=== PATIENT | female | born 1950 | race Hispanic/Latino ===

== ENCOUNTER 2018-11-03 10:40 | Observation (INO) | payer OTHER ==
[2018-11-03] MEDS ORDERED: ASPIRIN EC 81 MG TAB PO ONE (11:28)
[2018-11-03] MEDS ORDERED: PANTOPRAZOLE 40 MG INJ ONE (11:28)
[2018-11-03] MEDS ORDERED: ONDANSETRON 4 MG/2 ML VIAL ONE ×2 (11:28→12:31)
[2018-11-03] MEDS ORDERED: ENOXAPARIN 100 MG/ML SYR SQ ONE (11:28)
[2018-11-03] MEDS ORDERED: MORPHINE 2 MG/ML SYR ONE (11:28)
[2018-11-03 11:34] LABS: Urine Blood NEGATIVE (NEG); Urine Glucose NEGATIVE (NEG); Urine Protein NEGATIVE (NEG)
--- NOTE | 2018-11-03 11:41 | ER ---
Nurse's Notes [facility] Name: Eloisa Aparicio Age: 68 yrs Sex: Female : 1950 Arrival Date: 11/03/2018 Time: 10:43 Bed 13 Private MD: Diagnosis: Chest pain, unspecified;Essential (primary) hypertension Presentation: 11/03 10:45 Presenting complaint: Patient states: intermittent midsternal/epigastric chest pain, sv SOB, nausea x 2 weeks, RLE pain x 3 days ago and cold symptoms. Transition of care: patient was not received from another setting of care. Onset of symptoms was October 2018. Care prior to arrival: None. 10:45 Method Of Arrival: Ambulatory sv 10:45 Acuity: ÁNGEL 3 sv 11:00 Risk Assessment: Do you want to hurt yourself or someone else? Patient reports no jl7 desire to harm self or others. Initial Sepsis Screen: Does the patient meet any 2 criteria? No. Patient's initial sepsis screen is negative. Does the patient have a suspected source of infection? No. Patient's initial sepsis screen is negative. Triage Assessment: 10:47 General: Appears in no apparent distress. uncomfortable, Behavior is calm, cooperative, sv appropriate for age. Pain: Complains of pain in xyphoid area, mid-sternal area and epigastric area Pain currently is 2 out of 10 on a pain scale. Neuro: Level of Consciousness is awake, alert, obeys commands, Oriented to person, place, time, situation, Moves all extremities. Full function Gait is steady. Respiratory: Respiratory effort is even, unlabored, Respiratory pattern is regular, symmetrical. Historical: - Allergies: 10:46 No Known Allergies; sv - PMHx: 10:46 Hypertension; restless leg; sciatica; GERD; [place]; sv - PSHx: 10:46 Hysterectomy; Cholecystectomy; cardiac stent; sv - Immunization history:: Flu vaccine is up to date. - Social history:: Smoking status: Patient/guardian denies using tobacco. - Ebola Screening: : No symptoms or risks identified at this time. - Family history:: not pertinent. Screenin:33 Abuse screen: Denies threats or abuse. Denies injuries from another. Nutritional jl7 screening: No deficits noted. Tuberculosis screening: No symptoms or risk factors identified. Fall Risk IV access (20 points). Total Chou Fall Scale indicates No Risk (0-24 pts). Assessment: 11:33 General: Appears in no apparent distress. uncomfortable, Behavior is calm, cooperative, jl7 appropriate for age. Pain: Complains of pain in epigastric area and mid-sternal area Pain does not radiate. Pain currently is 2 out of 10 on a pain scale. Quality of pain is described as squeezing, Pain began 2-3 days ago. Is episodic. Neuro: Level of Consciousness is awake, alert, obeys commands, Oriented to person, place, time, situation. Cardiovascular: Heart tones S1 S2 present Patient's skin is warm and dry. Respiratory: Reports cough that is productive, Airway is patent Respiratory effort is even, unlabored, Respiratory pattern is regular, symmetrical, Breath sounds are clear bilaterally. GI: No signs and/or symptoms were reported involving the gastrointestinal system. : No signs and/or symptoms were reported regarding the genitourinary system. EENT: No signs and/or symptoms were reported regarding the EENT system. Derm: Skin is pink, warm \T\ dry. Musculoskeletal: No signs and/or symptoms reported regarding the musculoskeletal system. 12:15 Reassessment: Pt c/o increased chest pain, rated 10/10, Repeat EKG done and provider oanh7 notified, see MAR for orders. 13:00 Reassessment: Reports pain has decreased to a 8/10. Patient states symptoms have jl7 improved. 13:27 Reassessment: Dr. Vazquez at bedside discussing plan of care. jl7 Vital Signs: 10:46 BP 103 / 91; Pulse 66; Resp 16; Temp 98.2; Pulse Ox 100% ; Weight 90.72 kg; Height 5 sv ft. 0 in. (152.40 cm); Pain 2/10; 11:33 BP 126 / 73; Pulse 64; Resp 16 S; Pulse Ox 97% on R/A; Pain 2/10; jl7 12:15 BP 199 / 85; Pulse 63; Resp 16; Pulse Ox 98% ; Pain 10/10; jl7 13:27 BP 176 / 85; Pulse 64; Resp 18; Pulse Ox 96% ; Pain 8/10; jl7 10:46 Body Mass Index 39.06 (90.72 kg, 152.40 cm) sv ED Course: 10:43 Patient arrived in ED. tw3 10:46 Triage completed. sv 10:46 Arm band placed on. sv 10:48 José Miguel Vazquez MD is Attending Physician. louie 10:50 Brandie Maharaj RN is Primary Nurse. jl7 11:15 Initial lab(s) drawn, by me, sent to lab. Inserted saline lock: 20 gauge in right jl7 antecubital area, using aseptic technique. Blood collected. Patient maintains SpO2 saturation greater than 95% on room air. 11:32 Urine collected: clean catch specimen, clear. mh5 11:33 Patient has correct armband on for positive identification. Placed in gown. Bed in low mh5 position. Call light in reach. Side rails up X 1. Warm blanket given. gambling monitor on. Pulse ox on. NIBP on. 11:33 Urine Culture Sent. mh5 11:33 Urine Dipstick--Ancillary (enter results) Sent. 5 11:34 X-ray completed. Portable x-ray completed in exam room. Patient tolerated procedure ka well. 11:38 XRAY Chest (1 view) In Process Unspecified. EDMS 11:39 Brenda Jenkins MD is Hospitalizing Provider. louie 12:02 EKG done, by emg technician. reviewed by José Miguel Vazquez MD. vh 13:32 No provider procedures requiring assistance completed. Patient admitted, IV remains in jl7 place. intact, No redness/swelling at site. Administered Medications: 11:19 Drug: Aspirin 162 mg Route: PO; jl7 12:00 Follow up: Response: No adverse reaction jl7 11:20 Drug: ProTONIX 40 mg Route: IVP; Site: right antecubital; jl7 12:00 Follow up: Response: No adverse reaction jl7 11:24 Drug: Zofran 4 mg Route: IVP; Site: right antecubital; jl7 11:50 Follow up: Response: No adverse reaction jl7 11:28 Drug: morphine 2 mg Route: IVP; Site: right antecubital; jl7 13:07 Follow up: Response: No adverse reaction; Pain is decreased jl7 11:30 Drug: Lovenox 1 mg/kg Route: Sub-Q; Site: right upper abdomen; jl7 12:00 Follow up: Response: No adverse reaction jl7 12:25 Drug: Zofran 4 mg Route: IVP; Site: right antecubital; jl7 12:55 Follow up: Response: No adverse reaction jl7 12:28 Drug: morphine 4 mg Route: IVP; Site: right antecubital; jl7 12:55 Follow up: Response: No adverse reaction; Pain is decreased jl7 Outcome: 11:40 Decision to Hospitalize by Provider. louie 13:32 Admitted to Tele accompanied by tech, via wheelchair, room 404, with chart, Report jl7 called to JOVITA Oro 13:32 Condition: stable 13:32 Discharge instructions given to patient, Instructed on the need for admit, Demonstrated understanding of instructions. 14:02 Patient left the ED. jl7 Signatures: Dispatcher [employer] Mariaa Bruce, José Miguel Han RN, MD MD cha Harrell, Venessa vh Aguilera, Nohelia Langley [place] [id number] Brandie Maharaj RN RN jl7 Edgard, Rosa Elena tw3
--- NOTE | 2018-11-03 11:41 | EDPHYS ---
Physician Documentation [facility] Name: Eloisa Aparicio Age: 68 yrs Sex: Female : 1950 Arrival Date: 11/03/2018 Time: 10:43 Bed 13 Private MD: ED Physician José Miguel Vazquez HPI: 11/03 11:11 This 68 yrs old Female presents to ER via Ambulatory with complaints of Chest louie Pain, Flu Symptoms. 11:11 The patient or guardian reports chest pain that is located primarily in the substernal louie area, anterior chest wall. Onset: 2 day(s) ago. The pain radiates to Associated signs and symptoms: The patient has no apparent associated signs or symptoms. The chest pain is described as a heaviness, causing indigestion, a pressure. Duration: The patient or guardian reports a single episode, that is still ongoing. Severity of pain: At its worst the pain was moderate in the emergency department the pain has improved moderately. The patient has experienced similar episodes in the past, several times. Historical: - Allergies: 10:46 No Known Allergies; sv - PMHx: 10:46 Hypertension; restless leg; sciatica; GERD; [place]; sv - PSHx: 10:46 Hysterectomy; Cholecystectomy; cardiac stent; sv - Immunization history:: Flu vaccine is up to date. - Social history:: Smoking status: Patient/guardian denies using tobacco. - Ebola Screening: : No symptoms or risks identified at this time. - Family history:: not pertinent. ROS: 11:11 Constitutional: Negative for fever, chills, and weight loss, Eyes: Negative for injury, louie pain, redness, and discharge, ENT: Negative for injury, pain, and discharge, Neck: Negative for injury, pain, and swelling, Respiratory: Negative for shortness of breath, cough, wheezing, and pleuritic chest pain, Abdomen/GI: Negative for abdominal pain, nausea, vomiting, diarrhea, and constipation, Back: Negative for injury and pain, : Negative for injury, bleeding, discharge, and swelling, MS/Extremity: Negative for injury and deformity, Skin: Negative for injury, rash, and discoloration, Neuro: Negative for headache, weakness, numbness, tingling, and seizure, Psych: Negative for depression, anxiety, suicide ideation, homicidal ideation, and hallucinations, Allergy/Immunology: Negative for hives, rash, and allergies, Endocrine: Negative for neck swelling, polydipsia, polyuria, polyphagia, and marked weight changes, Hematologic/Lymphatic: Negative for swollen nodes, abnormal bleeding, and unusual bruising. 11:11 Cardiovascular: Positive for chest pain, of the chest. Exam: 11:11 Constitutional: This is a well developed, well nourished patient who is awake, alert, louie and in no acute distress. Head/Face: Normocephalic, atraumatic. Eyes: Pupils equal round and reactive to light, extra-ocular motions intact. Lids and lashes normal. Conjunctiva and sclera are non-icteric and not injected. Cornea within normal limits. Periorbital areas with no swelling, redness, or edema. ENT: Nares patent. No nasal discharge, no septal abnormalities noted. Tympanic membranes are normal and external auditory canals are clear. Oropharynx with no redness, swelling, or masses, exudates, or evidence of obstruction, uvula midline. Mucous membranes moist. Neck: Trachea midline, no thyromegaly or masses palpated, and no cervical lymphadenopathy. Supple, full range of motion without nuchal rigidity, or vertebral point tenderness. No Meningismus. Chest/axilla: Normal chest wall appearance and motion. Nontender with no deformity. No lesions are appreciated. Cardiovascular: Regular rate and rhythm with a normal S1 and S2. No gallops, murmurs, or rubs. Normal PMI, no JVD. No pulse deficits. Respiratory: Lungs have equal breath sounds bilaterally, clear to auscultation and percussion. No rales, rhonchi or wheezes noted. No increased work of breathing, no retractions or nasal flaring. Abdomen/GI: Soft, non-tender, with normal bowel sounds. No distension or tympany. No guarding or rebound. No evidence of tenderness throughout. Back: No spinal tenderness. No costovertebral tenderness. Full range of motion. Skin: Warm, dry with normal turgor. Normal color with no rashes, no lesions, and no evidence of cellulitis. MS/ Extremity: Pulses equal, no cyanosis. Neurovascular intact. Full, normal range of motion. Neuro: Awake and alert, GCS 15, oriented to person, place, time, and situation. Cranial nerves II-XII grossly intact. Motor strength 5/5 in all extremities. Sensory grossly intact. Cerebellar exam normal. Normal gait. Psych: Awake, alert, with orientation to person, place and time. Behavior, mood, and affect are within normal limits. 11:11 Musculoskeletal/extremity: DVT Exam: No signs of deep vein thrombosis. no pain, no swelling, no tenderness, negative Homans' sign noted on exam, no appreciated bluish discoloration, no erythema, no increased warmth. Vital Signs: 10:46 BP 103 / 91; Pulse 66; Resp 16; Temp 98.2; Pulse Ox 100% ; Weight 90.72 kg; Height 5 sv ft. 0 in. (152.40 cm); Pain 2/10; 11:33 BP 126 / 73; Pulse 64; Resp 16 S; Pulse Ox 97% on R/A; Pain 2/10; jl7 12:15 BP 199 / 85; Pulse 63; Resp 16; Pulse Ox 98% ; Pain 10/10; jl7 13:27 BP 176 / 85; Pulse 64; Resp 18; Pulse Ox 96% ; Pain 8/10; jl7 10:46 Body Mass Index 39.06 (90.72 kg, 152.40 cm) sv MDM: 10:48 Patient medically screened. [facility] 11:15 Data reviewed: vital signs, nurses notes, lab test result(s), EKG, radiologic studies, louie plain films. 11/03 11:10 Order name: Basic Metabolic Panel; Complete Time: 12:13 [facility] 11/03 11:10 Order name: CBC with Diff [facility] 11/03 11:10 Order name: LFT's; Complete Time: 12:13 [facility] 11/03 11:10 Order name: Magnesium; Complete Time: 12:13 [facility] 11/03 11:10 Order name: NT PRO-BNP; Complete Time: 12:13 [facility] 11/03 11:10 Order name: PT-INR; Complete Time: 12:13 [facility] 11/03 11:10 Order name: Troponin (emerg Dept Use Only); Complete Time: 12:13 [facility] 11/03 11:10 Order name: XRAY Chest (1 view); Complete Time: 12:13 [facility] 11/03 11:10 Order name: Lipase; Complete Time: 12:13 [facility] 11/03 11:10 Order name: Urine Culture [facility] 11/03 11:13 Order name: Urine Dipstick--Ancillary (enter results); Complete Time: 12:13 eb 11/03 11:50 Order name: CBC Smear Scan EDMS 11/03 10:49 Order name: EKG; Complete Time: 10:50 sv 11/03 10:49 Order name: EKG - Nurse/Tech; Complete Time: 11:17 sv 11/03 11:10 Order name: Cardiac monitoring; Complete Time: 11:17 louie 11/03 11:10 Order name: IV Saline Lock; Complete Time: 11:17 louie 11/03 11:10 Order name: Labs collected and sent; Complete Time: 11:17 louie 11/03 11:10 Order name: O2 Per Protocol; Complete Time: 11:17 louie 11/03 11:10 Order name: O2 Sat Monitoring; Complete Time: 11:17 louie 11/03 11:10 Order name: Urine Dipstick-Ancillary (obtain specimen); Complete Time: 11:18 louie Administered Medications: 11:19 Drug: Aspirin 162 mg Route: PO; jl7 12:00 Follow up: Response: No adverse reaction jl7 11:20 Drug: ProTONIX 40 mg Route: IVP; Site: right antecubital; jl7 12:00 Follow up: Response: No adverse reaction jl7 11:24 Drug: Zofran 4 mg Route: IVP; Site: right antecubital; jl7 11:50 Follow up: Response: No adverse reaction jl7 11:28 Drug: morphine 2 mg Route: IVP; Site: right antecubital; jl7 13:07 Follow up: Response: No adverse reaction; Pain is decreased jl7 11:30 Drug: Lovenox 1 mg/kg Route: Sub-Q; Site: right upper abdomen; jl7 12:00 Follow up: Response: No adverse reaction jl7 12:25 Drug: Zofran 4 mg Route: IVP; Site: right antecubital; jl7 12:55 Follow up: Response: No adverse reaction jl7 12:28 Drug: morphine 4 mg Route: IVP; Site: right antecubital; jl7 12:55 Follow up: Response: No adverse reaction; Pain is decreased jl7 Disposition: 11/03/18 11:40 Hospitalization ordered by Brenda Jenkins for Observation. Preliminary diagnosis are Chest pain, unspecified, Essential (primary) hypertension. - Bed requested for Telemetry/MedSurg (observation). - Status is Observation. jl7 - Condition is Stable. - Problem is new. - Symptoms have improved. UTI on Admission? No Signatures: Dispatcher [employer] Mariaa Bruce, José Miguel Han RN, MD MD cha Leal, Jahala, RN RN jl7 Wanda Brenner RN RN df Corrections: (The following items were deleted from the chart) 12: 11:40 Hospitalization Ordered by Brenda Jenkins MD for Observation. Preliminary df diagnosis is Chest pain, unspecified; Essential (primary) hypertension. Bed requested for Telemetry/MedSurg (observation). Status is Observation. Condition is Stable. Problem is new. Symptoms have improved. UTI on Admission? No. [facility] 14:02 12:27 11/03/2018 11:40 Hospitalization Ordered by Brenda Jenkins MD for Observation. jl7 Preliminary diagnosis is Chest pain, unspecified; Essential (primary) hypertension. Bed requested for Telemetry/MedSurg (observation). Status is Observation. Condition is Stable. Problem is new. Symptoms have improved. UTI on Admission? No. df
[2018-11-03 11:44] LABS: Protime INR 1.1
--- NOTE | 2018-11-03 11:45 | RAD REPORT ---
EXAM DESCRIPTION: [place] Single View11/03/2018 11:38 am CLINICAL HISTORY: Chest pain COMPARISON: August 2017 FINDINGS: The lungs appear clear of acute infiltrate. The heart is normal size IMPRESSION: No acute abnormalities displayed
[2018-11-03 11:47] LABS: Absolute Lymphocytes (CBC) 3.4 K/uL (0.7-4.9); Absolute Monocytes 0.6 K/uL (0.1-1.3); Absolute Neutrophil 3.7 K/uL (1.8-8.0); Basophils % 1.4 % (0-1.3); Eosinophils % 4.6 % (0-4.4); Hematocrit 39.9 % (36.0-45.0); Lymphocytes % 41.7 % (15.3-44.8); MCH 29.4 pg (27.0-35.0); MCV 85.7 fL (80-100); MPV 9.5 fL (7.6-11.3); Monocytes % 6.9 % (3.3-12.3); RBC Red Blood Cell Count 4.65 M/uL (3.86-4.86)
[2018-11-03 12:00] LABS: BUN Blood Urea Nitrogen 11 mg/dL (7-18); Bicarbonate 27 mmol/L (21-32); Glucose Level 91 mg/dL (74-106); Potassium 3.6 mmol/L (3.5-5.1); Sodium Level 141 mmol/L (136-145)
[2018-11-03 12:01] LABS: ALT/SGPT 22 U/L (12-78); AST/SGOT 16 U/L (15-37); Albumin 3.9 g/dL (3.4-5.0); Alkaline Phosphatase 115 U/L (45-117); Bilirubin Direct 0.1 mg/dL (0-0.2); Bilirubin Total 0.3 mg/dL (0.2-1.0); Lipase 125 U/L (73-393); Magnesium 2.1 mg/dL (1.8-2.4); NT PRO-BNP 62 pg/mL (<125); Troponin (Emerg Dept Use Only) < 0.02 ng/mL (0.0-0.045)
[2018-11-03] MEDS ORDERED: MORPHINE 4 MG/ML SYR ONE (12:30)
[2018-11-03 14:01] VITALS: BMI 36.1
[2018-11-03 14:17] LABS: Blood Morphology Comment NOT SEEN (NOT SEEN); Platelet Estimate ADEQ; Urine White Blood Cell Casts OK
[2018-11-03 14:26] VITALS: O2SAT 96
[2018-11-03] MEDS ORDERED: ONDANSETRON 4 MG/2 ML VIAL IV PRN (14:30)
[2018-11-03] MEDS ORDERED: POTASSIUM 25 MEQ EFFERV TAB PO ONE (16:00)
[2018-11-03] MEDS: ACETAMINOPHEN 500 MG TAB PO PRN (21:05)
--- NOTE | 2018-11-03 22:42 | EKG ---
Test Date: 2018-11-03 Test Time: 10:48:49 Heater Tender: CLARE MEASUREMENT RESULTS: Intervals: Rate: 63 NJ: 150 QRSD: 102 QT: 402 QTc: 411 [place]: P: 5 NJ: 150 QRS: -17 T: 109 INTERPRETIVE STATEMENTS: Normal sinus rhythm T wave abnormality, consider anterior ischemia Abnormal ECG Compared to ECG 09/02/2017 11:06:06 T-wave abnormality now present Possible ischemia now present Sinus bradycardia no longer present Electronically Signed On 11-03-18 22:42:03 WRECKER OPERATOR by Janusz Lazcano
[2018-11-04 06:43] LABS: Absolute Lymphocytes (CBC) 2.4 K/uL (0.7-4.9); Absolute Monocytes 0.5 K/uL (0.1-1.3); Absolute Neutrophil 2.1 K/uL (1.8-8.0); Basophils % 1.4 % (0-1.3); Eosinophils % 8.1 % (0-4.4); Hematocrit 38.7 % (36.0-45.0); Lymphocytes % 43.9 % (15.3-44.8); MCH 29.3 pg (27.0-35.0); MCV 86.3 fL (80-100); MPV 9.7 fL (7.6-11.3); Monocytes % 8.6 % (3.3-12.3); RBC Red Blood Cell Count 4.49 M/uL (3.86-4.86)
[2018-11-04 06:57] LABS: Albumin 3.5 g/dL (3.4-5.0); Bilirubin Total 0.5 mg/dL (0.2-1.0); Magnesium 2.2 mg/dL (1.8-2.4); Phosphorus 4.4 mg/dL (2.5-4.9); Potassium 3.7 mmol/L (3.5-5.1); Protein, Total 7.2 g/dL (6.4-8.2)
[2018-11-04] MEDS ORDERED: REGADENOSON 0.4 MG/5 ML SYR IV ONE (08:52)
[2018-11-04] MEDS ORDERED: ENOXAPARIN 40 MG/0.4 ML SQ SCH (09:00)
--- NOTE | 2018-11-04 10:22 | TREADPHA ---
DX: CHEST PAIN Date of Study: 11/04/2018 Ht: 5 0 Wt: 185 lb 0 oz Consulting Physician: KRISTINA MEDICATIONS: TYLENOL, LOVENOX, ZOFRAN HISTORY: 68 YEAR OLD FEMALE WITH COMPLAINTS OF CHEST PAIN. MEDICAL HISTORY OF HYPERTENSION, GERD, MYOCARDIAL INFARCTION, CARDIAC STENTS AND RESTLESS LEG SYNDROME. PHYSICIAL EXAMINATION: RESTING B.P.: 132/67 RESTING H.R.: 62 RESTING EKG: SINUS RHYTHM. NON SPECIFIC T ABNORMALITY, FLAT T WAVE. PROTOCOL: LEXISCAN EXERCISE TIME: 3:30 B.P. AT PEAK STRESS: 170/92 IMPRESSION: LEXISCAN INJECTED. CARDIOLITE INJECTED PER PROTOCOL. SEE NUCLEAR MEDICINE REPORT. NO SUPRAVENTRICULAR OR VENTRICULAR TACHYCARDIA. DENIED ANY CHEST PAIN. ONE PREMATURE VENTRICULAR COMPLEX NOTED DURING STRESS. NON DIAGNOSTIC EKG WITH LEXISCAN STRESS.
--- NOTE | 2018-11-04 10:41 | RAD REPORT ---
EXAM DESCRIPTION: NM - Rest Stress Cardiac Imaging - 11/04/2018 10:21 am CLINICAL HISTORY: Chest pain COMPARISON: May 2013 TECHNIQUE: The patient was administered approximately 10 mCi of Tc 99m Sestamibi prior to resting SP ECT imaging of the heart. The patient was then administered approximately 30 mCi of Tc 99m Sestamibi following exercise or pharmacologic stress. Multiplanar SPECT images were reviewed. FINDINGS: The end diastolic volume is 80 ml, the end systolic volume is 25 ml, and the ejection frac tion is 69 %. Volumes and ejection fraction are not substantially different from 2013. No stress-induced ischemic changes identifiable. Minimal diminished activity along the anterior wall apex does not change between rest and stress imaging. This is favored to be breast attenuation artifa ct rather than scarring. Pattern is not substantially different from 2013. IMPRESSION: No stress-induced ischemia. Minimal attenuation artifact anterior wall near the apex. Ventricular volumes and ejection fraction are normal range and not substantially different from 2013.
--- NOTE | 2018-11-04 11:16 | ECHO ---
HEIGHT: 5 ft 0 in WEIGHT: 185 lb 0 oz DATE OF STUDY: 11/04/[address]: 2-DIMENSIONAL: YES M.MODE: YES DOPPLER: YES COLOR FLOW: YES TDS: NO PORTABLE: NO DEFINITY: NO BUBBLE STUDY: NO DIAGNOSIS: CHEST PAIN CARDIAC HISTORY: CATHERIZATION: YES SURGERY: NO PROSTHETIC VALVE: NO PACEMAKER: NO MEASUREMENTS (cm) DIASTOLIC (NORMALS) SYSTOLIC (NORMALS) IVSd 1.3 (0.6-1.2) LA Diam 3.3 (1.9-4.0) LVEF 52% LVIDd 3.4 (3.5-5.7) LVIDs 2.5 (2.0-3.5) %FS 26% LVPWd 1.2 (0.6-1.2) Ao Diam 2.4 (2.0-3.7) 2 DIMENSIONAL ASSESSMENT: RIGHT ATRIUM: NORMAL LEFT ATRIUM: NORMAL RIGHT VENTRICLE: NORMAL LEFT VENTRICLE: LEFT VENTRICULAR HYPERTROPHY TRICUSPID VALVE: NORMAL MITRAL VALVE: MITRAL ANNULAR CALCIFICATION PULMONIC VALVE: NORMAL AORTIC VALVE: SCLEROSIS PERICARDIAL EFFUSION: NONE AORTIC ROOT: NORMAL LEFT VENTRICULAR WALL MOTION: NORMAL DOPPLER/COLOR FLOW: MILD AORTIC REGURGITATION, NO AORTIC STENOSIS. IMPAIRED LEFT VENTRICULAR RELAXATION. PHYSIOLOGICAL TRICUSPID REGURGITATION. NORMAL RIGHT VENTRICULAR SYSTOLIC PRESSURE. COMMENTS: NORMAL LEFT VENTRICULAR EJECTION FRACTION. LEFT VENTRICULAR HYPERTROPHY. MITRAL ANNULAR CALCIFICATION. AORTIC SCLEROSIS WITH NO AORTIC STENOSIS. MILD AORTIC REGURGITATION. IMPAIRED LEFT VENTRICULAR RELAXATION. TECHNOLOGIST: DIA MERLOS RD
[2018-11-04] MEDS: ACETAMINOPHEN 500 MG TAB PO PRN (11:38)
[2018-11-04 11:58] VITALS: BP 112/58; TEMP 98.4
--- NOTE | 2018-11-04 16:40 | P.SSS ---
Patient History Date of Service: 11/04/18 History of Present Illness: Patient 68-year-old female with significant past medical history presented to the ED he needed having some left-sided chest pain that has been getting progressively worse and thus patient decided to come to the ER. Patient was admitted to the hospital for ACS rule out. Initial troponin x2 were negative. Medicine team was consulted to get echocardiogram done and stress test while here in the hospital. Allergies No Known Allergies Allergy (Verified 09/10/12 13:59) Home Medications: Gabapentin 300 mg PO TID 11/03/18 Meloxicam 15 mg PO DAILY PRN 11/03/18 Metoprolol Tartrate 50 mg PO DAILY 11/03/18 Omeprazole [Prilosec] 40 mg PO DAILY 11/03/18 Ondansetron [Zofran] 4 mg PO Q12H PRN 11/03/18 Ranitidine HCl [Zantac] 300 mg PO DAILY 11/03/18 Sertraline HCl 25 mg PO DAILY 11/03/18 Tizanidine HCl 1 cap PO BID 11/03/18 - Past Medical/Surgical History Has patient received pneumonia vaccine in the past: Yes Diabetic: No -: HTN -: Restless Leg -: Sciatica -: GERD, -: HYSTERECTOMY -: Cholecystectomy -: Cardiac Stent - Family History Father History Unknown: Yes Mother -: Liver disease, Other (see notes) Notes: Alcoholic - Social History Smoking Status: Never smoker Alcohol use: No CD- Drugs: No Caffeine use: Yes Place of Residence: Home Review of Systems 10-point ROS is otherwise unremarkable Physical Examination - Vital Signs Temperature: 98.4 F Blood Pressure: 112/58 Pulse: 65 Respirations: 20 Pulse Ox (%): 97 - Physical Exam General: Alert, In no apparent distress HEENT: Atraumatic, PERRLA, Mucous membr. moist/pink, EOMI, Sclerae nonicteric Neck: Supple, 2+ carotid pulse no bruit, No LAD, Without JVD or thyroid abnormality Respiratory: Clear to auscultation bilaterally, Normal air movement Cardiovascular: Regular rate/rhythm, Normal S1 S2 Gastrointestinal: Normal bowel sounds, No tenderness Musculoskeletal: No tenderness Integumentary: No rashes Neurological: Normal gait, Normal speech, Normal strength at 5/5 x4 extr, Normal tone, Normal affect Lymphatics: No axilla or inguinal lymphadenopathy - Diagnosis (Problem(s)) (1) Chest pain Status: Active (2) Hypertension, essential Status: Acute Treatment Summary: Overall during the hospital stay patient remained stable Patient was initially admitted to the hospital for sedate atypical chest pain. Most likely secondary to heartburn as patient does have a history of GERD in the past. Patient however had echocardiogram done here in the hospital along with stress test to rule out ACS. Echo and stress test here in the hospital were both within normal limits with no acute ischemic changes noted. Patient then was discharged home under was asked to continue following up with her GI doctor for further treatment of her GERD. Patient demonstrated understanding and thus was discharged home under stable condition. - Disposition Disposition: ROUTINE DISCHARGE Condition: GOOD Diet: Regular Activity: Ad hever
== END 2018-11-04 14:51 | disposition home or self-care (01) ==
LOC: ER 10:40 → ERHOLD 13:12 → 4TH 13:34
PROVIDERS: ADMIT Family Medicine; ATTEND Family Medicine
DX: R07.9 Chest pain, unspecified (principal); I10 Essential (primary) hypertension; G25.81 Restless legs syndrome; K21.9 Gastro-esophageal reflux disease without esophagitis; Z95.5 Presence of coronary angioplasty implant and graft
CPT/HCPCS: 36415; 71045; 78452; 80048; 80053; 80076; 81003; 83690; 83735 ×2; 83880; 84100; 84484 ×4; 85025 ×2; 85610; 87086; 87088; 93005; 93017; 93306; 96372; 96374; 96375; 99285; A9500; C9113; G0378 ×2; J1650 ×2; J2270; J2405 ×2; J2785

== ENCOUNTER 2019-03-29 11:45 | Observation (INO) | payer OTHER ==
[2019-03-29 12:30] LABS: Absolute Lymphocytes (CBC) 2.3 K/uL (0.7-4.9); Absolute Monocytes 1.2 K/uL (0.1-1.3); Absolute Neutrophil 13.6 K/uL (1.8-8.0); Basophils % 0.7 % (0-1.3); Eosinophils % 0.1 % (0-4.4); Hematocrit 45.8 % (36.0-45.0); Lymphocytes % 13.6 % (15.3-44.8); MPV 9.3 fL (7.6-11.3); Monocytes % 6.8 % (3.3-12.3); RBC Red Blood Cell Count 5.32 M/uL (3.86-4.86)
[2019-03-29] MEDS ORDERED: ONDANSETRON 4 MG/2 ML VIAL ONE ×2 (12:36→15:27)
[2019-03-29 12:44] LABS: Albumin 3.8 g/dL (3.4-5.0); Bilirubin Direct 0.2 mg/dL (0-0.2); Bilirubin Total 0.6 mg/dL (0.2-1.0); Potassium 3.3 mmol/L (3.5-5.1)
--- NOTE | 2019-03-29 13:38 | RAD REPORT ---
EXAM DESCRIPTION: CTAbdomen Pelvis W Contrast - 03/29/2019 1:24 pm CLINICAL HISTORY: Abdominal pain. ABD PAIN COMPARISON: No comparisons TECHNIQUE: Biphasic CT imaging of the abdomen and pelvis was performed with 100 ml non-ionic IV cont rast. All CT scans are performed using dose optimization technique as appropriate and may include automated exposure control or mA/KV adjustment according to patient size. FINDINGS: The lung bases are clear.A small hiatal hernia is present. Mild fatty liver is present. Cholecystectomy clips. The spleen, pancreas, adrenal glands and kidneys are within normal limits. No bowel obstruction, free air, free fluid or abscess. Moderate wall thickening and inflammatory cruz ges involve the entire colon, most significant in the splenic flexure. The appendix is normal. No ev idence of significant lymphadenopathy. No suspicious bony findings. IMPRESSION: Moderate pancolitis is identified.
--- NOTE | 2019-03-29 14:18 | EDPHYS ---
Physician Documentation [facility] Name: Eloisa Aparicio Age: 68 yrs Sex: Female : 1950 Arrival Date: 03/29/2019 Time: 11:50 Bed 13 Private MD: ED Physician Jerzy Coelho HPI: 03/29 12:40 This 68 yrs old Female presents to ER via EMS with complaints of abdominal rn pain. 12:40 The patient presents with abdominal pain that is diffuse. Onset: The symptoms/episode rn began/occurred yesterday. The symptoms do not radiate. Associated signs and symptoms: Pertinent positives: nausea and vomiting, blood in stools, Pertinent negatives: fever. The symptoms are described as crampy. Modifying factors: The symptoms are alleviated by nothing, the symptoms are aggravated by touching the area. Severity of pain: At its worst the pain was moderate in the emergency department the pain has improved. The patient has not experienced similar symptoms in the past. The patient has not recently seen a physician. 12:40 Abd pain that began yesterday, reports bright red blood and mucous in stool. Reports rn generalized weakness and fatigue. S/p abx 2 weeks ago for respiratory infection.. Historical: - Allergies: 12:03 No Known Allergies; ph - Home Meds: 12:02 omeprazole 40 mg Oral cpDR 1 cap once daily [Active]; gabapentin 300 mg oral cap 1 cap ph 3 times per day [Active]; ondansetron HCl 4 mg Oral tab 1 tabs every 12 hours [Active]; sertraline 25 mg oral tab 1 tab once daily [Active]; metoprolol succinate 50 mg oral Tb24 1 tab once daily [Active]; aspirin 81 mg Oral TbEC 1 tab once daily [Active]; - PMHx: 12:02 GERD; Hypertension; NE; restless leg; sciatica; ph - PSHx: 12:02 Hysterectomy; Cholecystectomy; cardiac stent; ph - Immunization history:: Adult Immunizations unknown. - Social history:: Smoking status: Patient/guardian denies using tobacco. - Ebola Screening: : No symptoms or risks identified at this time. - Family history:: not pertinent. - Hospitalizations: : No recent hospitalization is reported. ROS: 12:40 Constitutional: Negative for fever, chills, and weight loss, Eyes: Negative for injury, rn pain, redness, and discharge, Neck: Negative for injury, pain, and swelling, Cardiovascular: Negative for chest pain, palpitations, and edema, Respiratory: Negative for shortness of breath, cough, wheezing, and pleuritic chest pain, Abdomen/GI: + abd pain/nausea/vomiting MS/Extremity: Negative for injury and deformity, Skin: Negative for injury, rash, and discoloration, Neuro: + generalized weakness Exam: 12:40 Constitutional: This is a well developed, well nourished patient who is awake, alert, rn and in no acute distress. Head/Face: Normocephalic, atraumatic. ENT: dry MM Neck: Trachea midline, no thyromegaly or masses palpated, and no cervical lymphadenopathy. Supple, full range of motion without nuchal rigidity, or vertebral point tenderness. No Meningismus. Cardiovascular: Tachycardic, regular, no murmur Respiratory: Lungs have equal breath sounds bilaterally, clear to auscultation Abdomen/GI: soft, mild tenderness LLQ/LUQ/epigastric region, no peritoneal signs. MS/ Extremity: Pulses equal, no cyanosis. Neurovascular intact. Full, normal range of motion. Equal circumference. Neuro: Awake and alert, GCS 15, oriented to person, place, time, and situation. Cranial nerves II-XII grossly intact. Motor strength 5/5 in all extremities. Sensory grossly intact. Cerebellar exam normal. Vital Signs: 11:57 BP 149 / 102; Pulse 105; Resp 18; Temp 98.2(TE); Pulse Ox 98% on R/A; ph 13:00 BP 136 / 85; Pulse 111; Resp 18; Pulse Ox 98% on R/A; ph 14:00 BP 150 / 86; Pulse 110; Resp 20; Pulse Ox 99% on R/A; ph 14:45 BP 154 / 84; Pulse 104; Resp 18; Temp 98.6; ph MDM: 11:51 Patient medically screened. rn 14:16 Differential diagnosis: appendicitis, non-specific abd pain, Ureterolithiasis, urinary rn tract infection, diverticulitis, colitis. Data reviewed: vital signs, nurses notes, lab test result(s), radiologic studies, CT scan, and as a result, I will admit patient. Counseling: I had a detailed discussion with the patient and/or guardian regarding: the historical points, exam findings, and any diagnostic results supporting the discharge/admit diagnosis, lab results, radiology results, the need for further work-up and treatment in the hospital. Response to treatment: the patient's symptoms have mildly improved after treatment, and as a result, I will admit patient. Admission orders: after a detailed discussion of the patient's condition and case, the admit orders are written by me. 03/29 11:51 Order name: Basic Metabolic Panel; Complete Time: 13:42 rn 03/29 11:51 Order name: CBC with Diff; Complete Time: 12:39 rn 03/29 11:51 Order name: Hepatic Function; Complete Time: 13:42 rn 03/29 11:51 Order name: Lipase; Complete Time: 13:42 rn 03/29 11:51 Order name: Type And Screen; Complete Time: 13:42 rn 03/29 14:18 Order name: CDIFF rn 03/29 11:51 Order name: CT Abd/Pelvis - W/Contrast; Complete Time: 13:42 rn 03/29 14:18 Order name: Stool Culture rn 03/29 11:51 Order name: IV Saline Lock; Complete Time: 12:06 rn 03/29 11:51 Order name: Labs collected and sent; Complete Time: 12:33 rn Administered Medications: 12:34 Drug: NS 0.9% 1000 ml Route: IV; Rate: 1000 ml; Site: right forearm; ph 17:06 Follow up: Response: No adverse reaction; IV Status: Completed infusion; IV Intake: ph 1000ml 12:35 Drug: Zofran 4 mg Route: IVP; Site: right forearm; ph 13:30 Follow up: Response: No adverse reaction; Nausea is decreased ph 14:28 Drug: Rocephin - (cefTRIAXone) 1 grams Route: IVPB; Infused Over: 30 mins; Site: right ph forearm; 15:00 Follow up: Response: No adverse reaction; IV Status: Completed infusion ph 15:33 Drug: Zofran 4 mg Route: IVP; Site: right forearm; ph 17:08 Follow up: Response: No adverse reaction ph 15:35 Drug: Flagyl 500 mg Volume: 100 ml; Route: IVPB; Rate: 200 ml/hr; Infused Over: 30 ph mins; Site: right forearm; 16:10 Follow up: Response: No adverse reaction; IV Status: Completed infusion ph 15:35 Drug: Demerol - Meperidine 12.5 mg Route: IVP; Site: right forearm; ph 16:00 Follow up: Response: No adverse reaction; Pain is decreased ph Disposition: 03/29/19 14:18 Hospitalization ordered by Ab Nicholson for Inpatient Admission. Preliminary diagnosis are Dehydration, Pancolitis. - Bed requested for Telemetry/MedSurg (Inpatient). - Status is Inpatient Admission. ph - Condition is Stable. - Problem is new. - Symptoms have improved. UTI on Admission? No Signatures: Dispatcher [employer] EDHeidi Almonte RN RN dw Jerzy Coelho MD MD rn Hall, Patricia, RN RN ph Corrections: (The following items were deleted from the chart) 15:37 14:18 Hospitalization Ordered by Ab Nicholson DO for Inpatient Admission. Preliminary dw diagnosis is Dehydration; Pancolitis. Bed requested for Telemetry/MedSurg (Inpatient). Status is Inpatient Admission. Condition is Stable. Problem is new. Symptoms have improved. UTI on Admission? No. rn 17:23 15:37 03/29/2019 14:18 Hospitalization Ordered by Ab Nicholson DO for Inpatient ph Admission. Preliminary diagnosis is Dehydration; Pancolitis. Bed requested for Telemetry/MedSurg (Inpatient). Status is Inpatient Admission. Condition is Stable. Problem is new. Symptoms have improved. UTI on Admission? No. dw
--- NOTE | 2019-03-29 14:18 | ER ---
Nurse's Notes [facility] Name: Eloisa Aparicio Age: 68 yrs Sex: Female : 1950 Arrival Date: 03/29/2019 Time: 11:50 Bed 13 Private MD: Diagnosis: Dehydration;Pancolitis Presentation: 03/29 11:54 Presenting complaint: EMS states: Reports nausea x 1 week, began vomiting yesterday and ph having abdominal cramping, this morning reports bright red blood in toilet w/ diarrhea and dizziness, BP 152/90, HR 112, BGL 174, Zofran 4mg given IVP at 1130, 200 mL NS also given. Transition of care: patient was not received from another setting of care. Onset of symptoms was March 29, 2019. Risk Assessment: Do you want to hurt yourself or someone else? Patient reports no desire to harm self or others. Initial Sepsis Screen: Does the patient meet any 2 criteria? No. Patient's initial sepsis screen is negative. Does the patient have a suspected source of infection? No. Patient's initial sepsis screen is negative. Care prior to arrival: Medication(s) given: Normal saline infusion, 200 mL zofran 4 mg, IV initiated. 20 GA, in the right forearm, Glucose check: 174. 11:54 Method Of Arrival: EMS: [facility] 11:54 Acuity: ÁNGEL 3 ph Historical: - Allergies: 12:03 No Known Allergies; ph - Home Meds: 12:02 omeprazole 40 mg Oral cpDR 1 cap once daily [Active]; gabapentin 300 mg oral cap 1 cap ph 3 times per day [Active]; ondansetron HCl 4 mg Oral tab 1 tabs every 12 hours [Active]; sertraline 25 mg oral tab 1 tab once daily [Active]; metoprolol succinate 50 mg oral Tb24 1 tab once daily [Active]; aspirin 81 mg Oral TbEC 1 tab once daily [Active]; - PMHx: 12:02 GERD; Hypertension; PA; restless leg; sciatica; ph - PSHx: 12:02 Hysterectomy; Cholecystectomy; cardiac stent; ph - Immunization history:: Adult Immunizations unknown. - Social history:: Smoking status: Patient/guardian denies using tobacco. - Ebola Screening: : No symptoms or risks identified at this time. - Family history:: not pertinent. - Hospitalizations: : No recent hospitalization is reported. Screenin:03 Abuse screen: Denies threats or abuse. Denies injuries from another. Nutritional ph screening: No deficits noted. Tuberculosis screening: No symptoms or risk factors identified. Fall Risk None identified. Assessment: 12:04 General: Appears in no apparent distress. comfortable, well groomed, Behavior is calm, ph cooperative, appropriate for age, Denies fever. Pain: Complains of pain in left upper quadrant, right lower quadrant and left lower quadrant. Neuro: Level of Consciousness is awake, alert, obeys commands, Oriented to person, place, time, situation, Moves all extremities. Full function Speech is normal, Facial symmetry appears normal, Reports dizziness, since yesterday. Cardiovascular: Reports lightheadedness, nausea, vomiting, Denies chest pain, diaphoresis, shortness of breath, syncope, Capillary refill < 3 seconds in bilateral fingers. Respiratory: Airway is patent Respiratory effort is even, unlabored, Respiratory pattern is regular, symmetrical. GI: Abdomen is round non-distended, Bowel sounds present X 4 quads. Abd is soft X 4 quads Abdomen is tender to palpation in left upper quadrant and left lower quadrant Reports lower abdominal pain, upper abdominal pain, cramping, diarrhea, bloody stool, nausea, vomiting. Derm: Skin is intact, Skin is pink, warm \T\ dry. Musculoskeletal: Circulation, motion, and sensation intact. Range of motion: intact in all extremities. 13:00 Reassessment: Patient appears in no apparent distress at this time. Patient and/or ph family updated on plan of care and expected duration. Pain level reassessed. Patient is alert, oriented x 3, equal unlabored respirations, skin warm/dry/pink. 14:30 Reassessment: Patient appears in no apparent distress at this time. Patient and/or ph family updated on plan of care and expected duration. Pain level reassessed. Patient is alert, oriented x 3, equal unlabored respirations, skin warm/dry/pink. 15:36 Reassessment: Patient appears in no apparent distress at this time. Patient and/or ph family updated on plan of care and expected duration. Pain level reassessed. Patient is alert, oriented x 3, equal unlabored respirations, skin warm/dry/pink. Pt ambulated to restroom w/ steady gait, stool sample collected. 17:00 Reassessment: Patient appears in no apparent distress at this time. Patient and/or ph family updated on plan of care and expected duration. Pain level reassessed. Patient is alert, oriented x 3, equal unlabored respirations, skin warm/dry/pink. Report given to JOVITA Dickey on 2nd floor. Vital Signs: 11:57 BP 149 / 102; Pulse 105; Resp 18; Temp 98.2(TE); Pulse Ox 98% on R/A; ph 13:00 BP 136 / 85; Pulse 111; Resp 18; Pulse Ox 98% on R/A; ph 14:00 BP 150 / 86; Pulse 110; Resp 20; Pulse Ox 99% on R/A; ph 14:45 BP 154 / 84; Pulse 104; Resp 18; Temp 98.6; ph Vitals: 14:00 Cardiac Rhythm Assessment Sinus tach. ph ED Course: 11:50 Patient arrived in ED. rn 11:50 Jerzy Coelho MD is Attending Physician. rn 11:54 Fabiola Lubin RN is Primary Nurse. ph 11:57 Triage completed. ph 11:58 Arm band placed on right wrist. Patient placed in an exam room, on a stretcher, on ph classroom monitor, on pulse oximetry. 12:03 Patient has correct armband on for positive identification. Bed in low position. Call ph light in reach. Side rails up X 1. residential monitor on. Pulse ox on. NIBP on. Warm blanket given. 13:23 CT completed. Patient tolerated procedure well. Patient moved to CT via wheelchair. sj Patient moved back from CT. 13:24 CT Abd/Pelvis - W/Contrast In Process Unspecified. EDMS 13:30 Maintain EMS IV. Dressing intact. Good blood return noted. Site clean \T\ dry. Gauge \T\ ph site: 20 RFA. 14:17 Ab Nicholson DO is Hospitalizing Provider. rn 16:59 No provider procedures requiring assistance completed. ph 17:01 Patient admitted, IV remains in place. ph Administered Medications: 12:34 Drug: NS 0.9% 1000 ml Route: IV; Rate: 1000 ml; Site: right forearm; ph 17:06 Follow up: Response: No adverse reaction; IV Status: Completed infusion; IV Intake: ph 1000ml 12:35 Drug: Zofran 4 mg Route: IVP; Site: right forearm; ph 13:30 Follow up: Response: No adverse reaction; Nausea is decreased ph 14:28 Drug: Rocephin - (cefTRIAXone) 1 grams Route: IVPB; Infused Over: 30 mins; Site: right ph forearm; 15:00 Follow up: Response: No adverse reaction; IV Status: Completed infusion ph 15:33 Drug: Zofran 4 mg Route: IVP; Site: right forearm; ph 17:08 Follow up: Response: No adverse reaction ph 15:35 Drug: Flagyl 500 mg Volume: 100 ml; Route: IVPB; Rate: 200 ml/hr; Infused Over: 30 ph mins; Site: right forearm; 16:10 Follow up: Response: No adverse reaction; IV Status: Completed infusion ph 15:35 Drug: Demerol - Meperidine 12.5 mg Route: IVP; Site: right forearm; ph 16:00 Follow up: Response: No adverse reaction; Pain is decreased ph Intake: 17:06 IV: 1000ml; Total: 1000ml. ph Outcome: 14:18 Decision to Hospitalize by Provider. rn 17:05 Admitted to Tele accompanied by tech, family with patient, via wheelchair, room 205, with chart, Report called to Noble HUSSEIN 17:05 Condition: stable 17:05 Instructed on the need for admit. 17:23 Patient left the ED. ph Signatures: Dispatcher [employer] Pavithra Murphy Roman, MD MD rn EntiatFabiola RN RN
[2019-03-29] MEDS ORDERED: CEFTRIAXONE/SWI 1gm 1 GM/10 ML SYR ONE (14:38)
[2019-03-29] MEDS ORDERED: METRONIDAZOLE 500mg IVPB 500 MG/100 ML BAG IV ONE (14:38)
--- NOTE | 2019-03-29 14:49 | P.HP ---
Certification for Inpatient Patient admitted to: Inpatient With expected LOS: >2 Midnights Patient will require the following post-hospital care: None Practitioner: I am a practitioner with admitting privileges, knowledge of patient current condition, hospital course, and medical plan of care. Services: Services provided to patient in accordance with Admission requirements found in Title 42 Section 412.3 of the Code of Federal Regulations Patient History Date of Service: 03/29/19 Primary Care Provider: Dr. Davidson Reason for admission: Abdominal pain History of Present Illness: 68-year-old female presented to the emergency room with abdominal pain. Patient reports abdominal pain over the last day. Pain is diffuse. It is associated with some nausea, vomiting and mild diarrhea. Patient had watery diarrhea this morning. There was some mild specks of blood. Patient reports having an upper respiratory infection about 2 weeks ago. At that time she was given steroid injection and antibiotics. Patient also reports having a colonoscopy about 1-3 months ago. Patient came to the ER for further evaluation. In the ER patient evaluated. White count elevated at 17.2. Hemoglobin 15. Sodium 142, potassium 3.3. GFR of 80. Glucose 129. CT scan revealed mild fatty liver and moderate pancolitis. Patient was given IV antibiotic therapy in the emergency room along with pain medication. Patient was admitted for further treatment. When I saw the patient ER, pain was better controlled. Patient appears slightly dehydrated. Patient does not appear septic. Allergies No Known Allergies Allergy (Verified 09/10/12 13:59) Home medications list reviewed: Yes Home Medications: Gabapentin 300 mg PO TID 11/03/18 Meloxicam 15 mg PO DAILY PRN 11/03/18 Metoprolol Tartrate 50 mg PO DAILY 11/03/18 Omeprazole [Prilosec] 40 mg PO DAILY 11/03/18 Ondansetron [Zofran] 4 mg PO Q12H PRN 11/03/18 Ranitidine HCl [Zantac] 300 mg PO DAILY 11/03/18 Sertraline HCl 25 mg PO DAILY 11/03/18 Tizanidine HCl 1 cap PO BID 11/03/18 - Past Medical/Surgical History Diabetic: No -: HTN -: Osteoarthritis -: Restless leg syndrome -: GERD -: CAD with prior stent -: Hysterectomy -: Cholecystectomy -: Cardiac Stent Psychosocial/ Personal History: Patient is of 54 years - Family History Family History: Reviewed- Non-Contributory - Family History Mother -: Liver disease, Other (see notes) Notes: Alcoholic - Social History Smoking Status: Never smoker Alcohol use: No CD- Drugs: No Caffeine use: Yes Place of Residence: Home Review of Systems General: Weakness, As per HPI Eyes: Unremarkable ENT: Unremarkable Respiratory: Unremarkable Cardiovascular: Unremarkable Gastrointestinal: Nausea, Vomiting, Abdominal Pain, Diarrhea, As per HPI Genitourinary: Unremarkable Musculoskeletal: Unremarkable Integumentary: Unremarkable Neurological: Unremarkable Lymphatics: Unremarkable Physical Examination - Physical Exam General: Alert, In no apparent distress, Oriented x3, Cooperative HEENT: Atraumatic, Normocephalic, PERRLA, Other (Dry mucous membranes), EOMI Neck: Supple, No Thyromegaly Respiratory: Clear to auscultation bilaterally, Normal air movement Cardiovascular: Normal pulses, Regular rate/rhythm Gastrointestinal: Hypoactive, Soft and benign, Non-distended, No masses, No rebound, No guarding, Tenderness (Mild tenderness to the abdomen) Integumentary: No tenderness/swelling, No erythema, No warmth, No cyanosis Neurological: Normal speech, Normal strength at 5/5 x4 extr, Normal tone, Normal affect - Studies Laboratory Data (last 24 hrs) 03/29/19 12:20: WBC 17.2 H, Hgb 15.3 H, Hct 45.8 H, Plt Count 327 03/29/19 12:20: Sodium 142, Potassium 3.3 L, BUN 10, Creatinine 0.72, Glucose 129 H, Total Bilirubin 0.6, AST 11 L, ALT 14, Alkaline Phosphatase 121 H, Lipase 70 L Assessment and Plan - Plan Impression: Abdominal pain, nausea and vomiting with diarrhea secondary to moderate pancolitis Mild dehydration with hypokalemia Hypertension GERD CAD Plan: Abdominal pain, nausea and vomiting with diarrhea secondary to moderate pancolitis: Patient will be admitted for IV fluid hydration and antibiotic therapy. Will obtain stool culture to evaluate for C diff colitis as patient had recent antibiotic use. Will start with a clear liquid diet and advance as tolerated. Continue to monitor closely. Will adjust medication appropriately. Anticipate discharge in the next 48-72 hr. Mild dehydration with hypokalemia: Continue with IV fluids. Will monitor and adjust appropriately Hypertension: Restart home medication of metoprolol XL 50 mg daily. Will monitor and adjust appropriately. GERD: Continue with Pepcid twice daily. Discharge Plan: Home Plan to discharge in: 72 Hours - Advance Directives Does patient have a Living Will: No Does patient have a Durable POA for Healthcare: No - Code Status/Comfort Care Code Status Assessed: Yes (Patient full code.) Time Spent Managing Pts Care (In Minutes): 55
[2019-03-29] MEDS ORDERED: MEPERIDINE HCL 25 MG/0.5 ML ONE (15:27)
[2019-03-29] MEDS ORDERED: MORPHINE 2 MG/ML SYR IV PRN (17:10)
[2019-03-29] MEDS ORDERED: ACETAMINOPHEN 500 MG TAB PO PRN (17:10)
[2019-03-29] MEDS ORDERED: TRAMADOL HCL 50 MG TAB PO PRN (17:10)
[2019-03-29] MEDS: NA CHLORIDE 0.9% 1,000 ML IV SCH (17:28)
[2019-03-29 17:35] VITALS: BMI 36.1
[2019-03-29] MEDS: ENOXAPARIN 40 MG/0.4 ML SQ SCH (17:51)
[2019-03-29] MEDS: METRONIDAZOLE 500mg IVPB 500 MG/100 ML BAG IV SCH (17:51)
[2019-03-29] MEDS: ONDANSETRON 4 MG/2 ML VIAL IV PRN (18:24)
[2019-03-29] MEDS: HYDROCODONE/APAP 7.5/325 MG TAB PO PRN (20:55)
[2019-03-29] MEDS: LACTOBACILLUS/ACIDOPHILUS TAB PO SCH (20:56)
[2019-03-29] MEDS: GABAPENTIN 300 MG CAP PO SCH (20:57)
[2019-03-29] MEDS: FAMOTIDINE 20 MG TAB PO SCH (20:57)
[2019-03-29] MEDS: CIPROFLOXACIN 400mg IV 400 MG/200 ML BAG IV SCH (20:58)
[2019-03-29] MEDS ORDERED: POTASSIUM CL SA 10 MEQ TAB PO ONE (21:00)
[2019-03-30] MEDS: METRONIDAZOLE 500mg IVPB 500 MG/100 ML BAG IV SCH ×3 (00:16→16:41)
[2019-03-30] MEDS: NA CHLORIDE 0.9% 1,000 ML IV SCH ×5 (03:10→22:06)
[2019-03-30] MEDS: METOPROLOL XL 50 MG TAB PO SCH (05:39)
[2019-03-30 05:48] LABS: Absolute Lymphocytes (CBC) 2.8 K/uL (0.7-4.9); Absolute Neutrophil 11.2 K/uL (1.8-8.0); Basophils % 0.4 % (0-1.3); Eosinophils % 0.3 % (0-4.4); Lymphocytes % 18.7 % (15.3-44.8); MPV 9.6 fL (7.6-11.3); Monocytes % 6.8 % (3.3-12.3); RBC Red Blood Cell Count 4.67 M/uL (3.86-4.86)
[2019-03-30 06:13] LABS: Magnesium 2.1 mg/dL (1.8-2.4); Potassium 3.9 mmol/L (3.5-5.1)
[2019-03-30] MEDS: LACTOBACILLUS/ACIDOPHILUS TAB PO SCH ×2 (08:07→20:24)
[2019-03-30] MEDS: CIPROFLOXACIN 400mg IV 400 MG/200 ML BAG IV SCH ×2 (08:07→20:26)
[2019-03-30] MEDS: ENOXAPARIN 40 MG/0.4 ML SQ SCH (08:07)
[2019-03-30] MEDS: GABAPENTIN 300 MG CAP PO SCH ×3 (08:08→20:25)
[2019-03-30] MEDS: FAMOTIDINE 20 MG TAB PO SCH ×2 (08:08→20:25)
[2019-03-30] MEDS ORDERED: POTASSIUM CL SA 10 MEQ TAB PO SCH (09:00)
[2019-03-30] MEDS: ONDANSETRON 4 MG/2 ML VIAL IV PRN (10:35)
[2019-03-30] MEDS: HYDROCODONE/APAP 7.5/325 MG TAB PO PRN (10:35)
--- NOTE | 2019-03-30 12:12 | P.DS ---
Admission Date: 03/29/19 Discharge Date: 03/30/19 Primary Care Provider: Dr. Davidson Disposition: ROUTINE DISCHARGE Discharge Condition: GOOD Reason for Admission: Abdominal pain Consultations: none Procedures: CT scan: COMPARISON: No comparisons TECHNIQUE: Biphasic CT imaging of the abdomen and pelvis was performed with 100 ml non-ionic IV contrast. All CT scans are performed using dose optimization technique as appropriate and may include automated exposure control or mA/KV adjustment according to patient size. FINDINGS: The lung bases are clear.A small hiatal hernia is present. Mild fatty liver is present. Cholecystectomy clips. The spleen, pancreas, adrenal glands and kidneys are within normal limits. No bowel obstruction, free air, free fluid or abscess. Moderate wall thickening and inflammatory changes involve the entire colon, most significant in the splenic flexure. The appendix is normal. No evidence of significant lymphadenopathy. No suspicious bony findings. IMPRESSION: Moderate pancolitis is identified. Medical Problem List: Abdominal pain, nausea and vomiting with diarrhea secondary to moderate pancolitis Mild dehydration with hypokalemia Hypertension GERD with hiatal hernia CAD Fatty liver Chronic allergic rhinitis Brief History of Present Illness: 68-year-old female presented to the emergency room with abdominal pain. Patient reports abdominal pain over the last day. Pain is diffuse. It is associated with some nausea, vomiting and mild diarrhea. Patient had watery diarrhea this morning. There was some mild specks of blood. Patient reports having an upper respiratory infection about 2 weeks ago. At that time she was given steroid injection and antibiotics. Patient also reports having a colonoscopy about 1-3 months ago. Patient came to the ER for further evaluation. In the ER patient evaluated. White count elevated at 17.2. Hemoglobin 15. Sodium 142, potassium 3.3. GFR of 80. Glucose 129. CT scan revealed mild fatty liver and moderate pancolitis. Patient was given IV antibiotic therapy in the emergency room along with pain medication. Patient was admitted for further treatment. When I saw the patient ER, pain was better controlled. Patient appears slightly dehydrated. Patient does not appear septic. Hospital Course: Patient presented with abdominal pain, nausea and vomiting/diarrhea. Patient found to have moderate pancolitis. Patient was admitted for further evaluation and treatment. Patient received IV fluid and antibiotic therapy. Patient responded to therapy well. At discharge patient without any significant abdominal pain. Patient tolerating current diet. At discharge patient will continue with Cipro 500 mg 1 pill twice daily and Flagyl 500 mg 3 times a day for 10 days. Patient will also continue with pro biotics twice daily. Patient will continue with GI soft diet. Recommend to follow up with her PCP to further monitor and address within 1-2 weeks. Recommend GI evaluation in the near future with possible colonoscopy in 6 weeks to further address. Patient with CAD and hypertension. She will continue with her medication metoprolol XL 50 mg daily. Patient with GERD. CT scan revealed hiatal hernia. Patient may continue with Prilosec 1 pill daily. Patient may follow up with GI as an outpatient to further monitor. CT scan revealed fatty liver. Will provide education on fatty liver. Lifestyle modification education addressed. Patient with chronic allergic rhinitis. Patient will continue with her medications-Singulair Xyzal. Vital Signs/Physical Exam: Temp Pulse Resp BP Pulse Ox 97.5 F 77 20 118/54 L 95 03/30/19 08:00 03/30/19 08:00 03/30/19 08:00 03/30/19 08:00 03/30/19 08:00 General: Alert, In no apparent distress, Oriented x3, Cooperative HEENT: Atraumatic Neck: Supple Respiratory: Clear to auscultation bilaterally, Normal air movement Cardiovascular: Normal pulses, Regular rate/rhythm Gastrointestinal: Normal bowel sounds, Soft and benign, Non-distended, No tenderness, No masses, No rebound, No guarding Musculoskeletal: No erythema, No tenderness, No warmth Integumentary: No tenderness/swelling, No erythema, No warmth, No cyanosis Neurological: Normal speech, Normal strength at 5/5 x4 extr, Normal tone, Normal affect Laboratory Data at Discharge: WBC 15.2 K/uL (4.3-10.9) H 03/30/19 05:00 Hgb 13.6 g/dL (12.0-15.0) 03/30/19 05:00 Hct 41.0 % (36.0-45.0) 03/30/19 05:00 Plt Count 299 K/uL (152-406) 03/30/19 05:00 Sodium 141 mmol/L (136-145) 03/30/19 05:00 Potassium 3.9 mmol/L (3.5-5.1) 03/30/19 05:00 BUN 6 mg/dL (7-18) L 03/30/19 05:00 Creatinine 0.71 mg/dL (0.55-1.3) 03/30/19 05:00 Glucose 109 mg/dL (74-106) H 03/30/19 05:00 Magnesium 2.1 mg/dL (1.8-2.4) 03/30/19 05:00 Total Bilirubin 0.6 mg/dL (0.2-1.0) 03/29/19 12:20 AST 11 U/L (15-37) L 03/29/19 12:20 ALT 14 U/L (12-78) 03/29/19 12:20 Alkaline Phosphatase 121 U/L (45-117) H 03/29/19 12:20 Lipase 70 U/L (73-393) L 03/29/19 12:20 Home Medications: RX: Gabapentin 300 mg PO TID 11/03/18 RX: Omeprazole [Prilosec] 40 mg PO DAILY 11/03/18 RX: Ondansetron [Zofran (Odt)*] 4 mg PO Q12H PRN 11/03/18 RX: Sertraline HCl 25 mg PO DAILY 11/03/18 RX: Levocetirizine Dihydrochloride [Xyzal] 5 mg PO DAILY 03/29/19 RX: Metoprolol Succinate [Toprol Xl*] 50 mg PO DAILY 03/29/19 RX: Montelukast [Singulair*] 10 mg PO BEDTIME 03/29/19 Ciprofloxacin HCl [Cipro 500 MG Tablet] 500 mg PO BID #20 tab 03/30/19 RX: Lactobacillus Acidophilus [Acidophilus Lactobacilli] 1 each PO BID #60 capsule 03/30/19 metroNIDAZOLE [Flagyl] 500 mg PO Q8H #30 tablet 03/30/19 New Medications: Ciprofloxacin HCl [Cipro 500 MG Tablet] 500 mg PO BID #20 tab metroNIDAZOLE [Flagyl] 500 mg PO Q8H #30 tablet RX: Lactobacillus Acidophilus [Acidophilus Lactobacilli] 1 each PO BID #60 capsule Patient Discharge Instructions: 1. Recommend follow up with her PCP within 1 week to follow up this hospitalization. 2. Patient presented with abdominal pain, nausea and vomiting/diarrhea. Patient found to have moderate pancolitis. Patient was admitted for further evaluation and treatment. Patient received IV fluid and antibiotic therapy. Patient responded to therapy well. At discharge patient without any significant abdominal pain. Patient tolerating current diet. At discharge patient will continue with Cipro 500 mg 1 pill twice daily and Flagyl 500 mg 3 times a day for 10 days. Patient will also continue with pro biotics twice daily. Patient will continue with GI soft diet. Recommend to follow up with her PCP to further monitor and address within 1-2 weeks. Recommend GI evaluation in the near future with possible colonoscopy in 6 weeks to further address. 3. Patient with CAD and hypertension. She will continue with her medication metoprolol XL 50 mg daily. 4. Patient with GERD. CT scan revealed hiatal hernia. Patient may continue with Prilosec 1 pill daily. Patient may follow up with GI as an outpatient to further monitor. 5. CT scan revealed fatty liver. Will provide education on fatty liver. Lifestyle modification education addressed. 6. Patient with chronic allergic rhinitis. Patient will continue with her medications-Singulair , Xyzal. Diet: GI soft diet Activity: Ad hever Time spent managing pt's care (in minutes): 55
[2019-03-30] MEDS ORDERED: MONTELUKAST 10 MG TAB PO SCH (21:00)
[2019-03-31] MEDS: METRONIDAZOLE 500mg IVPB 500 MG/100 ML BAG IV SCH ×2 (00:02→08:24)
[2019-03-31] MEDS: METOPROLOL XL 50 MG TAB PO SCH (05:09)
[2019-03-31] MEDS ORDERED: PANTOPRAZOLE 40MG TABLET PO SCH (06:30)
[2019-03-31 07:02] LABS: Absolute Lymphocytes (CBC) 1.8 K/uL (0.7-4.9); Absolute Monocytes 0.6 K/uL (0.1-1.3); Absolute Neutrophil 6.6 K/uL (1.8-8.0); Basophils % 1.2 % (0-1.3); Eosinophils % 2.5 % (0-4.4); Lymphocytes % 19.1 % (15.3-44.8); MPV 9.5 fL (7.6-11.3); Monocytes % 6.9 % (3.3-12.3)
[2019-03-31 07:22] LABS: Magnesium 2.1 mg/dL (1.8-2.4); Potassium 3.9 mmol/L (3.5-5.1)
[2019-03-31 08:15] VITALS: BP 129/60; TEMP 97.4
[2019-03-31] MEDS: CIPROFLOXACIN 400mg IV 400 MG/200 ML BAG IV SCH (08:23)
[2019-03-31] MEDS: ENOXAPARIN 40 MG/0.4 ML SQ SCH (08:24)
[2019-03-31] MEDS: FAMOTIDINE 20 MG TAB PO SCH (08:25)
[2019-03-31] MEDS: LACTOBACILLUS/ACIDOPHILUS TAB PO SCH (08:25)
[2019-03-31] MEDS: GABAPENTIN 300 MG CAP PO SCH (08:26)
[2019-03-31] MEDS ORDERED: CETIRIZINE HCL 5 MG TABLET PO SCH (09:00)
[2019-03-31] MEDS ORDERED: POTASSIUM CL SA 10 MEQ TAB PO ONE (09:00)
[2019-03-31] MEDS ORDERED: SERTRALINE HCL 50 MG TAB PO SCH (09:00)
[2019-03-31 10:00] VITALS: O2SAT 97
== END 2019-03-31 10:20 | disposition home or self-care (01) ==
LOC: ER 11:45 → INTOOBSV 14:38 → ERHOLD 14:38 → 2ND 17:06
PROVIDERS: ADMIT Family Medicine; ATTEND Family Medicine
DX: K51.00 Ulcerative (chronic) pancolitis without complications (principal); E86.0 Dehydration; E87.6 Hypokalemia; I10 Essential (primary) hypertension; K21.9 Gastro-esophageal reflux disease without esophagitis; K44.9 Diaphragmatic hernia without obstruction or gangrene; I25.10 Atherosclerotic heart disease of native coronary artery without angina pectoris; K76.0 Fatty (change of) liver, not elsewhere classified; J30.9 Allergic rhinitis, unspecified; Z95.5 Presence of coronary angioplasty implant and graft
CPT/HCPCS: 96365; 96367; 96361; 87045; 85025 ×3; 80048 ×3; 36415 ×2; 86900; 83735 ×2; 86850; 86901; 80076; 87046; 87493; 83690; 74177; 96375; 99285; Q9967; J1650 ×3; J2175; J0696; J7030 ×3; J2405 ×4; J0744 ×4; G0378 ×2

== ENCOUNTER 2022-02-24 16:46 | Emergency (ER) | payer OTHER ==
--- OUTSIDE RECORDS SUMMARY | 2022-02-24 16:48 | XMS REPORT | Continuity of Care Document ---
:1950 Author Organization [facility] t Address [address] [place] [address] Care Team Providers Name Role Phone Hernán Jenkins Attending Clinician Unavailable Problems This patient has no known problems. Allergies, Adverse Reactions, Alerts This patient has no known allergies or adverse reactions. Medications This patient has no known medications. Procedures This patient has no known procedures. Encounters Start End Encounter Admission Attending Care Care Encounter Source Date/Time Date/Time Type Type Clinicians Facility Department ID 2022-01-01 Outpatient Jenkins [facility] [id number] [facility] 09:08:01 [facility]egan [facility] 2021-12-31 Outpatient Jenkins, [facility] [id number] [facility] 09:26:01 Keegan [facility] 2021-12-26 Outpatient Jenkins [facility] [id number] [facility] 13:00:02 Keegan [id number] [facility] 2021-12-26 Outpatient Jenkins [facility] [id number] [facility] 12:50:46 Keegan [id number] [facility] 2021-12-26 Outpatient Jenkins [facility] [id number] [facility] 12:49:46 Keegan [id number] [facility] 2022-01-31 2022-01-31 ambulatory [facility] [id number] [facility] 2022-01-04 2022-01-04 ambulatory [facility] [id number] [facility] 2021-08-28 2021-08-28 Outpatient [facility] [id number] [facility] 2021-07-31 2021-07-31 Outpatient [facility] [id number] [facility] 2021-07-09 2021-07-09 Outpatient [facility] [id number] [facility] 2021-06-28 2021-06-28 Outpatient [facility] [id number] [facility] 2021-06-28 2021-06-28 Outpatient [facility] [id number] [facility] 2021-06-20 2021-06-20 Outpatient [facility] [id number] [facility] 2021-06-20 2021-06-20 Outpatient [facility] [id number] [facility] 2021-06-19 2021-06-19 Outpatient [facility] [id number] [facility] 2021-06-07 2021-06-07 Outpatient [facility] [id number] [facility] 2021-05-08 2021-05-08 Outpatient [facility] [id number] [facility] 2021-04-05 2021-04-05 Outpatient [facility] [id number] [facility] Results This patient has no known results.
[2022-02-24] MEDS ORDERED: NA CHLORIDE 0.9% 1,000 ML ONE (17:13)
[2022-02-24] MEDS ORDERED: CIPROFLOXACIN 400mg IV 400 MG/200 ML BAG IV ONE (17:13)
[2022-02-24] MEDS ORDERED: NA CHLORIDE 0.9% 100 ML IV ONE (17:13)
[2022-02-24] MEDS ORDERED: NA CHLORIDE 0.9% 500 ML ONE (17:13)
[2022-02-24] MEDS ORDERED: CEFTRIAXONE 1000 MG/VIAL ONE (17:13)
[2022-02-24] MEDS ORDERED: METRONIDAZOLE 500mg IVPB 500 MG/100 ML BAG IV ONE (17:14)
[2022-02-24 17:16] LABS: Absolute Lymphocytes (CBC) 1.3 K/uL (0.7-4.9); Hematocrit 43.3 % (36.0-45.0); Lymphocytes % 12.1 % (15.3-44.8); MPV 8.6 fL (7.6-11.3); RBC Red Blood Cell Count 5.14 M/uL (3.86-4.86)
[2022-02-24 17:22] LABS: Protime INR 1.12
[2022-02-24 17:36] LABS: Albumin 3.9 g/dL (3.4-5.0); Bilirubin Direct 0.2 mg/dL (0-0.2); Bilirubin Total 0.4 mg/dL (0.2-1.0); Magnesium 2.1 mg/dL (1.8-2.4); Potassium 3.3 mmol/L (3.5-5.1); Protein, Total 8.7 g/dL (6.4-8.2); Troponin High Sensitivity 7.9 pg/mL (<58.9)
--- NOTE | 2022-02-24 18:38 | RAD REPORT ---
EXAM DESCRIPTION: CT - Abdomen Pelvis W Contrast - 02/24/2022 6:14 pm CLINICAL HISTORY: Abdominal pain COMPARISON: 2019 TECHNIQUE: Computed axial tomography of the abdomen pelvis was obtained. 100 cc Isovue-300 was admin istered intravenously. Oral contrast was not requested which limits evaluation of bowel. All CT scans are performed using dose optimization technique as appropriate and may include automated exposure control or mA/KV adjustment according to patient size. FINDINGS: Fatty liver. Cholecystectomy The Spleen, pancreas, adrenal and left kidney appear unremarkable. Tiny right renal calculi. No hydronephrosis. Small right renal cyst. Normal appendix. Diverticula stem from the colon. Mild stranding adjacent to sigmoid colon Small hiatal hernia IMPRESSION: Mild sigmoid diverticulitis.
--- NOTE | 2022-02-24 18:44 | EDPHYS ---
Physician Documentation [facility] Name: Eloisa Aparicio Age: 71 yrs Sex: Female : 1950 Arrival Date: 02/24/2022 Time: 16:51 Bed 2 Private MD: ED Physician José Miguel Vazquez HPI: 02/24 17:41 This 71 yrs old Female presents to ER via EMS with complaints of Abdominal louie Pain. 17:41 The patient presents with abdominal pain in the upper abdomen, in the lower abdomen. louie Onset: The symptoms/episode began/occurred 3 day(s) ago. The symptoms do not radiate. Historical: - Allergies: 16:53 No Known Allergies; ww - PMHx: 16:53 GERD; Hypertension; VT; restless leg; sciatica; Hypercholesterolemia; ulcer colitis; ww Diverticulitis; - PSHx: 16:53 Total abdominal hysterectomy; ww - Immunization history:: Adult Immunizations up to date. - Social history:: Smoking status: Patient denies any tobacco usage or history of. - Family history:: not pertinent. ROS: 17:41 Constitutional: Negative for fever, chills, and weight loss, Eyes: Negative for injury, louie pain, redness, and discharge, ENT: Negative for injury, pain, and discharge, Neck: Negative for injury, pain, and swelling, Cardiovascular: Negative for chest pain, palpitations, and edema, Respiratory: Negative for shortness of breath, cough, wheezing, and pleuritic chest pain, Back: Negative for injury and pain, : Negative for injury, bleeding, discharge, and swelling, MS/Extremity: Negative for injury and deformity, Skin: Negative for injury, rash, and discoloration, Neuro: Negative for headache, weakness, numbness, tingling, and seizure, Psych: Negative for depression, anxiety, suicide ideation, homicidal ideation, and hallucinations, Allergy/Immunology: Negative for hives, rash, and allergies, Endocrine: Negative for neck swelling, polydipsia, polyuria, polyphagia, and marked weight changes, Hematologic/Lymphatic: Negative for swollen nodes, abnormal bleeding, and unusual bruising. 17:41 Abdomen/GI: Positive for abdominal pain, nausea and vomiting, abdominal cramps, of the right upper quadrant, left upper quadrant, right lower quadrant and left lower quadrant. Exam: 17:41 Constitutional: This is a well developed, well nourished patient who is awake, alert, louie and in no acute distress. Head/Face: Normocephalic, atraumatic. Eyes: Pupils equal round and reactive to light, extra-ocular motions intact. Lids and lashes normal. Conjunctiva and sclera are non-icteric and not injected. Cornea within normal limits. Periorbital areas with no swelling, redness, or edema. ENT: Nares patent. No nasal discharge, no septal abnormalities noted. Tympanic membranes are normal and external auditory canals are clear. Oropharynx with no redness, swelling, or masses, exudates, or evidence of obstruction, uvula midline. Mucous membranes moist. Neck: Trachea midline, no thyromegaly or masses palpated, and no cervical lymphadenopathy. Supple, full range of motion without nuchal rigidity, or vertebral point tenderness. No Meningismus. Chest/axilla: Normal chest wall appearance and motion. Nontender with no deformity. No lesions are appreciated. Cardiovascular: Regular rate and rhythm with a normal S1 and S2. No gallops, murmurs, or rubs. Normal PMI, no JVD. No pulse deficits. Respiratory: Lungs have equal breath sounds bilaterally, clear to auscultation and percussion. No rales, rhonchi or wheezes noted. No increased work of breathing, no retractions or nasal flaring. Back: No spinal tenderness. No costovertebral tenderness. Full range of motion. Skin: Warm, dry with normal turgor. Normal color with no rashes, no lesions, and no evidence of cellulitis. MS/ Extremity: Pulses equal, no cyanosis. Neurovascular intact. Full, normal range of motion. Neuro: Awake and alert, GCS 15, oriented to person, place, time, and situation. Cranial nerves II-XII grossly intact. Motor strength 5/5 in all extremities. Sensory grossly intact. Cerebellar exam normal. Normal gait. Psych: Awake, alert, with orientation to person, place and time. Behavior, mood, and affect are within normal limits. 17:41 Abdomen/GI: Inspection: distension, that is mild, Bowel sounds: normal, Palpation: mild abdominal tenderness, in the right lower quadrant and left lower quadrant, Liver: no appreciated palpable abnormalities, Hernia: not appreciated. 17:41 Musculoskeletal/extremity: DVT Exam: No signs of deep vein thrombosis. no pain, no swelling, no tenderness, negative Homans' sign noted on exam, no appreciated bluish discoloration, no erythema, no increased warmth. 18:44 ECG was reviewed by the Attending Physician. louie Vital Signs: 16:51 BP 142 / 89; Pulse 109; Resp 17; Temp 97.6; Pulse Ox 98% on R/A; Weight 88.45 kg; ww Height 5 ft. 0 in. (152.40 cm); Pain 0/10; 19:30 BP 131 / 69; Pulse 98; Resp 16 S; Pulse Ox 96% on R/A; bb 20:49 BP 116 / 95; Pulse 107; Resp 16 S; Pulse Ox 98% on R/A; bb 16:51 Body Mass Index 38.08 (88.45 kg, 152.40 cm) ww MDM: 16:52 Patient medically screened. louie 17:43 Differential diagnosis: Nonspecific abd pain, pancreatitis, diverticulitis, viral louie gastroenteritis, gastritis, gastroesophageal reflux disease, non-specific abd pain, pancreatitis, Peptic Ulcer Disease, Peritonitis, Pyelonephritis, Ureterolithiasis. Data reviewed: vital signs, nurses notes, lab test result(s), EKG, radiologic studies. Data interpreted: organizational development consultant: rate is 109 beats/min, rhythm is regular. Test interpretation: by ED physician or midlevel provider: ECG. Counseling: I had a detailed discussion with the patient and/or guardian regarding: the historical points, exam findings, and any diagnostic results supporting the discharge/admit diagnosis, lab results, radiology results, the need for outpatient follow up, for definitive care, a family practitioner, a associate [employer]. 02/24 16:55 Order name: Basic Metabolic Panel; Complete Time: 18:28 [facility] 02/24 16:55 Order name: CBC with Diff; Complete Time: 18:28 [facility] 02/24 16:55 Order name: LFT's; Complete Time: 18:28 louie 02/24 16:55 Order name: Magnesium; Complete Time: 18:28 louie 02/24 16:55 Order name: NT PRO-BNP; Complete Time: 18:28 [facility] 02/24 16:55 Order name: PT-INR; Complete Time: 18:28 02/24 16:55 Order name: Troponin HS; Complete Time: 18:28 [facility] 02/24 16:55 Order name: XRAY Chest (1 view) [facility] 02/24 16:55 Order name: Lipase; Complete Time: 18:28 [facility] 02/24 16:55 Order name: CT Abd/Pelvis - IV Contrast Only; Complete Time: 18:43 [facility] 02/24 16:56 Order name: SARS-COV-2 RT PCR (Document "Date of Onset" if Symptomatic) [facility] 02/24 16:55 Order name: EKG; Complete Time: 16:56 [facility] 02/24 16:55 Order name: Cardiac monitoring; Complete Time: 18:27 [facility] 02/24 16:55 Order name: EKG - Nurse/Tech; Complete Time: 18:27 [facility] 02/24 16:55 Order name: IV Saline Lock; Complete Time: 17:08 [facility] 02/24 16:55 Order name: Labs collected and sent; Complete Time: 17:08 [facility] 02/24 16:55 Order name: O2 Per Protocol; Complete Time: 17:08 [facility] 02/24 16:55 Order name: O2 Sat Monitoring; Complete Time: 17:08 [facility] EC:44 Rate is 92 beats/min. Rhythm is regular. QRS [place] is Normal. [place] interval is normal. QRS louie interval is normal. QT interval is normal. No Q waves. T waves are Normal. No ST changes noted. Clinical impression: NSR w/ Non-specific ST/T Changes and No evidence of ischemia. Interpreted by me. Reviewed by me. Administered Medications: 17:30 Drug: NS 0.9% 500 ml Route: IV; Rate: bolus; Site: left antecubital; 17:30 Drug: Rocephin (cefTRIAXone) 2 grams Route: IV; Rate: per protocol; Site: left antecubital; 18:20 Drug: NS 0.9% 1000 ml Route: IV; Rate: 125 ml/hr; Site: left antecubital; ww 20:48 Follow up: IV Status: Order to discontinue infusion; IV Intake: 250ml bb 18:20 Drug: Flagyl (metroNIDAZOLE) 500 mg Volume: 100 ml; Route: IVPB; Rate: 200 ml/hr; ww Infused Over: 30 mins; Site: left antecubital; 18:50 Follow up: IV Status: Completed infusion; IV Intake: 100ml bb 19:30 Drug: Cipro (ciprofloxacin) 400 mg Volume: 200 ml; Route: IVPB; Infused Over: 60 mins; bb Site: left antecubital; 20:30 Follow up: IV Status: Completed infusion; IV Intake: 200ml bb 19:30 Drug: Potassium Effervescent Tablet 25 mEq Route: PO; bb 20:30 Follow up: Response: No adverse reaction bb Disposition Summary: 02/24/22 18:44 Discharge Ordered Location: Home louie Problem: new louie Symptoms: have improved louie Condition: Stable louie Diagnosis - Abdominal tenderness louie - Vomiting louie - Hypokalemia louie - Diverticulitis of large intestine without perforation or abscess without bleeding - louie mild sigmoid Followup: louie - With: Private Physician - When: 2 - 3 days - Reason: Recheck today's complaints, Continuance of care, Re-evaluation by your physician Followup: louie - With: - When: 2 - 3 days - Reason: Recheck today's complaints, Re-evaluation by your physician Discharge Instructions: - Discharge Summary Sheet louie - Abdominal Pain, Adult louie - Abdominal Pain, Adult, [id number] louie - Vomiting, Adult louie - Potassium Content of Foods louie - Hypokalemia [facility] Forms: - Medication Reconciliation Form [facility] - Thank You Letter [facility] - Antibiotic Education [facility] - Prescription Opioid Use [facility] Prescriptions: - Flagyl 500 mg Oral Tablet - take 1 tablet by ORAL route every 6 hours for 7 days; 28 tablet; Refills: 0, [facility] Product Selection Permitted - Pepcid 20 mg Oral Tablet - take 1 tablet by ORAL route every 12 hours for 10 days; 20 tablet; Refills: 0, [facility] Product Selection Permitted - Zofran 4 mg Oral Tablet - take 1 tablet by ORAL route every 12 hours As needed; 20 tablet; Refills: 0, [facility] Product Selection Permitted - Cipro 500 mg Oral Tablet - take 1 tablet by ORAL route every 12 hours for 7 days; 14 tablet; Refills: 0, [facility] Product Selection Permitted Signatures: Dispatcher [employer] José Miguel Corrales MD MD cha Ballard, Brenda RN RN Jyotsna Painter RN RN ede
--- NOTE | 2022-02-24 18:44 | ER ---
Nurse's Notes [facility] Name: Eloisa Aparicio Age: 71 yrs Sex: Female : 1950 Arrival Date: 02/24/2022 Time: 16:51 Bed 2 Private MD: Diagnosis: Abdominal tenderness;Vomiting;Hypokalemia;Diverticulitis of large intestine without perforation or abscess without bleeding-mild sigmoid Presentation: 02/24 16:51 Chief complaint: Patient states: Nausea, vomiting, diarrhea and leg cramping for 3 ww days. Patient believes it is her diverticulitis acting up. Coronavirus screen: Vaccine status: Patient reports receiving the 2nd dose of the covid vaccine. Client denies travel out of the [place] in the last 14 days. Ebola Screen: Patient denies travel to an Ebola-affected area in the 21 days before illness onset. Initial Sepsis Screen: Does the patient meet any 2 criteria? No. Patient's initial sepsis screen is negative. Does the patient have a suspected source of infection? No. Patient's initial sepsis screen is negative. Risk Assessment: Do you want to hurt yourself or someone else? Patient reports no desire to harm self or others. Onset of symptoms is unknown. 16:51 Method Of Arrival: EMS: [facility] 16:51 Acuity: ÁNGEL 3 ww Triage Assessment: 16:53 General: Appears in no apparent distress. Behavior is cooperative. Pain: Complains of ww pain in abdomen. EENT: No signs and/or symptoms were reported regarding the EENT system. Neuro: Level of Consciousness is awake, alert, obeys commands, Oriented to person, place, time, situation, Moves all extremities. Speech is normal. Cardiovascular: Patient's skin is warm and dry. Chest pain is denied. Respiratory: Airway is patent Respiratory effort is even, unlabored, Respiratory pattern is regular, symmetrical. GI: Abdomen is non-distended, Reports cramping, diarrhea, nausea, vomiting. : No signs and/or symptoms were reported regarding the genitourinary system. Historical: - Allergies: 16:53 No Known Allergies; ww - PMHx: 16:53 GERD; Hypertension; AK; restless leg; sciatica; Hypercholesterolemia; ulcer colitis; ww Diverticulitis; - PSHx: 16:53 Total abdominal hysterectomy; ww - Immunization history:: Adult Immunizations up to date. - Social history:: Smoking status: Patient denies any tobacco usage or history of. - Family history:: not pertinent. Screenin:56 Abuse screen: Denies threats or abuse. Denies injuries from another. Nutritional ww screening: No deficits noted. Tuberculosis screening: No symptoms or risk factors identified. Fall Risk None identified. Assessment: 16:56 Reassessment: No changes from previously documented assessment. see triage note. ww Assisted patient to bedside toilet. 17:28 Reassessment: Patient appears in no apparent distress at this time. No changes from ww previously documented assessment. Patient and/or family updated on plan of care and expected duration. Pain level reassessed. Patient is alert, oriented x 3, equal unlabored respirations, skin warm/dry/pink. 18:27 Reassessment: Patient appears in no apparent distress at this time. No changes from ww previously documented assessment. Patient and/or family updated on plan of care and expected duration. Pain level reassessed. Patient is alert, oriented x 3, equal unlabored respirations, skin warm/dry/pink. patient is continually getting up and down to bedside toilet due to diarrhea. 19:20 Reassessment: Patient is alert, oriented x 3, equal unlabored respirations, skin bb warm/dry/pink. Patient states feeling better. Patient states symptoms have improved. pt awaiting completion of IV fluids prior to discharge. 20:49 Reassessment: Patient is alert, oriented x 3, equal unlabored respirations, skin bb warm/dry/pink. pt verbalized understanding of and agrees to plan of care discharge instructions given pt assisted to exit via wheelchair by Alejandro HUSSEIN. Vital Signs: 16:51 BP 142 / 89; Pulse 109; Resp 17; Temp 97.6; Pulse Ox 98% on R/A; Weight 88.45 kg; ww Height 5 ft. 0 in. (152.40 cm); Pain 0/10; 19:30 BP 131 / 69; Pulse 98; Resp 16 S; Pulse Ox 96% on R/A; bb 20:49 BP 116 / 95; Pulse 107; Resp 16 S; Pulse Ox 98% on R/A; bb 16:51 Body Mass Index 38.08 (88.45 kg, 152.40 cm) ED Course: 16:51 Patient arrived in ED. ww 16:52 José Miguel Vazquez MD is Attending Physician. [facility] 16:53 Triage completed. ww 16:53 Arm band placed on. ww 16:56 Patient has correct armband on for positive identification. Bed in low position. Call ww light in reach. Side rails up X 1. school bus monitor on. Pulse ox on. NIBP on. 16:57 Jyotsna Atkins, RN is Primary Nurse. ww 17:30 CT Abd/Pelvis - IV Contrast Only Sent. ww 18:16 CT Abd/Pelvis - IV Contrast Only In Process Unspecified. EDMS 18:41 XRAY Chest (1 view) In Process Unspecified. EDMS 18:43 Hillary Pitts MD is Referral Physician. [facility] 19:16 Primary Nurse role handed off by Jyotsna Atkins RN mw2 19:46 Mandy Young RN is Primary Nurse. bb 20:50 No provider procedures requiring assistance completed. IV discontinued, intact, bb bleeding controlled, No redness/swelling at site. Pressure dressing applied. Administered Medications: 17:30 Drug: NS 0.9% 500 ml Route: IV; Rate: bolus; Site: left antecubital; ww 17:30 Drug: Rocephin (cefTRIAXone) 2 grams Route: IV; Rate: per protocol; Site: left ww antecubital; 18:20 Drug: NS 0.9% 1000 ml Route: IV; Rate: 125 ml/hr; Site: left antecubital; 20:48 Follow up: IV Status: Order to discontinue infusion; IV Intake: 250ml bb 18:20 Drug: Flagyl (metroNIDAZOLE) 500 mg Volume: 100 ml; Route: IVPB; Rate: 200 ml/hr; Infused Over: 30 mins; Site: left antecubital; 18:50 Follow up: IV Status: Completed infusion; IV Intake: 100ml bb 19:30 Drug: Cipro (ciprofloxacin) 400 mg Volume: 200 ml; Route: IVPB; Infused Over: 60 mins; bb Site: left antecubital; 20:30 Follow up: IV Status: Completed infusion; IV Intake: 200ml bb 19:30 Drug: Potassium Effervescent Tablet 25 mEq Route: PO; bb 20:30 Follow up: Response: No adverse reaction bb Intake: 18:50 IV: 100ml; Total: 100ml. bb 20:30 IV: 200ml; Total: 300ml. bb 20:48 IV: 250ml; Total: 550ml. bb Outcome: 18:44 Discharge ordered by . louie 20:50 Discharged to home via wheelchair. bb 20:50 Condition: stable 20:50 Discharge instructions given to patient, Instructed on discharge instructions, follow up and referral plans. medication usage, Demonstrated understanding of instructions, follow-up care, medications, Prescriptions given X 4. 20:51 Patient left the ED. bb Signatures: Dispatcher [employer] EDND José Miguel Vazquez MD MD cha Ballard, Brenda, RN RN Miles Esquivel2 Jyotsna Atkins, RN RN
[2022-02-24] MEDS ORDERED: POTASSIUM 25 MEQ EFFERV TAB ONE (19:20)
--- NOTE | 2022-02-24 19:47 | RAD REPORT ---
EXAM DESCRIPTION: [facility] Single View02/24/2022 6:39 pm CLINICAL HISTORY: Abdominal pain COMPARISON: 2018 FINDINGS: The lungs appear clear of acute infiltrate. The heart is normal size IMPRESSION: No acute abnormalities displayed
[2022-02-24 21:06] VITALS: TEMP 97.6
[2022-02-24 21:08] VITALS: BP 116/95; O2SAT 98
--- NOTE | 2022-02-25 09:27 | EKG ---
Test Date: 2022-02-24 Test Time: 18:33:15 Crane Chaser: SHERRI MEASUREMENT RESULTS: Intervals: Rate: 92 MT: 150 QRSD: 86 QT: 380 QTc: 469 Niland: P: 46 MT: 150 QRS: -14 T: 71 INTERPRETIVE STATEMENTS: Normal sinus rhythm Cannot rule out Anterior infarct, age undetermined Abnormal ECG Compared to ECG 11/03/2018 12:02:48 Myocardial infarct finding now present T-wave abnormality no longer present Electronically Signed On 02-25-22 09:25:46 CDT by Jose Argueta
== END 2022-02-24 20:51 | disposition home or self-care (01) ==
LOC: ER 16:46
DX: E87.6 Hypokalemia (principal); R11.10 Vomiting, unspecified; K57.32 Diverticulitis of large intestine without perforation or abscess without bleeding; E78.00 Pure hypercholesterolemia, unspecified; I10 Essential (primary) hypertension; K21.9 Gastro-esophageal reflux disease without esophagitis; Z20.822 Contact with and (suspected) exposure to COVID-19
CPT/HCPCS: 96365; 96367; 96361; 93005; 85025; 80048; 36415; 83735; 85610; 80076; 84484; 83690; 83880; 74177; 71045; 96375; 99284; U0003; Q9967; J7040; J7030; J0744

== ENCOUNTER 2023-09-21 14:22 | Emergency (ER) | payer OTHER ==
--- OUTSIDE RECORDS SUMMARY | 2023-09-21 14:53 | XMS REPORT | Continuity of Care Document ---
:1950 Author Organization [facility] t Address [address] [facility] [address] [place] [address] Care Team Providers Name Role Phone Keegan Jenkins Attending Clinician Unavailable DelaneyBonnie ovalle MA Attending Clinician Unavailable Payers Payer Name Policy Type Policy Number Effective Date Expiration Date S rukhsana [employer] MEDICARE C1 [id number] 2021 Common Spi rit 00:00:00 - [facility] Problems Condition Condition Condition Status Onset Resolution Last Treating Co mments Source Name Details Category Date Date Treatment Clinician Date [id number] Body mass Problem Com mon index Spirit [BMI] - [facility] 39.0-39.9, [facility] [id number] Morbid Problem Commo n 9104 (severe) Spirit obesity - [facility] due to [facility] [id number] Mixed Problem Common hyperlipid Spirit emia - [facility] [id number] PUD Problem Common (peptic [facility] ulcer - [facility] disease) [facility] [id number] RLS Problem Common (restless [facility] legs - [facility] syndrome) [facility] [id number] Stented Problem Commo n coronary [facility] artery - [facility] [id number] Osteoporos Problem Com mon is, Spirit unspecifie - [facility] d [facility] osteoporos [facility] is type, Medical unspecifie Center d pathologic al fracture presence [id number] Essential Problem Comm on hypertensi Spirit on - [facility] [id number] Moderate Problem Comm on persistent Spirit asthma - [facility] without complicati [facility] [id number] GERD Problem Common without Spirit esophagiti - [facility] s [facility] [id number] Non-season Problem Com mon al [facility] allergic [facility], [id number] Migraine Problem Comm on without Spirit aura and - [facility] without [facility] migrainosu Medica l s, not Center intractabl e [id number] 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 Social History Social Habit Start Date Stop Date Quantity Comments Source History of Tobacco Common Spirit - Use [facility] Sex Assigned At [birth year] [facility] 00:00:00 [facility]:00 [facility] Center Smoking Status Start Date Stop Date Source Never Smoker [facility] Former Smoker 2022-04-27 00:00:00 2022-04-27 00:00:00 Common S pirit [facility] Medications Ordered Filled Start Stop Current Ordering Indication Dosage Frequency Signature Comments Components Source Medication Medication Date Date Medication? Clinician (SIG) Name Name Albuterol Albuterol No 6xD Albuterol Sulfate HFA Sulfate HFA 2-04 Sulfate 108 (90 108 (90 00:00: HFA 108 Base) Base) 00 (90 Base) MCG/ACT MCG/ACT MCG/ACT Albuterol Albuterol No 6xD Albuterol Sulfate HFA Sulfate HFA 2-04 Sulfate 108 (90 108 (90 00:00: HFA 108 Base) Base) 00 (90 Base) MCG/ACT MCG/ACT MCG/ACT Albuterol Albuterol No 6xD Albuterol Sulfate HFA Sulfate HFA 2-04 Sulfate 108 (90 108 (90 00:00: HFA 108 Base) Base) 00 (90 Base) MCG/ACT MCG/ACT MCG/ACT Albuterol Albuterol 2021-0 No 6xD Albuterol Sulfate HFA Sulfate HFA 2-04 Sulfate 108 (90 108 (90 00:00: HFA 108 Base) Base) 00 (90 Base) MCG/ACT MCG/ACT MCG/ACT Albuterol Albuterol 2021-0 No 6xD Albuterol Sulfate HFA Sulfate HFA 2-04 Sulfate 108 (90 108 (90 00:00: HFA 108 Base) Base) 00 (90 Base) MCG/ACT MCG/ACT MCG/ACT Albuterol Albuterol 2021-0 No 6xD Albuterol Sulfate HFA Sulfate HFA 2-04 Sulfate 108 (90 108 (90 00:00: HFA 108 Base) Base) 00 (90 Base) MCG/ACT MCG/ACT MCG/ACT Albuterol Albuterol 2021-0 No 6xD Albuterol Sulfate HFA Sulfate HFA 2-04 Sulfate 108 (90 108 (90 00:00: HFA 108 Base) Base) 00 (90 Base) MCG/ACT MCG/ACT MCG/ACT Bupivicaine Bupivicaine 2020-0 No Common [place] 07[facility]09 [facility] 00:00: - [facility] Gel-One Gel-One 2020-0 No 30mg Common 07-09 Spirit 00:00: - [facility] Bupivicaine Bupivicaine 2020-0 No 2.5mg Common [place] 07-09 [facility] 00:00: - [facility] 00 [facility] Gel-One Gel-One 2020-0 No 30mg Common 07-09 Spirit 00:00: - [facility] Bupivicaine Bupivicaine 2020-0 No 2.5mg Common [place] 07-09 [facility] 00:00: - [facility] 00 [facility] Gel-One Gel-One 2020-0 No 30mg Common 07-09 Spirit 00:00: - [facility] 00 [facility] Bupivicaine Bupivicaine 2020-0 No 2.5mg Common [place] 07-09 [facility] 00:00: - [facility] Gel-One Gel-One 2020-0 No 30mg Common 07-09 Spirit 00:00: - [facility] Bupivicaine Bupivicaine 1-0 No 2.5mg Common [place] 07-09 [facility] 00:00: - [facility] Gel-One Gel-One 1-0 No 30mg Common 07-09 Spirit 00:00: - [facility] Bupivicaine Bupivicaine 1-0 No 2.5mg Common [place] 07-09 [facility] 00:00: - [facility] Gel-One Gel-One 1-0 No 30mg Common 07-09 Spirit 00:00: - [facility] Bupivicaine Bupivicaine 1-0 No 2.5mg Common [place] 07-09 [facility] 00:00: - [facility] Gel-One Gel-One 2020-0 No 30mg Common 07-09 Spirit 00:00: - [facility] Bupivicaine Bupivicaine 2020-0 No 2.5mg Common [place] 07-09 [facility] 00:00: - [facility] Gel-One Gel-One 2020-0 No 30mg Common 07-09 Spirit 00:00: - [facility] Bupivicaine Bupivicaine 1-0 No 2.5mg Common [place] 07-09 [facility] 00:00: - [facility] Gel-One Gel-One 1-0 No 30mg Common 07-09 Spirit 00:00: - [facility] Bupivicaine Bupivicaine 1-0 No 2.5mg Common [place] 07-09 [facility] 00:00: - [facility] Gel-One Gel-One 1-0 No 30mg Common 07-09 Spirit 00:00: - [facility] Bupivicaine Bupivicaine 1-0 No 2.5mg Common [place] 07-09 [facility] 00:00: - [facility] Gel-One Gel-One 1-0 No 30mg Common 07-09 Spirit 00:00: - [facility] Bupivicaine Bupivicaine 1-0 No Common [place] 04-05 Spirit 00:00: - [facility] 00 [facility] Kenalog Kenalog 2020-0 No 40mg Common (Triamcinol (Triamcinol 5-06 S pirit one) one) 00:00: - [facility] 00 [facility] Bupivicaine Bupivicaine 2020-0 No 2.5mg Common [place] 5-06 Spirit 00:00: - [facility] 00 [facility] Kenalog Kenalog 2020-0 No 40mg Common (Triamcinol (Triamcinol 5-06 S pirit one) one) 00:00: - [facility] 00 [facility] Bupivicaine Bupivicaine 2020-0 No 2.5mg Common [place] 5-06 Spirit 00:00: - [facility] 00 [facility] Kenalog Kenalog 2020-0 No 40mg Common (Triamcinol (Triamcinol 5-06 S pirit one) one) 00:00: - [facility] 00 [facility] Bupivicaine Bupivicaine 2020-0 No 2.5mg Common [place] 5-06 Spirit 00:00: - [facility] 00 [facility] Kenalog Kenalog 2020-0 No 40mg Common (Triamcinol (Triamcinol 5-06 S pirit one) one) 00:00: - [facility] 00 [facility] Bupivicaine Bupivicaine 2020-0 No 2.5mg Common [place] 5-06 Spirit 00:00: - [facility] 00 [facility] Kenalog Kenalog 2020-0 No 40mg Common (Triamcinol (Triamcinol 5-06 S pirit one) one) 00:00: - [facility] 00 [facility] Bupivicaine Bupivicaine 2020-0 No 2.5mg Common [place] 5-06 Spirit 00:00: - [facility] 00 [facility] Kenalog Kenalog 2020-0 No 40mg Common (Triamcinol (Triamcinol 5-06 S pirit one) one) 00:00: - [facility] 00 [facility] Bupivicaine Bupivicaine 1-0 No 2.5mg Common [place] 5-06 Spirit 00:00: - [facility] 00 [facility] Kenalog Kenalog 2020-0 No 40mg Common (Triamcinol (Triamcinol 5-06 S pirit one) one) 00:00: - [facility] 00 [facility] Bupivicaine Bupivicaine 2020-0 No 2.5mg Common [place] 5-06 Spirit 00:00: - [facility] 00 [facility] Kenalog Kenalog 2020-0 No 40mg Common (Triamcinol (Triamcinol 5-06 S pirit one) one) 00:00: - [facility] 00 [facility] Bupivicaine Bupivicaine 2020-0 No 2.5mg Common [place] 5-06 Spirit 00:00: - [facility] 00 [facility] Kenalog Kenalog 2020-0 No 40mg Common (Triamcinol (Triamcinol 5-06 S pirit one) one) 00:00: - [facility] 00 [facility] Bupivicaine Bupivicaine 2020-0 No 2.5mg Common [place] 5-06 Spirit 00:00: - [facility] 00 [facility] Kenalog Kenalog 2020-0 No 40mg Common (Triamcinol (Triamcinol 5-06 S pirit one) one) 00:00: - [facility] 00 [facility] Bupivicaine Bupivicaine 2020-0 No 2.5mg Common [place] 5-06 Spirit 00:00: - [facility] 00 [facility] Kenalog Kenalog 2020-0 No 40mg Common (Triamcinol (Triamcinol 5-06 S pirit one) one) 00:00: - [facility] 00 [facility] Sertraline Sertraline No Sertraline HCl HCl HCl Albuterol Albuterol No Albuterol Sulfate Sulfate Sulfate Metoprolol Metoprolol No 1{table QD Metoprolol Tartrate 50 Tartrate 50 t_with_ Tartrate MG MG food} 50 MG Zoloft 100 Zoloft 100 No 1{table QD Zoloft 100 MG MG t} MG Omeprazole Omeprazole No QD Omeprazole 40 MG 40 MG 40 MG Montelukast Montelukast No Montelukas Sodium 10 Sodium 10 t Sodium MG MG 10 MG Levocetiriz Levocetiriz No 1{table QD Levocetiri ine ine t_in_th zine Dihydrochlo Dihydrochlo e_eveni Dihydrochl ride 5 MG ride 5 MG ng} oride 5 MG Gabapentin Gabapentin No Gabapentin 300 MG 300 MG 300 MG Metoprolol Metoprolol No Metoprolol Succinate Succinate Succinate ER 50 MG ER 50 MG ER 50 MG Aspir-81 Aspir-81 No Aspir-81 Vitamin D Vitamin D No Vitamin D Losartan Losartan No 1{table QD Losartan Potassium Potassium t} Potassium 50 MG 50 MG 50 MG Atorvastati Atorvastati No Atorvastat n Calcium n Calcium in Calcium 10 MG 10 MG 10 MG Meclizine Meclizine No Meclizine HCl HCl HCl Sertraline Sertraline No Sertraline HCl HCl HCl Gabapentin Gabapentin No 1{capsu TID Gabapentin 300 MG 300 MG le} 300 MG Atorvastati Atorvastati No Atorvastat n Calcium n Calcium in Calcium 10 MG 10 MG 10 MG Meclizine Meclizine No Meclizine HCl HCl HCl Gabapentin Gabapentin No Gabapentin 300 MG 300 MG 300 MG Montelukast Montelukast No 1{table QD Montelukas Sodium 10 Sodium 10 t} t Sodium MG MG 10 MG Metoprolol Metoprolol No Metoprolol Succinate Succinate Succinate ER 50 MG ER 50 MG ER 50 MG Losartan Losartan No 1{table QD Losartan Potassium Potassium t} Potassium 50 MG 50 MG 50 MG Aspir-81 Aspir-81 No Aspir-81 Metoprolol Metoprolol No 1{capsu QD Metoprolol Succinate Succinate le} Succinate 50 MG 50 MG 50 MG Vitamin D Vitamin D No Vitamin D Sertraline Sertraline No Sertraline HCl 100 MG HCl 100 MG HCl 100 MG Levocetiriz Levocetiriz No 1{table QD Levocetiri ine ine t_in_th zine Dihydrochlo Dihydrochlo e_eveni Dihydrochl ride 5 MG ride 5 MG ng} oride 5 MG Atorvastati Atorvastati No 1{table QD Atorvastat n Calcium n Calcium t} in Calcium 10 MG 10 MG 10 MG Metoprolol Metoprolol No 1{table QD Metoprolol Tartrate 50 Tartrate 50 t_with_ Tartrate MG MG food} 50 MG Losartan Losartan No Losartan Potassium Potassium Potassium 50 MG 50 MG 50 MG Zoloft 100 Zoloft 100 No 1{table QD Zoloft 100 MG MG t} MG Montelukast Montelukast No Montelukas Sodium 10 Sodium 10 t Sodium MG MG 10 MG Omeprazole Omeprazole No QD Omeprazole 40 MG 40 MG 40 MG Sertraline Sertraline No Sertraline HCl HCl HCl Atorvastati Atorvastati No Atorvastat n Calcium n Calcium in Calcium 10 MG 10 MG 10 MG Metoprolol Metoprolol No Metoprolol Succinate Succinate Succinate ER 50 MG ER 50 MG ER 50 MG Vitamin D Vitamin D No Vitamin D Gabapentin Gabapentin No Gabapentin 300 MG 300 MG 300 MG Levocetiriz Levocetiriz No 1{table QD Levocetiri ine ine t_in_ zine Dihydrochlo Dihydrochlo e_eveni Dihydrochl ride 5 MG ride 5 MG ng} oride 5 MG Aspir-81 Aspir-81 No Aspir-81 Montelukast Montelukast No 1{table QD Montelukas Sodium 10 Sodium 10 t} t Sodium MG MG 10 MG Metoprolol Metoprolol No 1{capsu QD Metoprolol Succinate Succinate le} Succinate 50 MG 50 MG 50 MG Metoprolol Metoprolol No 1{table QD Metoprolol Tartrate 50 Tartrate 50 t_with_ Tartrate MG MG food} 50 MG Sertraline Sertraline No Sertraline HCl 100 MG HCl 100 MG HCl 100 MG Gabapentin Gabapentin No 1{capsu TID Gabapentin 300 MG 300 MG le} 300 MG Meclizine Meclizine No Meclizine HCl HCl HCl Omeprazole Omeprazole No QD Omeprazole 40 MG 40 MG 40 MG Zoloft 100 Zoloft 100 No 1{table QD Zoloft 100 MG MG t} MG Montelukast Montelukast No Montelukas Sodium 10 Sodium 10 t Sodium MG MG 10 MG Losartan Losartan No Losartan Potassium Potassium Potassium 50 MG 50 MG 50 MG Meclizine Meclizine No Meclizine HCl HCl HCl Losartan Losartan No Losartan Potassium Potassium Potassium 50 MG 50 MG 50 MG Metoprolol Metoprolol No Metoprolol Succinate Succinate Succinate ER 50 MG ER 50 MG ER 50 MG Albuterol Albuterol No 1{puff_ Albuterol Sulfate 108 Sulfate 108 as_need Sulfate (90 Base) (90 Base) ed} 108 (90 MCG/ACT MCG/ACT Base) MCG/ACT Levocetiriz Levocetiriz No 1{table QD Levocetiri ine ine t_in_th zine Dihydrochlo Dihydrochlo e_eveni Dihydrochl ride 5 MG ride 5 MG ng} oride 5 MG Sertraline Sertraline No Sertraline HCl HCl HCl Sertraline Sertraline No Sertraline HCl 100 MG HCl 100 MG HCl 100 MG Gabapentin Gabapentin No 1{capsu TID Gabapentin 300 MG 300 MG le} 300 MG Montelukast Montelukast No Montelukas Sodium 10 Sodium 10 t Sodium MG MG 10 MG Atorvastati Atorvastati No Atorvastat n Calcium n Calcium in Calcium 10 MG 10 MG 10 MG Metoprolol Metoprolol No 1{capsu QD Metoprolol Succinate Succinate le} Succinate 50 MG 50 MG 50 MG Omeprazole Omeprazole No QD Omeprazole 40 MG 40 MG 40 MG Zoloft 100 Zoloft 100 No 1{table QD Zoloft 100 MG MG t} MG Vitamin D Vitamin D No Vitamin D Gabapentin Gabapentin No Gabapentin 300 MG 300 MG 300 MG Aspir-81 Aspir-81 No Aspir-81 Metoprolol Metoprolol No 1{table QD Metoprolol Tartrate 50 Tartrate 50 t_with_ Tartrate MG MG food} 50 MG Omeprazole Omeprazole No QD Omeprazole 40 MG 40 MG 40 MG Metoprolol Metoprolol No 1{table QD Metoprolol Tartrate 50 Tartrate 50 t_with_ Tartrate MG MG food} 50 MG Gabapentin Gabapentin No 1{capsu TID Gabapentin 300 MG 300 MG le} 300 MG Vitamin D Vitamin D No Vitamin D Sertraline Sertraline No Sertraline HCl HCl HCl Montelukast Montelukast No Montelukas Sodium 10 Sodium 10 t Sodium MG MG 10 MG Atorvastati Atorvastati No Atorvastat n Calcium n Calcium in Calcium 10 MG 10 MG 10 MG Losartan Losartan No 1{table QD Losartan Potassium Potassium t} Potassium 50 MG 50 MG 50 MG Albuterol Albuterol No 1{puff_ Albuterol Sulfate 108 Sulfate 108 as_need Sulfate (90 Base) (90 Base) ed} 108 (90 MCG/ACT MCG/ACT Base) MCG/ACT Zoloft 100 Zoloft 100 No 1{table QD Zoloft 100 MG MG t} MG Omeprazole Omeprazole No Omeprazole 40 MG 40 MG 40 MG Montelukast Montelukast No 1{table QD Montelukas Sodium 10 Sodium 10 t} t Sodium MG MG 10 MG Metoprolol Metoprolol No Metoprolol Succinate Succinate Succinate ER 50 MG ER 50 MG ER 50 MG Gabapentin Gabapentin No Gabapentin 300 MG 300 MG 300 MG Levocetiriz Levocetiriz No 1{table QD Levocetiri ine ine t_in_th zine Dihydrochlo Dihydrochlo e_eveni Dihydrochl ride 5 MG ride 5 MG ng} oride 5 MG Sertraline Sertraline No Sertraline HCl 100 MG HCl 100 MG HCl 100 MG Aspir-81 Aspir-81 No Aspir-81 Losartan Losartan No Losartan Potassium Potassium Potassium 50 MG 50 MG 50 MG Metoprolol Metoprolol No 1{capsu QD Metoprolol Succinate Succinate le} Succinate 50 MG 50 MG 50 MG Meclizine Meclizine No Meclizine HCl HCl HCl Atorvastati Atorvastati No 1{table QD Atorvastat n Calcium n Calcium t} in Calcium 10 MG 10 MG 10 MG Sertraline Sertraline No Sertraline HCl HCl HCl Omeprazole Omeprazole No QD Omeprazole 40 MG 40 MG 40 MG Omeprazole Omeprazole No Omeprazole 40 MG 40 MG 40 MG Gabapentin Gabapentin No 1{capsu TID Gabapentin 300 MG 300 MG le} 300 MG Losartan Losartan No 1{table QD Losartan Potassium Potassium t} Potassium 50 MG 50 MG 50 MG Aspir-81 Aspir-81 No Aspir-81 Albuterol Albuterol No 1{puff_ Albuterol Sulfate 108 Sulfate 108 as_need Sulfate (90 Base) (90 Base) ed} 108 (90 MCG/ACT MCG/ACT Base) MCG/ACT Atorvastati Atorvastati No Atorvastat n Calcium n Calcium in Calcium 10 MG 10 MG 10 MG Metoprolol Metoprolol No 1{capsu QD Metoprolol Succinate Succinate le} Succinate 50 MG 50 MG 50 MG Sertraline Sertraline No Sertraline HCl 100 MG HCl 100 MG HCl 100 MG Zoloft 100 Zoloft 100 No 1{table QD Zoloft 100 MG MG t} MG Meclizine Meclizine No Meclizine HCl HCl HCl Atorvastati Atorvastati No 1{table QD Atorvastat n Calcium n Calcium t} in Calcium 10 MG 10 MG 10 MG Losartan Losartan No Losartan Potassium Potassium Potassium 50 MG 50 MG 50 MG Vitamin D Vitamin D No Vitamin D Metoprolol Metoprolol No Metoprolol Succinate Succinate Succinate ER 50 MG ER 50 MG ER 50 MG Gabapentin Gabapentin No Gabapentin 300 MG 300 MG 300 MG Montelukast Montelukast No Montelukas Sodium 10 Sodium 10 t Sodium MG MG 10 MG Levocetiriz Levocetiriz No 1{table QD Levocetiri ine ine t_in_th zine Dihydrochlo Dihydrochlo e_eveni Dihydrochl ride 5 MG ride 5 MG ng} oride 5 MG Metoprolol Metoprolol No 1{table QD Metoprolol Tartrate 50 Tartrate 50 t_with_ Tartrate MG MG food} 50 MG Sertraline Sertraline No Sertraline HCl HCl HCl Omeprazole Omeprazole No QD Omeprazole 40 MG 40 MG 40 MG Omeprazole Omeprazole No Omeprazole 40 MG 40 MG 40 MG Gabapentin Gabapentin No 1{capsu TID Gabapentin 300 MG 300 MG le} 300 MG Losartan Losartan No 1{table QD Losartan Potassium Potassium t} Potassium 50 MG 50 MG 50 MG Aspir-81 Aspir-81 No Aspir-81 Albuterol Albuterol No 1{puff_ Albuterol Sulfate 108 Sulfate 108 as_need Sulfate (90 Base) (90 Base) ed} 108 (90 MCG/ACT MCG/ACT Base) MCG/ACT Atorvastati Atorvastati No Atorvastat n Calcium n Calcium in Calcium 10 MG 10 MG 10 MG Metoprolol Metoprolol No 1{capsu QD Metoprolol Succinate Succinate le} Succinate 50 MG 50 MG 50 MG Sertraline Sertraline No Sertraline HCl 100 MG HCl 100 MG HCl 100 MG Zoloft 100 Zoloft 100 No 1{table QD Zoloft 100 MG MG t} MG Meclizine Meclizine No Meclizine HCl HCl HCl Atorvastati Atorvastati No 1{table QD Atorvastat n Calcium n Calcium t} in Calcium 10 MG 10 MG 10 MG Losartan Losartan No Losartan Potassium Potassium Potassium 50 MG 50 MG 50 MG Vitamin D Vitamin D No Vitamin D Metoprolol Metoprolol No Metoprolol Succinate Succinate Succinate ER 50 MG ER 50 MG ER 50 MG Gabapentin Gabapentin No Gabapentin 300 MG 300 MG 300 MG Montelukast Montelukast No Montelukas Sodium 10 Sodium 10 t Sodium MG MG 10 MG Levocetiriz Levocetiriz No 1{table QD Levocetiri ine ine t_in_th zine Dihydrochlo Dihydrochlo e_eveni Dihydrochl ride 5 MG ride 5 MG ng} oride 5 MG Metoprolol Metoprolol No 1{table QD Metoprolol Tartrate 50 Tartrate 50 t_with_ Tartrate MG MG food} 50 MG Sertraline Sertraline No Sertraline HCl HCl HCl Metoprolol Metoprolol No 1{table QD Metoprolol Tartrate 50 Tartrate 50 t_with_ Tartrate MG MG food} 50 MG Aspir-81 Aspir-81 No Aspir-81 Vitamin D Vitamin D No Vitamin D Omeprazole Omeprazole No Omeprazole 40 MG 40 MG 40 MG Atorvastati Atorvastati No Atorvastat n Calcium n Calcium in Calcium 10 MG 10 MG 10 MG Meclizine Meclizine No Meclizine HCl 25 MG HCl 25 MG HCl 25 MG Metoprolol Metoprolol No 1{capsu QD Metoprolol Succinate Succinate le} Succinate 50 MG 50 MG 50 MG Albuterol Albuterol No 1{puff_ Albuterol Sulfate 108 Sulfate 108 as_need Sulfate (90 Base) (90 Base) ed} 108 (90 MCG/ACT MCG/ACT Base) MCG/ACT Gabapentin Gabapentin No Gabapentin 300 MG 300 MG 300 MG Sertraline Sertraline No Sertraline HCl 100 MG HCl 100 MG HCl 100 MG Zoloft 100 Zoloft 100 No 1{table QD Zoloft 100 MG MG t} MG Losartan Losartan No 1{table QD Losartan Potassium Potassium t} Potassium 50 MG 50 MG 50 MG Albuterol Albuterol No Albuterol Sulfate HFA Sulfate HFA Sulfate 108 (90 108 (90 HFA 108 Base) Base) (90 Base) MCG/ACT MCG/ACT MCG/ACT Levocetiriz Levocetiriz No 1{table QD Levocetiri ine ine t_in_th zine Dihydrochlo Dihydrochlo e_eveni Dihydrochl ride 5 MG ride 5 MG ng} oride 5 MG Metoprolol Metoprolol No Metoprolol Succinate Succinate Succinate ER 50 MG ER 50 MG ER 50 MG Losartan Losartan No Losartan Potassium Potassium Potassium 50 MG 50 MG 50 MG Montelukast Montelukast No Montelukas Sodium 10 Sodium 10 t Sodium MG MG 10 MG Meclizine Meclizine No Meclizine HCl HCl HCl Atorvastati Atorvastati No 1{table QD Atorvastat n Calcium n Calcium t} in Calcium 10 MG 10 MG 10 MG Metoprolol Metoprolol No Metoprolol Succinate Succinate Succinate ER 50 MG ER 50 MG ER 50 MG Gabapentin Gabapentin No Gabapentin 300 MG 300 MG 300 MG Sertraline Sertraline No Sertraline HCl 100 MG HCl 100 MG HCl 100 MG Omeprazole Omeprazole No Omeprazole 40 MG 40 MG 40 MG Montelukast Montelukast No 1{table QD Montelukas Sodium 10 Sodium 10 t} t Sodium MG MG 10 MG Meclizine Meclizine No Meclizine HCl HCl HCl Atorvastati Atorvastati No 1{table QD Atorvastat n Calcium n Calcium t} in Calcium 10 MG 10 MG 10 MG Atorvastati Atorvastati No Atorvastat n Calcium n Calcium in Calcium 10 MG 10 MG 10 MG Albuterol Albuterol No 1{puff_ Albuterol Sulfate 108 Sulfate 108 as_need Sulfate (90 Base) (90 Base) ed} 108 (90 MCG/ACT MCG/ACT Base) MCG/ACT Losartan Losartan No 1{table QD Losartan Potassium Potassium t} Potassium 50 MG 50 MG 50 MG Metoprolol Metoprolol No 1{capsu QD Metoprolol Succinate Succinate le} Succinate 50 MG 50 MG 50 MG Vitamin D Vitamin D No Vitamin D Albuterol Albuterol No Albuterol Sulfate HFA Sulfate HFA Sulfate 108 (90 108 (90 HFA 108 Base) Base) (90 Base) MCG/ACT MCG/ACT MCG/ACT Omeprazole Omeprazole No QD Omeprazole 40 MG 40 MG 40 MG Zoloft 100 Zoloft 100 No 1.5{tab QD Zoloft 100 MG MG let} MG Sertraline Sertraline No Sertraline HCl HCl HCl Aspir-81 Aspir-81 No Aspir-81 Metoprolol Metoprolol No 1{table QD Metoprolol Tartrate 50 Tartrate 50 t_with_ Tartrate MG MG food} 50 MG Meclizine Meclizine No Meclizine HCl 25 MG HCl 25 MG HCl 25 MG Montelukast Montelukast No Montelukas Sodium 10 Sodium 10 t Sodium MG MG 10 MG Levocetiriz Levocetiriz No 1{table QD Levocetiri ine ine t_in_th zine Dihydrochlo Dihydrochlo e_eveni Dihydrochl ride 5 MG ride 5 MG ng} oride 5 MG Gabapentin Gabapentin No 1{capsu TID Gabapentin 300 MG 300 MG le} 300 MG Losartan Losartan No Losartan Potassium Potassium Potassium 50 MG 50 MG 50 MG Meclizine Meclizine No Meclizine HCl 25 MG HCl 25 MG HCl 25 MG Omeprazole Omeprazole No Omeprazole 40 MG 40 MG 40 MG Atorvastati Atorvastati No Atorvastat n Calcium n Calcium in Calcium 10 MG 10 MG 10 MG Vitamin D Vitamin D No Vitamin D Sertraline Sertraline No Sertraline HCl HCl HCl Gabapentin Gabapentin No 1{capsu TID Gabapentin 300 MG 300 MG le} 300 MG Montelukast Montelukast No Montelukas Sodium 10 Sodium 10 t Sodium MG MG 10 MG Albuterol Albuterol No 1{puff_ Albuterol Sulfate 108 Sulfate 108 as_need Sulfate (90 Base) (90 Base) ed} 108 (90 MCG/ACT MCG/ACT Base) MCG/ACT Omeprazole Omeprazole No QD Omeprazole 40 MG 40 MG 40 MG Metoprolol Metoprolol No 1{capsu QD Metoprolol Succinate Succinate le} Succinate 50 MG 50 MG 50 MG Zoloft 100 Zoloft 100 No 1.5{tab QD Zoloft 100 MG MG let} MG Metoprolol Metoprolol No 1{table QD Metoprolol Tartrate 50 Tartrate 50 t_with_ Tartrate MG MG food} 50 MG Aspir-81 Aspir-81 No Aspir-81 Metoprolol Metoprolol No Metoprolol Succinate Succinate Succinate ER 50 MG ER 50 MG ER 50 MG Sertraline Sertraline No Sertraline HCl 100 MG HCl 100 MG HCl 100 MG Albuterol Albuterol No Albuterol Sulfate HFA Sulfate HFA Sulfate 108 (90 108 (90 HFA 108 Base) Base) (90 Base) MCG/ACT MCG/ACT MCG/ACT Gabapentin Gabapentin No Gabapentin 300 MG 300 MG 300 MG Losartan Losartan No Losartan Potassium Potassium Potassium 50 MG 50 MG 50 MG Levocetiriz Levocetiriz No 1{table QD Levocetiri ine ine t_in_th zine Dihydrochlo Dihydrochlo e_eveni Dihydrochl ride 5 MG ride 5 MG ng} oride 5 MG Montelukast Montelukast No 1{table QD Montelukas Sodium 10 Sodium 10 t} t Sodium MG MG 10 MG Meclizine Meclizine No Meclizine HCl HCl HCl Meclizine Meclizine No Meclizine HCl HCl HCl Atorvastati Atorvastati No Atorvastat n Calcium n Calcium in Calcium 10 MG 10 MG 10 MG Losartan Losartan No Losartan Potassium Potassium Potassium 50 MG 50 MG 50 MG Montelukast Montelukast No Montelukas Sodium 10 Sodium 10 t Sodium MG MG 10 MG Levocetiriz Levocetiriz No 1{table QD Levocetiri ine ine t_in_th zine Dihydrochlo Dihydrochlo e_eveni Dihydrochl ride 5 MG ride 5 MG ng} oride 5 MG Albuterol Albuterol No 1{puff_ Albuterol Sulfate 108 Sulfate 108 as_need Sulfate (90 Base) (90 Base) ed} 108 (90 MCG/ACT MCG/ACT Base) MCG/ACT Metoprolol Metoprolol No 1{capsu QD Metoprolol Succinate Succinate le} Succinate 50 MG 50 MG 50 MG Losartan Losartan No 1{table QD Losartan Potassium Potassium t} Potassium 50 MG 50 MG 50 MG Vitamin D Vitamin D No Vitamin D Sertraline Sertraline No Sertraline HCl 100 MG HCl 100 MG HCl 100 MG Montelukast Montelukast No 1{table QD Montelukas Sodium 10 Sodium 10 t} t Sodium MG MG 10 MG Meclizine Meclizine No Meclizine HCl 25 MG HCl 25 MG HCl 25 MG Gabapentin Gabapentin No 1{capsu TID Gabapentin 300 MG 300 MG le} 300 MG Sertraline Sertraline No Sertraline HCl HCl HCl Atorvastati Atorvastati No 1{table QD Atorvastat n Calcium n Calcium t} in Calcium 10 MG 10 MG 10 MG Aspir-81 Aspir-81 No Aspir-81 Metoprolol Metoprolol No 1{table QD Metoprolol Tartrate 50 Tartrate 50 t_with_ Tartrate MG MG food} 50 MG Meclizine Meclizine No Meclizine HCl HCl HCl Atorvastati Atorvastati No Atorvastat n Calcium n Calcium in Calcium 10 MG 10 MG 10 MG Losartan Losartan No Losartan Potassium Potassium Potassium 50 MG 50 MG 50 MG Montelukast Montelukast No Montelukas Sodium 10 Sodium 10 t Sodium MG MG 10 MG Levocetiriz Levocetiriz No 1{table QD Levocetiri ine ine t_in_th zine Dihydrochlo Dihydrochlo e_eveni Dihydrochl ride 5 MG ride 5 MG ng} oride 5 MG Albuterol Albuterol No 1{puff_ Albuterol Sulfate 108 Sulfate 108 as_need Sulfate (90 Base) (90 Base) ed} 108 (90 MCG/ACT MCG/ACT Base) MCG/ACT Metoprolol Metoprolol No 1{capsu QD Metoprolol Succinate Succinate le} Succinate 50 MG 50 MG 50 MG Losartan Losartan No 1{table QD Losartan Potassium Potassium t} Potassium 50 MG 50 MG 50 MG Vitamin D Vitamin D No Vitamin D Sertraline Sertraline No Sertraline HCl 100 MG HCl 100 MG HCl 100 MG Montelukast Montelukast No 1{table QD Montelukas Sodium 10 Sodium 10 t} t Sodium MG MG 10 MG Meclizine Meclizine No Meclizine HCl 25 MG HCl 25 MG HCl 25 MG Gabapentin Gabapentin No 1{capsu TID Gabapentin 300 MG 300 MG le} 300 MG Sertraline Sertraline No Sertraline HCl HCl HCl Atorvastati Atorvastati No 1{table QD Atorvastat n Calcium n Calcium t} in Calcium 10 MG 10 MG 10 MG Aspir-81 Aspir-81 No Aspir-81 Metoprolol Metoprolol No 1{table QD Metoprolol Tartrate 50 Tartrate 50 t_with_ Tartrate MG MG food} 50 MG Omeprazole Omeprazole No QD Omeprazole 40 MG 40 MG 40 MG Metoprolol Metoprolol No 1{table QD Metoprolol Tartrate 50 Tartrate 50 t_with_ Tartrate MG MG food} 50 MG Gabapentin Gabapentin No 1{capsu TID Gabapentin 300 MG 300 MG le} 300 MG Vitamin D Vitamin D No Vitamin D Sertraline Sertraline No Sertraline HCl HCl HCl Montelukast Montelukast No Montelukas Sodium 10 Sodium 10 t Sodium MG MG 10 MG Atorvastati Atorvastati No Atorvastat n Calcium n Calcium in Calcium 10 MG 10 MG 10 MG Losartan Losartan No 1{table QD Losartan Potassium Potassium t} Potassium 50 MG 50 MG 50 MG Albuterol Albuterol No 1{puff_ Albuterol Sulfate 108 Sulfate 108 as_need Sulfate (90 Base) (90 Base) ed} 108 (90 MCG/ACT MCG/ACT Base) MCG/ACT Zoloft 100 Zoloft 100 No 1{table QD Zoloft 100 MG MG t} MG Omeprazole Omeprazole No Omeprazole 40 MG 40 MG 40 MG Montelukast Montelukast No 1{table QD Montelukas Sodium 10 Sodium 10 t} t Sodium MG MG 10 MG Metoprolol Metoprolol No Metoprolol Succinate Succinate Succinate ER 50 MG ER 50 MG ER 50 MG Gabapentin Gabapentin No Gabapentin 300 MG 300 MG 300 MG Levocetiriz Levocetiriz No 1{table QD Levocetiri ine ine t_in_th zine Dihydrochlo Dihydrochlo e_eveni Dihydrochl ride 5 MG ride 5 MG ng} oride 5 MG Sertraline Sertraline No Sertraline HCl 100 MG HCl 100 MG HCl 100 MG Aspir-81 Aspir-81 No Aspir-81 Losartan Losartan No Losartan Potassium Potassium Potassium 50 MG 50 MG 50 MG Metoprolol Metoprolol No 1{capsu QD Metoprolol Succinate Succinate le} Succinate 50 MG 50 MG 50 MG Meclizine Meclizine No Meclizine HCl HCl HCl Atorvastati Atorvastati No 1{table QD Atorvastat n Calcium n Calcium t} in Calcium 10 MG 10 MG 10 MG Vital Signs Vital Name Observation Time Observation Value Comments Source height 2022-12-26 09:50:00 59 [in_i] [facility] weight 2022-12-26 09:50:00 212.9 [lb_av] Common [facility] temperature 2022-12-26 09:50:00 97.3 [degF] [facility] bmi 2022-12-26 09:50:00 43 kg/m2 [facility] oximetry 2022-12-26 09:50:00 95 % [facility] respiratory rate 2022-12-26 09:50:00 16 /min Comm on [facility] blood pressure 2022-12-26 09:50:00 138 mm[Hg] [facility] blood pressure 2022-12-26 09:50:00 77 mm[Hg] [facility] height 2022-08-27 10:40:00 59 [in_i] [facility] weight 2022-08-27 10:40:00 208 [lb_av] [facility] - [facility] temperature 2022-08-27 10:40:00 97.8 [degF] [facility] - [facility] bmi 2022-08-27 10:40:00 42.01 kg/m2 [facility] oximetry 2022-08-27 10:40:00 93 % [facility] respiratory rate 2022-08-27 10:40:00 18 /min Comm on [facility] blood pressure 2022-08-27 10:40:00 138 mm[Hg] [facility] blood pressure 2022-08-27 10:40:00 70 mm[Hg] [facility] weight 2022-08-27 09:30:00 208 [lb_av] Common [facility] temperature 2022-08-27 09:30:00 97.8 [degF] [facility] bmi 2022-08-27 09:30:00 42.01 kg/m2 Common [facility] - [facility] oximetry 2022-08-27 09:30:00 93 % Common [facility] respiratory rate 2022-08-27 09:30:00 18 /min Comm on [facility] blood pressure 2022-08-27 09:30:00 138 mm[Hg] [facility] blood pressure 2022-08-27 09:30:00 70 mm[Hg] [facility] height 2022-08-27 09:30:00 59 [in_i] Common [facility] height 2022-05-01 08:20:00 60 [in_i] Common [facility] weight 2022-05-01 08:20:00 199.9 [lb_av] Common [facility] temperature 2022-05-01 08:20:00 96.8 [degF] Common [facility] bmi 2022-05-01 08:20:00 39.04 kg/m2 Common S [facility]irit [facility] oximetry 2022-05-01 08:20:00 95 % [facility] 2022-05-01 08:20:00 16 /min Comm on [facility] blood pressure 2022-05-01 08:20:00 132 mm[Hg] Common [facility] - systolic [facility] blood pressure 2022-05-01 08:20:00 65 mm[Hg] Common [facility] - diastolic [facility] height 2022-01-01 09:30:00 60 [in_i] Common [facility] weight 2022-01-01 09:30:00 198.7 [lb_av] [facility] temperature 2022-01-01 09:30:00 96.4 [degF] Common [facility] bmi 2022-01-01 09:30:00 38.8 kg/m2 [facility] oximetry 2022-01-01 09:30:00 98 % [facility] rate 2022-01-01 09:30:00 18 /min Comm on [facility] blood pressure 2022-01-01 09:30:00 135 mm[Hg] Common [facility] - systolic [facility] blood pressure 2022-01-01 09:30:00 73 mm[Hg] Common [facility] - diastolic [facility] height 2021-08-28 09:30:00 60 [in_i] Common [facility] weight 2021-08-28 09:30:00 202 [lb_av] Common S pirit [facility] bmi 2021-08-28 09:30:00 39.45 kg/m2 Common S [facility] blood pressure 2021-08-28 09:30:00 132 mm[Hg] Common [facility] - systolic [facility] blood pressure 2021-08-28 09:30:00 76 mm[Hg] Common [facility] - diastolic [facility] height 2021-03-07 14:30:00 60 [in_i] Common [facility] weight 2021-03-07 14:30:00 213.4 [lb_av] [facility] temperature 2021-03-07 14:30:00 96.6 [degF] [facility] bmi 2021-03-07 14:30:00 41.67 kg/m2 [facility] oximetry 2021-03-07 14:30:00 95 % [facility] respiratory rate 2021-03-07 14:30:00 18 /min Comm on [facility] blood pressure 2021-03-07 14:30:00 130 mm[Hg] Common [facility] systolic [facility] blood pressure 2021-03-07 14:30:00 60 mm[Hg] [facility] diastolic [facility] Procedures This patient has no known procedures. Plan of Care Planned Activity Planned Date Details Comments Source Future Scheduled 2023-08-01 Influenza Vaccine (#1) [facility] 00:00:00 [code = Influenza Medical Ce nter Vaccine (#1)] Future Scheduled 2022-12-[address] [facility] 00:00:00 (12+) [code = Medical Center DEPRESSION SCREENING (12+)] Future Scheduled 2022-12-01 FALLS RISK SCREENING [facility] 00:00:00 [code = FALLS RISK Medical C enter SCREENING] Future Scheduled 2022-12-01 Medicare IPPE (WELCOME [facility] 00:00:00 TO MEDICARE) [code = Medical Center Medicare IPPE (WELCOME TO MEDICARE)] Future Scheduled 2013 PNEUMOCOCCAL 65+ YRS ([address] [facility] 00:00:00 - PCV) [code = Medical Cente r PNEUMOCOCCAL 65+ YRS (1 - PCV)] Future Scheduled 1998 SHINGLES VACCINES ([address] [facility] 00:00:00 2) [code = SHINGLES Medical Center VACCINES (1 of 2)] Future Scheduled 1967 DTAP/TDAP/TD VACCINES [facility] 00:00:00 (1 - Tdap) [code = Medical C enter DTAP/TDAP/TD VACCINES (1 - Tdap)] Future Scheduled 1966 HEPATITIS C SCREENING [facility] 00:00:00 [code = HEPATITIS C Medical Center SCREENING] Future Scheduled [address] [facility] 00:00:00 Counseling and Medical Cente r Screening (12+) [code = Tobacco Cessation Counseling and Screening (12+)] Future Scheduled 1949-04-07 COVID-19 VACCINE (#1) [facility] 00:00:00 [code = COVID-[address] VACCINE (#1)] Future Scheduled 1948 Screening for malignant [facility] 00:00:00 neoplasm of colon Medical Ce nter (procedure) [code = 381579800] Future Scheduled 1950 Sigmoidoscopy [code = [facility]00 Sigmoidoscopy] Medical Cente r Future Scheduled 1948 Screening for malignant [facility] 00:00:00 neoplasm of breast Medical C enter (procedure) [code = 324059849] Future Scheduled 1948 CT Colonography (combo) [facility] 00:00:00 [code = CT Colonography [facility] (combo)] Future Scheduled 1948 Screening for malignant [facility] 00:00:00 neoplasm of colon Medical Ce nter (procedure) [code = 626743161] Future Scheduled 1948 Screening for malignant [facility] 00:00:00 neoplasm of colon Medical Ce nter (procedure) [code = 058530793] Future Scheduled 1950 DXA SCAN [code = DXA [facility] 00:00:00 SCAN] [facility] Center Future Scheduled 1948 Screening for malignant [facility] 00:00:00 neoplasm of colon Medical Ce nter (procedure) [code = 973948577] Encounters Start End Encounter Admission Attending Care Care Encounter Source Date/Time Date/Time Type Type Clinicians Facility Department ID 2023-06-24 Outpatient Jenkins, STLMLC STLC [id number] Common 14:59:00 Keegan [id number] [facility] 2022-12-26 Outpatient Jenkins, STLMLC STLC [id number] Common 08:02:01 Keegan [id number] [facility] 2022-01-01 Outpatient Jenkins, STLMLC STLC [id number] Common 09:08:01 Keegan [facility] 2021-12-31 Outpatient Jenkins, STLMLC STLC [id number] Common 09:26:01 Keegan [facility] 2021-12-26 Outpatient Jenkins, STLMLC STLC [id number] Common 13:00:02 Keegan [id number] [facility] 2021-12-26 Outpatient Jenkins, STLMLC STLC [id number] Common 12:50:46 Keegan 82436 [facility] 2021-12-26 Outpatient Jenkins, STLMLC STLC [id number] Common 12:49:46 Keegan [id number] [facility] 2023-08-08 2023-08-08 Telephone Delaney, [facility] [id number] [facility]00 [facility] 2022-12-26 2022-12-26 [facility] [id number] Co mmon 00:00:00 00:00:00 VISIT [facility] 4 [facility] 2022-11-07 2022-11-07 (TEL) [facility] [id number] Co mmon 00:00:00 00:00:00 [facility] 2022-09-25 2022-09-25 (TEL) STLC STLC [id number] Co mmon 00:00:00 00:00:00 [facility] 2022-08-27 2022-08-27 SUB ANNUAL STLMLC STLMLC [id number] Common 00:00:00 00:00:00 [facility]LL[facility] - CHI VISIT [facility] 2022-08-27 2022-08-27 OFFICE STLMLC STLMLC [id number] Co mmon 00:00:00 00:00:00 VISIT [facility] ESTAB PT - CHI LEVEL [address] [place] [address] 2022-06-20 2022-06-20 (TEL) STLMLC STLMLC [id number] Co mmon 00:00:00 00:00:00 [facility] 2022-05-01 2022-05-01 OFFICE STLMLC STLMLC [id number] Co mmon 00:00:00 00:00:00 VISIT [facility] PT - CHI LEVEL [address] [place] [address] 2022-01-31 2022-01-31 (TEL) STLMLC STLMLC [id number] Co mmon 00:00:00 00:00:00 [facility] 2022-01-04 2022-01-04 (TEL) STLMLC STLMLC [id number] Co mmon 00:00:00 00:00:00 [facility] 2022-01-01 2022-01-01 OFFICE STLMLC STLMLC [id number] Co mmon 00:00:00 00:00:00 [facility] - CHI LEVEL [address] [place] [address] 2021-08-28 2021-08-28 OFFICE STLMLC STLMLC [id number] Co mmon 00:00:00 00:00:00 VISIT [facility] ESTAB PT - CHI LEVEL [address] [place] [address] 2021-07-31 2021-07-31 Outpatient STLMLC STLMLC [id number] Common 00:00:00 00:00:00 [facility] 2021-07-09 2021-07-09 Outpatient STLMLC STLMLC [id number] Common 00:00:00 00:00:00 [facility] 2021-06-28 2021-06-28 Outpatient STLMLC STLMLC [id number] Common 00:00:00 00:00:00 [facility] 2021-06-28 2021-06-28 Outpatient STLMLC STLMLC [id number] Common 00:00:00 00:00:00 [facility] 2021-06-20 2021-06-20 Outpatient STLMLC STLMLC [id number] Common 00:00:00 00:00:00 [facility] 2021-06-20 2021-06-20 Outpatient STLMLC STLMLC [id number] Common 00:00:00 00:00:00 [facility] 2021-06-19 2021-06-19 Outpatient STLMLC STLMLC [id number] Common 00:00:00 00:00:00 [facility] 2021-06-07 2021-06-07 Outpatient STLMLC STLMLC [id number] Common 00:00:00 00:00:00 [facility] 2021-05-08 2021-05-08 Outpatient STLMLC STLMLC [id number] Common 00:00:00 00:00:00 [facility] 2021-04-05 2021-04-05 Outpatient STLMLC STLMLC [id number] Common 00:00:00 00:00:00 [facility] 2021-03-07 2021-03-07 OFFICE STLMLC STLMLC [id number] Co mmon 00:00:00 00:00:00 VISIT [facility] PT LEVEL 4 - [facility] Results This patient has no known results.
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
--- NOTE | 2023-09-22 18:07 | EKG ---
Test Date: 2023-09-21 Test Time: 15:29:58 Pigment Making Supervisor: ALP MEASUREMENT RESULTS: Intervals: Rate: 62 VA: 176 QRSD: 92 QT: 474 QTc: 481 [place]: P: 27 VA: 176 QRS: -24 T: 18 INTERPRETIVE STATEMENTS: Normal sinus rhythm Minimal voltage criteria for LVH, may be normal variant Cannot rule out Anterior infarct, age undetermined Abnormal ECG Compared to ECG 02/24/2022 18:33:15 Left ventricular hypertrophy now present Myocardial infarct finding still present Electronically Signed On 09-22-23 18:05:22 CDT by Clyde Velásquez
== END 2023-09-21 16:46 | disposition home or self-care (01) ==
LOC: ER 14:22
DX: S16.1XXA Strain of muscle, fascia and tendon at neck level, initial encounter (principal); V49.59XA Passenger injured in collision with other motor vehicles in traffic accident, initial encounter; I10 Essential (primary) hypertension; I25.2 Old myocardial infarction
CPT/HCPCS: 70450; 71045; 72125; 93005; 99283

== ENCOUNTER → 2024-01-05 | Emergency (ER) | payer OTHER ==
[~2024-01-05] MED LIST: KCL 20 MEQ/100 mL IVPB 100 ML IV ONE; KETOROLAC 30 MG/ML INJ ONE; NA CHLORIDE 0.9% 1,000 ML ONE; POTASSIUM 25 MEQ EFFERV TAB ONE
[2024-01-05 10:31] LABS: Absolute Lymphocytes (CBC) 1.9 K/uL (0.7-4.9); Hematocrit 40.7 % (36.0-45.0); Lymphocytes % 27.6 % (15.3-44.8); MCV 86.8 fL (80-100); MPV 9.3 fL (7.6-11.3); Platelets 223 thou/uL (152-406); RBC Red Blood Cell Count 4.68 M/uL (3.86-4.86)
[2024-01-05 10:52] LABS: Albumin 3.4 g/dL (3.4-5.0); Bilirubin Direct 0.2 mg/dL (0-0.2); Bilirubin Indirect, Calculated 0.6 mg/dL (0.2-0.8); Bilirubin Total 0.8 mg/dL (0.2-1.0); Magnesium 1.7 mg/dL (1.6-2.4); Potassium 2.8 mEq/L (3.5-5.1); Protein, Total 7.6 g/dL (6.4-8.2); Troponin High Sensitivity 9.2 pg/mL (<58.9)
--- NOTE | 2024-01-05 11:36 | RAD REPORT ---
EXAM DESCRIPTION: USExtrem Venous W Compress Bil01/05/2024 11:25 am CLINICAL HISTORY: Leg pain COMPARISON: none FINDINGS: The common femoral, superficial femoral, greater saphenous, popliteal and posterior tibial veins bilaterally are compressible and demonstrate augmentation. Doppler demonstrates good flow. Grayscale, color and spectral analysis performed on all vessels IMPRESSION: No evidence of deep venous thrombosis involving either lower extremity.
--- NOTE | 2024-01-05 11:37 | RAD REPORT ---
EXAM DESCRIPTION: US - Lower Extremity Arterial Bilat - 01/05/2024 11:25 am CLINICAL HISTORY: Leg pain COMPARISON: None FINDINGS: The right and left common femoral arterial waveforms triphasic Right and left superficial femoral, popliteal, posterior tibial and dorsalis pedis arterial waveforms biphasic Grayscale, color and spectral analysis performed on all vessels IMPRESSION: Mild bilateral lower extremity arterial disease
--- NOTE | 2024-01-05 13:37 | ER ---
Nurse's Notes [facility] Name: Eloisa Aparicio Age: 73 yrs Sex: Female : 1950 Arrival Date: 01/05/2024 Time: 10:01 Bed 5 Private MD: Keegan Jenkins Diagnosis: Pain in left leg;Pain in right leg;Hypokalemia;Acute pharyngitis, unspecified Presentation: 01/05 10:15 Chief complaint: Patient states: she has been having [place] leg pain for approx 2 months ap3 and throat pain for 1.5 months. patient currently rates her leg pain as a 10/10 on the pain scale. Coronavirus screen: At this time, the client does not indicate any symptoms associated with coronavirus-19. Ebola Screen: No symptoms or risks identified at this time. Initial Sepsis Screen: Does the patient meet any 2 criteria? No. Patient's initial sepsis screen is negative. Does the patient have a suspected source of infection? No. Patient's initial sepsis screen is negative. Risk Assessment: Do you want to hurt yourself or someone else? Patient reports no desire to harm self or others. Onset of symptoms is unknown. 10:15 Method Of Arrival: Ambulatory ap3 10:15 Acuity: ÁNGEL 3 ap3 Triage Assessment: 10:16 General: Appears in no apparent distress. Behavior is calm, cooperative, appropriate ap3 for age. Pain: Complains of pain in right leg and left leg Pain currently is 10 out of 10 on a pain scale. Pain began gradually, 2 months ago. EENT: Reports pain in throat. Neuro: Level of Consciousness is awake, alert, obeys commands, Oriented to person, place, time, situation. Cardiovascular: Patient's skin is warm and dry. Respiratory: Airway is patent Respiratory effort is even, unlabored, Respiratory pattern is regular, symmetrical. Musculoskeletal: Reports pain in right leg and left leg. Historical: - Allergies: 10:08 No Known Allergies; ph - PMHx: 10:08 Diverticulitis; GERD; Hypercholesterolemia; Hypertension; AL; restless leg; sciatica; ph ulcer colitis; - PSHx: 10:08 Total abdominal hysterectomy; ph - Immunization history:: Adult Immunizations up to date. - Social history:: Smoking status: Patient denies any tobacco usage or history of. Screenin:17 [facility] ED Fall Risk Assessment (Adult) History of falling in the last 3 months, ap3 including since admission No falls in past 3 months (0 pts). Abuse screen: Denies threats or abuse. Nutritional screening: No deficits noted. Tuberculosis screening: No symptoms or risk factors identified. Assessment: 10:35 General: Appears in no apparent distress. Behavior is calm, cooperative. Pain: ph Complains of pain in right leg and left leg. Neuro: Level of Consciousness is awake, alert, obeys commands, Oriented to person, place, time, situation. Cardiovascular: Capillary refill < 3 seconds in bilateral fingers Patient's skin is warm and dry. Respiratory: Airway is patent Respiratory effort is even, unlabored, Breath sounds are clear bilaterally. EENT: Throat is clear Reports pain when swallowing. Derm: Skin is pink, warm \T\ dry. Vital Signs: 10:15 BP 166 / 96; Pulse 87; Resp 17; Temp 98.6; Pulse Ox 99% ; Weight 77.11 kg; Pain 10/10; ap3 11:58 BP 150 / 74; Pulse 69; Resp 18; Pulse Ox 100% on R/A; ph 13:11 BP 126 / 67; Pulse 68; Resp 18 S; Pulse Ox 98% on R/A; as6 10:15 Pain Scale: Adult ap3 ED Course: 10:04 Patient arrived in ED. mr 10:04 Keegan Jenkins, is Private Physician. mr 10:05 José Miguel Shore PA is PHCP. cp 10:05 José Miguel Vazquez MD is Attending Physician. cp 10:08 Arm band placed on Patient placed in an exam room. ph 10:16 Triage completed. ap3 10:17 Patient has correct armband on for positive identification. Bed in low position. Call ap3 light in reach. Side rails up X 1. Pulse ox on. NIBP on. 10:28 Inserted saline lock: 20 gauge in right antecubital area, using aseptic technique. kc6 Blood collected. Patient maintains SpO2 saturation greater than 95% on room air. 10:35 Fabiola Lubin, RN is Primary Nurse. ph 11:27 US Extremity Venous W Compression [place] In Process Unspecified. EDMS 11:27 US LE Arterial Bilateral In Process Unspecified. EDMS 13:37 No provider procedures requiring assistance completed. as6 14:04 Provided Education on: follow up. as6 14:04 IV discontinued, intact, bleeding controlled, No redness/swelling at site. Pressure as6 dressing applied. Administered Medications: 10:35 Drug: Ketorolac IVP 15 mg IVP once Route: IVP; Site: right antecubital; ph 13:37 Follow up: Response: No adverse reaction as6 11:36 Drug: Potassium Chloride IV 20 mEq IV at calculated rate once; administer over 1-2 kc6 hours Route: IV; Rate: calculated rate; Site: right antecubital; 13:37 Follow up: Response: No adverse reaction; IV Status: Completed infusion; IV Intake: as6 100ml 11:36 Drug: Potassium PO Effervescent Tablet 50 mEq PO once; dissolve in 4 ounces of water or kc6 juice Route: PO; 13:37 Follow up: Response: No adverse reaction as6 Medication: 10:36 VIS not applicable for this client. ph Intake: 13:37 IV: 100ml; Total: 100ml. as6 Outcome: 13:37 Condition: stable as6 13:37 Discharge ordered by MD. alexandria 14:04 Discharged to home via wheelchair, with significant other, as6 14:04 Discharge instructions given to patient, Instructed on discharge instructions, follow up and referral plans. medication usage, Demonstrated understanding of instructions, follow-up care, medications, Prescriptions given X 2, 14:04 Patient left the ED. as6 Signatures: Dispatcher [employer] EDOH FerraraCorrina grady, Reg Reg mr Fabiola Lubin RN José Miguel Ashley ph, PA PA cp Prokisch, Amanda, RN RN ap3 Slawson, Ashby, RN RN as6 Campbell, Kaitlyn, RN RN kc6
--- NOTE | 2024-01-05 13:37 | EDPHYS ---
Physician Documentation [facility] Name: Eloisa Aparicio Age: 73 yrs Sex: Female : 1950 Arrival Date: 01/05/2024 Time: 10:01 Bed 5 Private MD: Keegan Jenkins ED Physician José Miguel Vazquez HPI: 01/05 10:15 This 73 yrs old Female presents to ER via Unassigned with complaints of Leg cp Pain, Sore Throat. 10:15 The patient presents with pain, that is acute. The complaints affect the right leg and cp left leg. Onset: The symptoms/episode began/occurred 2 month(s) ago. 10:15 Context: the patient can fully bear weight, the patient is able to ambulate, with cp moderate difficulty, reports pain worse with ambulation and relieved when non-wt bearing and legs elevated. patient denies injury, denies lower extremity joint pain. 10:15 Associated signs and symptoms: Pertinent positives: calf tenderness, weakness, cp Pertinent negatives numbness, tingling, chest pain, low back pain, abdominal pain. Treatment prior to arrival includes: no previous treatment. Patient also c/o sore throat and oral mouth pain for past 1 and 1/2 months. Historical: - Allergies: 10:08 No Known Allergies; ph - PMHx: 10:08 Diverticulitis; GERD; Hypercholesterolemia; Hypertension; MA; restless leg; sciatica; ph ulcer colitis; - PSHx: 10:08 Total abdominal hysterectomy; ph - Immunization history:: Adult Immunizations up to date. - Social history:: Smoking status: Patient denies any tobacco usage or history of. ROS: 10:20 Constitutional: Positive for weight loss, Negative for body aches, chills, fever, cp 10:20 Eyes: Negative for injury, pain, redness, and discharge, cp 10:20 Cardiovascular: Negative for chest pain, edema, 10:20 Abdomen/GI: Negative for abdominal pain, 10:20 Back: Negative for pain at rest, pain with movement, 10:20 : Negative for urinary symptoms, 10:20 MS/extremity: Positive for pain, of the right leg and left leg, 10:20 Neuro: Positive for weakness, Negative for altered mental status, dizziness, headache, syncope, 10:20 ENT: Positive for sore throat, Negative for drainage from ear(s), ear pain, dental cp pain, difficulty swallowing, difficulty handling secretions, hoarseness, 10:20 Skin: Negative for cellulitis, rash, 10:20 Respiratory: Negative for cough, shortness of breath, wheezing, cp 10:20 All other systems are negative, Exam: 10:25 Constitutional: The patient appears in no acute distress, alert, awake, cp non-diaphoretic, non-toxic, well developed, well nourished, 10:25 Head/Face: Normocephalic, atraumatic. cp 10:25 Eyes: Periorbital structures: appear normal, Conjunctiva: normal, no exudate, no cp injection, Sclera: no appreciated abnormality, Lids and lashes: appear normal, bilaterally, 10:25 ENT: External ear(s): are unremarkable, Ear canal(s): are normal, clear, TM's: dullness, bilaterally, Nose: is normal, Mouth: Lips: moist, Oral mucosa: moist, Posterior pharynx: Airway: no evidence of obstruction, patent, Tonsils: no enlargement, no exudate, erythema, that is moderate, general of of the oropharynx, exudate, that is mild, noted on tongue, Voice: is normal, 10:25 Neck: ROM/movement: is normal, is supple, without pain, no range of motions cp limitations, no meningismus, no nuchal rigidity, 10:25 Chest/axilla: Inspection: normal, 10:25 Cardiovascular: Rate: normal, Rhythm: regular, 10:25 Respiratory: the patient does not display signs of respiratory distress, Respirations: normal, no use of accessory muscles, no retractions, labored breathing, is not present, Breath sounds: are clear throughout, no decreased breath sounds, no stridor, no wheezing, 10:25 Abdomen/GI: Inspection: abdomen appears normal, Palpation: abdomen is soft and non-tender, in all quadrants, 10:25 Back: pain, is absent, ROM is normal, vertebral tenderness, is not appreciated, Straight leg raises: of both lower extremities does not illicit pain, 10:25 Musculoskeletal/extremity: Extremities: noted in the right leg and left leg: pain, tenderness, There is no evidence of erythema, swelling, ROM: full active range of motion, in the right leg and left leg, Pulses: noted to be 2+ in the right dorsalis pedis artery and left dorsalis pedis artery, 10:25 Skin: cellulitis, is not appreciated, no rash present. 10:25 Neuro: Orientation: to person, place \T\ time. Mentation: is normal, Gait: is steady, 10:45 ECG was reviewed by the Attending Physician. Vital Signs: 10:15 BP 166 / 96; Pulse 87; Resp 17; Temp 98.6; Pulse Ox 99% ; Weight 77.11 kg; Pain 10/10; ap3 11:58 BP 150 / 74; Pulse 69; Resp 18; Pulse Ox 100% on R/A; ph 13:11 BP 126 / 67; Pulse 68; Resp 18 S; Pulse Ox 98% on R/A; as6 10:15 Pain Scale: Adult ap3 MDM: 10:06 Patient medically screened. [facility] 13:36 Data reviewed: vital signs, nurses notes, lab test result(s), EKG, radiologic studies, cp ultrasound. 13:36 I considered the following discharge prescriptions or medication management in the emergency department Medications were administered in the Emergency Department. See MAR. Care significantly affected by the following chronic conditions: Hypertension. Counseling: I had a detailed discussion with the patient and/or guardian regarding the historical points, exam findings, and any diagnostic results supporting the discharge/admit diagnosis, the need for outpatient follow up, a family practitioner, to return to the emergency department if symptoms worsen or persist or if there are any questions or concerns that arise at home. 01/05 10:17 Order name: Basic Metabolic Panel; Complete Time: 11:06 cp 01/05 11:06 Interpretation: Normal except: K 2.8; GLUC 113. cp 01/05 10:17 Order name: CBC with Diff; Complete Time: 11:06 cp 01/05 11:06 Interpretation: Normal except: RDW 16.6. cp 01/05 10:17 Order name: LFT's; Complete Time: 11:06 cp 01/05 11:07 Interpretation: Normal except: GLOB 4.2; A/G 0.8. cp 01/05 10:17 Order name: Magnesium; Complete Time: 11:06 cp 01/05 10:17 Order name: Troponin HS; Complete Time: 11:06 cp 01/05 10:17 Order name: Strep cp 01/05 10:17 Order name: [place] Screen Profile; Complete Time: 11:06 cp 01/05 11:07 Interpretation: Reviewed. cp 01/05 10:17 Order name: CK; Complete Time: 11:06 cp 01/05 11:07 Interpretation: Reviewed. cp 01/05 10:53 Order name: Throat Culture EDMS 01/05 10:17 Order name: US Extremity Venous W Compression Jose Maria; Complete Time: 11:40 cp 01/05 11:40 Interpretation: Report reviewed. cp 01/05 10:17 Order name: US LE Arterial Bilateral; Complete Time: 11:40 cp 01/05 11:40 Interpretation: Report reviewed. cp 01/05 10:17 Order name: EKG; Complete Time: 10:17 cp 01/05 10:17 Order name: Cardiac monitoring; Complete Time: 10:36 cp 01/05 10:17 Order name: EKG - Nurse/Tech; Complete Time: 10:36 cp 01/05 10:17 Order name: IV Saline Lock; Complete Time: 10:28 cp 01/05 10:17 Order name: Labs collected and sent; Complete Time: 10:28 cp 01/05 10:17 Order name: O2 Per Protocol; Complete Time: 10:19 cp 01/05 10:17 Order name: O2 Sat Monitoring; Complete Time: 10:19 cp EC:45 Rate is 68 beats/min. Rhythm is regular. FL interval is normal. QRS interval is normal. cp QT interval is normal. Interpreted by me. Reviewed by me. Administered Medications: 10:35 Drug: Ketorolac IVP 15 mg IVP once Route: IVP; Site: right antecubital; ph 13:37 Follow up: Response: No adverse reaction as6 11:36 Drug: Potassium Chloride IV 20 mEq IV at calculated rate once; administer over 1-2 kc6 hours Route: IV; Rate: calculated rate; Site: right antecubital; 13:37 Follow up: Response: No adverse reaction; IV Status: Completed infusion; IV Intake: as6 100ml 11:36 Drug: Potassium PO Effervescent Tablet 50 mEq PO once; dissolve in 4 ounces of water or kc6 juice Route: PO; 13:37 Follow up: Response: No adverse reaction as6 Disposition Summary: 01/05/24 13:37 Discharge Ordered Notes: Location: Home cp Problem: new cp Symptoms: have improved cp Condition: Stable cp Diagnosis - Pain in left leg cp - Pain in right leg cp - Hypokalemia cp - Acute pharyngitis, unspecified cp Followup: cp - With: Private Physician - When: 2 - 3 days - Reason: Recheck today's complaints Discharge Instructions: - Discharge Summary Sheet cp - Potassium Content of Foods cp - Musculoskeletal Pain cp - Pharyngitis cp - Sore Throat cp - Hypokalemia cp - Heat Therapy cp Forms: - Medication Reconciliation Form cp - Thank You Letter cp - Antibiotic Education cp - Prescription Opioid Use cp - Patient Portal Instructions cp - Leadership Thank You Letter cp Prescriptions: - clotrimazole 10 mg Mucous Membrane Khushbu - dissolve 1 tablet MUCOUS MEMBRANE route 5 times per day for 7 days; 35 tablet; cp Refills: 0, Product Selection Permitted - Mobic 7.5 mg Oral tablet - take 1 tablet ORAL route once daily take with food; 30 tablet; Refills: 0, cp Product Selection Permitted Signatures: Dispatcher [employer] José Miguel Corrales MD MD cha Hall, Patricia RN RN ph José Miguel Shore, CONSTANZA PA cp Griselda Michael RN RN ap3 Skinny Eddy RN RN as6 Tomasa Swenson RN RN kc6
[2024-01-06 00:21] VITALS: BP 126/67; TEMP 98.6; O2SAT 98
--- NOTE | 2024-01-06 12:58 | EKG ---
Test Date: 2024-01-05 Test Time: 10:39:17 Broker Assistant: SIMON MEASUREMENT RESULTS: Intervals: Rate: 68 NE: 170 QRSD: 94 QT: 446 QTc: 474 [place]: P: 35 NE: 170 QRS: -12 T: 87 INTERPRETIVE STATEMENTS: Normal sinus rhythm Anterior infarct, age undetermined Abnormal ECG Compared to ECG 09/21/2023 15:29:58 Left ventricular hypertrophy no longer present Myocardial infarct finding still present Electronically Signed On 01-06-24 12:53:09 TEST DRILLER by Clyde Velásquez
== END ==
LOC: ER 10:01
DX: M79.605 Pain in left leg (principal); M79.604 Pain in right leg; E87.6 Hypokalemia; J02.9 Acute pharyngitis, unspecified; R53.1 Weakness; I10 Essential (primary) hypertension
CPT/HCPCS: 93005; 87070; 85025; 80048; 36415; 83735; 82550; 86308; 80076; 87081; 84484; 93925; 93970; J3480; J7030

== ENCOUNTER 2024-01-15 10:08 | Inpatient (IN) | payer OTHER ==
[2024-01-15] MEDS ORDERED: NA CHLORIDE 0.9% 1,000 ML ONE (10:29)
[2024-01-15] MEDS ORDERED: ONDANSETRON 4 MG/2 ML VIAL ONE (10:29)
[2024-01-15] MEDS ORDERED: KETOROLAC 30 MG/ML INJ ONE (10:29)
[2024-01-15 10:55] LABS: Specific Gravity 1.012 (1.005-1.030); Urine Bacteria <20 /HPF (<20); Urine Bilirubin NEGATIVE (Negative); Urine Blood Negative (Negative); Urine Clarity Extremely Turbid (Clear); Urine Color Light-Yellow (Yellow); Urine Glucose NEGATIVE (Negative); Urine Mucus Slight /HPF (None Seen); Urine Protein TRACE (Negative); Urine RBC <5 /HPF (None Seen); Urine Urobilinogen Normal (Normal)
[2024-01-15 10:57] LABS: Absolute Basophils 0.1 K/uL (0-0.5); Absolute Lymphocytes (CBC) 2.6 K/uL (0.7-4.9); Absolute Monocytes 0.8 K/uL (0.1-1.3); Absolute Neutrophil 5.5 K/uL (1.8-8.0); Basophils % 0.7 % (0-1.3); Eosinophils % 0.2 % (0-4.4); Hematocrit 40.9 % (36.0-45.0); Hemoglobin 13.9 g/dL (12.0-15.0); Lymphocytes % 29.1 % (15.3-44.8); MCHC 34.1 g/dL (32.0-36.0); Monocytes % 8.8 % (3.3-12.3); Neutrophils % 61.2 % (41.7-73.7); Nucleated Red Blood Cells % 0.1 % (0-0); Platelets 236 thou/uL (152-406); RBC Red Blood Cell Count 4.65 M/uL (3.86-4.86); Red Cell Distribution Width 17.6 % (12.1-15.2)
[2024-01-15 11:11] LABS: Anion Gap 16.5 mEq/L (5.0-15.0); Troponin High Sensitivity 12.5 pg/mL (<58.9)
[2024-01-15 11:12] LABS: Potassium 3.5 mEq/L (3.5-5.1)
--- NOTE | 2024-01-15 11:13 | RAD REPORT ---
EXAM DESCRIPTION: CT - Abdomen Pelvis W Contrast - 01/15/2024 10:51 am CLINICAL HISTORY: Abdominal pain COMPARISON: 2021 TECHNIQUE: Computed axial tomography of the abdomen pelvis was obtained. 100 cc Isovue-300 was admin istered intravenously. Oral contrast was not requested which limits evaluation of bowel and appendix All CT scans are performed using dose optimization technique as appropriate and may include automated exposure control or mA/KV adjustment according to patient size. FINDINGS: Cholecystectomy The liver, spleen, pancreas, adrenal and left kidney appear unremarkable. Tiny bilateral renal calculi. Small right renal cyst. Normal appendix. Diverticula stem from the colon. Minimal stranding adjacent to sigmoid colon Small hiatal hernia Hysterectomy. No adnexal mass IMPRESSION: Minimal sigmoid diverticulitis Nonobstructing renal calculi
--- NOTE | 2024-01-15 11:24 | RAD REPORT ---
EXAM DESCRIPTION: [place] Single View01/15/2024 10:57 am CLINICAL HISTORY: Chest pain COMPARISON: 2022 FINDINGS: The lungs appear clear of acute infiltrate. The heart is normal size IMPRESSION: No acute abnormalities displayed
[2024-01-15] MEDS ORDERED: METRONIDAZOLE 500mg IVPB 500 MG/100 ML BAG IV ONE (11:44)
[2024-01-15] MEDS ORDERED: CEFTRIAXONE 1000 MG/VIAL ONE (11:44)
--- NOTE | 2024-01-15 12:03 | ER ---
Nurse's Notes [facility] Name: Eloisa Aparicio Age: 73 yrs Sex: Female : 1950 Arrival Date: 01/15/2024 Time: 10:08 Bed 20 Private MD: Keegan Jenkins Diagnosis: Diverticulitis of large intestine without perforation or abscess without bleeding Presentation: 01/15 10:20 Chief complaint: Patient states: Continued weakness, nausea, no appetite since last ll1 visit, started in August. 10:21 Coronavirus screen: Client denies travel out of the [place] in the last 14 days. At this ll1 time, the client does not indicate any symptoms associated with coronavirus-19. Ebola Screen: Patient denies travel to an Ebola-affected area in the 21 days before illness onset. Initial Sepsis Screen: Does the patient meet any 2 criteria? No. Patient's initial sepsis screen is negative. Does the patient have a suspected source of infection? No. Patient's initial sepsis screen is negative. Risk Assessment: Do you want to hurt yourself or someone else? Patient reports no desire to harm self or others. Onset of symptoms was September 14, 2023. 10:21 Method Of Arrival: Wheelchair ll1 10:21 Acuity: ÁNGEL 3 ll1 Historical: - Allergies: 10:13 No Known Allergies; ll1 - PMHx: 10:13 Diverticulitis; GERD; Hypercholesterolemia; Hypertension; WA; restless leg; sciatica; ll1 ulcer colitis; - PSHx: 10:13 Total abdominal hysterectomy; ll1 - Immunization history:: Adult Immunizations up to date. - Social history:: Smoking status: Patient denies any tobacco usage or history of. Screenin:13 [facility] ED Fall Risk Assessment (Adult) Score/Fall Risk Level 0 - 2 = Low Risk ll1 Oriented to surroundings, Maintained a safe environment, Educated pt \T\ family on fall prevention, incl call for assistance when getting out of bed, Hourly rounding (assess needs \T\ fall precautionary measures) done. Abuse screen: Denies threats or abuse. Nutritional screening: No deficits noted. Tuberculosis screening: No symptoms or risk factors identified. Assessment: 10:21 General: Appears uncomfortable, Behavior is calm, cooperative, appropriate for age. ll1 Pain: Denies pain. Neuro: Reports weakness. GI: Bowel sounds present X 4 quads. Abd is soft and non tender X 4 quads. Reports intolerance of food, nausea, vomiting. Musculoskeletal: Reports generalized weakness. 10:45 Reassessment: No changes from previously documented assessment. To CT via stretcher. ll1 11:11 Reassessment: No changes from previously documented assessment. Patient and/or family ll1 updated on plan of care and expected duration. Pain level reassessed. Patient is alert, oriented x 3, equal unlabored respirations, skin warm/dry/pink. 11:52 Reassessment: No changes from previously documented assessment. Patient and/or family ll1 updated on plan of care and expected duration. Pain level reassessed. Patient is alert, oriented x 3, equal unlabored respirations, skin warm/dry/pink. Patient states feeling better. Vital Signs: 10:21 BP 178 / 73; Pulse 96; Resp 16; Temp 97.5; Pulse Ox 95% on R/A; Pain 10/10; ll1 11:53 BP 184 / 70; Pulse 74; Resp 17; Pulse Ox 99% on R/A; ll1 12:30 BP 173 / 67; Pulse 71; Resp 17; Pulse Ox 100% on R/A; me1 13:04 BP 166 / 57; Pulse 68; Resp 16; Pulse Ox 100% ; me1 10:21 Pain Scale: Adult ll1 ED Course: 10:11 Patient arrived in ED. mr 10:11 Keegan Jenkins, DO is Private Physician. mr 10:12 Manoj Webb MD is Attending Physician. ec2 10:13 Arm band placed on Patient placed in an exam room, on a stretcher. ll1 10:22 Triage completed. ll1 10:25 Mehdi Mandujano, JOVITA is Primary Nurse. ll1 10:51 Inserted saline lock: 22 gauge in left forearm, using aseptic technique. Blood ll1 collected. 10:52 CT Abd/Pelvis - IV Contrast Only In Process Unspecified. EDMS 10:59 XRAY Chest (1 view) In Process Unspecified. EDMS 12:03 Estrada Kaur MD is Hospitalizing Provider. ec2 12:06 Vasile Coelho MD is Hospitalizing Provider. ec2 13:05 Patient has correct armband on for positive identification. Bed in low position. Call me1 light in reach. Side rails up X2. Provided Education on: POC. Verbalized understanding. . 13:05 No provider procedures requiring assistance completed. me1 13:05 Patient admitted, IV remains in place. me1 Administered Medications: 11:11 Drug: NS 0.9% IV 1000 ml IV at 1 bolus Per protocol; 1000 mL bolus Route: IV; Rate: 1 ll1 bolus; Site: left antecubital; 11:57 Follow up: Response: No adverse reaction; IV Status: Completed infusion; IV Intake: ll1 1000ml 11:11 Drug: Ondansetron IVP 4 mg IVP once; over 2 minutes Route: IVP; Site: left antecubital; 1 11:57 Follow up: Response: No adverse reaction ll1 11:11 Drug: Ketorolac IVP 15 mg IVP once Route: IVP; Site: left antecubital; 1 13:09 Follow up: Response: No adverse reaction; Pain is decreased [facility] 11:52 Drug: Rocephin IV 1 grams IV at calculated rate once; Given slow IV push per pharmacy 1 instructions Route: IV; Rate: calculated rate; Site: left antecubital; 13:09 Follow up: Response: No adverse reaction; IV Status: Completed infusion me1 11:52 Drug: metroNIDAZOLE IVPB 500 mg 100 ml IVPB at 200 ml/hr once over 30 mins Volume: 100 ll1 ml; Route: IVPB; Rate: 200 ml/hr; Infused Over: 30 mins; Site: left antecubital; 13:09 Follow up: Response: No adverse reaction; IV Status: Completed infusion me1 Medication: 11:13 VIS not applicable for this client. ll1 Intake: 11:57 IV: 1000ml; Total: 1000ml. ll1 Outcome: 12:03 Decision to Hospitalize by Provider. ec2 13:28 Admitted to Tele accompanied by tech, via wheelchair, room 406, with chart, Report me1 called to JOVITA Oro 13:28 Condition: stable 13:28 Instructed on the need for admit, 13:41 Patient left the ED. me1 Signatures: Dispatcher [employer] Corrina Reyes, Reg Reg mr Mehdi Mandujano RN RN 1 Crystal Elaine RN RN de1 Manoj Webb MD MD ec2 Corrections: (The following items were deleted from the chart) 10:22 10:20 Chief complaint: Patient states: Continued weakness, nausea, no appetite since ll1 last visit, lasting ll1
--- NOTE | 2024-01-15 12:03 | EDPHYS ---
Physician Documentation [facility] Name: Eloisa Aparicio Age: 73 yrs Sex: Female : 1950 Arrival Date: 01/15/2024 Time: 10:08 Bed 20 Private MD: [facility] ED Physician Manoj Webb HPI: 01/15 10:25 This 73 yrs old Female presents to ER via Wheelchair with complaints of Leg ec2 weakness, Abdominal Pain, Nausea. 10:25 Patient arrives today for evaluation of poor p.o. intake as well as general weakness. ec2 States that the symptoms been ongoing for approximately 6 months. Patient reports abdominal cramping as well as nausea and vomiting that is progressed over the past week. Reports no urinary complaints, denies cough or cold symptoms, denies any falls.. Historical: - Allergies: 10:13 No Known Allergies; ll1 - PMHx: 10:13 Diverticulitis; GERD; Hypercholesterolemia; Hypertension; SC; restless leg; sciatica; ll1 ulcer colitis; - PSHx: 10:13 Total abdominal hysterectomy; ll1 - Immunization history:: Adult Immunizations up to date. - Social history:: Smoking status: Patient denies any tobacco usage or history of. ROS: 10:25 Constitutional: as per hpi ec2 Exam: 10:25 Constitutional: GEN: NAD Head: atraumatic Eyes: EOMI Ears: External ears are ec2 normal. CV: regular rate LUNGS: no respiratory distress, soft, nontender, not guarding, not rigid ABD: non-distended SKIN: no evidence of rashes MSK: no evidence of trauma NEURO: moves all extremities equally Vital Signs: 10:21 BP 178 / 73; Pulse 96; Resp 16; Temp 97.5; Pulse Ox 95% on R/A; Pain 10/10; ll1 11:53 BP 184 / 70; Pulse 74; Resp 17; Pulse Ox 99% on R/A; ll1 12:30 BP 173 / 67; Pulse 71; Resp 17; Pulse Ox 100% on R/A; me1 13:04 BP 166 / 57; Pulse 68; Resp 16; Pulse Ox 100% ; me1 10:21 Pain Scale: Adult ll1 MDM: 10:18 Patient medically screened. ec2 10:25 Data reviewed: vital signs. ED course: Patient arrives today for decreased p.o. intake ec2 and general weakness. Examination remarkable well-appearing nontoxic individual is otherwise in no acute distress. Will obtain lab work or CT imaging and EKG. Currently considered process such as diverticulitis, dehydration, anemia.. 10:34 ED course: EKG independently reviewed and interpreted by me, shows normal sinus rhythm, ec2 rate of 86, no acute ST segment elevations, nonconcerning intervals.. 10:59 ED course: CBC reassuring. ec2 11:32 ED course: Metabolic profile with minimal anion gap at 16.5, diminished GFR 62, ec2 troponin within normal ranges, chest x-ray shows no acute intrathoracic process, CT imaging shows diverticulitis. Will give the patient antibiotics. . 12:02 ED course: Will admit the patient for poor p.o. intake, diverticulitis.. ec2 01/15 10:24 Order name: Basic Metabolic Panel; Complete Time: 11:32 ec2 01/15 10:24 Order name: CBC with Diff; Complete Time: 10:59 ec2 01/15 10:24 Order name: Troponin HS; Complete Time: 11:32 ec2 01/15 10:24 Order name: UAM; Complete Time: 10:59 ec2 01/15 10:57 Order name: Urine Culture EDMS 01/15 10:24 Order name: XRAY Chest (1 view); Complete Time: 11:32 ec2 01/15 10:24 Order name: CT Abd/Pelvis - IV Contrast Only; Complete Time: 11:32 ec2 01/15 10:24 Order name: EKG; Complete Time: 10:25 ec2 01/15 10:24 Order name: Cardiac monitoring; Complete Time: 10:25 ec2 01/15 10:24 Order name: EKG - Nurse/Tech; Complete Time: 10:25 ec2 01/15 10:24 Order name: IV Saline Lock; Complete Time: 10:52 ec2 01/15 10:24 Order name: Labs collected and sent; Complete Time: 10:52 ec2 01/15 10:24 Order name: O2 Per Protocol; Complete Time: 10:26 ec2 01/15 10:24 Order name: O2 Sat Monitoring; Complete Time: 10:25 ec2 Administered Medications: 11:11 Drug: NS 0.9% IV 1000 ml IV at 1 bolus Per protocol; 1000 mL bolus Route: IV; Rate: 1 ll1 bolus; Site: left antecubital; 11:57 Follow up: Response: No adverse reaction; IV Status: Completed infusion; IV Intake: ll1 1000ml 11:11 Drug: Ondansetron IVP 4 mg IVP once; over 2 minutes Route: IVP; Site: left antecubital; 1 11:57 Follow up: Response: No adverse reaction 1 11:11 Drug: Ketorolac IVP 15 mg IVP once Route: IVP; Site: left antecubital; 1 13:09 Follow up: Response: No adverse reaction; Pain is decreased dc1 11:52 Drug: Rocephin IV 1 grams IV at calculated rate once; Given slow IV push per pharmacy 1 instructions Route: IV; Rate: calculated rate; Site: left antecubital; 13:09 Follow up: Response: No adverse reaction; IV Status: Completed infusion me1 11:52 Drug: metroNIDAZOLE IVPB 500 mg 100 ml IVPB at 200 ml/hr once over 30 mins Volume: 100 ll1 ml; Route: IVPB; Rate: 200 ml/hr; Infused Over: 30 mins; Site: left antecubital; 13:09 Follow up: Response: No adverse reaction; IV Status: Completed infusion me1 Disposition Summary: 01/15/24 12:03 Hospitalization Ordered Notes: Hospitalization Status: Inpatient Admission ec2 Location: Telemetry/[facility] (Inpatient) ec2 Condition: Stable ec2 Problem: new ec2 Symptoms: have improved ec2 Bed/Room Type: Standard ec2 Provider: Vasile Coelho(01/15/24 12:06) ec2 Room Assignment: [facility](01/15/24 12:46) 6 Diagnosis - Diverticulitis of large intestine without perforation or abscess without bleeding ec2 Discharge Instructions: - Discharge Summary Sheet ec2 - Diverticulitis, [id number] ec2 Forms: - Medication Reconciliation Form ec2 - SBAR form ec2 - Leadership Thank You Letter ec2 Prescriptions: - Cephalexin 500 mg Oral capsule - take 1 capsule ORAL route every 12 hours for 5 days; 10 capsule; Refills: 0, ec2 Product Selection Permitted Signatures: Dispatcher [employer] Mehdi Cuenca RN RN ll1 Viviana Douglas bc6 Manoj Webb MD MD ec2 Crystal Elaine RN me1 Corrections: (The following items were deleted from the chart) 10:23 10:23 Patient medically screened. ec2 ec2 12:02 10:59 ED course: CBC reassuring, urine infectious appearing, will start antibiotics. . ec2 ec2 12:06 12:03 Estrada Kaur ec2 ec2 12:46 12:03 ec2 6
[2024-01-15] MEDS ORDERED: SODIUM CHLORIDE 0.9% 10ML INJ IV PRN (14:09)
[2024-01-15] MEDS: NA CHLORIDE 0.9% 1,000 ML IV SCH (14:32)
[2024-01-15] MEDS: ENOXAPARIN 40 MG/0.4 ML SQ SCH (14:33)
--- NOTE | 2024-01-15 14:34 | P.HP ---
Certification for Inpatient Patient admitted to: Inpatient With expected LOS: >2 Midnights Patient will require the following post-hospital care: None Practitioner: I am a practitioner with admitting privileges, knowledge of patient current condition, hospital course, and medical plan of care. Services: Services provided to patient in accordance with Admission requirements found in Title 42 Section 412.3 of the Code of Federal Regulations Patient History Date of Service: 01/15/24 Reason for admission: Diverticulitis, dehydration History of Present Illness: 73-year-old female with history of diverticulosis/diverticulitis, GERD, hypertension, hyperlipidemia, CAD, distant history of ulcerative colitis presents to the emergency department chief complaint of abdominal pain, nausea, weakness. She reports has been having abdominal pain for the last 3 days or so. She also reports approximately 40 pound weight loss in the last 2 months, for the last 4 months she has had progressively worsening appetite, she is tolerating fluids well drinking approximately bottles of water and taking her oral medication without difficulty but has had very poor appetite, she reports for the last 2 weeks anytime she tries to eat any food including soups after 1 spoonful she vomits. Etiology of this is unclear, she does have a history of GERD but has been taking Protonix daily and not feeling as if her symptoms are related to reflux. She was evaluated in the emergency department and her labs are significant for presence of 4+ urine ketones, leuk esterase, urine white blood cells present urine culture was reflexed chest x-ray was obtained negative for acute findings CT abdomen pelvis shows mild diverticulitis. Patient be admitted for further evaluation and management of dehydration, diverticulitis. She also reports general weakness with difficulty nebulization for the past couple weeks. Allergies No Known Allergies Allergy (Verified 09/10/12 13:59) Home Medications: Gabapentin 300 mg PO TID 11/03/18 Omeprazole [Prilosec] 40 mg PO DAILY 11/03/18 Metoprolol Succinate [Toprol Xl*] 50 mg PO DAILY 03/29/19 Aspirin [Aspirin EC] 1 tab PO DAILY 01/15/24 Atorvastatin Calcium 1 tab PO BID 01/15/24 Losartan Potassium 1 tab PO DAILY 01/15/24 Meclizine HCl 1 tab PO BID PRN 01/15/24 Meloxicam 1 tab PO DAILY 01/15/24 Sertraline [Zoloft*] 1 tab PO DAILY 01/15/24 - Past Medical/Surgical History Has patient received pneumonia vaccine in the past: Yes Diabetic: No -: HTN -: Osteoarthritis -: Restless leg syndrome -: GERD -: CAD with prior stent -: Ulcerative colitis -: Diverticulitis -: Hyperlipidemia -: Hysterectomy -: Cholecystectomy -: Cardiac Stent Psychosocial/ Personal History: Lives at home with family - Family History Mother -: Liver disease, Other (see notes) Notes: Alcoholic - Social History Smoking Status: Never smoker Alcohol use: No CD- Drugs: No Caffeine use: Yes Place of Residence: Home Review of Systems 10-point ROS is otherwise unremarkable General: Weakness, Malaise Gastrointestinal: Nausea, Vomiting, Abdominal Pain Physical Examination - Vital Signs Temperature: 97.5 F Blood Pressure: 166/57 Pulse: 68 Respirations: 16 - Physical Exam General: Alert, In no apparent distress, Oriented x3 HEENT: Atraumatic, PERRLA, Other (Mucous membranes dry) Neck: Supple, 2+ carotid pulse no bruit, No LAD Respiratory: Clear to auscultation bilaterally, Normal air movement Cardiovascular: Regular rate/rhythm, Normal S1 S2 Capillary refill: <2 Seconds Gastrointestinal: Normal bowel sounds Musculoskeletal: No tenderness Integumentary: No rashes Neurological: Normal speech, Normal strength at 5/5 x4 extr, Normal tone, Normal affect - Studies Laboratory Data (last 24 hrs) 01/15/24 01/15/24 10:45 10:45 WBC 9.00 Hgb 13.9 Hct 40.9 Plt Count 236 Sodium 138 Potassium 3.5 BUN 8 Creatinine 0.96 Glucose 94 Assessment and Plan - Plan Assessment: Abdominal tenderness, diverticulitis GERD Dehydration Poor oral intake/anorexia/nausea and vomiting Generalized weakness Hypertension Hyperlipidemia CAD Plan: Abdominal tenderness, diverticulitis Poor oral intake/anorexia/nausea and vomiting GERD Dehydration Continue antibiotics Rocephin/Flagyl Continue clear liquid diet, advance as tolerated Reports 40 pound weight loss in 2 months-intolerance of food Able to drink water, take her pills no difficulty Reports had a colonoscopy 2 years ago as well as EGD without significant abnormalities CT abdomen pelvis with mild diverticulitis-no other findings to explain anorexia/weight loss Continue IV fluids, will order esophagram to evaluate for obstructive issues with swallowing Reports anytime she takes an even small bite of food she immediately vomits Continue PPI Generalized weakness PT consultation Hypertension Hyperlipidemia CAD Continue home medications DVT PPX: Lovenox Code status: Full Discharge Plan: Home Plan to discharge in: 48 Hours - Advance Directives Does patient have a Living Will: No Does patient have a Durable POA for Healthcare: No - Code Status/Comfort Care Code Status Assessed: Yes (Full code) Critical Care: No Time Spent Managing Pts Care (In Minutes): 70
[2024-01-15] MEDS: METRONIDAZOLE 500mg IVPB 500 MG/100 ML BAG IV SCH (17:05)
[2024-01-15] MEDS: ONDANSETRON 4 MG/2 ML VIAL IV PRN (19:42)
[2024-01-16] MEDS: IBUPROFEN 400 MG TAB PO ONE (03:23)
[2024-01-16 06:20] LABS: Absolute Lymphocytes (CBC) 1.4 K/uL (0.7-4.9); Absolute Monocytes 0.5 K/uL (0.1-1.3); Absolute Neutrophil 3.6 K/uL (1.8-8.0); Basophils % 0.5 % (0-1.3); Eosinophils % 0.1 % (0-4.4); Hematocrit 37.6 % (36.0-45.0); Hemoglobin 12.8 g/dL (12.0-15.0); Lymphocytes % 25.1 % (15.3-44.8); MCHC 33.9 g/dL (32.0-36.0); MCV 88.6 fL (80-100); MPV 9.3 fL (7.6-11.3); Monocytes % 8.9 % (3.3-12.3); Neutrophils % 65.4 % (41.7-73.7); Platelets 179 thou/uL (152-406); RBC Red Blood Cell Count 4.25 M/uL (3.86-4.86); Red Cell Distribution Width 17.6 % (12.1-15.2)
[2024-01-16 06:44] LABS: Albumin 2.9 g/dL (3.4-5.0); Albumin/Globulin Ratio 0.9 (1.1-1.8); Anion Gap 16.8 mEq/L (5.0-15.0); Bilirubin Total 0.7 mg/dL (0.2-1.0); C-Reactive Protein 3.52 mg/L (<3.00); Carcinoembryonic Antigen 1.7 ng/mL (0-5.0); Globulin 3.3 g/dL (2.3-3.5); Magnesium 1.8 mg/dL (1.6-2.4); Phosphorus 2.9 mg/dL (2.5-4.9); Potassium 2.8 mEq/L (3.5-5.1); Protein, Total 6.2 g/dL (6.4-8.2); Thyroid Stimulating Hormone 1.54 uIU/mL (0.358-3.740)
[2024-01-16] MEDS: CEFTRIAXONE 1,000 MG in NA CHLORIDE 0.9% 50 ML IVPB SCH (08:06)
[2024-01-16] MEDS: PANTOPRAZOLE 40 MG INJ IVP SCH (08:06)
[2024-01-16] MEDS: KCL 20 MEQ/100 mL IVPB 20 MEQ/100 ML BAG IV SCH ×3 (10:00→17:12)
[2024-01-16] MEDS: MAGNESIUM SULFATE 1 gm IVPB 1 GM/100 ML BAG IV ONE (10:10)
--- NOTE | 2024-01-16 10:22 | P.PN ---
Date of Service: 01/16/24 Subjective: Still with poor appetite, only drinking water no acute events overnight ROS: 10 point ROS as noted above, otherwise negative Physical exam GEN: Alert, oriented, NAD HEENT: Normal conjunctiva, sclera anicteric CV: Regular rate and rhythm, no edema Pulm: Nonlabored respirations on room air ABD: Soft, nontender, nondistended MSK: No joint tenderness Integumentary: No rashes Neuro: Normal speech, normal affect Vitals reviewed Problem List Abdominal tenderness, diverticulitis GERD Dehydration Poor oral intake/anorexia/nausea and vomiting Generalized weakness Hypertension Hyperlipidemia CAD Plan: Abdominal tenderness, diverticulitis Poor oral intake/anorexia/nausea and vomiting GERD Dehydration Continue antibiotics Rocephin/Flagyl Continue clear liquid diet, advance as tolerated Reports 40 pound weight loss in 2 months-intolerance of food Able to drink water, take her pills no difficulty Reports had a colonoscopy 2 years ago as well as EGD without significant abnormalities CT abdomen pelvis with mild diverticulitis-no other findings to explain anorexia/weight loss Continue IV fluids,upper GI with small bowel follow-through ordered to evaluate for obstructive issues with swallowing Reports anytime she takes an even small bite of food she immediately vomits Continue PPI CEA within normal limits, AFP pending Generalized weakness PT consultation Hypertension Hyperlipidemia CAD Continue home medications DVT PPX: Lovenox Code status: Full Discharge Plan: Home Plan to discharge in: 24 to 48 hours Time Spent Managing Pts Care (In Minutes): 35 <Candelario Daniel - Last Filed: 01/16/24 10:20> Patient seen and examined on rounds this morning with PHYSICS TECHNICIAN María, Agree with plan of care as noted above with following addition/correction: few months of progressive early satiety with change in taste states first started as far back as october, and more noticeable around october / - foods began tasting different now over last 1 week or so, with inability to eat any food, ok with water, and everything tastes different unclear etiology denies any change in meds in the proceeding several months, no illness proceeding this, no antibiotics not aware of anyone close to her or herself having covid unclear what has lead to change in taste and early satiety unlikely gastroparesis, no significant hiatal hernia, possible GERD/ulcer, possible esophageal stricture- however not classic presentation and wouldn't affect taste she does report remote history (15-20yrs ago?) of what sounds like esophageal stricture and undergoing (what sounds like) balloon dilatation of note, this does not feel anything like her symptoms at that time UGI series with small bowl follow through ordered to eval esophagus, and mucosal lining <Vasile Coelho - Last Filed: 01/16/24 20:46>
--- NOTE | 2024-01-16 15:03 | EKG ---
Test Date: 2024-01-15 Test Time: 10:29:56 Forensic Chemist: CHANTEL MEASUREMENT RESULTS: Intervals: Rate: 86 SD: 136 QRSD: 78 QT: 388 QTc: 464 [place]: P: SD: 136 QRS: 189 T: 11 INTERPRETIVE STATEMENTS: Sinus rhythm with occasional premature ventricular complexes Septal infarct, age undetermined Lateral infarct, age undetermined ST & T wave abnormality, consider anterior ischemia Abnormal ECG Compared to ECG 01/05/2024 10:39:17 Ventricular premature complex(es) now present ST (T wave) deviation now present Possible ischemia now present Myocardial infarct finding still present Electronically Signed On 01-16-24 15:00:46 [employer] by Clyde Velásquez
--- NOTE | 2024-01-16 18:37 | RAD REPORT ---
EXAM DESCRIPTION: RAD - Upper GI W/Air Cont W/Sm Bowel - 01/16/2024 6:27 pm CLINICAL HISTORY: Vomiting COMPARISON: None FINDINGS: Mild gastroesophageal reflux Esophagus otherwise appears unremarkable Stomach and duodenum appear unremarkable Contrast enters colon by approximately 2 hours 45 minutes. Mucosal folds of the small bowel appear normal. No permanent filling defects, obstructing or constricting lesions are noted Fluoroscopy time 0.6 minutes. Fluoroscopic spot images obtained IMPRESSION: Mild gastroesophageal reflux Unremarkable small bowel series
[2024-01-17] MEDS: ENSURE HIGH PROTEIN 237 ML CAN PO SCH (08:48)
[2024-01-17 11:08] LABS: Absolute Lymphocytes (CBC) 1.4 K/uL (0.7-4.9); Absolute Monocytes 0.6 K/uL (0.1-1.3); Absolute Neutrophil 6.5 K/uL (1.8-8.0); Basophils % 0.5 % (0-1.3); Eosinophils % 0.1 % (0-4.4); Hemoglobin 13.2 g/dL (12.0-15.0); Lymphocytes % 16.3 % (15.3-44.8); MCH 30.2 pg (27.0-35.0); MCHC 33.9 g/dL (32.0-36.0); MPV 9.4 fL (7.6-11.3); Monocytes % 6.5 % (3.3-12.3); Neutrophils % 76.6 % (41.7-73.7); Nucleated Red Blood Cells % 0.2 % (0-0); Platelets 213 thou/uL (152-406); RBC Red Blood Cell Count 4.39 M/uL (3.86-4.86); Red Cell Distribution Width 17.7 % (12.1-15.2)
--- NOTE | 2024-01-17 11:22 | P.PN ---
Date of Service: 01/17/24 Subjective: Still with poor appetite, only drinking water no acute events overnight ROS: 10 point ROS as noted above, otherwise negative Physical exam GEN: Alert, oriented, NAD HEENT: Normal conjunctiva, sclera anicteric CV: Regular rate and rhythm, no edema Pulm: Nonlabored respirations on room air ABD: Soft, nontender, nondistended MSK: No joint tenderness Integumentary: No rashes Neuro: Normal speech, normal affect Vitals reviewed Problem List Abdominal tenderness, diverticulitis GERD Dehydration Poor oral intake/anorexia/nausea and vomiting Generalized weakness UTIE. coli Hypertension Hyperlipidemia CAD Plan: Abdominal tenderness, diverticulitis Poor oral intake/anorexia/nausea and vomiting GERD Dehydration Continue antibiotics Rocephin/Flagyl Continue clear liquid diet, advance as tolerated Reports 40 pound weight loss in 2 months-intolerance of food Able to drink water, take her pills no difficulty Reports had a colonoscopy 2 years ago as well as EGD without significant abnormalities CT abdomen pelvis with mild diverticulitis-no other findings to explain anorexia/weight loss Upper GI series with small bowel follow-through 01/16 with findings of GERD Reports anytime she takes an even small bite of food she immediately vomits Continue PPI CEA within normal limits, AFP pending Checking iron levels, B12 Also problems with dentition that started around 3 months ago-may be contributing to alterations in taste UTIE. coli Continue Rocephin Generalized weakness PT consultation Hypertension Hyperlipidemia CAD Continue home medications DVT PPX: Lovenox Code status: Full Discharge Plan: Home Plan to discharge in: 24 to 48 hours Time Spent Managing Pts Care (In Minutes): 35 <Candelario Daniel - Last Filed: 01/17/24 11:21> Patient seen and examined on rounds this morning with JHONATHAN Daniel. States she began having teeth issues prior to her current symptoms. States first noticed some discoloration and cracking, which has progressively worsened denies any pain on exam multiple teeth cracked, with black discoloration, some in horizontal lines has not seen a dentist also states she can tolerate fruit cups and some vegetables, but not much else all food have a certain strange taste to them labs delayed this morning, eventually resulted, and noted to have new acute metabolic acidosis sudden drop from yesterday etiology unclear, could be dilutional from IVF vs degree of barium toxicity from UGI series vs bicarb loss from GI losses in combination with NS IV fluid will switch IVF to LR, supplement K recheck BMP closely may need bicarb replacement <Vasile Coelho - Last Filed: 01/17/24 20:56>
[2024-01-17 11:26] LABS: ALT/SGPT 28 U/L (13-56); Albumin 3.1 g/dL (3.4-5.0); Albumin/Globulin Ratio 0.8 (1.1-1.8); Alkaline Phosphatase 57 U/L (45-117); Anion Gap 22.3 mEq/L (5.0-15.0); Bicarbonate 12 mEq/L (21-32); Bilirubin Total 0.6 mg/dL (0.2-1.0); Globulin 3.8 g/dL (2.3-3.5); Glomerular Filtration Rate 90 ml/min (=/>90); Glucose Level 82 mg/dL (74-106); Phosphorus 2.2 mg/dL (2.5-4.9); Protein, Total 6.9 g/dL (6.4-8.2); Sodium Level 140 mEq/L (136-145)
[2024-01-17 11:29] LABS: AST/SGOT 40 U/L (15-37); BUN Blood Urea Nitrogen < 3 mg/dL (7-18); Potassium 3.3 mEq/L (3.5-5.1)
[2024-01-17] MEDS: POTASSIUM 25 MEQ EFFERV TAB PO ONE (12:18)
[2024-01-17] MEDS: NA CHLORIDE 0.9% 1,000 ML IV ONE (12:18)
[2024-01-17 15:06] LABS: Anion Gap 21.1 mEq/L (5.0-15.0); Bicarbonate 12 mEq/L (21-32); Glomerular Filtration Rate 83 ml/min (=/>90); Glucose Level 83 mg/dL (74-106); Potassium 3.1 mEq/L (3.5-5.1); Sodium Level 140 mEq/L (136-145)
[2024-01-17 15:07] LABS: BUN Blood Urea Nitrogen < 3 mg/dL (7-18)
[2024-01-17 15:12] LABS: Ferritin 580.3 ng/mL (8-388)
[2024-01-17] MEDS: KCL 20 MEQ/100 mL IVPB 20 MEQ/100 ML BAG IV SCH (15:26)
[2024-01-17] MEDS: NA CHLORIDE 0.9% 1,000 ML IV SCH (16:00)
[2024-01-17] MEDS: ACETAMINOPHEN 325 MG TABLET PO PRN (16:02)
[2024-01-17] MEDS: ALPRAZOLAM 0.25 MG TABLET PO ONE (16:03)
[2024-01-17 19:28] LABS: Anion Gap 21.5 mEq/L (5.0-15.0); Bicarbonate 11 mEq/L (21-32); Glomerular Filtration Rate 73 ml/min (=/>90); Glucose Level 85 mg/dL (74-106); Potassium 3.5 mEq/L (3.5-5.1); Sodium Level 142 mEq/L (136-145)
[2024-01-17 19:31] LABS: BUN Blood Urea Nitrogen < 3 mg/dL (7-18)
[2024-01-17] MEDS: KCL 20 MEQ/100 mL IVPB 20 MEQ/100 ML BAG IV ONE (19:52)
[2024-01-17] MEDS: Ringers Lactate 1,000 ML IV SCH (20:04)
[2024-01-17 20:52] LABS: Arterial Blood Carboxyhemoglob 0.9 % (0-1.5); Blood Gas Oxyhemoglobin 93.8 % (94-97); Blood O2 Saturation 96.6 % (92-98.5)
[2024-01-17] MEDS: SODIUM BICARB 50 MEQ/50ML VIAL ONE ×2 (21:24→21:31)
[2024-01-17] MEDS: D5W 1,000 ML IV ONE (21:24)
[2024-01-17] MEDS: D5W 1,000 ML with NA BICARB 8.4% 100 MEQ IV SCH (21:29)
[2024-01-18 01:05] LABS: Anion Gap 22.5 mEq/L (5.0-15.0); Bicarbonate 10 mEq/L (21-32); Glomerular Filtration Rate 73 ml/min (=/>90); Glucose Level 102 mg/dL (74-106); Sodium Level 143 mEq/L (136-145)
[2024-01-18 01:06] LABS: BUN Blood Urea Nitrogen < 3 mg/dL (7-18); Potassium 3.5 mEq/L (3.5-5.1)
[2024-01-18] MEDS: KCL 20 MEQ/100 mL IVPB 20 MEQ/100 ML BAG IV SCH ×2 (02:00→13:00)
[2024-01-18] MEDS: SODIUM BICARB 50 MEQ/50ML VIAL ONE ×2 (05:19→05:23)
[2024-01-18] MEDS: D5W 1,000 ML IV ONE (05:19)
[2024-01-18 07:12] LABS: Absolute Lymphocytes (CBC) 1.3 K/uL (0.7-4.9); Absolute Monocytes 0.6 K/uL (0.1-1.3); Absolute Neutrophil 10.1 K/uL (1.8-8.0); Basophils % 0.1 % (0-1.3); Hemoglobin 12.7 g/dL (12.0-15.0); MCH 29.6 pg (27.0-35.0); MCHC 33.4 g/dL (32.0-36.0); MCV 88.8 fL (80-100); MPV 9.2 fL (7.6-11.3); Monocytes % 5.1 % (3.3-12.3); Neutrophils % 83.8 % (41.7-73.7); Nucleated Red Blood Cells % 0.1 % (0-0); Platelets 193 thou/uL (152-406); RBC Red Blood Cell Count 4.28 M/uL (3.86-4.86); Red Cell Distribution Width 18.3 % (12.1-15.2)
[2024-01-18 07:30] LABS: ALT/SGPT 25 U/L (13-56); AST/SGOT 45 U/L (15-37); Albumin/Globulin Ratio 0.9 (1.1-1.8); Alkaline Phosphatase 52 U/L (45-117); Anion Gap 22.1 mEq/L (5.0-15.0); Bicarbonate 10 mEq/L (21-32); Bilirubin Total 0.6 mg/dL (0.2-1.0); Globulin 3.4 g/dL (2.3-3.5); Glomerular Filtration Rate 69 ml/min (=/>90); Glucose Level 136 mg/dL (74-106); Magnesium 2.1 mg/dL (1.6-2.4); Potassium 3.1 mEq/L (3.5-5.1); Protein, Total 6.4 g/dL (6.4-8.2); Sodium Level 141 mEq/L (136-145)
[2024-01-18 07:31] LABS: BUN Blood Urea Nitrogen < 3 mg/dL (7-18)
[2024-01-18 07:32] LABS: Phosphorus 1.2 mg/dL (2.5-4.9)
[2024-01-18] MEDS ORDERED: D5W IV SCH (12:00)
[2024-01-18] MEDS ORDERED: NA BICARB IV SCH (12:00)
[2024-01-18] MEDS: AMIODARONE HCL 150 MG in D5W 100 ML IV STA (12:01)
[2024-01-18 12:02] LABS: Anion Gap 20.5 mEq/L (5.0-15.0); Bicarbonate 13 mEq/L (21-32); Glomerular Filtration Rate 66 ml/min (=/>90); Glucose Level 173 mg/dL (74-106); Sodium Level 138 mEq/L (136-145)
[2024-01-18 12:04] LABS: BUN Blood Urea Nitrogen < 3 mg/dL (7-18)
[2024-01-18 12:06] LABS: Potassium 2.5 mEq/L (3.5-5.1)
[2024-01-18] MEDS: MAGNESIUM SULFATE 1 gm IVPB 1 GM/100 ML BAG IV ONE (12:54)
[2024-01-18] MEDS: POTASSIUM PHOS IN 0.9 % NACL 15 MMOL/250 ML BAG IV ONE ×3 (13:45→23:56)
[2024-01-18] MEDS: AMIODARONE HCL 900 MG in Dextrose 5%-Water 482 ML IV SCH (13:45)
[2024-01-18] MEDS ORDERED: ONDANSETRON 4 MG/2 ML VIAL ONE (14:44)
--- NOTE | 2024-01-18 15:02 | P.PN ---
Date of Service: 01/18/24 Subjective: Developed Afib RVR, hypokalemia, acidosis Moved to ICU ROS: 10 point ROS as noted above, otherwise negative Physical exam GEN: Alert, oriented, NAD HEENT: Normal conjunctiva, sclera anicteric, poor dentition-black stained/chipped teeth CV: Irregular rhythm/rate-A-fib RVR Pulm: Nonlabored respirations on room air ABD: Soft, nontender, nondistended MSK: No joint tenderness Integumentary: No rashes Neuro: Normal speech, normal affect Vitals reviewed Problem List Abdominal tenderness, diverticulitis GERD Dehydration Poor oral intake/anorexia/nausea and vomiting Metabolic acidosis Severe hypokelamia/hypophosphatemia New onset afib with RVR Generalized weakness UTIE. coli Hypertension Hyperlipidemia CAD Plan: Abdominal tenderness, diverticulitis Poor oral intake/anorexia/nausea and vomiting GERD Dehydration Continue antibiotics Rocephin Continue clear liquid diet, advance as tolerated Reports 40 pound weight loss in 2 months-intolerance of food Able to drink water, take her pills no difficulty Reports had a colonoscopy 2 years ago as well as EGD without significant abnormalities CT abdomen pelvis with mild diverticulitis-no other findings to explain anorexia/weight loss Upper GI series with small bowel follow-through 01/16 with findings of GERD Reports anytime she takes an even small bite of food she immediately vomits Continue PPI CEA within normal limits, AFP pending Iron/B12 WBL, Severe vitamin D deficiency- will start oral vitamin D problems with dentition that started around 3 months ago-may be contributing to alterations in taste Metabolic acidosis Severe hypokelamia/hypophosphatemia Had large-volume watery stools day after upper GI series Also with vomiting likely contributing to metabolic acidosis/[place] abnormalities Continue aggressive replacement potassium, phosphorus May require further IV bicarb after repletion electrolytes if still acidotic Monitor lites closely New onset afib with RVR Started on IV amiodarone moved to ICU Now NSR rate 90s Replete potassium and treat metabolic acidosis UTIE. coli Continue Rocephin Generalized weakness PT consultation Hypertension Hyperlipidemia CAD Continue home medications DVT PPX: Lovenox Code status: Full Discharge Plan: Home Plan to discharge in: 24 to 48 hours Time Spent Managing Pts Care (In Minutes): 35 <Candelario Daniel - Last Filed: 01/18/24 14:58> DOS 01/18/24 Patient seen and examined on rounds this morning. Plan of care discussed with GARAGE ATTENDANT María. Agree with plan as noted above with the following additions/corrections: rapid response called this morning, for possible SVT, upon my arrival, HR slowed to 120s-130s while she had 12 lead on and had appearance of afib with RVR transferred to ICU started amio afib secondary to acidosis and hypokalemia cardio consulted family updated . <Vasile Coelho - Last Filed: 02/01/24 15:06>
[2024-01-18 17:06] LABS: Bicarbonate 14 mEq/L (21-32); Glomerular Filtration Rate 71 ml/min (=/>90); Glucose Level 157 mg/dL (74-106); Magnesium 2.3 mg/dL (1.6-2.4); Sodium Level 139 mEq/L (136-145)
[2024-01-18 17:20] LABS: BUN Blood Urea Nitrogen < 3 mg/dL (7-18)
[2024-01-18 17:21] LABS: Phosphorus 1.1 mg/dL (2.5-4.9)
[2024-01-18] MEDS: NA CHLORIDE 0.9% 1,000 ML IV SCH (18:42)
[2024-01-18] MEDS ORDERED: THIAMINE 200 MG/2 ML INJ ONE (18:51)
[2024-01-18] MEDS: THIAMINE 200 MG/2 ML INJ IVP ONE (18:52)
[2024-01-18] MEDS ORDERED: ENOXAPARIN 80 MG/0.8 ML SQ SCH (21:00)
[2024-01-18] MEDS: METOPROLOL TARTRATE 5 MG/5 ML INJ IV ONE (21:20)
[2024-01-18] MEDS: METOPROLOL TARTRATE 5 MG/5 ML INJ IV STA (21:25)
[2024-01-18 23:34] LABS: Anion Gap 19.1 mEq/L (5.0-15.0); Magnesium 2.2 mg/dL (1.6-2.4); Phosphorus 2.2 mg/dL (2.5-4.9); Potassium 3.1 mEq/L (3.5-5.1)
[2024-01-19] MEDS: METOPROLOL TARTRATE 5 MG/5 ML INJ IV ONE (01:03)
[2024-01-19] MEDS: METOPROLOL TARTRATE 5 MG/5 ML INJ IV STA ×2 (01:07→07:00)
[2024-01-19] MEDS: KCL 20 MEQ/100 mL IVPB 20 MEQ/100 ML BAG IV SCH ×3 (02:31→19:35)
[2024-01-19 05:49] LABS: Absolute Lymphocytes (CBC) 0.7 K/uL (0.7-4.9); Absolute Monocytes 0.9 K/uL (0.1-1.3); Absolute Neutrophil 10.9 K/uL (1.8-8.0); Basophils % 0.3 % (0-1.3); Hematocrit 39.9 % (36.0-45.0); Hemoglobin 13.5 g/dL (12.0-15.0); Lymphocytes % 5.9 % (15.3-44.8); MCH 29.2 pg (27.0-35.0); MCHC 33.7 g/dL (32.0-36.0); MCV 86.7 fL (80-100); MPV 9.5 fL (7.6-11.3); Monocytes % 7.5 % (3.3-12.3); Neutrophils % 86.3 % (41.7-73.7); Nucleated Red Blood Cells % 0.2 % (0-0); Platelets 147 thou/uL (152-406); RBC Red Blood Cell Count 4.61 M/uL (3.86-4.86); Red Cell Distribution Width 18.6 % (12.1-15.2)
--- NOTE | 2024-01-19 07:02 | P.PN ---
Date of Service: 01/19/24 Subjective: in aflutter throughout the night with HR in 130-140s received metoprolol 5mg x2 with minimal improvement remains on amio drip amp of bicarb given more tachypneic, less responsive ROS: 10 point ROS as noted above, otherwise negative Physical exam: GEN: opens eyes to verbal stimuli, turns head to noise, answers in 1-2 words, mumbles, intermittently following commands HEENT: Normal conjunctiva, sclera anicteric, poor dentition-black stained/c hipped teeth CV: Irregularly irregular rate/rhythm, trace b/l pedal edema Pulm: tachypnea, shallow respirations, slightly diminished at bases bilaterally ABD: Soft, nontender, nondistended Integumentary: No rashes Neuro: PERRL, CN II-XII grossly intact, moves all extremities, intermittently following basic commands Vitals reviewed Problem List metabolic acidosis, high anion gap multiple electrolye derangements - hypoK, hypoP04 Severe protein calorie malnutrition secondary to nausea/vomiting with weight loss for months Severe vitamin d deficiency New onset afib with RVR Bilateral pulmonary opacities, R > L acute diverticulitis, resolved UTIE. coli GERD Generalized weakness Hypertension Hyperlipidemia CAD metabolic acidosis, high anion gap multiple electrolye derangements - hypoK, hypoP04 Severe protein calorie malnutrition secondary to nausea/vomiting with weight loss for months Severe vitamin d deficiency lactic acidosis 40lb wt loss in ~2 months due to food intolerance / nausea significantly worse in last 1-2 weeks initially reported only tolerating water, no food / solids, and remote history of esophageal stricture requiring dilatation ~20yrs ago UGI series with SB follow through done on 01/16, only noting reflux on further discussion reported taste changed prior to loss of weight and nausea, and progressively worsened as well as teeth began to be chipped tolerated some water early on in hospitalization the day after UGI series, she was noted to have significant acidosis, hco3 from 21 ->12 in 24hrs Had large-volume watery stools day after upper GI series unclear etiology, possibly secondary to ketosis from lack of nutrition, component of further bicarb loss from diarrhea from barium much less likely would be barium toxicity pt without peritoneal signs, no abd tenderness, no bloody BMs, diarrhea was clear/liquid according to patient receiving NS, then 01/17 evening no change in hco3 so started in bicarb drip became more hypokalemic, despite ongoing replacement, so bicarb drip held 01/18 to allow further replacement she also developed new onset afib/aflutter and transferred to ICU on 01/18 AM, cardio consulted, started on Amio quickly converted to sinus rhythm upon arrival to ICU room evening of 01/18, back into afib/flutter no change with metoprolol x3, nor with digoxin 0.25 x1 discussed with cardio, reloaded with amio suspect minimal change until acidosis and hypokalemia resolved nephro consulted restart bicarb 01/19 now that potassium has improved continue PPI Lactic acidosis unclear etiology, suspect secondary to decreased perfusion with afib rvr on antibiotics that should be covering the uti no other obvious source of infection CTA abd/pelvis today to r/o mesenteric ischemia, eval for other sources of infxn Reports had a colonoscopy 2 years ago as well as EGD without significant abnormalities - mild hiatal hernia Able to drink water, take her pills no difficulty, Reports anytime she takes an even small bite of food she immediately vomits CEA within normal limits, AFP pending Iron/B12 WBL, Severe vitamin D deficiency- will start oral vitamin D once odilia ating problems with dentition that started around 3 months ago-may be contributing to alterations in taste General surgery - Dr. Rodriguez consulted for central line insertion. Placed 01/19 pulm / carboy filler Dr. Miles consulted empiric rocephin (01/16-01/19) switched to merrem continue merrem (01/19-) Follow blood culture afebrile, leukocytosis 12.1 -> 12.6 (01/19) GI consulted 01/19 Imaging Findings: CT abd/pelvis (01/15): with mild diverticulitis-no other findings to explain anorexia/weight loss Upper GI series with small bowel follow-through (01/16): GERD New onset afib with RVR Cardiology consulted Replete potassium and treat metabolic acidosis echo ordered to eval EF / stenosis monitor on telemetry continue IV amiodarone s/p lopressor x3, digoxin 0.25 x 1 UTIE. coli +bacteuria, pt denied urinary symptoms on admission, however was started on treatment urine cx (01/15): E. coli previously on rocephin (01/16-01/19). Switched to merrem per pulm given concern for pneumonia. also covers UTI Continue merrem (01/19-) Generalized weakness continue PT once improved Hypertension Hyperlipidemia CAD Continue home medications VTE: Lovenox Code: Full Dispo: continue ICU level of care
[2024-01-19] MEDS ORDERED: CEFTRIAXONE 1000 MG/VIAL ONE (07:45)
[2024-01-19] MEDS ORDERED: KCL 20 MEQ/100 mL IVPB 100 ML IV ONE ×2 (07:46→10:30)
[2024-01-19] MEDS ORDERED: NA CHLORIDE 0.9% 50 ML ONE (07:46)
[2024-01-19 07:47] LABS: Albumin 2.8 g/dL (3.4-5.0); Albumin/Globulin Ratio 0.8 (1.1-1.8); Anion Gap 18.4 mEq/L (5.0-15.0); Bilirubin Total 0.6 mg/dL (0.2-1.0); Globulin 3.3 g/dL (2.3-3.5); Magnesium 2.2 mg/dL (1.6-2.4); Phosphorus 2.1 mg/dL (2.5-4.9); Potassium 3.4 mEq/L (3.5-5.1); Protein, Total 6.1 g/dL (6.4-8.2)
[2024-01-19] MEDS ORDERED: THIAMINE 200 MG/2 ML INJ ONE (07:47)
[2024-01-19] MEDS ORDERED: PANTOPRAZOLE 40 MG INJ ONE (07:47)
--- NOTE | 2024-01-19 07:51 | RAD REPORT ---
EXAM DESCRIPTION: Gerson Single View01/19/2024 6:54 am CLINICAL HISTORY: Rapid breathing COMPARISON: January 16, 2024 FINDINGS: Overlying artifact left chest Mild right lung opacities The heart is normal size. No significant pleural effusion IMPRESSION: Mild right lung opacities may indicate pneumonia
[2024-01-19] MEDS ORDERED: DIGOXIN 0.25 MG/ML AMP ONE (07:53)
[2024-01-19] MEDS: DIGOXIN 0.25 MG/ML AMP IV SCH (07:55)
[2024-01-19] MEDS: THIAMINE 200 MG/2 ML INJ IVP SCH (07:58)
[2024-01-19] MEDS: Mupirocin NASAL 2 APPL/1 GM TUBE NAS SCH (08:00)
[2024-01-19] MEDS: DRISDOL (VITAMIN D=ERGOCALCIFEROL) 50000 UNIT CAP PO SCH (08:00)
--- NOTE | 2024-01-19 08:30 | P.CNS ---
Date of Consult: 01/19/24 Reason for Consult: Acid-base imbalance Chief Complaint: Diverticulitis, dehydration History of Present Illness: Patient is 73 years of age history obtained from her who is sitting at the bedside admitted with chronic abdominal discomfort nausea weakness progressive weight loss vomiting has been having this nausea for the past 6 months has become progressively worse evaluated by cardiology so had significant weight loss only patient is unresponsive appears to be in discomfort developed some tachycardia has significant metabolic acidosis Allergies No Known Allergies Allergy (Verified 09/10/12 13:59) Home Medications: Gabapentin 300 mg PO TID 11/03/18 Omeprazole [Prilosec] 40 mg PO DAILY 11/03/18 Metoprolol Succinate [Toprol Xl*] 50 mg PO DAILY 03/29/19 Aspirin [Aspirin EC] 1 tab PO DAILY 01/15/24 Atorvastatin Calcium 1 tab PO BID 01/15/24 Losartan Potassium 1 tab PO DAILY 01/15/24 Meclizine HCl 1 tab PO BID PRN 01/15/24 Meloxicam 1 tab PO DAILY 01/15/24 Sertraline [Zoloft*] 1 tab PO DAILY 01/15/24 - Past Medical/Surgical History Diabetic: No -: HTN -: Osteoarthritis -: Restless leg syndrome -: GERD -: CAD with prior stent -: Ulcerative colitis -: Diverticulitis -: Hyperlipidemia -: Hysterectomy -: Cholecystectomy -: Cardiac Stent Psychosocial/ Personal History: Lives at home with family - Family History Mother Medical History: Liver disease, Other (see notes) Notes: Alcoholic - Social History Smoking Status: Never smoker Alcohol use: No CD- Drugs: No Caffeine use: Yes Place of Residence: Home Review of Systems is unable to be obtained Physical Examination Temp Pulse Resp BP Pulse Ox 97.2 F 140 H 26 H 141/88 H 97 01/19/24 04:00 01/19/24 07:00 01/19/24 06:00 01/19/24 07:00 01/19/24 06:00 General: Unresponsive Neck: Supple Respiratory: Clear to auscultation bilaterally Cardiovascular: No edema, Regular rate/rhythm Gastrointestinal: Hypoactive (There is no tenderness rebound or guarding) Musculoskeletal: No clubbing - Problems (1) Acid-base imbalance Current Visit: Yes Status: Acute Plan: Patient is 73 years of age unresponsive admitted with vomiting nausea he had as she has an anion gap metabolic acidosis secondary respiratory alkalosis and additional non-anion nongap metabolic acidosis lactic acid is mildly elevated patient is ALSO hypokalemic normal liver function test white count is mildly elevated patient's chest x-ray is clear CT scan of the abdomen shows a mild sigmoid diverticulitis I strongly suspect that patient has chronic mesenteric ischemia due to association with significant weight loss she is also had nausea vomiting diarrhea has been intermittent and progressive over time in history of loss of taste I recommend also trial of some low-dose narcotics as patient is tachycardic changed to meropenem will need a CT abdominal angiogram to check for stenosis of the mesenteric artery continue with bicarb and potassium replaced start patient on TPN patient's vital signs are stable apart from sinus tachycardia responsive to beta-milvia
[2024-01-19 08:31] LABS: Arterial Blood Carboxyhemoglob 0.9 % (0-1.5); Blood Gas Oxyhemoglobin 64.6 % (94-97); Blood Gas THB 13.7 g/dl (12-18); Blood O2 Saturation 66.5 % (92-98.5)
[2024-01-19] MEDS ORDERED: LIDOCAINE 1% 20 ML MDV ONE (08:39)
[2024-01-19] MEDS ORDERED: NA CHLORIDE 0.9% 1,000 ML ONE (08:40)
[2024-01-19] MEDS ORDERED: MORPHINE 2 MG/ML SYR ONE ×2 (08:48→17:51)
[2024-01-19 08:49] LABS: Blood Morphology Comment NOT SEEN (NOT SEEN); Platelet Estimate ADEQ; White Blood Cell Scan OK (OK)
[2024-01-19] MEDS: MORPHINE 2 MG/ML SYR IV ONE ×2 (08:55→17:52)
[2024-01-19] MEDS ORDERED: Meropenem 1000 MG/VIAL IV ONE ×2 (08:57→20:09)
[2024-01-19] MEDS ORDERED: NA CHLORIDE 0.9% 100 ML ONE ×3 (08:57→20:55)
[2024-01-19] MEDS: Meropenem 1,000 MG in NA CHLORIDE 0.9% 100 ML IV SCH (08:59)
--- NOTE | 2024-01-19 10:08 | RAD REPORT ---
EXAM DESCRIPTION: TIERNEYAlondra Single View01/19/2024 9:53 am CLINICAL HISTORY: Device placement/central venous catheter placement IMPRESSION: Central venous catheter with its tip in the proximal superior vena cava No pneumothorax
--- NOTE | 2024-01-19 10:16 | RAD REPORT ---
EXAM DESCRIPTION: CT - Head Brain Wo Cont - 01/19/2024 10:04 am CLINICAL HISTORY: Alteration of awareness/confusion COMPARISON: 2017 TECHNIQUE: Computed axial tomography of the head was obtained. IV contrast was not requested. All CT scans are performed using dose optimization technique as appropriate and may include automated exposure control or mA/KV adjustment according to patient size. FINDINGS: An intracranial bleed is not seen The ventricles are normal in caliber No extra-axial fluid collection is noted. No significant density within the brain noted Fluid within the sinuses/ mastoids is not seen. IMPRESSION: No acute intracranial abnormality is seen If patient's symptoms persist MRI of the brain would be recommended
--- NOTE | 2024-01-19 10:18 | RAD REPORT ---
EXAM DESCRIPTION: CT - Thorax Wo Con - 01/19/2024 10:04 am CLINICAL HISTORY: sob COMPARISON: none TECHNIQUE: Computed axial tomography of the chest was obtained. Contrast was not requested. All CT scans are performed using dose optimization technique as appropriate and may include automated exposure control or mA/KV adjustment according to patient size. FINDINGS: The evaluation of mediastinum, dre and vessels is limited secondary to lack of IV contras t administration. Mild left and [id number] right pulmonary alveolar opacities. No mediastinal or hilar lymphadenopathy is seen. A pleural effusion is not present. IMPRESSION: Mild to moderate right and mild left pulmonary opacities may indicate pneumonia or pulmo nary edema
--- NOTE | 2024-01-19 10:29 | RAD REPORT ---
EXAM DESCRIPTION: CTPelvis Angio01/19/2024 10:04 am CLINICAL HISTORY: Abdominal pain. Mesenteric ischemia COMPARISON: CT abdomen January 15, 2024 TECHNIQUE: CT angiogram of the prlvis obtained. 100 cc Isovue 370 administered intravenously. MIPS reconstruction performed All CT scans are performed using dose optimization technique as appropriate and may include automated exposure control or mA/KV adjustment according to patient size. FINDINGS: Mild plaque within the celiac and superior mesenteric arteries. JOSE ALEJANDRO patent. Mild plaque within the abdominal aorta and iliac arteries. No aneurysm Sigmoid diverticulitis has resolved. Mild to moderate thickening of the wall of the proximal transverse and right colon IMPRESSION: No high-grade splanchnic stenosis/occlusion Mild to moderate thickening of the wall of the proximal transverse and right colon may be secondary t o incomplete distention or colitis
--- NOTE | 2024-01-19 10:29 | RAD REPORT ---
EXAM DESCRIPTION: CTAbdomen Angio01/19/2024 10:04 am CLINICAL HISTORY: Abdominal pain. Mesenteric ischemia. COMPARISON: CT abdomen January 15 2024 TECHNIQUE: CT angiogram of the abdomen obtained. 100 cc Isovue 370 administered intravenously. MIPS reconstruction performed All CT scans are performed using dose optimization technique as appropriate and may include automated exposure control or mA/KV adjustment according to patient size. FINDINGS: Mild plaque within the celiac and superior mesenteric arteries. JOSE ALEJANDRO patent. Mild plaque within the abdominal aorta and iliac arteries. No aneurysm Sigmoid diverticulitis has resolved. Mild to moderate thickening of the wall of the proximal transverse and right colon IMPRESSION: No high-grade splanchnic stenosis/occlusion Mild to moderate thickening of the wall of the proximal transverse and right colon may be secondary t o incomplete distention or colitis
--- NOTE | 2024-01-19 10:55 | EKG ---
Test Date: 2024-01-18 Test Time: 19:13:01 Conservation Policy Analyst: WILFRIDO MEASUREMENT RESULTS: Intervals: Rate: 151 DC: QRSD: 82 QT: 276 QTc: 437 Joes: P: DC: QRS: -22 T: 206 INTERPRETIVE STATEMENTS: Supraventricular tachycardia Anterior infarct, age undetermined Marked ST abnormality, possible inferior subendocardial injury Abnormal ECG Compared to ECG 01/15/2024 10:29:56 Sinus rhythm no longer present Ventricular premature complex(es) no longer present Possible ischemia no longer present Myocardial infarct finding still present ST (T wave) deviation still present Electronically Signed On 01-19-24 10:54:32 LAW REPORTER by Branden Avila
[2024-01-19 12:54] LABS: PT Prothrombin Time 14.8 SECONDS (9.5-12.5); PTT, Activated Partial Thromb 33.1 SECONDS (24.3-36.9); Protime INR 1.36
[2024-01-19 13:00] LABS: Albumin 2.8 g/dL (3.4-5.0); Albumin/Globulin Ratio 0.9 (1.1-1.8); Anion Gap 19.2 mEq/L (5.0-15.0); Bilirubin Total 0.7 mg/dL (0.2-1.0); Globulin 3.2 g/dL (2.3-3.5); Magnesium 2.2 mg/dL (1.6-2.4); Phosphorus 1.9 mg/dL (2.5-4.9); Potassium 4.2 mEq/L (3.5-5.1)
[2024-01-19] MEDS ORDERED: HEPARIN 10,000 UNIT/10 ML VIAL IV PRN (13:00)
[2024-01-19] MEDS ORDERED: HEPARIN 10,000 UNIT/10 ML VIAL IV SCH (13:00)
[2024-01-19] MEDS ORDERED: HEPARIN 5000 UNIT/ML 1 ML VIAL ONE (13:04)
[2024-01-19] MEDS ORDERED: HEPARIN/D5W 25,000 UNIT/500 ML BAG IV ONE (13:04)
[2024-01-19] MEDS: HEPARIN/D5W 25,000 UNIT/500 ML BAG IV PRN (13:06)
[2024-01-19] MEDS: AMIODARONE HCL 150 MG in D5W 100 ML IV STA (13:41)
[2024-01-19] MEDS: AMIODARONE HCL 900 MG in Dextrose 5%-Water 482 ML IV SCH (13:44)
[2024-01-19] MEDS ORDERED: AMIODARONE HCL 450 MG in D5W 241 ML IV SCH (14:00)
[2024-01-19] MEDS: NACHLORIDE 0.45% 1,000 ML with NA BICARB 8.4% 75 MEQ IV SCH (14:59)
[2024-01-19] MEDS ORDERED: PANTOPRAZOLE INJ 80 MG in NA CHLORIDE 0.9% 250 ML IV SCH (17:00)
--- NOTE | 2024-01-19 17:21 | CON ---
Date of Consultation: 01/18/2024 Chief Complaint: Severe metabolic acidosis, hypokalemia, hypophosphatemia. History Of Present Illness: The patient was admitted for diverticulitis and volume depletion. The p mak is a 73-year-old woman with history of diverticulosis, diverticulitis, hypertension, hyperlipi demia, coronary artery disease, remote history of ulcerative colitis and she presented to the emergen cy department with chief complaint of abdominal pain, nausea, and weakness. She reported that she oliveira d been having abdominal pain 3 days prior to admission. She also has approximately 4 pounds weight l oss in the last 2 months. for 4 months, she had, had progressively worsening appetite. S he is tolerating fluids and is consuming fluid, although she developed diarrhea and she had decreased p.o. intake. She underwent workup and had a CT scan with volume and subsequently she was found to have severe metabolic acidosis and diarrhea was somewhat more active after that. The patie nt has history of peripheral neuropathy, GERD, and hypertension. She was taking losartan, metoprolol , omeprazole, gabapentin, aspirin, meclizine . She denies history of lower urinary tract s ymptoms. Denies dysuria, hematuria. Prior to this admission, although she was taking also meloxicam as needed for pain control. Review of Systems: Denies chest pain, palpitations. Eyes: Denies new vision changes. Ears, nose, mouth and throat: Denies earaches. Respiratory: Denies PND, orthopnea. Cardiovascular: Denies chest pain or syncope. GI: Had nausea, vomiting, and diarrhea. Denies melena, hematemesis. : Denies dysuria, hematuria, incomplete voiding. All other systems reviewed and all are negative. Past Medical History: Hypertension, osteoarthritis, restless legs syndrome, GERD, coronary artery di sease with prior stent ulcerative colitis, diverticulitis, hyperlipidemia, hysterectomy, , cardiac stent. Family History: , history of alcohol. Social History: Patient denies tobacco, alcohol. Denies drugs. Physical Examination: General: Patient is not in acute distress. Alert and oriented x3. Eyes: Anicteric sclerae. Neck: Supple. No bruits. Respiratory: Equal chest expansion. No wheezing. No rhonchi. Heart: S1, S2. No pericardial or friction rub. Abdomen: Normal bowel sounds. Extremities: . No tenderness. Laboratory Work: Today showed sodium 141, potassium 3.1, chloride 112, carbon dioxide 10, BUN less t perla 3, creatinine 0.87, glucose 136, phosphorus 1.2, calcium 8.9, magnesium 2.1. Subsequently, potas sium level was 2.5, and sodium bicarbonate drip was stopped. Impression And Plan: 1.Possible diverticulitis. The patient underwent workup and CT scan and barium test was done. The patient developed severe metabolic acidosis. Plan is to evaluate for possible lactic acidosis. Lact ate and beta hydroxybutyrate will be re-evaluated, although main reason of metabolic acidosis is chuy re diarrhea. The patient received sodium bicarbonate drip and bicarbonate has improved, although john dexter developed hypokalemia and is receiving potassium replacement. Plan is to monitor phosphorus and magnesium. 2.Hypophosphatemia. The patient is receiving potassium phosphate infusion. 3.Volume depletion. Patient will continue IV fluids. 4.CT scan of the abdomen and pelvis showed diverticulitis, mild. Continue antibiotics per primary t eam. 5.Urinary tract infection with Escherichia coli. Continue antibiotics. 6.For volume depletion, continue IV fluids and lactated Ringer was stopped. The patient will contin ue normal saline. 7.Sodium bicarbonate drip was completed and currently patient has hypokalemia. Plan is to continue potassium repletion as well as treatment of hypophosphatemia is sta rted. EB/MODL Voice ID: [id number] Report ID: [id number]
[2024-01-19] MEDS ORDERED: SODIUM BICARB 50 MEQ/50ML VIAL ONE (17:43)
[2024-01-19] MEDS: KCL 20 MEQ/100 mL IVPB 100 ML IV ONE (17:47)
[2024-01-19 17:54] LABS: Anion Gap 20.8 mEq/L (5.0-15.0); Magnesium 2.2 mg/dL (1.6-2.4); Potassium 3.8 mEq/L (3.5-5.1)
[2024-01-19] MEDS: AA 5%/D20W/ELECTROLYTES-TPN 2,000 ML, Lipids 20% 250 ML with MULTIVITAMINS INJ 10 ML IV SCH (17:57)
[2024-01-19] MEDS: PANTOPRAZOLE INJ 80 MG in NA CHLORIDE 0.9% 250 ML IV SCH (17:57)
[2024-01-19 18:12] LABS: Arterial Blood Carboxyhemoglob 0.6 % (0-1.5); Blood Gas Oxyhemoglobin 94.2 % (94-97); Blood Gas THB 13.9 g/dl (12-18); Blood O2 Saturation 96.6 % (92-98.5)
[2024-01-19] MEDS: NA CHLORIDE 0.9% 1,000 ML IV SCH (19:00)
[2024-01-19] MEDS: MORPHINE 2 MG/ML SYR IV PRN (19:35)
[2024-01-19] MEDS: POTASSIUM PHOS IV ONE (20:40)
[2024-01-19] MEDS: NACL IV ONE (20:40)
[2024-01-19 21:23] LABS: Anion Gap 19.2 mEq/L (5.0-15.0); Potassium 4.2 mEq/L (3.5-5.1)
[2024-01-19] MEDS: POTASSIUM PHOS 10 MM in NA CHLORIDE 0.9% 250 ML IV ONE (23:30)
[2024-01-20] MEDS: D5W 1,000 ML with NA BICARB 8.4% 100 MEQ IV SCH ×3 (02:27→15:34)
--- NOTE | 2024-01-20 03:21 | CON ---
Date of Consultation: 01/19/2024 Reason For Consultation: Atrial fibrillation, now with rapid ventricular response. History Of Present Illness: 73-year-old female, history of hypertension, dyslipidemia, coronary osiris ry disease, ulcerative colitis, presented with abdominal pain, nausea, vomiting, and diarrhea. Repor osnny to a 40 pounds weight loss over the past 2 months. While she was in the hospital, went into atri al fibrillation with rapid ventricular response, converted initially and then went back to atrial flu tter and now her heart rate is in the 130s after multiple interventions. I saw her by bedside, khoi jacinto having any chest pain. Past Medical History: As outlined above in HPI. Medications: Refer to conciliation sheet for the list. Allergies: NO KNOWN DRUG ALLERGIES. Family History: No premature coronary disease or cancer. Social History: She does not smoke or drink. Does not use any drugs. Review of Systems: All systems reviewed are negative except as mentioned in HPI. Physical Examination: Vital Signs: Reviewed. Head and Neck: Pupils are equal, reactive to light. Intact eye movements. No JVD. No cervical lym phadenopathy. Neck: Supple. Thyroid is not enlarged. Lungs: Decreased breathing sounds with rhonchi bilaterally. No accessory muscle use or muscle retra ction. Heart: Irregularly irregular. No extra sounds. Abdomen: Soft, nontender. Bowel sounds positive. No organomegaly. No masses or hernia. No rigidi ty or rebound. EXTREMITIES: No clubbing, cyanosis. Mild edema. Neuro: Lethargic but moving all extremities. Lymph Nodes: No cervical or axillary lymphadenopathy. Investigations: BUN is 4, creatinine 0.76, but CO2 is only 13. Troponins negative. Assessment And Recommendations: 1.Atrial fibrillation with rapid ventricular response. Continue amiodarone drip right now as she ca nnot take medications by mouth. Continue at 0.5 mg/minute. Monitor liver function tests on daily ba sis while on IV amiodarone. I spoke to Dr. Coelho this morning and recommended 1 dose of digoxin. On ce her current gastrointestinal issue resolved, we will plan at that time doing a MARIELENA-guided cardiove rsion, but I recommend to start full anticoagulation either with heparin drip or Lovenox. If she is able to take medications by mouth, then I will recommend to start metoprolol 25 mg twice a day along with amiodarone and again recommend start full anticoagulation. 2.Electrolyte abnormalities and severe metabolic acidosis. Recommend to consult GI. I believe her issue is gastrointestinal as she is losing large amount of fluids and electrolytes. Aggressive repla cement of potassium is recommended as well as continuous monitoring of her magnesium and keep her on steam drier tender. 3.Hypertension. Blood pressure is controlled. Thank you for the consult. /KHADAR Voice ID: [id number] Report ID: [id number]
--- NOTE | 2024-01-20 03:21 | PN ---
Date of Progress Note: 01/19/2024 Chief Complaint: Severe metabolic acidosis, hypokalemia, hypophosphatemia. Subjective: Patient was admitted for diverticulitis and volume depletion. Patient is 73-year-old wo man with history of diverticulosis, diverticulitis, hypertension, hyperlipidemia, coronary artery dis ease, remote history of ulcerative colitis. She presented to emergency room with complaint of abdomi nal pain, nausea, vomiting, and weakness. She reported that she was having similar symptoms at least for 3 days prior to this admission. She lost some weight approximately 4 pounds, she had progressiv felton worse appetite and she could not tolerate p.o. intake because she has had nausea, vomiting. Review of Systems: Denies chest pain, palpitation. Physical Examination: Lungs: Diminished breath sounds at bases. Heart: S1, S2. Abdomen: Soft, benign. Extremities: No edema. Impression And Plan: 1.Possible diverticulitis. Patient underwent workup and CT scan and barium was done. 2.Hypophosphatemia. Patient is on potassium phosphate infusion. 3.Volume depletion. Continue IV fluids. 4.Urinary tract infection with E coli. Continue antibiotics. 5.Volume depletion. Patient was on IV fluids with lactated Ringer. Recently, it was changed and Ri nger was stopped. . 6.Continue to monitor electrolytes. Adjust treatment according to pending lab results. VASQUEZ/KHADAR Voice ID: [id number] Report ID: [id number]
[2024-01-20 03:37] LABS: Anion Gap 17.5 mEq/L (5.0-15.0); Potassium 3.5 mEq/L (3.5-5.1)
[2024-01-20] MEDS: KCL 20 MEQ/100 mL IVPB 20 MEQ/100 ML BAG IV SCH ×2 (04:37→12:15)
[2024-01-20 05:00] LABS: Absolute Lymphocytes (CBC) 0.8 K/uL (0.7-4.9); Absolute Monocytes 0.7 K/uL (0.1-1.3); Absolute Neutrophil 8.7 K/uL (1.8-8.0); Basophils % 0.3 % (0-1.3); Hematocrit 32.6 % (36.0-45.0); Hemoglobin 11.3 g/dL (12.0-15.0); Lymphocytes % 7.7 % (15.3-44.8); MCH 29.9 pg (27.0-35.0); MCHC 34.7 g/dL (32.0-36.0); MCV 86.2 fL (80-100); MPV 9.6 fL (7.6-11.3); Monocytes % 6.5 % (3.3-12.3); Nucleated Red Blood Cells % 0.1 % (0-0); Platelets 147 thou/uL (152-406); RBC Red Blood Cell Count 3.78 M/uL (3.86-4.86); Red Cell Distribution Width 18.8 % (12.1-15.2)
[2024-01-20 05:03] LABS: Albumin 2.5 g/dL (3.4-5.0); Albumin/Globulin Ratio 0.9 (1.1-1.8); Bilirubin Direct 0.3 mg/dL (0-0.2); Bilirubin Indirect, Calculated 0.5 mg/dL (0.2-0.8); Bilirubin Total 0.8 mg/dL (0.2-1.0); Globulin 2.7 g/dL (2.3-3.5); Neutrophils % 85.5 % (41.7-73.7); Protein, Total 5.2 g/dL (6.4-8.2)
--- NOTE | 2024-01-20 06:58 | ECHO ---
HEIGHT: 4 ft 11 in WEIGHT: 176 lb 14.4 oz DATE OF STUDY: 01/19/[address]: Candelario Daniel NP 2-DIMENSIONAL: YES M.MODE: YES DOPPLER: YES COLOR FLOW: YES TDS: NO PORTABLE: YES DEFINITY: NO BUBBLE STUDY: NO DIAGNOSIS: NEW ONSET OF ATRIAL FIBRILLATION CARDIAC HISTORY: CATHERIZATION: NO SURGERY: NO PROSTHETIC VALVE: NO PACEMAKER: NO MEASUREMENTS (cm) DIASTOLIC (NORMALS) SYSTOLIC (NORMALS) IVSd 1.0 (0.6-1.2) LA Diam 3.4 (1.9-4.0) LVEF 59% LVIDd 2.9 (3.5-5.7) LVIDs 2.1 (2.0-3.5) %FS 30% LVPWd 1.1 (0.6-1.2) Ao Diam 2.8 (2.0-3.7) 2 DIMENSIONAL ASSESSMENT: RIGHT ATRIUM: NORMAL LEFT ATRIUM: ENLARGED RIGHT VENTRICLE: NORMAL LEFT VENTRICLE: LEFT VENTRICULAR HYPERTROPHY TRICUSPID VALVE: MILD TRICUSPID REGURGITATION MITRAL VALVE: MILD MITRAL REGURGITATION PULMONIC VALVE: NORMAL AORTIC VALVE: MILD AORTIC REGURGITATION PERICARDIAL EFFUSION: TRACE AORTIC ROOT: NORMAL LEFT VENTRICULAR WALL MOTION: NORMAL DOPPLER/COLOR FLOW: SEE BELOW COMMENTS: 1. NORMAL LEFT VENTRICULAR EJECTION FRACTION 50-60%. 2. MILD CONCENTRIC LEFT VENTRICULAR HYPERTROPHY. 3. MILD TRICUSPID, MITRAL AND AORTIC REGURGITATION. 4. LEFT ATRIAL ENLARGEMENT. TECHNOLOGIST: Ariane NAGEL [facility]
[2024-01-20] MEDS ORDERED: NA CHLORIDE 0.9% 100 ML ONE ×2 (09:15→20:50)
[2024-01-20] MEDS ORDERED: Meropenem 1000 MG/VIAL IV ONE ×2 (09:15→20:47)
[2024-01-20] MEDS: THIAMINE 200 MG/2 ML INJ IVP SCH (09:29)
[2024-01-20 09:52] LABS: Anion Gap 17.2 mEq/L (5.0-15.0); Potassium 3.2 mEq/L (3.5-5.1)
[2024-01-20] MEDS ORDERED: AMIODARONE IN DEXTROSE,ISO-OSM 360 MG/200 ML BAG IV ONE (11:22)
[2024-01-20] MEDS ORDERED: ADENOSINE 6 MG/ 2ML VIAL IV ONE (11:22)
[2024-01-20] MEDS ORDERED: D5W 250 ML IV ONE (11:22)
[2024-01-20] MEDS ORDERED: NA CHLORIDE 0.9% 250 ML IV ONE (11:22)
[2024-01-20] MEDS ORDERED: AMIODARONE HCL 150 MG/3 ML INJ IV ONE (11:22)
--- NOTE | 2024-01-20 11:48 | P.CNS ---
Date of Consult: 01/19/24 PC: I was asked to see this patient in regards to lack of vascular access. HPC: The patient has been in the hospital, and over the last 48 hours apparently has had some mental alterations as well as showing signs of possible sepsis. She requires IV access for medication and volume support as well as correction of electrolytes. PSHx: Previous cholecystectomy, hysterectomy, cardiac stent PMHx: History of diverticulitis, ulcerative colitis, Social Hx: No known allergies Sys R: Unobtainable right now O/E: Patient is obviously obtunded, vital signs are stable at the moment. HEENT: Not jaundiced. Chest: Chest movement equal bilaterally Abd: Soft no abdominal tenderness [place]: No evidence of any fractured clavicles Data: Clinically appears to be septic Impression: This patient requires central access for IV fluids. In addition there is a question of where the underlying source of her sepsis is coming from. Dr. Mathis when I reviewed the CT scans [id number]. She does have a small what appears to be hernia on the right side of the abdomen just below and lateral to the umbilicus. There is no evidence of any inflammatory changes in this area. The rest of the abdominal exam is essentially normal. She does not exhibit any signs of peritoneal irritation. Plan: I will place a central line for IV access, and follow with you.
--- NOTE | 2024-01-20 12:41 | P.PN ---
Subjective Date of Service: 01/20/24 Chief Complaint: Altered mental status No change patient is unresponsive tachypneic Review of Systems is unable to be obtained Physical Examination - Vital Signs Temperature: 97.9 F Blood Pressure: 127/51 Pulse: 116 Respirations: 15 Pulse Ox (%): 100 - Physical Exam General: Unresponsive, Comatose Respiratory: Clear to auscultation bilaterally Cardiovascular: No edema, Normal S1 S2 Gastrointestinal: Normal bowel sounds, Soft and benign Assessment And Plan - Current Problems (Diagnosis) (1) Acid-base imbalance Current Visit: Yes Status: Acute Plan: Patient is unresponsive has a metabolic acidosis bicarbonate is stable blood cultures so far negative mild hyper hypokalemia CT of the abdomen IMPRESSION: No high-grade splanchnic stenosis/occlusion Mild to moderate thickening of the wall of the proximal transverse and right colon may be secondary to incomplete distention or coliti there is no evidence of any acute intra-abdominal pathology patient has very soft abdomen no rebound or guarding initial bowel sounds patient's vital signs are stable plan to increase the dose of thiamine to 200 mg IV twice a day continue with meropenem patient is on TPN IV fluids pantoprazole
--- NOTE | 2024-01-20 13:56 | P.PN ---
Subjective Date of Service: 01/20/24 Chief Complaint: Altered mental status No improvement in mental status. Patient is npo No issues overnight playground monitor: Sinus rhythm. Physical Examination - Vital Signs Temperature: 97.9 F Blood Pressure: 127/51 Pulse: 116 Respirations: 15 Pulse Ox (%): 100 Assessment And Plan - Plan Physical exam: GEN: Somnolent. Afebrile. HEENT: Normal conjunctiva, sclera anicteric, poor dentition-black stained/chipped teeth CV: Regular, tachycardic, trace b/l pedal edema Pulm: Clear to auscultation bilaterally, adequate breath sounds bilaterally. ABD: Soft, nontender, nondistended Integumentary: No rashes Neuro: PERRL, moves all extremities, somnolent. Vitals reviewed Problem List metabolic acidosis, high anion gap multiple electrolye derangements - hypoK, hypoP04 Severe protein calorie malnutrition secondary to nausea/vomiting with weight loss for months Severe vitamin d deficiency New onset afib with RVR Bilateral pulmonary opacities, R > L acute diverticulitis, resolved UTIE. coli GERD Generalized weakness Hypertension Hyperlipidemia CAD metabolic acidosis, high anion gap multiple electrolye derangements - hypoK, hypoP04 Severe protein calorie malnutrition secondary to nausea/vomiting with weight loss for months Severe vitamin d deficiency lactic acidosis 40lb wt loss in ~2 months due to food intolerance / nausea initially reported only tolerating water, no food / solids, and remote history of esophageal stricture requiring dilatation ~20yrs ago UGI series with SB follow through done on 01/16, reports reflux Significant acidosis. Had large-volume watery stools day after upper GI series Acidosis due to combination of ketosis from starvation, and bicarb loss from diarrhea. pt without peritoneal signs, no abd tenderness, no bloody BMs, diarrhea was clear/liquid according to patient On bicarb drip. Nephrology is following. Monitor and correct other electrolytes continue PPI Lactic acidosis unclear etiology, suspect secondary to decreased perfusion with afib rvr on antibiotics that should be covering uti and sepsis no other obvious source of infection CTA abd/pelvis: No significant vascular occlusion to indicate ischemic bowel. Reports had a colonoscopy 2 years ago as well as EGD without significant abnormalities - mild hiatal hernia CEA within normal limits, AFP pending Iron/B12 WBL, Severe vitamin D deficiency- will start oral vitamin D once tolerating General surgery - Dr. Rodriguez consulted for central line insertion. Placed 01/19 pulm / lpn medical assistant Dr. Miles is following Continue merrem Blood culture: No growth to date Afebrile, leukocytosis resolved. GI consulted 01/19 New onset afib with RVR Cardiology Dr. Velásquez is following Replete potassium and treat metabolic acidosis echo is unremarkable. In sinus rhythm today monitor on telemetry continue IV amiodarone drip. S/p Digoxin 0.25 x 1. IV metoprolol as needed for RVR. UTIE. coli +bacteuria, pt denied urinary symptoms on admission, however was started on treatment urine cx (01/15): E. coli Blood cultures: No growth previously on rocephin (01/16-01/19). Switched to merrem per pulm given concern for pneumonia. also covers UTI Continue merrem (01/19-) Generalized weakness continue PT once AMS improves. Hypertension Hyperlipidemia CAD Currently n.p.o. VTE: Lovenox Code: Full Dispo: continue ICU level of care
[2024-01-20 15:16] LABS: Anion Gap 16.4 mEq/L (5.0-15.0); Potassium 3.4 mEq/L (3.5-5.1)
[2024-01-20 16:52] LABS: Phosphorus 1.2 mg/dL (2.5-4.9)
[2024-01-20] MEDS: POTASSIUM PHOS IN 0.9 % NACL 15 MMOL/250 ML BAG IV SCH (16:55)
[2024-01-20] MEDS: METOPROLOL TARTRATE 5 MG/5 ML INJ IV ONE (16:56)
[2024-01-20] MEDS ORDERED: AA 5%/D20W/ELECTROLYTES-TPN 2,000 ML IV SCH (17:00)
[2024-01-20] MEDS: AMINO ACIDS IV SCH (19:00)
[2024-01-20] MEDS: POTASSIUM PHOS IV SCH (19:00)
[2024-01-20] MEDS: [UNRECOGNIZED DRUG - OTHER] IV SCH (19:00)
[2024-01-20] MEDS: DEXTROSE 20% IV SCH (19:00)
[2024-01-20] MEDS ORDERED: SODIUM CHLORIDE 0.9% 10ML INJ IV PRN (19:14)
[2024-01-20] MEDS ORDERED: THIAMINE 200 MG/2 ML INJ ONE (20:48)
[2024-01-20] MEDS: PANTOPRAZOLE 40 MG INJ IVP SCH (20:53)
--- NOTE | 2024-01-20 21:14 | RAD REPORT ---
EXAM DESCRIPTION: RAD - Chest Single View - 01/20/2024 9:04 pm CLINICAL HISTORY: Device placement Dobhoff tube placement IMPRESSION: A Dobhoff tube is coiled within the stomach. The tip lies within the gastric fundus
--- NOTE | 2024-01-21 03:26 | PN ---
Date of Progress Note: 01/20/2024 Subjective: Seen by bedside, continues to be in atrial fibrillation, flutter, but rate is much meek r. Review of Systems: Conditions unchanged from yesterday. Physical Examination: Vital Signs: Reviewed. Head and Neck: Pupils are equal, reactive to light. There is no cervical lymphadenopathy. Neck is supple. Thyroid is not enlarged. Lungs: Decreased breathing sounds bilaterally. No accessory muscle use or muscle retraction. Heart: Irregularly irregular. No extra sounds. Abdomen: Soft. Bowel sounds diminished. Extremities: No clubbing, cyanosis. Intact pulses. Skin: No rashes. Neuro: She is lethargic. Moving all extremities. Lymph nodes: No cervical lymphadenopathy. Investigations: BUN 4, creatinine 0.67, and liver enzymes are normal. Assessment/recommendations: Atrial fibrillation/flutter with rapid ventricular response. Now rate i s borderline. Continue amiodarone drip at 0.5 mg/minute and check LFTs on a daily basis while she is on it. However, she is able to take medications by mouth from amiodarone to be switched to oral and if her blood pressure allows, IV metoprolol can be used 5 mg every 1 hour as needed for rate control and continue anticoagulation. SR/MODL Voice ID: [id number] Report ID: [id number]
--- NOTE | 2024-01-21 03:26 | PN ---
Date of Progress Note: 01/20/2024 Subjective: This is a 73-year-old woman with past medical history of diverticulosis, GERD, hypertens ion, hyperlipidemia, who was admitted for abdominal pain. Nephrology consulted for high anion gap ac idosis. The patient's urinalysis showed +4 ketones. Currently on bicarb drip. Objective: Vital Signs: Temperature 97.9, pulse rate 116, blood pressure 127/51. General: The patient looks chronically ill, obese, lethargic. Neck: Supple. No elevated JVD. Heart: Tachycardia. Normal S1, S2. Chest: Clear to auscultation bilaterally. No rales or wheezes. Abdomen: Soft, nontender. Extremities: No edema. Labs: Sodium 146, potassium 3.4, bicarb 18, anion gap 16, BUN 4, creatinine 0.6. White count 10.2, hemoglobin 11.3. Assessment And Plan: 1.High anion gap metabolic acidosis. The patient is not DKA. The patient is not diabetic. Possibl y due to D-lactic acidosis and starvation ketosis. Continue bicarb drip. We will change it to D5 wi th bicarbonate. 2.Diverticulosis. The patient is currently n.p.o. GI following. Continue TPN. 3.Hypernatremia due to saline in fluid. We will change the fluid to D5 with 100 mEq of sodium bicar bonate. 4.Atrial fibrillation with RVR. Continue metoprolol for rate control. Thank you for allowing me to participate in patient care. Total time I spent 55 minutes including do cumentation, reviewing labs, and discussing with the family and the nursing staff. JAMES/KHADAR Voice ID: [id number] Report ID: [id number]
--- NOTE | 2024-01-21 03:26 | PN ---
Subjective: This is a 73-year-old woman with past medical history of diverticulitis, hypertension, G ERD, hyperlipidemia, and ulcerative colitis, who presented to the emergency department complaining of abdominal pain, nausea, and weakness. Nephrology consulted for metabolic acidosis. Urinalysis show ed +4 ketones. She is on bicarbonate drip. Objective: Vital Signs: Temperature 97.9, pulse rate 116, blood pressure 127/51. General: Obese and lethargic. Neck: Supple. No elevated JVD. Heart: Tachycardic. Normal S1, S2. Chest: Clear to auscultation bilaterally. No rales or wheezes. Abdomen: Soft, nontender. Extremities: No edema. Medications: Include amiodarone bicarb drip. Labs: Sodium 146, potassium 3.4, BUN 4. Calcium 7.9 DICTATION ENDS HERE JAMES/KHADAR Voice ID: [id number] Report ID: [id number]
[2024-01-21 03:54] LABS: Absolute Lymphocytes (CBC) 1.6 K/uL (0.7-4.9); Absolute Monocytes 0.5 K/uL (0.1-1.3); Absolute Neutrophil 5.2 K/uL (1.8-8.0); Basophils % 0.5 % (0-1.3); Eosinophils % 0.3 % (0-4.4); Hemoglobin 10.7 g/dL (12.0-15.0); Lymphocytes % 21.8 % (15.3-44.8); MCH 29.7 pg (27.0-35.0); MCHC 34.5 g/dL (32.0-36.0); MCV 86.1 fL (80-100); MPV 9.4 fL (7.6-11.3); Monocytes % 7.1 % (3.3-12.3); Neutrophils % 70.3 % (41.7-73.7); Platelets 99 thou/uL (152-406); Red Cell Distribution Width 18.7 % (12.1-15.2)
[2024-01-21 04:23] LABS: Albumin 2.3 g/dL (3.4-5.0); Albumin/Globulin Ratio 0.8 (1.1-1.8); Anion Gap 9.8 mEq/L (5.0-15.0); Bilirubin Total 0.8 mg/dL (0.2-1.0); Globulin 2.8 g/dL (2.3-3.5); Phosphorus 2.4 mg/dL (2.5-4.9); Potassium 2.8 mEq/L (3.5-5.1); Protein, Total 5.1 g/dL (6.4-8.2)
[2024-01-21] MEDS: POTASSIUM PHOS IN 0.9 % NACL 15 MMOL/250 ML BAG IV ONE ×2 (05:09→08:00)
[2024-01-21] MEDS: POTASSIUM PHOS 30 MM in NA CHLORIDE 0.9% 500 ML IV ONE (07:00)
[2024-01-21] MEDS ORDERED: THIAMINE 200 MG/2 ML INJ ONE ×2 (07:44→19:49)
[2024-01-21] MEDS ORDERED: NA CHLORIDE 0.9% 100 ML ONE (07:44)
[2024-01-21] MEDS ORDERED: Meropenem 1000 MG/VIAL IV ONE (07:44)
[2024-01-21] MEDS: METOPROLOL TARTRATE 5 MG/5 ML INJ IV PRN (08:42)
[2024-01-21] MEDS ORDERED: AMIODARONE HCL 200 MG TAB ONE (08:54)
[2024-01-21] MEDS: AMIODARONE HCL 200 MG TAB PO SCH (09:00)
[2024-01-21] MEDS: Meropenem 1,000 MG in NA CHLORIDE 0.9% 100 ML IV SCH (09:00)
[2024-01-21] MEDS: METOPROLOL XL 25 MG TAB PO SCH (09:25)
--- NOTE | 2024-01-21 10:12 | RAD REPORT ---
EXAM DESCRIPTION: RAD - Abdomen 1 View (KUB) - 01/21/2024 10:06 am CLINICAL HISTORY: Device placement Dobhoff tube placement FINDINGS: The Dobhoff tube has been advanced. It appears to be coiled within the distal stomach
[2024-01-21] MEDS ORDERED: MORPHINE 2 MG/ML SYR ONE ×2 (10:13→15:36)
[2024-01-21] MEDS: KCL 20 MEQ/100 mL IVPB 20 MEQ/100 ML BAG IV SCH (11:25)
[2024-01-21] MEDS ORDERED: Ringers Lactate 1,000 ML with POTASSIUM CL 20 MEQ IV SCH (11:30)
[2024-01-21] MEDS: ADENOSINE 6 MG/ 2ML VIAL IV ONE (11:47)
[2024-01-21] MEDS ORDERED: ADENOSINE 6 MG/ 2ML VIAL IV ONE (11:52)
[2024-01-21] MEDS: Ringers Lactate 1,000 ML with POTASSIUM CL 20 MEQ IV SCH (11:56)
--- NOTE | 2024-01-21 12:03 | P.PN ---
Subjective Date of Service: 01/21/24 Chief Complaint: Altered mental status Patient is improving more alert less tachypneic however patient has an SVT unresponsive Review of Systems is unable to be obtained Physical Examination - Vital Signs Temperature: 97.4 F Blood Pressure: 165/103 Pulse: 143 Respirations: 20 Pulse Ox (%): 98 - Physical Exam General: Alert Respiratory: Clear to auscultation bilaterally Cardiovascular: No edema, Regular rate/rhythm, Normal S1 S2 Gastrointestinal: Normal bowel sounds, Soft and benign Assessment And Plan - Current Problems (Diagnosis) (1) Acid-base imbalance Current Visit: Yes Status: Acute Plan: Patient is doing better base balance seems to be improving Continue adenosine given shows is sinus tachycardia only NSVT cultures are so far negative to Lovenox DC heparin
--- NOTE | 2024-01-21 13:01 | PN ---
Date of Progress Note: 01/21/2024 Subjective: The patient was admitted to the hospital with acute kidney injury, acidosis. The patient has diarrhea. The patient has atrial fibrillation. The patient also started on bicarb drip. Acidosis has been resolved. The patient feeling better. Objective: Vital Signs: Blood pressure been stable. Blood pressure 165/103, pulse of 103, afebrile. Chest: Decreased entry bilateral base. Heart: S1, S2. Systolic murmur. Abdomen: Soft, mild tenderness. No guarding or rebound. Extremities: Trace edema. Neurologic: Alert, no focality. The patient on bed. Laboratory Data: WBC 7.4, hemoglobin 10.7. Sodium 146, potassium 2.8, bicarb 26, BUN 5, creatinine 0.5, calcium 7.4, phos 2.4, albumin 2.3, corrected calcium is 8.6. Lactic acid 2. Urinalysis positive for infection. Current Medications: The patient on include: 1. Meropenem. 2. Amiodarone. 3. Pantoprazole. 4. Zofran. 5. KCl. 6. Thiamin. Assessment And Plan: 1. Acidosis secondary to gastrointestinal loss and sepsis non-anion gap metabolic acidosis anion gap metabolic acidosis and severe hypokalemia. Currently bicarb normalized. I am going to discontinue bicarb drip. I going to start with LR and KCl 20 and we will monitor the improvement of the patient. 2. Severe hypokalemia with normal magnesium couple of days ago. I am going to repeat magnesium. We will start aggressive replacement with LR and KCl. 3. Urinary tract infection. Continue current antibiotic secondary to Escherichia coli. 4. Malnourished with diverticulitis. Patient started on PPN. We will follow up. 5. Hypertension, not controlled. The patient n.p.o. I am going to start the patient on nitro patch and we will follow up the patient. Time spent examining the patient [id number], reviewing data, lab and radiology, placing order, discussing the case with the nursing and ICU, discussing the case with the steamtable attendant railroad including hospitalist and the patient's family by bedside more than 35 minutes. HERMINIA Voice ID: [id number] Report ID: [id number] SUMIT
--- NOTE | 2024-01-21 13:54 | P.PN ---
Subjective Date of Service: 01/21/24 Chief Complaint: Altered mental status Patient mental status slightly improved from yesterday. She now opens her eyes spontaneously. Patient is npo NG tube was coiled and nonfunctional and therefore removed door manager: Junctional rhythm. Physical Examination - Vital Signs Temperature: 97.4 F Blood Pressure: 165/103 Pulse: 143 Respirations: 20 Pulse Ox (%): 98 Assessment And Plan - Plan Physical exam: GEN: Somnolent. Afebrile. HEENT: Normal conjunctiva, sclera anicteric, poor dentition-black stained/chipped teeth, oral sores and cracked lips. CV: Regular, tachycardic, trace b/l pedal edema Pulm: Clear to auscultation bilaterally, adequate breath sounds bilaterally. ABD: Soft, nontender, nondistended Integumentary: No rashes Neuro: PERRL, moves all extremities, somnolent. Vitals reviewed Problem List metabolic acidosis, high anion gap multiple electrolye derangements - hypoK, hypoP04 Severe protein calorie malnutrition secondary to nausea/vomiting with weight loss for months Severe vitamin d deficiency New onset afib with RVR Bilateral pulmonary opacities, R > L acute diverticulitis, resolved UTIE. coli GERD Generalized weakness Hypertension Hyperlipidemia CAD Acute metabolic encephalopathy Acute metabolic encephalopathy metabolic acidosis, high anion gap multiple electrolye derangements - hypoK, hypoP04 Severe protein calorie malnutrition secondary to nausea/vomiting with weight loss for months Severe vitamin d deficiency lactic acidosis 40lb wt loss in ~2 months due to food intolerance / nausea initially reported only tolerating water, no food / solids, and remote history of esophageal stricture requiring dilatation ~20yrs ago UGI series with SB follow through done on 01/16, reports reflux Significant acidosis. Had large-volume watery stools day after upper GI series Acidosis due to combination of ketosis from starvation, and bicarb loss from diarrhea. pt without peritoneal signs, no abd tenderness, no bloody BMs, diarrhea was clear/liquid according to patient Metabolic acidosis resolved. As of 01/20, patient still had significant ketosis. Mental status is slowly improving. Nephrology is following. Monitor and correct other electrolytes continue PPI Continue TPN. Increase TPN rate. IV fluid changed to Ringer's lactate per nephrology. Recheck beta hydroxy butyrate level in a.m. Lactic acidosis unclear etiology, suspect secondary to decreased perfusion with afib rvr on antibiotics that should be covering uti and sepsis no other obvious source of infection CTA abd/pelvis: No significant vascular occlusion to indicate ischemic bowel. Reports had a colonoscopy 2 years ago as well as EGD without significant abnormalities - mild hiatal hernia CEA within normal limits, AFP pending Iron/B12 WBL, Severe vitamin D deficiency- will start oral vitamin D once tolerating General surgery - Dr. Rodriguez consulted for central line insertion. Placed 01/19 pulm / shale planer operator Dr. Miles is following Continue merrem Blood culture: No growth to date Urine culture: Pansensitive E. coli. Afebrile, leukocytosis resolved. GI consulted 01/19 New onset afib with RVR Cardiology Dr. Velásquez is following Replete potassium and treat metabolic acidosis echo is unremarkable. Rhythm on opening machine cleaner appears to be junctional rhythm. monitor on telemetry continue IV amiodarone drip. S/p Digoxin 0.25 x 1. IV metoprolol as needed for RVR. UTIE. coli +bacteuria, pt denied urinary symptoms on admission, however was started on treatment urine cx (01/15): E. coli Blood cultures: No growth previously on rocephin (01/16-01/19). Switched to merrem per pulm given concern for pneumonia. also covers UTI Continue merrem (01/19-) Generalized weakness continue PT once AMS improves. Hypertension Hyperlipidemia CAD Currently n.p.o. Will consider clonidine patch if blood pressure remain consistently high. VTE: Lovenox Code: Full Dispo: continue ICU level of care
[2024-01-21] MEDS ORDERED: METOPROLOL TARTRATE 5 MG/5 ML INJ IV ONE (14:40)
[2024-01-21] MEDS: CLONIDINE 0.1 MG/PATCH TD SCH (16:30)
[2024-01-21] MEDS: AMIODARONE HCL 900 MG in Dextrose 5%-Water 482 ML IV SCH (16:45)
[2024-01-21 16:57] LABS: Anion Gap 5.5 mEq/L (5.0-15.0); Potassium 3.5 mEq/L (3.5-5.1)
[2024-01-21] MEDS ORDERED: [UNRECOGNIZED DRUG - OTHER] IV SCH (17:00)
[2024-01-21] MEDS ORDERED: POTASSIUM PHOS IV SCH (17:00)
[2024-01-21] MEDS ORDERED: AMINO ACIDS IV SCH (17:00)
[2024-01-21] MEDS ORDERED: LIPIDS 20% IV SCH (17:00)
[2024-01-21] MEDS ORDERED: DEXTROSE 20% IV SCH (17:00)
[2024-01-21] MEDS: AMINO ACIDS IV SCH (17:06)
[2024-01-21] MEDS: DEXTROSE 20% IV SCH (17:06)
[2024-01-21] MEDS: LIPIDS 20% IV SCH (17:06)
[2024-01-21] MEDS: CLONIDINE 0.2 MG/PATCH TD SCH (17:06)
[2024-01-21] MEDS: [UNRECOGNIZED DRUG - OTHER] IV SCH (17:06)
[2024-01-21] MEDS: POTASSIUM PHOS IV SCH (17:06)
[2024-01-21] MEDS: D5W 1,000 ML with POTASSIUM CL 40 MEQ IV SCH (18:21)
--- NOTE | 2024-01-21 18:48 | RAD REPORT ---
EXAM DESCRIPTION: RAD - Abdomen 1 View (KUB) - 01/21/2024 5:43 pm CLINICAL HISTORY: NGT placement COMPARISON: Abdomen 1 View (KUB) dated 01/21/2024; Abdomen Angio dated 01/19/2024 TECHNIQUE: Single AP view of the abdomen. FINDINGS: Weighted enteric tube tip projects over the distal stomach or proximal duodenum. Residual hyperdense contrast remains, within the proximal stomach and in the large bowel. Nonobstructive bowel gas pattern. No air-fluid levels, free air, or pneumatosis. No suspicious calcif ications. No significant bony abnormality. IMPRESSION: Weighted enteric tube tip projects over the distal stomach or proximal duodenum.
[2024-01-21] MEDS: ENOXAPARIN 80 MG/0.8 ML SQ SCH (20:05)
[2024-01-22] MEDS ORDERED: NA CHLORIDE 0.9% 100 ML ONE ×2 (00:33→08:36)
[2024-01-22] MEDS ORDERED: Meropenem 1000 MG/VIAL IV ONE ×2 (00:33→08:36)
[2024-01-22] MEDS ORDERED: LABETALOL 20 MG/4ML SYRINGE IV PRN (01:14)
[2024-01-22] MEDS: HYDRALAZINE HCL 20 MG/ML VIAL IV PRN (01:20)
[2024-01-22] MEDS ORDERED: HYDRALAZINE HCL 20 MG/ML VIAL ONE (01:20)
[2024-01-22] MEDS ORDERED: MORPHINE 2 MG/ML SYR ONE (01:21)
[2024-01-22 05:15] VITALS: BMI 36.3
[2024-01-22 05:16] LABS: Absolute Lymphocytes (CBC) 1.1 K/uL (0.7-4.9); Absolute Monocytes 0.3 K/uL (0.1-1.3); Basophils % 0.7 % (0-1.3); Eosinophils % 0.8 % (0-4.4); Hematocrit 33.7 % (36.0-45.0); Hemoglobin 11.6 g/dL (12.0-15.0); Lymphocytes % 16.4 % (15.3-44.8); MCH 30.5 pg (27.0-35.0); MCHC 34.5 g/dL (32.0-36.0); MCV 88.3 fL (80-100); MPV 9.7 fL (7.6-11.3); Monocytes % 5.3 % (3.3-12.3); Neutrophils % 76.8 % (41.7-73.7); Nucleated Red Blood Cells % 0.1 % (0-0); Platelets 100 thou/uL (152-406); RBC Red Blood Cell Count 3.82 M/uL (3.86-4.86); Red Cell Distribution Width 18.3 % (12.1-15.2)
[2024-01-22 05:22] LABS: Albumin 2.6 g/dL (3.4-5.0); Albumin/Globulin Ratio 0.8 (1.1-1.8); Anion Gap 7.4 mEq/L (5.0-15.0); Bilirubin Total 0.6 mg/dL (0.2-1.0); Globulin 3.2 g/dL (2.3-3.5); Magnesium 2.1 mg/dL (1.6-2.4); Phosphorus 1.7 mg/dL (2.5-4.9); Potassium 3.4 mEq/L (3.5-5.1); Protein, Total 5.8 g/dL (6.4-8.2)
[2024-01-22] MEDS: POTASSIUM PHOS IN 0.9 % NACL 15 MMOL/250 ML BAG IV ONE (06:06)
[2024-01-22] MEDS ORDERED: THIAMINE 200 MG/2 ML INJ ONE ×2 (08:35→20:19)
[2024-01-22] MEDS ORDERED: NITROGLYCERIN 0.2 MG/HR (5 MG) PATCH TD SCH (09:00)
[2024-01-22] MEDS: NITROGLYCERIN 0.2 MG/HR (5 MG) PATCH TD SCH (09:13)
[2024-01-22] MEDS ORDERED: VITAL HP 1,000 ML BOT RTH SCH (10:00)
[2024-01-22] MEDS: AMLODIPINE 5 MG TAB PO SCH (11:12)
[2024-01-22] MEDS: POTASSIUM CL 40 MEQ in NA CHLORIDE 0.9% 500 ML IV ONE (12:30)
--- NOTE | 2024-01-22 12:45 | PN ---
Date of Progress Note: 01/22/2024 Subjective: The patient was admitted to the hospital with acute kidney injury, AFib. The patient had severe acidosis. The patient was on bicarb drip. Bicarb drip has been discontinued yesterday. Patient continued on TPN. The patient started clear liquid today. Objective: Vital Signs: When I saw the patient, blood pressure 176/68, pulse of 95. The patient had urine output of 8000, patient negative of 1400. Chest: Clear to auscultation. Heart: S1, S2. Systolic murmur. Abdomen: Soft, nontender. Extremities: Trace edema. Neurologic: Alert. No focality. Laboratory Data: Sodium of 149, potassium 3.4, bicarb 28, BUN 9, creatinine 0.4, calcium 8.4, phosphorus 1.7, magnesium 2.1, albumin 2.6. Current Medications: The patient on, it includes: 1. Amiodarone drip. 2. Amlodipine 5 mg. 3. Clonidine patch. 4. Nitroglycerin patch. 5. Pantoprazole. 6. D5 with potassium at 75. 7. TPN. Assessment And Plan: 1. Acidosis secondary to GI loss and sepsis complicated with hypokalemia. The patient recovered very well, off bicarb drip, for 24 hours. I am going to continue TPN and continue D5. 2. Severe hypokalemia, status post supplement. We will go ahead and continue aggressive replacement and we will follow up. We will increase the D5 with potassium to a 100. 3. Hypernatremia secondary to poor intake. Continue D5. We will monitor. 4. Urinary tract infection secondary to Escherichia coli. Continue current antibiotic dose appropriate. 5. Malnourished, just started on TPN. Start oral today. We will follow up. 6. Hypertension, not controlled. The patient was started on clonidine and nitroglycerin. I am going to go ahead and increase her amlodipine to 10 mg and we will follow up the patient. 7. Atrial fibrillation, as by Primary. 8. Gastroenteritis. Follow up with Primary. Time spent examining the patient [id number] reviewing Lab and radiology placing orders discussing the case with the patient and front desk team member including hospitalist and nursing staff more than 35 minutes HERMINIA Voice ID: [id number] Report ID: [id number] MTDFlory
--- NOTE | 2024-01-22 14:32 | P.PN ---
Subjective Date of Service: 01/22/24 Chief Complaint: Altered mental status Patient is more awake and verbal today. Blood pressure readings have improved. Heart rate has remained stable. NG tube in place. Physical Examination - Vital Signs Temperature: 97.5 F Blood Pressure: 143/87 Pulse: 90 Respirations: 21 Pulse Ox (%): 99 Assessment And Plan - Plan Physical exam: GEN: Awake and interactive but confused. Afebrile. HEENT: Normal conjunctiva, sclera anicteric, poor dentition-black st ained/chipped teeth, oral sores and cracked lips. CV: Regular, tachycardic, trace b/l pedal edema Pulm: Clear to auscultation bilaterally, adequate breath sounds bilaterally. ABD: Soft, nontender, nondistended Integumentary: No rashes Neuro: No focal motor deficits Vitals reviewed Problem List metabolic acidosis, high anion gap multiple electrolye derangements - hypoK, hypoP04 Severe protein calorie malnutrition secondary to nausea/vomiting with weight loss for months Severe vitamin d deficiency New onset afib with RVR Bilateral pulmonary opacities, R > L acute diverticulitis, resolved UTIE. coli GERD Generalized weakness Hypertension Hyperlipidemia CAD Acute metabolic encephalopathy Hypernatremia Acute metabolic encephalopathy metabolic acidosis, high anion gap multiple electrolye derangements - hypoK, hypoP04 Severe protein calorie malnutrition secondary to nausea/vomiting with weight loss for months Severe vitamin d deficiency lactic acidosis Hypernatremia 40lb wt loss in ~2 months due to food intolerance / nausea UGI series with SB follow through done on 01/16, reports reflux Significant acidosis. Had large-volume watery stools day after upper GI series Acidosis due to combination of ketosis from starvation, and bicarb loss from diarrhea. pt without peritoneal signs, no abd tenderness, no bloody BMs, diarrhea was clear/liquid according to patient Metabolic acidosis resolved. As of 01/20, patient still had significant ketosis. Mental status significantly improved Nephrology is following. Monitor and correct other electrolytes continue PPI Trial of liquid diet today. IV fluid changed from Ringer's lactate to D5 water plus KCl per nephrology to address hypernatremia. Beta hydroxy butyrate level normalized. Lactic acidosis unclear etiology, suspect secondary to decreased perfusion with afib rvr on antibiotics that should be covering uti and sepsis no other obvious source of infection CTA abd/pelvis: No significant vascular occlusion to indicate ischemic bowel. Reports had a colonoscopy 2 years ago as well as EGD without significant abnormalities - mild hiatal hernia CEA within normal limits, AFP pending Iron/B12 WBL, Severe vitamin D deficiency- will start oral vitamin D once tolerating General surgery - Dr. Rodriguez placed central line insertion on 01/19 pulm / daycare teacher Dr. Miles is following Merrem changed to IV Rocephin. Blood culture: No growth to date Urine culture: Pansensitive E. coli. Afebrile, leukocytosis resolved. GI consulted 01/19 New onset afib with RVR Cardiology Dr. Velásquez is following Replete potassium and treat metabolic acidosis echo is unremarkable. Heart rate improved, patient is in sinus rhythm. monitor on telemetry continue IV amiodarone drip. S/p Digoxin 0.25 x 1. IV metoprolol as needed for RVR. Heparin drip changed to weight-based Lovenox per pulmonary UTIE. coli +bacteuria, pt denied urinary symptoms on admission, however was started on treatment urine cx (01/15): E. coli Blood cultures: No growth previously on rocephin (01/16-01/19). Switched to merrem per pulm given concern for pneumonia. also covers UTI Antibiotics switched again to IV Rocephin. Generalized weakness PT to evaluate when patient is able to follow instructions. Hypertension Hyperlipidemia CAD Oral metoprolol, added oral Norvasc. Discontinue clonidine patch VTE: Lovenox Code: Full Dispo: continue ICU level of care
--- NOTE | 2024-01-22 16:09 | EKG ---
Test Date: 2024-01-21 Test Time: 09:19:02 Demolition Worker: GALINA MEASUREMENT RESULTS: Intervals: Rate: 133 [place]: QRSD: 182 QT: 334 QTc: 497 [place]: P: UT: QRS: -21 T: 97 INTERPRETIVE STATEMENTS: Wide QRS tachycardia Nonspecific intraventricular block Abnormal ECG Compared to ECG 01/18/2024 19:13:01 Wide-QRS tachycardia now present Supraventricular tachycardia no longer present Myocardial infarct finding no longer present ST (T wave) deviation no longer present Electronically Signed On 01-22-24 16:05:13 SCIENCE CONSULTANT by Clyde Velásquez
--- NOTE | 2024-01-22 16:09 | EKG ---
Test Date: 2024-01-21 Test Time: 11:21:59 Carriage Setter: HYACINTH MEASUREMENT RESULTS: Intervals: Rate: 144 [place]: QRSD: 78 QT: 296 QTc: 458 [place]: P: MT: QRS: -28 T: 179 INTERPRETIVE STATEMENTS: Supraventricular tachycardia Septal infarct, age undetermined Marked ST abnormality, possible lateral subendocardial injury Abnormal ECG Compared to ECG 01/21/2024 09:19:02 Myocardial infarct finding now present ST (T wave) deviation now present Wide-QRS tachycardia no longer present Electronically Signed On 01-22-24 16:05:06 RESEARCH SUPPORT SPECIALIST by Clyde Velásquez
--- NOTE | 2024-01-22 16:12 | EKG ---
Test Date: 2024-01-20 Test Time: 16:29:05 Svp Group Director: MARIAN MEASUREMENT RESULTS: Intervals: Rate: 127 [place]: QRSD: 82 QT: 424 QTc: 616 [place]: P: [place]: QRS: -33 T: 49 INTERPRETIVE STATEMENTS: sinus tachycardia Left axis deviation ST & T wave abnormality, consider lateral ischemia Abnormal ECG Compared to ECG 01/18/2024 19:13:01 Left-axis deviation now present Possible ischemia now present Supraventricular tachycardia no longer present Myocardial infarct finding no longer present ST (T wave) deviation still present Electronically Signed On 01-22-24 16:06:19 BRIDGE WORKER APPRENTICE by Clyde Velásquez
--- NOTE | 2024-01-22 16:19 | EKG ---
Test Date: 2024-01-18 Test Time: 12:46:20 Spring Tacker: ALLIE MEASUREMENT RESULTS: Intervals: Rate: 186 [place]: QRSD: 78 QT: 250 QTc: 440 [place]: P: [place]: QRS: -12 T: 199 INTERPRETIVE STATEMENTS: Supraventricular tachycardia Marked ST abnormality, possible inferolateral subendocardial injury Abnormal ECG Compared to ECG 01/15/2024 10:29:56 Sinus rhythm no longer present Ventricular premature complex(es) no longer present Myocardial infarct finding no longer present Possible ischemia no longer present ST (T wave) deviation still present Electronically Signed On 01-22-24 16:08:58 CODING CONSULTANT by Clyde Velásquez
--- NOTE | 2024-01-22 16:19 | EKG ---
Test Date: 2024-01-18 Test Time: 12:54:13 Printed Circuit Boards Solder Leveler: ALLIE MEASUREMENT RESULTS: Intervals: Rate: 108 [place]: QRSD: 82 QT: 252 QTc: 337 [place]: P: [place]: QRS: -13 T: 247 INTERPRETIVE STATEMENTS: Atrial fibrillation with rapid ventricular response with premature ventricular or aberrantly conducted complexes Septal infarct, age undetermined ST & T wave abnormality, consider inferior ischemia or digitalis effect Abnormal ECG Compared to ECG 01/18/2024 12:46:20 Ventricular premature complex(es) now present Myocardial infarct finding now present Possible ischemia now present Supraventricular tachycardia no longer present ST (T wave) deviation still present Electronically Signed On 01-22-24 16:08:56 EXPEDITER CLERK by Clyde Velásquez
[2024-01-22] MEDS ORDERED: AMINO ACIDS IV SCH (17:00)
[2024-01-22] MEDS ORDERED: POTASSIUM PHOS IV SCH (17:00)
[2024-01-22] MEDS ORDERED: MAGNESIUM IV SCH (17:00)
[2024-01-22] MEDS ORDERED: DEXTROSE IV SCH (17:00)
[2024-01-22] MEDS: D5W 1,000 ML with POTASSIUM CL 40 MEQ IV SCH (17:49)
[2024-01-22] MEDS: AMINO ACIDS 5 %/DEXTROSE 20 % 2,000 ML with POTASSIUM PHOS 66 MEQ, MAGNESIUM 50% 2 GM IV SCH (17:49)
[2024-01-22] MEDS: AMIODARONE HCL 900 MG in Dextrose 5%-Water 482 ML IV SCH (22:39)
[2024-01-22 23:56] LABS: Vitamin D 1,25-Dihydroxy Total 27 pg/mL (18-72); Vitamin D,1,25-OH2, D2 <8 pg/mL
[2024-01-23 05:07] LABS: Absolute Eosinophils 0.2 K/uL (0-0.5); Absolute Lymphocytes (CBC) 1.6 K/uL (0.7-4.9); Absolute Monocytes 0.5 K/uL (0.1-1.3); Absolute Neutrophil 3.7 K/uL (1.8-8.0); Basophils % 0.5 % (0-1.3); Eosinophils % 2.9 % (0-4.4); Hematocrit 31.1 % (36.0-45.0); Hemoglobin 10.8 g/dL (12.0-15.0); Lymphocytes % 26.5 % (15.3-44.8); MCH 30.3 pg (27.0-35.0); MCHC 34.6 g/dL (32.0-36.0); MCV 87.6 fL (80-100); MPV 9.6 fL (7.6-11.3); Monocytes % 8.9 % (3.3-12.3); Neutrophils % 61.2 % (41.7-73.7); Platelets 102 thou/uL (152-406); RBC Red Blood Cell Count 3.55 M/uL (3.86-4.86); Red Cell Distribution Width 18.3 % (12.1-15.2)
[2024-01-23 05:33] LABS: Albumin 2.5 g/dL (3.4-5.0); Albumin/Globulin Ratio 0.8 (1.1-1.8); Bilirubin Total 0.6 mg/dL (0.2-1.0); Globulin 3.2 g/dL (2.3-3.5); Magnesium 2.1 mg/dL (1.6-2.4); Protein, Total 5.7 g/dL (6.4-8.2)
[2024-01-23] MEDS ORDERED: THIAMINE 200 MG/2 ML INJ ONE (08:18)
[2024-01-23] MEDS: POTASS/SODIUM PHOSPHATE 1 PKT POWD.PACK PO SCH (08:20)
[2024-01-23] MEDS: CEFTRIAXONE 1,000 MG in NA CHLORIDE 0.9% 50 ML IVPB SCH (08:20)
[2024-01-23] MEDS: AMLODIPINE 10 MG TAB PO SCH (08:21)
[2024-01-23] MEDS ORDERED: SODIUM PHOSPHATE 20 MM in NA CHLORIDE 0.9% 250 ML IV SCH (09:00)
--- NOTE | 2024-01-23 10:50 | P.PN ---
Subjective Date of Service: 01/23/24 Chief Complaint: Altered mental status Patient is improving more alert responsive although still disoriented trying to eat Review of Systems Unremarkable General: Weakness Physical Examination - Vital Signs Temperature: 97.3 F Blood Pressure: 138/67 Pulse: 95 Respirations: 20 Pulse Ox (%): 100 - Physical Exam General: Alert, Oriented x2 Respiratory: Normal air movement Cardiovascular: No edema, Regular rate/rhythm, Normal S1 S2 Assessment And Plan - Current Problems (Diagnosis) (1) Altered mental status Current Visit: Yes Status: Acute Plan: Patient has improved significantly the etiology of her acid-base balance is not apparent there is no evidence of active sepsis will DC Rocephin though patient is currently polyuric continue with IV replacement fluids and off TPM start on Dobbhoff patient is in normal sinus rhythm changed to amiodarone changed to Eliquis cultures are all negative except urine and she has been on for 5 days of IV antibiotics acid base seems to have resolved hyponatremia also resolved
[2024-01-23] MEDS ORDERED: AMIODARONE HCL 200 MG TAB ONE ×2 (11:16→19:57)
--- NOTE | 2024-01-23 13:02 | P.PN ---
Subjective Date of Service: 01/23/24 Chief Complaint: Altered mental status Patient is awake and conversant. She desires to go home. She appears slightly confused. Blood pressure readings have improved and she is currently normotensive blood bank technologist with sinus rhythm. Dobhoff in place. Lower extremity swelling resolved. Physical Examination - Vital Signs Temperature: 98.3 F Blood Pressure: 101/57 Pulse: 93 Respirations: 17 Pulse Ox (%): 99 Assessment And Plan - Plan Physical exam: GEN: Awake and interactive but confused. Afebrile. HEENT: Normal conjunctiva, sclera anicteric, poor dentition-black stained/chipped teeth, oral sores and cracked lips. CV: Regular, tachycardic, trace b/l pedal edema Pulm: Clear to auscultation bilaterally, adequate breath sounds bilaterally. ABD: Soft, nontender, nondistended Integumentary: No rashes Neuro: No focal motor deficits Vitals reviewed Problem List metabolic acidosis, high anion gap multiple electrolye derangements - hypoK, hypoP04 Severe protein calorie malnutrition secondary to nausea/vomiting with weight loss for months Severe vitamin d deficiency New onset afib with RVR Bilateral pulmonary opacities, R > L acute diverticulitis, resolved UTIE. coli GERD Generalized weakness Hypertension Hyperlipidemia CAD Acute metabolic encephalopathy Hypernatremia Acute metabolic encephalopathy metabolic acidosis, high anion gap multiple electrolye derangements - hypoK, hypoP04 Severe protein calorie malnutrition secondary to nausea/vomiting with weight loss for months Severe vitamin d deficiency lactic acidosis Hypernatremia 40lb wt loss in ~2 months due to food intolerance / nausea UGI series with SB follow through done on 01/16, reports reflux Significant acidosis. Had large-volume watery stools day after upper GI series Acidosis due to combination of ketosis from starvation, and bicarb loss from diarrhea. pt without peritoneal signs, no abd tenderness, no bloody BMs, diarrhea was clear/liquid according to patient Metabolic acidosis resolved. Ketosis resolved. Mental status significantly improved. Nephrology is following. Monitor and correct other electrolytes continue PPI Clear liquid diet IV fluid changed from Ringer's lactate to D5 water plus KCl per nephrology to address hypernatremia. Hypernatremia resolved. Nephrology to follow for fluid adjustment. Lactic acidosis unclear etiology, suspect secondary to decreased perfusion with afib rvr on antibiotics that should be covering uti and sepsis no other obvious source of infection CTA abd/pelvis: No significant vascular occlusion to indicate ischemic bowel. Reports had a colonoscopy 2 years ago as well as EGD without significant abnormalities - mild hiatal hernia CEA within normal limits, AFP pending Iron/B12 WBL, Severe vitamin D deficiency- will start oral vitamin D once tolerating General surgery - Dr. Rodriguez placed central line insertion on 01/19 pulm / finish production manager Dr. Miles is following Merrem changed to IV Rocephin. Blood culture: No growth to date Urine culture: Pansensitive E. coli. Afebrile, leukocytosis resolved. She was briefly on IV Protonix. GI Dr. Tamayo recommendation New onset afib with RVR Cardiology Dr. Velásquez is following Replete potassium and treat metabolic acidosis echo is unremarkable. Heart rate improved, patient is in sinus rhythm. monitor on telemetry Amiodarone drip changed to oral amiodarone Patient also started on oral metoprolol. S/p Digoxin 0.25 x 1. IV metoprolol as needed for RVR. Heparin drip changed to weight-based Lovenox per pulmonary, and then transition to oral Eliquis. UTIE. coli +bacteuria, pt denied urinary symptoms on admission, however was started on treatment urine cx (01/15): E. coli Blood cultures: No growth previously on rocephin (01/16-01/19). Switched to merrem per pulm given concern for pneumonia. also covers UTI Antibiotics switched again to IV Rocephin. Patient completed at least 5 days of antibiotics for E. coli UTI. Generalized weakness Patient is now interactive and conversant. PT to evaluate. Hypertension Hyperlipidemia CAD Oral metoprolol and Norvasc. VTE: Eliquis Code: Full Dispo: continue ICU level of care
--- NOTE | 2024-01-23 14:38 | P.PN ---
Subjective Date of Service: 01/23/24 Chief Complaint: Altered mental status Subjective: No new changes Physical Examination - Vital Signs Temperature: 98.3 F Blood Pressure: 116/92 Pulse: 94 Respirations: 17 Pulse Ox (%): 100 - Physical Exam General: Other (chronically ill-appearing) HEENT: Atraumatic, Normocephalic Neck: Supple Respiratory: Other (symmetric chest expansion) Cardiovascular: No rubs, No murmurs Gastrointestinal: Soft and benign, No guarding Musculoskeletal: No clubbing Integumentary: No warmth Neurological: Normal speech, Normal tone Urinary: Other (no bladder distention) External genitalia: Deferred Rectal: Deferred Assessment And Plan - Plan 1. TYLER 2/2 prerenal state/ATN secondary to GI loss and sepsis. Resolved. Aim for volume intake 2L/day. 2. HypoK. Improved. KCl repletion prn. 3. Hypernatremia, resolved. Dc D5W gtt. 4. Urinary tract infection secondary to Escherichia coli. Received abx 5. HypoPO4. Phos repletion prn. 6. Hypertension. Cont current med regimen. 7. Atrial fibrillation w/ RVR. PO amiodarone. 8. Acute diverticulitis. Received abx. On TPN + NG tube feed.
[2024-01-23] MEDS: AMLODIPINE 5 MG TAB PO SCH (15:06)
--- NOTE | 2024-01-23 15:36 | P.PN ---
Subjective Date of Service: 01/23/24 Chief Complaint: Altered mental status Subjective: No new changes (rate and rhythm has been well controlled) Review of Systems 10-point ROS is otherwise unremarkable Physical Examination - Vital Signs Temperature: 98.3 F Blood Pressure: 143/65 Pulse: 97 Respirations: 18 Pulse Ox (%): 100 - Physical Exam General: Alert, Oriented x3 HEENT: Atraumatic Neck: Supple Respiratory: Clear to auscultation bilaterally Cardiovascular: No edema Gastrointestinal: Normal bowel sounds Musculoskeletal: No clubbing Assessment And Plan - Current Problems (Diagnosis) (1) Atrial fibrillation with rapid ventricular response Current Visit: Yes Status: Acute Plan: continue amiodarone 200 mg po BID Increase Lopressor to 50 mg daily lower Norvasc dose to 5 mg daily Continue Eliquis 5 mg po BID (2) Hypertension, essential Current Visit: No Status: Acute Plan: as above.
[2024-01-23] MEDS ORDERED: [UNRECOGNIZED DRUG - OTHER] IV SCH (17:00)
[2024-01-23] MEDS ORDERED: AMINO ACIDS IV SCH (17:00)
[2024-01-23] MEDS ORDERED: DEXTROSE 20% IV SCH (17:00)
[2024-01-23] MEDS ORDERED: POTASSIUM PHOS IV SCH (17:00)
[2024-01-23] MEDS ORDERED: LIPIDS 20% IV SCH (17:00)
[2024-01-23] MEDS: METOPROLOL XL 50 MG TAB PO SCH (17:51)
[2024-01-23] MEDS ORDERED: ATORVASTATIN 10 MG TAB ONE (19:57)
[2024-01-23] MEDS: ATORVASTATIN 10 MG TAB PO SCH (19:58)
[2024-01-23] MEDS: APIXABAN 5 MG TABLET PO SCH (19:59)
[2024-01-24 05:00] LABS: Absolute Eosinophils 0.2 K/uL (0-0.5); Absolute Lymphocytes (CBC) 1.8 K/uL (0.7-4.9); Absolute Monocytes 0.8 K/uL (0.1-1.3); Absolute Neutrophil 3.4 K/uL (1.8-8.0); Basophils % 0.4 % (0-1.3); Hematocrit 30.6 % (36.0-45.0); Hemoglobin 10.5 g/dL (12.0-15.0); Lymphocytes % 28.7 % (15.3-44.8); MCH 30.1 pg (27.0-35.0); MCHC 34.2 g/dL (32.0-36.0); MCV 88.2 fL (80-100); MPV 9.2 fL (7.6-11.3); Monocytes % 12.8 % (3.3-12.3); Neutrophils % 54.1 % (41.7-73.7); Nucleated Red Blood Cells % 0.1 % (0-0); Platelets 119 thou/uL (152-406); RBC Red Blood Cell Count 3.47 M/uL (3.86-4.86); Red Cell Distribution Width 18.6 % (12.1-15.2)
[2024-01-24 05:07] LABS: Albumin 2.6 g/dL (3.4-5.0); Albumin/Globulin Ratio 0.8 (1.1-1.8); Anion Gap 8.9 mEq/L (5.0-15.0); Bilirubin Total 0.5 mg/dL (0.2-1.0); Globulin 3.3 g/dL (2.3-3.5); Magnesium 2.2 mg/dL (1.6-2.4); Potassium 3.9 mEq/L (3.5-5.1); Protein, Total 5.9 g/dL (6.4-8.2)
[2024-01-24] MEDS ORDERED: METOPROLOL XL 50 MG TAB PO SCH (09:00)
[2024-01-24] MEDS ORDERED: AMIODARONE HCL 200 MG TAB ONE ×2 (09:41→21:21)
--- NOTE | 2024-01-24 10:41 | P.PN ---
Subjective Date of Service: 01/24/24 Chief Complaint: Altered mental status Subjective: No new changes Review of Systems 10-point ROS is otherwise unremarkable Physical Examination - Vital Signs Temperature: 97.0 F Blood Pressure: 117/81 Pulse: 80 Respirations: 18 Pulse Ox (%): 100 - Physical Exam General: Alert, Oriented x3 HEENT: Atraumatic Respiratory: Clear to auscultation bilaterally Cardiovascular: No edema, Normal S1 S2 Gastrointestinal: Normal bowel sounds Musculoskeletal: No clubbing Assessment And Plan - Current Problems (Diagnosis) (1) Atrial fibrillation with rapid ventricular response Current Visit: Yes Status: Acute Plan: continue amiodarone 200 mg po BID continue toprol xl 50 mg daily Continue Eliquis 5 mg po BID D/C Norvasc as patient BP is soft. (2) Hypertension, essential Current Visit: No Status: Acute Plan: as above.
--- NOTE | 2024-01-24 15:18 | P.PN ---
Subjective Date of Service: 01/24/24 Chief Complaint: Altered mental status Patient is alert, talkative, pleasantly confused. She finished half of her breakfast BP readings have been soft. glass vial bending conveyor feeder with sinus rhythm. Dobhoff in place. Physical Examination - Vital Signs Temperature: 97.8 F Blood Pressure: 113/56 Pulse: 85 Respirations: 16 Pulse Ox (%): 100 Assessment And Plan - Plan Physical exam: GEN: Awake and interactive but confused. Afebrile. HEENT: Sclera anicteric, Dobbhoff in place. CV: Regular, normal rate, no pedal edema. Pulm: Clear to auscultation bilaterally, adequate breath sounds bilaterally. ABD: Soft, nontender, nondistended Integumentary: No rashes Neuro: No focal motor deficits Vitals reviewed Diagnosis metabolic acidosis, high anion gap multiple electrolye derangements - hypoK, hypoP04 Severe protein calorie malnutrition secondary to nausea/vomiting with weight loss for months Severe vitamin d deficiency New onset afib with RVR Bilateral pulmonary opacities, R > L acute diverticulitis, resolved UTIE. coli GERD Generalized weakness Hypertension Hyperlipidemia CAD Acute metabolic encephalopathy Hypernatremia Acute metabolic encephalopathy metabolic acidosis, high anion gap multiple electrolye derangements - hypoK, hypoP04 Severe protein calorie malnutrition secondary to nausea/vomiting with weight loss for months Severe vitamin d deficiency lactic acidosis Hypernatremia 40lb wt loss in ~2 months due to food intolerance / nausea UGI series with SB follow through done on 01/16, reports reflux Significant acidosis. Had large-volume watery stools day after upper GI series Acidosis due to combination of ketosis from starvation, and bicarb loss from diarrhea. pt without peritoneal signs, no abd tenderness, no bloody BMs, diarrhea was clear/liquid according to patient Metabolic acidosis resolved. Ketosis resolved. Mental status significantly improved. She is slightly confused. Nephrology is following. Monitor and correct other electrolytes continue PPI Advance diet as tolerated. Discontinue Dobbhoff. Hypernatremia resolved. IV fluid discontinued Nephrology to follow. Lactic acidosis unclear etiology, suspect secondary to decreased perfusion with afib rvr on antibiotics that should be covering uti and sepsis no other obvious source of infection CTA abd/pelvis: No significant vascular occlusion to indicate ischemic bowel. Reports had a colonoscopy 2 years ago as well as EGD without significant abnormalities - mild hiatal hernia CEA within normal limits, AFP pending Iron/B12 WBL, Severe vitamin D deficiency- will start oral vitamin D once tolerating General surgery - Dr. Rodriguez placed central line insertion on 01/19 pulm / layer out plate glass Dr. Miles is following Merrem changed to IV Rocephin. Patient completed several days of IV antibiotics. Blood culture: No growth to date Urine culture: Pansensitive E. coli. Afebrile, leukocytosis resolved. She was briefly on IV Protonix per GI Dr. Tamayo recommendation New onset afib with RVR Cardiology is following Replete potassium and treat metabolic acidosis echo is unremarkable. Heart rate improved, patient is in sinus rhythm. monitor on telemetry Amiodarone drip changed to oral amiodarone Patient also started on oral metoprolol. S/p Digoxin 0.25 x 1. IV metoprolol as needed for RVR. Heparin drip changed to weight-based Lovenox per pulmonary, and then transitioned to oral Eliquis. UTIE. coli +bacteuria, pt denied urinary symptoms on admission, however was started on treatment urine cx (01/15): E. coli Blood cultures: No growth previously on rocephin (01/16-01/19). Switched to merrem per pulm given concern for pneumonia. also covers UTI Antibiotics switched again to IV Rocephin. Patient completed at least 5 days of antibiotics for E. coli UTI. Generalized weakness Patient is now interactive and conversant. PT is evaluating. She has not been able to sit up or stand with PT yet. Hypertension Hyperlipidemia CAD Oral metoprolol Amlodipine discontinued due to soft blood pressure Cardiology input appreciated. VTE: Eliquis Code: Full Dispo: Transfer to the medical floor.
--- NOTE | 2024-01-24 16:40 | P.PN ---
Subjective Date of Service: 01/24/24 Chief Complaint: Altered mental status Subjective: Other (bedbound.) Physical Examination - Vital Signs Temperature: 98.2 F Blood Pressure: 136/71 Pulse: 87 Respirations: 20 Pulse Ox (%): 100 - Physical Exam General: In no apparent distress HEENT: Atraumatic, Normocephalic Neck: Supple Respiratory: Other (symmetric chest expansion) Cardiovascular: No rubs, No murmurs Gastrointestinal: Soft and benign, No guarding Musculoskeletal: No clubbing Integumentary: No warmth Neurological: Normal tone Urinary: Other (no bladder distention) External genitalia: Deferred Rectal: Deferred Assessment And Plan - Plan 1. TYLER 2/2 prerenal state/ATN secondary to GI loss and sepsis. Resolved. PO fluid intake goal 2L/day. Dc lloyd. Place purewick. 2. HypoK. Improved. KCl repletion prn. 3. Hypernatremia, resolved. Dc D5W gtt. 4. Urinary tract infection secondary to Escherichia coli. Received abx 5. HypoPO4. Phos repletion prn. 6. Hypertension. Cont current med regimen. 7. Atrial fibrillation w/ RVR. PO amiodarone. 8. Acute diverticulitis. Received abx. On TPN + NG tube feed.
[2024-01-24] MEDS ORDERED: ATORVASTATIN 10 MG TAB ONE (21:21)
[2024-01-25 05:02] LABS: Albumin 2.7 g/dL (3.4-5.0); Albumin/Globulin Ratio 0.8 (1.1-1.8); Anion Gap 10.1 mEq/L (5.0-15.0); Bilirubin Total 0.6 mg/dL (0.2-1.0); Globulin 3.6 g/dL (2.3-3.5); Magnesium 2.1 mg/dL (1.6-2.4); Potassium 3.1 mEq/L (3.5-5.1); Protein, Total 6.3 g/dL (6.4-8.2)
[2024-01-25] MEDS ORDERED: AMIODARONE HCL 200 MG TAB ONE (08:02)
[2024-01-25] MEDS: POTASSIUM CL SA 10 MEQ TAB PO ONE (08:05)
--- NOTE | 2024-01-25 12:09 | P.PN ---
Subjective Date of Service: 01/25/24 Chief Complaint: Altered mental status Patient is doing much better today. She has been asking to go home. She has been tolerating her diet. BP has been stable pvc monitor with sinus rhythm. Physical Examination - Vital Signs Temperature: 98.2 F Blood Pressure: 136/71 Pulse: 87 Respirations: 20 Pulse Ox (%): 100 Assessment And Plan - Plan Physical exam: GEN: Awake and interactive but confused. Afebrile. CV: Regular, normal rate, no pedal edema. Pulm: Clear to auscultation bilaterally, adequate breath sounds bilaterally. ABD: Soft, nontender, nondistended Integumentary: No rashes Neuro: No focal motor deficits Vitals reviewed Diagnosis metabolic acidosis, high anion gap multiple electrolye derangements - hypoK, hypoP04 Severe protein calorie malnutrition secondary to nausea/vomiting with weight loss for months Severe vitamin d deficiency New onset afib with RVR Bilateral pulmonary opacities, R > L acute diverticulitis, resolved UTIE. coli GERD Generalized weakness Hypertension Hyperlipidemia CAD Acute metabolic encephalopathy Hypernatremia Acute metabolic encephalopathy metabolic acidosis, high anion gap multiple electrolye derangements - hypoK, hypoP04 Severe protein calorie malnutrition secondary to nausea/vomiting with weight loss for months Severe vitamin d deficiency lactic acidosis Hypernatremia 40lb wt loss in ~2 months due to food intolerance / nausea UGI series with SB follow through done on 01/16, reports reflux Significant acidosis. Had large-volume watery stools day after upper GI series Acidosis due to combination of ketosis from starvation, and bicarb loss from diarrhea. pt without peritoneal signs, no abd tenderness, no bloody BMs, diarrhea was clear/liquid according to patient Metabolic acidosis resolved. Ketosis resolved. Mental status significantly improved. She is slightly confused. Nephrology is following. Monitor and correct other electrolytes continue PPI Advance diet as tolerated. Hypernatremia resolved. IV fluid discontinued Nephrology to follow. Lactic acidosis unclear etiology, suspect secondary to decreased perfusion with afib rvr on antibiotics that should be covering uti and sepsis no other obvious source of infection CTA abd/pelvis: No significant vascular occlusion to indicate ischemic bowel. Reports had a colonoscopy 2 years ago as well as EGD without significant ab normalities - mild hiatal hernia CEA within normal limits, AFP pending Iron/B12 WBL, Severe vitamin D deficiency- will start oral vitamin D once tolerating General surgery - Dr. Rodriguez placed central line insertion on 01/19 pulm / photoengraving finisher Dr. Miles is following Blood culture: No growth to date Urine culture: Pansensitive E. coli. Status post Merrem and IV Rocephin. Afebrile, leukocytosis resolved. Patient completed several days of IV antibiotics. She was briefly on IV Protonix per GI Dr. Tamayo recommendation New onset afib with RVR Cardiology is following Replete potassium and treat metabolic acidosis echo is unremarkable. Heart rate improved, patient is in sinus rhythm. monitor on telemetry Amiodarone drip changed to oral amiodarone Patient also started on oral metoprolol. S/p Digoxin 0.25 x 1. IV metoprolol as needed for RVR. Heparin drip changed to weight-based Lovenox per pulmonary, and then transitioned to oral Eliquis. UTIE. coli +bacteuria, pt denied urinary symptoms on admission, however was started on treatment urine cx (01/15): E. coli Blood cultures: No growth Status post IV Rocephin and IV Merrem Patient completed at least 5 days of antibiotics for E. coli UTI. Generalized weakness Patient is now interactive and conversant. Continue PT. Hypertension Hyperlipidemia CAD Oral metoprolol Amlodipine discontinued due to soft blood pressure Cardiology is following. VTE: Eliquis Code: Full Dispo: Anticipating home with home health.
[2024-01-25] MEDS: SERTRALINE HCL 100 MG TAB PO SCH (12:27)
--- NOTE | 2024-01-25 15:22 | P.PN ---
Subjective Date of Service: 01/25/24 Chief Complaint: Altered mental status Subjective: Other (She reports being able to eat and drink more today. She denies having any dysuria or flank pain.) Physical Examination - Vital Signs Temperature: 98.2 F Blood Pressure: 136/71 Pulse: 87 Respirations: 20 Pulse Ox (%): 100 - Physical Exam General: Other (appears as her stated age.) HEENT: Atraumatic, Normocephalic Neck: Supple Respiratory: Other (symmetric chest expansion) Cardiovascular: No rubs, No murmurs Gastrointestinal: Soft and benign Musculoskeletal: No clubbing Integumentary: No warmth Neurological: Normal tone Urinary: Other (no bladder distention) External genitalia: Deferred Rectal: Deferred Assessment And Plan - Plan 1. TYLER 2/2 prerenal state/ATN secondary to GI loss and sepsis. Resolved. Juliette PO fluid intake at least 1.5-2L/day. Cont purewick, dc when pt is more up & about. 2. HypoK. KCl repletion today. 3. Hypernatremia, resolved. Juliette po fluid intake as above. 4. Urinary tract infection secondary to Escherichia coli. Received abx 5. HypoPO4. Phos repletion prn. 6. Hypertension. Cont current med regimen. 7. Atrial fibrillation w/ RVR. PO amiodarone. 8. Acute diverticulitis. Received abx. PO intake as able.
[2024-01-25] MEDS: METOPROLOL TAR 50 MG TAB PO SCH (21:22)
[2024-01-26 06:16] LABS: Albumin 2.8 g/dL (3.4-5.0); Magnesium 2.3 mg/dL (1.6-2.4); Phosphorus 3.8 mg/dL (2.5-4.9)
[2024-01-26 07:31] LABS: Tissue Transglutaminase IgA Ab <1.0 U/mL (<15.0)
[2024-01-26 14:39] LABS: Specific Gravity 1.011 (1.005-1.030); Urine Bacteria None Seen /HPF (<20); Urine Bilirubin NEGATIVE (Negative); Urine Blood Trace (Negative); Urine Clarity Turbid (Clear); Urine Color Light-Yellow (Yellow); Urine Glucose NEGATIVE (Negative); Urine Protein NEGATIVE (Negative); Urine RBC <5 /HPF (None Seen); Urine Urobilinogen Normal (Normal); Urine pH 6.5 (5.0-7.0)
--- NOTE | 2024-01-26 16:48 | P.PN ---
Subjective Date of Service: 01/26/24 Chief Complaint: Altered mental status Patient has no new complaint today She is consistently asking to go home. She has been tolerating her diet. BP has been stable Physical Examination - Vital Signs Temperature: 98.2 F Blood Pressure: 136/71 Pulse: 87 Respirations: 20 Pulse Ox (%): 100 Assessment And Plan - Plan Physical exam: GEN: Awake and interactive, pleasantly confused. Afebrile. CV: Regular, normal rate, no pedal edema. Pulm: Clear to auscultation bilaterally, adequate breath sounds bilaterally. ABD: Soft, nontender, nondistended Integumentary: No rashes Neuro: No focal motor deficits Vitals reviewed Diagnosis Metabolic acidosis, high anion gap multiple electrolye derangements - hypoK, hypoP04 Severe protein calorie malnutrition secondary to nausea/vomiting with weight loss for months Severe vitamin d deficiency New onset afib with RVR Bilateral pulmonary opacities, R > L acute diverticulitis, resolved UTIE. coli GERD Generalized weakness Hypertension Hyperlipidemia CAD Acute metabolic encephalopathy Hypernatremia Acute metabolic encephalopathy metabolic acidosis, high anion gap multiple electrolye derangements - hypoK, hypoP04 Severe protein calorie malnutrition secondary to nausea/vomiting with weight loss for months Severe vitamin d deficiency lactic acidosis Hypernatremia 40lb wt loss in ~2 months due to food intolerance / nausea UGI series with SB follow through done on 01/16, reports reflux Significant acidosis. Had large-volume watery stools day after upper GI series Acidosis due to combination of ketosis from starvation, and bicarb loss from diarrhea. pt without peritoneal signs, no abd tenderness, no bloody BMs, diarrhea was clear/liquid according to patient Metabolic acidosis resolved. Ketosis resolved. Mental status significantly improved. She is slightly confused. Nephrology is following. Monitor and correct other electrolytes continue PPI Patient is tolerating diet. Hypernatremia resolved. IV fluid discontinued Nephrology is following. Lactic acidosis unclear etiology, suspect secondary to decreased perfusion with afib rvr on antibiotics that should be covering uti and sepsis no other obvious source of infection CTA abd/pelvis: No significant vascular occlusion to indicate ischemic bowel. Reports had a colonoscopy 2 years ago as well as EGD without significant abnormalities - mild hiatal hernia CEA within normal limits, AFP pending Iron/B12 WBL, Severe vitamin D deficiency- will start oral vitamin D once tolerating General surgery - Dr. Rodriguez placed central line insertion on 01/19 pulm / tobacco hanger Dr. Miles is following Blood culture: No growth to date Urine culture: Pansensitive E. coli. Status post Merrem and IV Rocephin. Afebrile, leukocytosis resolved. Patient completed several days of IV antibiotics. She was briefly on IV Protonix per GI Dr. Tamayo recommendation. She is off Protonix. Follow-up with GI as outpatient. New onset afib with RVR Cardiology is following Replete potassium and treat metabolic acidosis echo is unremarkable. Heart rate improved, patient is in sinus rhythm. monitor on telemetry Amiodarone drip changed to oral amiodarone Patient also started on oral metoprolol. S/p Digoxin 0.25 x 1. Heparin drip changed to weight-based Lovenox per pulmonary, and then transitioned to oral Eliquis. UTIE. coli +bacteuria, pt denied urinary symptoms on admission, however was started on treatment urine cx (01/15): E. coli Blood cultures: No growth Status post IV Rocephin and IV Merrem Patient completed at least 5 days of antibiotics for E. coli UTI. Generalized weakness Patient is now interactive and conversant. She was able to ambulate for the first with a rolling walker for about 30 feet. Continue PT. Hypertension Hyperlipidemia CAD Oral metoprolol Amlodipine discontinued due to soft blood pressure Cardiology is following. VTE: Eliquis Code: Full Dispo: Patient prefers to go home. Anticipating home with home health.
--- NOTE | 2024-01-27 02:32 | PN ---
Date of Progress Note: 01/26/2024 Chief Complaint: Altered mental status. Subjective: The patient denies chest pain, palpitation. She is able to consume adequate p.o. fluid intake. She denies any dysuria or flank pain. Physical Examination: General: Not in acute distress. Neck: Supple. Heart: S1, S2. Abdomen: Soft, benign. Extremities: No edema. Impression And Plan: 1.Acute kidney injury secondary to prerenal state secondary to GI loss and sepsis. Acute kidney inj ury resolved. Continue p.o. fluid intake. 2.Hypokalemia. Potassium repletion according to lab results. 3.Hypernatremia, resolved. Continue p.o. fluid intake, IV fluids as needed. 4.Urinary tract infection secondary to E. coli. The patient received antibiotics. 5.Hypophosphatemia. Phosphorus repletion as needed. 6.Hypertension. Continue current medication. 7.Atrial fibrillation with rapid ventricular response, on p.o. amiodarone per Cardiology. 8.Acute diverticulitis. Continue p.o. intake. Diet advancement according to the primary team. Con tinue to adjust antibiotics as needed. The patient already received antibiotics for acute diverticulitis. EB/MODL Voice ID: [id number] Report ID: [id number]
[2024-01-27 08:36] LABS: Absolute Eosinophils 0.2 K/uL (0-0.5); Absolute Lymphocytes (CBC) 2.2 K/uL (0.7-4.9); Absolute Monocytes 1.4 K/uL (0.1-1.3); Absolute Neutrophil 4.1 K/uL (1.8-8.0); Basophils % 0.6 % (0-1.3); Lymphocytes % 27.5 % (15.3-44.8); MCH 29.9 pg (27.0-35.0); MCHC 34.4 g/dL (32.0-36.0); Monocytes % 17.5 % (3.3-12.3); Neutrophils % 52.4 % (41.7-73.7); Nucleated Red Blood Cells % 0.2 % (0-0); Platelets 227 thou/uL (152-406); RBC Red Blood Cell Count 4.03 M/uL (3.86-4.86); Red Cell Distribution Width 17.5 % (12.1-15.2)
[2024-01-27 09:10] LABS: Albumin 3.3 g/dL (3.4-5.0); Albumin/Globulin Ratio 0.8 (1.1-1.8); Anion Gap 10.7 mEq/L (5.0-15.0); Bilirubin Total 0.8 mg/dL (0.2-1.0); Globulin 4.1 g/dL (2.3-3.5); Magnesium 2.3 mg/dL (1.6-2.4); Phosphorus 4.2 mg/dL (2.5-4.9); Potassium 3.7 mEq/L (3.5-5.1); Protein, Total 7.4 g/dL (6.4-8.2)
[2024-01-27 09:33] LABS: Atypical Lymphocytes 1 %; Band Neutrophils 2 % (0-1); Eosinophils 3 % (0-3); Lymphocytes 25 % (15-42); Monocytes 19 % (0-10); Nucleated Red Blood Cells 2 /100WBC
[2024-01-27 09:36] LABS: Anisocytosis SLIGHT; Blood Morphology Comment NOTED (NOT SEEN); Platelet Estimate ADEQ
--- NOTE | 2024-01-27 13:10 | P.PN ---
Date of Service: 01/27/24 Subjective: Feeling better. Wanting to go home appetite / PO intake improving. tolerating diet without issues. nausea improved Slowly improving with PT no acute events overnight afebrile ROS: 10 point ROS as noted above, otherwise negative Physical exam: GEN: alert, awake, oriented x3, NAD HEENT: Normal conjunctiva, sclera anicteric, poor dentition-black stained/chipped teeth CV: Regular rate/rhythm, no edema Pulm: nonlabored respirations on room air, slightly diminished at bases bilaterally ABD: Soft, nontender, nondistended Neuro: Normal speech, normal strength. Vitals reviewed Problem List Acute metabolic encephalopathy metabolic acidosis, high anion gap multiple electrolye derangements - hypoK, hypoP04 Severe protein calorie malnutrition secondary to nausea/vomiting with weight loss for months Severe vitamin d deficiency lactic acidosis, resolved Hypernatremia, resolved New onset afib with RVR UTIE. coli Generalized weakness Hypernatremia Hypertension Hyperlipidemia CAD Acute metabolic encephalopathy metabolic acidosis, high anion gap multiple electrolye derangements - hypoK, hypoP04 Severe protein calorie malnutrition secondary to nausea/vomiting with weight loss for months Severe vitamin d deficiency lactic acidosis,resolved Hypernatremia, resolved 40lb wt loss in ~2 months due to food intolerance / nausea UGI series with SB follow through done on 01/16, reports reflux Significant acidosis. felt secondary to starvation and bicarb loss from diarrhea Had large-volume watery stools day after upper GI series pt without peritoneal signs, no abd tenderness, no bloody BMs, diarrhea was clear/liquid according to patient Metabolic acidosis resolved. Ketosis resolved. requiring ICU level of care Mental status significantly improved and seems back to baseline Nephrology is following. Monitor and correct other electrolytes IV fluids dc'd continue PPI improving Lactic acidosis unclear etiology, suspect secondary to decreased perfusion with afib rvr Blood culture: No growth to date Urine culture: Pansensitive E. coli. s/p merrem and IV rocephin; no specific source identified. She was covered for her uti on admission Patient completed several days of IV antibiotics. no other obvious source of infection CTA abd/pelvis: No significant vascular occlusion to indicate ischemic bowel. Iron/B12 WBL, Severe vitamin D deficiency General surgery - Dr. Rodriguez placed central line insertion on 01/19 pulm / eligibility examiner Dr. Miles is following Afebrile, leukocytosis resolved. She was briefly on IV Protonix per GI Dr. Tamayo recommendation. She is off Protonix. Follow-up with GI as outpatient. New onset afib with RVR Cardiology is following felt secondary to acidosis / hypokalemia Replete potassium and treat metabolic acidosis Heart rate improved, patient is in sinus rhythm. monitor on telemetry Amiodarone drip changed to oral amiodarone Patient also started on oral metoprolol. Heparin drip changed to weight-based Lovenox per pulmonary, and then transitioned to oral Eliquis. LFTs mildly elevated UTIE. coli urine cx (01/15): E. coli Blood cultures: No growth s/p IV Rocephin and IV Merrem Patient completed at least 5 days of antibiotics for E. coli UTI. Generalized weakness Patient is now interactive and conversant. Continue PT. Slowly improving with PT anticipate discharge home with home health Hypertension Hyperlipidemia CAD continue PO metoprolol Amlodipine discontinued due to soft blood pressure Cardiology is following. VTE: Lovenox Code: Full Dispo: home with HH ~1-2 days Pending LFTs improve
[2024-01-27] MEDS: MELATONIN 5 MG TABLET PO PRN (20:21)
--- NOTE | 2024-01-28 08:30 | PN ---
Date of Progress Note: 01/27/2024 Subjective: The patient was admitted to the hospital with acute kidney injury secondary to prerenal and GI loss with sepsis. The patient's kidney function has been normalized. The patient also had acidosis secondary to GI loss and UTI. The patient feeling better. Physical Examination: Vital Signs: Blood pressure 122/54, pulse of 74, afebrile. Chest: Clear to auscultation. Heart: S1, S2, regular. Abdomen: Soft, nontender. Extremities: No edema. Neurologic: Alert, no focality. Labs: Hemoglobin 12. Sodium 136, potassium 3.7, bicarb 24, creatinine 0.5. Calcium 9. GFR of 94. Current Medications: The patient on include: 1. Eliquis. 2. Amiodarone 200. 3. Atorvastatin. 4. Metoprolol 50 b.i.d. 5. Zoloft. 6. Tylenol. 7. Vitamin D. Assessment And Plan: 1. Acidosis secondary to GI loss, recovered, resolved. 2. Hypokalemia. We will continue supplement. 3. Hypernatremia, depletional, secondary to poor intake, recovered. 4. UTI secondary to E coli, status post treatment, recovered, resolved. 5. Hypertension, controlled, optimal. ARTHUR/KHADAR Voice ID: [id number] Report ID: [id number] [facility]
[2024-01-28 09:21] LABS: Albumin 3.2 g/dL (3.4-5.0); Albumin/Globulin Ratio 0.8 (1.1-1.8); Anion Gap 11.8 mEq/L (5.0-15.0); Bilirubin Total 0.7 mg/dL (0.2-1.0); Globulin 4.1 g/dL (2.3-3.5); Magnesium 2.3 mg/dL (1.6-2.4); Potassium 3.8 mEq/L (3.5-5.1); Protein, Total 7.3 g/dL (6.4-8.2)
--- NOTE | 2024-01-28 10:34 | P.PN ---
Date of Service: 01/28/24 Subjective: Feeling much better today continues to work and improve with PT no new / worsening problems afebrile ROS: 10 point ROS as noted above, otherwise negative Physical exam: GEN: alert, awake, oriented x3, NAD HEENT: Normal conjunctiva, sclera anicteric, poor dentition-black stained/chipped teeth CV: Regular rate/rhythm, no edema Pulm: nonlabored respirations on room air, slightly diminished at bases bilaterally ABD: Soft, nontender, nondistended Neuro: Normal speech, normal strength. Vitals reviewed Problem List Acute metabolic encephalopathy, resolved metabolic acidosis, high anion gap, resolved multiple electrolye derangements - hypoK, hypoP04; resolved Severe protein calorie malnutrition secondary to nausea/vomiting with weight loss for months Severe vitamin d deficiency lactic acidosis, resolved Hypernatremia, resolved New onset afib with RVR UTIE. coli Generalized weakness Hypernatremia Hypertension Hyperlipidemia CAD Acute metabolic encephalopathy, resolved metabolic acidosis, high anion gap, resolved multiple electrolye derangements - hypoK, hypoP04; resolved Severe protein calorie malnutrition secondary to nausea/vomiting with weight loss for months Severe vitamin d deficiency lactic acidosis,resolved Hypernatremia, resolved 40lb wt loss in ~2 months due to food intolerance / nausea UGI series with SB follow through done on 01/16, reports reflux Significant acidosis. felt secondary to starvation and bicarb loss from diarrhea Had large-volume watery stools day after upper GI series pt without peritoneal signs, no abd tenderness, no bloody BMs, diarrhea was clear/liquid according to patient Metabolic acidosis resolved. Ketosis resolved. requiring ICU level of care Mental status significantly improved and seems back to baseline Nephrology is following. Monitor and correct other electrolytes IV fluids dc'd lactic acidosis,resolved unclear etiology, suspect secondary to decreased perfusion with afib rvr Blood culture: No growth to date Urine culture: Pansensitive E. coli. s/p merrem and IV rocephin; no specific source identified. She was covered for her uti on admission Patient completed several days of IV antibiotics. no other obvious source of infection CTA abd/pelvis: No significant vascular occlusion to indicate ischemic bowel. Iron/B12 WBL, Severe vitamin D deficiency General surgery - Dr. Rodriguez placed central line insertion on 01/19 pulm / cans vacuum tester Dr. Miles is following Afebrile, leukocytosis resolved. She was briefly on IV Protonix per GI Dr. Tamayo recommendation. Follow-up with GI as outpatient. New onset afib with RVR Cardiology is following felt secondary to acidosis / hypokalemia Replete potassium and treat metabolic acidosis HR improved, in normal sinus rhythm monitor on telemetry Amiodarone drip changed to oral amiodarone continue PO metoprolol Heparin drip changed to weight-based Lovenox per pulmonary, and then trans itioned to oral Eliquis. UTIE. coli urine cx (01/15): E. coli Blood cultures: No growth s/p IV Rocephin and IV Merrem Patient completed at least 5 days of antibiotics for E. coli UTI. Generalized weakness Patient is now interactive and conversant. Continue PT. Slowly improving with PT anticipate discharge home with home health Hypertension Hyperlipidemia CAD continue PO metoprolol Amlodipine discontinued due to soft blood pressure Cardiology is following. VTE: Eliquis Code: Full Dispo: home with HH anticipate early am discharge tomorrow if LFTs remains stable / no new issues
[2024-01-28] MEDS: POTASSIUM CL SA 10 MEQ TAB PO ONE (11:59)
[2024-01-28] MEDS: LOPERAMIDE HCL 2 MG CAPSULE PO PRN (14:33)
--- NOTE | 2024-01-28 15:33 | PN ---
Date of Progress Note: 01/28/2024 Subjective: The patient was admitted to the hospital with acute kidney injury secondary to prerenal, GI loss, diarrhea. The patient had hypernatremia and acidosis, high anion gap secondary to GI loss. Patient recovered. The patient completely asymptomatic, currently. Objective: Vital Signs: When I saw the patient, blood pressure 143/66, pulse of 66, afebrile. Chest: Clear to auscultation. Heart: S1, S2. Regular. Abdomen: Soft, nontender. Extremities: No edema. Neurologic: Alert. No focality. Laboratory Data: Hemoglobin of 12, sodium 137, potassium of 3.8, bicarb 25, BUN 9, creatinine 0.6, c alcium 9, magnesium 2.3. Current Medications: The patient on, it includes: 1.Amiodarone. 2.Eliquis. 3.Atorvastatin. 4.Labetalol. 5.Metoprolol 50 b.i.d. 6.Nitroglycerin. 7.Zoloft. 8.Melatonin. Assessment And Plan: 1.Acidosis secondary to GI loss secondary to diarrhea, recovered, resolved. 2.Hypokalemia, status post supplement, resolved. 3. . 4.Deconditioning. Continue PT, OT. ARTHUR/KHADAR Voice ID: [id number] Report ID: [id number]
--- NOTE | 2024-01-29 07:33 | P.DS ---
Admission Date: 01/15/24 Discharge Date: 01/29/24 Disposition: DC HOME/HOME HEALTH CARE Reason for Admission: Altered mental status Consultations: General surgery - Dr. Rodriguez Cardiology - Dr. Velásquez / Dr. Avila GI - Dr. Tamayo Nephrology - Dr. Leonardo-Phuong, Dr. Mcmanus, Dr. Salazar Director Of Women'S Services / Data Virtualization Consultant - Dr. Miles Brief History of Present Illness: 73yo F, PMH: diverticulosis/diverticulitis, GERD, hypertension, hyperlipidemia, CAD, distant history of ulcerative colitis Patient presents to the emergency department chief complaint of abdominal pain, nausea, weakness. She reports has been having abdominal pain for the last 3 days or so. She also reports approximately 40 pound weight loss in the last 2 months, for the last 4 months she has had progressively worsening appetite, she is tolerating fluids well drinking approximately bottles of water and taking her oral medication without difficulty but has had very poor appetite, she reports for the last 2 weeks anytime she tries to eat any food including soups after 1 spoonful she vomits. Etiology of this is unclear, she does have a history of GERD but has been taking Protonix daily and not feeling as if her symptoms are related to reflux. She was evaluated in the emergency department and her labs are significant for presence of 4+ urine ketones, leuk esterase, urine white blood cells present urine culture was reflexed chest x-ray was obtained negative for acute findings CT abdomen pelvis shows mild diverticulitis. Patient be admitted for further evaluation and management of dehydration, diverticulitis. She also reports general weakness with difficulty nebulization for the past couple weeks. Hospital Course: Problem List: Acute metabolic encephalopathy, resolved metabolic acidosis, high anion gap, resolved multiple electrolye derangements - hypoK, hypoP04; resolved Severe protein calorie malnutrition secondary to nausea/vomiting with weight loss for months minimal/mild sigmoid diverticulitis Severe vitamin d deficiency lactic acidosis,resolved Hypernatremia, resolved elevated LFTs, improving New onset afib with RVR UTIE. coli Generalized weakness Hypertension Hyperlipidemia CAD Physician Discharge Instructions / Hospital Course: Acute metabolic encephalopathy, resolved metabolic acidosis, high anion gap, resolved multiple electrolye derangements - hypoK, hypoP04; resolved Severe protein calorie malnutrition secondary to nausea/vomiting with weight loss for months minimal/mild sigmoid diverticulitis Severe vitamin d deficiency lactic acidosis,resolved Hypernatremia, resolved elevated LFTs, improving Patient reported 40lb wt loss in ~2 months due to food intolerance / nausea. initial CT noted mild sigmoid diverticulitis findings, however patient was without any tenderness or active symptoms. She was empirically treated with IV antibiotics. Upper GI series with small bowel follow through done on 01/16, reported reflux. Had large-volume watery stools day after upper GI series The following day after small bowel study, she was noted to develop a significant acidosis , mixed picture with high anion gap She was without peritoneal signs, no abd tenderness, no bloody bowel movements, diarrhea was clear/liquid according to patient. Nephrology, GI/Pulm/Critical care were consulted. she required many electrolyte replacements via IV and bicarb drip. She was transferred to the ICU for closer monitoring, and had gradual improvement. Acidosis was felt to be multifactorial in etiology, secondary to starvation /poor nutrition, a degree of hypoperfusion in setting of new a-fib with RVR, and bicarb loss from diarrhea. She had a UTI on admission but had already received a few days of culture specific antibiotics, with no new/worsening symptoms, making sepsis a much lower likelihood of a cause for her acidosis. Patient completed several days (01/16-01/23) of IV merrem and IV rocephin. Urine culture grew Pansensitive E. coli. Blood cultures were without growth CTA abd/pelvis (01/19): No significant vascular occlusion to indicate ischemic bowel. Metabolic acidosis resolved. Ketosis resolved Mental status significantly improved and back to baseline iron studies were normal. She was noted to have severe vitamin D deficiency and replacement was started. Patient also received several days of TPN throughout hospitalization to supplement nutrition. LFTs were noted to slightly increase during her hospitalization with ALT/AST peaking at 92/115 respectively. ALT/AST improved with time and trended down to 81/83 respectively. Alk phos remained normal throughout her hospitalization. Recommend repeat blood work in ~1 week to monitor LFTs. Advised to follow up with GI as outpatient in 1-2 weeks for further work up / discussion. New onset afib with RVR Patient was noted to develop new onset a-fib with RVR this hospitalization. Cardiology was consulted. Dr. Velásquez felt a-fib was secondary to acidosis / hypokalemia Echo (01/19): 59% EF, mild concentric left ventricular hypertrophy. mild tricuspid mitral and aortic regurgitation, left atrial enlargement Patient was started on metoprolol and Amiodarone drip and was eventually deescalated to oral amiodarone and oral metoprolol once able to tolerate PO. Patient has been in normal sinus rhythm for several days without issues. Heparin drip changed to weight-based Lovenox per pulmonary, and then transitioned to oral Eliquis. Recommend to follow up with cardiology in 1-2 weeks for further management / work up. UTIE. coli Urine culture grew Pansensitive E. coli. Blood cultures were without growth There was no other obvious source of infection. Patient completed several days (01/16-01/23) of IV merrem and IV rocephin Patient was afebrile throughout hospitalization. Leukocytosis resolved 01/19. Generalized weakness Patient worked with PT throughout her stay and slowly improved her strength / endurance with time. Patient is to be discharged home with home health. Hypertension She had a period of uncontrolled hypertension during her acidosis. Medications were titrated, and once she was clinically improved, her blood pressure improved as well, which led to de-escalation of medications. Her blood pressure has been in more normal ranges only on metoprolol for several days. Advised to continue to hold home losartan for now. Check blood pressure daily. Keep daily log to take to follow up appointments with PCP / cardiology for f urther adjustments of antihypertensive medications. Medications: metoprolol 50mg twice a day for now, as replacement of prior metoprolol prescription dose for now, in case any further adjustment are needed in the short term. amiodarone 200mg twice daily, adjustment to made on cardiology follow up eliquis Vitamind D Hold losartan for now as discussed above. If there are any issues with prescriptions, call hospital ask for nursing station on 4th floor to get natalay of Dr. Coelho continue other home medications as previously prescribed Follow up: PCP 3-5 days GI in 1-2 weeks Cardiology in 1-2 weeks Home Health arranged: Natalie Botello ([facility]) P:[phone] F:[phone] Physical exam: GEN: alert, awake, oriented x3, NAD HEENT: Normal conjunctiva, sclera anicteric, poor dentition-black stained/chipped teeth CV: Regular rate/rhythm, no edema Pulm: nonlabored respirations on room air, slightly diminished at bases bilaterally ABD: Soft, nontender, nondistended Neuro: Normal speech, normal strength. Vital Signs/Physical Exam: Temp Pulse Resp BP Pulse Ox 97.5 F 61 17 134/60 97 01/29/24 04:00 01/29/24 04:00 01/29/24 04:00 01/29/24 04:00 01/29/24 04:00 Laboratory Data at Discharge: WBC 7.80 thou/uL (4.3-10.9) 01/27/24 08:24 Hgb 12.0 g/dL (12.0-15.0) 01/27/24 08:24 Hct 35.0 % (36.0-45.0) L 01/27/24 08:24 Plt Count 227 thou/uL (152-406) 01/27/24 08:24 PT 14.8 SECONDS (9.5-12.5) H 01/19/24 12:14 INR 1.36 01/19/24 12:14 APTT 42.1 SECONDS (24.3-36.9) H 01/21/24 16:34 Sodium 137 mEq/L (136-145) 01/28/24 08:55 Potassium 3.8 mEq/L (3.5-5.1) 01/28/24 08:55 BUN 9 mg/dL (7-18) 01/28/24 08:55 Creatinine 0.61 mg/dL (0.55-1.02) 01/28/24 08:55 Glucose 96 mg/dL (74-106) 01/28/24 08:55 Phosphorus 4.2 mg/dL (2.5-4.9) 01/27/24 08:24 Magnesium 2.3 mg/dL (1.6-2.4) 01/28/24 08:55 Total Bilirubin 0.7 mg/dL (0.2-1.0) 01/28/24 08:55 AST 81 U/L (15-37) H 01/28/24 08:55 ALT 83 U/L (13-56) H 01/28/24 08:55 Alkaline Phosphatase 83 U/L (45-117) 01/28/24 08:55 Triglycerides 105 mg/dL (<150) 01/16/24 05:05 Cholesterol 170 mg/dL (<200) 01/16/24 05:05 HDL Cholesterol 56 mg/dL (40-60) 01/16/24 05:05 Cholesterol/HDL Ratio 3.04 01/16/24 05:05 Lipase 19 U/L (13-75) 01/18/24 18:23 Home Medications: Omeprazole [Prilosec] 40 mg PO DAILY 11/03/18 Aspirin [Aspirin EC] 1 tab PO DAILY 01/15/24 Atorvastatin Calcium 1 tab PO BID 01/15/24 Meclizine HCl 1 tab PO BID PRN 01/15/24 Meloxicam 1 tab PO DAILY 01/15/24 Sertraline [Zoloft*] 1 tab PO DAILY 01/15/24 Amiodarone HCl [Cordarone*] 200 mg PO BID 30 Days #60 tab 01/29/24 Apixaban [Eliquis] 5 mg PO BID 30 Days #60 tab 01/29/24 Metoprolol Tartrate [Lopressor*] 50 mg PO BID 30 Days #60 tab 01/29/24 Vitamin D [Drisdol*] 50,000 unit PO Q7D@0900 42 Days #6 cap 01/29/24 New Medications: Amiodarone HCl [Cordarone*] 200 mg PO BID 30 Days #60 tab Vitamin D [Drisdol*] 50,000 unit PO Q7D@0900 42 Days #6 cap Apixaban [Eliquis] 5 mg PO BID 30 Days #60 tab Metoprolol Tartrate [Lopressor*] 50 mg PO BID 30 Days #60 tab Physician Discharge Instructions: Acute metabolic encephalopathy, resolved metabolic acidosis, high anion gap, resolved multiple electrolye derangements - hypoK, hypoP04; resolved Severe protein calorie malnutrition secondary to nausea/vomiting with weight loss for months minimal/mild sigmoid diverticulitis Severe vitamin d deficiency lactic acidosis,resolved Hypernatremia, resolved elevated LFTs, improving Patient reported 40lb wt loss in ~2 months due to food intolerance / nausea. initial CT noted mild sigmoid diverticulitis findings, however patient was without any tenderness or active symptoms. She was empirically treated with IV antibiotics. Upper GI series with small bowel follow through done on 01/16, reported reflux. Had large-volume watery stools day after upper GI series The following day after small bowel study, she was noted to develop a significant acidosis , mixed picture with high anion gap She was without peritoneal signs, no abd tenderness, no bloody bowel movements, diarrhea was clear/liquid according to patient. Nephrology, GI/Pulm/Critical care were consulted. she required many electrolyte replacements via IV and bicarb drip. She was transferred to the ICU for closer monitoring, and had gradual improvement. Acidosis was felt to be multifactorial in etiology, secondary to starvation /poor nutrition, a degree of hypoperfusion in setting of new a-fib with RVR, and bicarb loss from diarrhea. She had a UTI on admission but had already received a few days of culture specific antibiotics, with no new/worsening symptoms, making sepsis a much lower likelihood of a cause for her acidosis. Patient completed several days (01/16-01/23) of IV merrem and IV rocephin. Urine culture grew Pansensitive E. coli. Blood cultures were without growth CTA abd/pelvis (01/19): No significant vascular occlusion to indicate ischemic bowel. Metabolic acidosis resolved. Ketosis resolved Mental status significantly improved and back to baseline iron studies were normal. She was noted to have severe vitamin D deficiency and replacement was started. Patient also received several days of TPN throughout hospitalization to supplement nutrition. LFTs were noted to slightly increase during her hospitalization with ALT/AST peaking at 92/115 respectively. ALT/AST improved with time and trended down to 81/83 respectively. Alk phos remained normal throughout her hospitalization. Recommend repeat blood work in ~1 week to monitor LFTs. New onset afib with RVR Patient was noted to develop new onset a-fib with RVR this hospitalization. Cardiology was consulted. Dr. Velásquez felt a-fib was secondary to acidosis / hypokalemia Echo (01/19): 59% EF, mild concentric left ventricular hypertrophy. mild tricuspid mitral and aortic regurgitation, left atrial enlargement Patient was started on metoprolol and Amiodarone drip and was eventually deescalated to oral amiodarone and oral metoprolol once able to tolerate PO. Patient has been in normal sinus rhythm for several days without issues. Heparin drip changed to weight-based Lovenox per pulmonary, and then transitioned to oral Eliquis. Recommend to follow up with cardiology in 1-2 weeks for further management / work up. UTIE. coli Urine culture grew Pansensitive E. coli. Blood cultures were without growth There was no other obvious source of infection. Patient completed several days (01/16-01/23) of IV merrem and IV rocephin Patient was afebrile throughout hospitalization. Leukocytosis resolved 01/19. Generalized weakness Patient worked with PT throughout her stay and slowly improved her strength / endurance with time. Patient is to be discharged home with home health. Hypertension She had a period of uncontrolled hypertension during her acidosis. Medications were titrated, and once she was clinically improved, her blood pressure improved as well, which led to de-escalation of medications. Her blood pressure has been in more normal ranges only on metoprolol for several days. Advised to continue to hold home losartan for now. Check blood pressure daily. Keep daily log to take to follow up appointments with PCP / cardiology for further adjustments of antihypertensive medications. Medications: metoprolol 50mg twice a day for now, as replacement of prior metoprolol prescription dose for now, in case any further adjustment are needed in the short term. amiodarone 200mg twice daily, adjustment to made on cardiology follow up holden Ruth Hold losartan for now as discussed above. If there are any issues with prescriptions, call hospital ask for nursing station on 4th floor to get ahold of Dr. Coelho continue other home medications as previously prescribed Follow up: PCP 3-5 days GI in 1-2 weeks Cardiology in 1-2 weeks Home Health arranged: Natalie Botello ([facility]) P:[phone] F:[phone] Followup: Keegan Jenkins, [Primary Care Provider] - Time spent managing pt's care (in minutes): 45
[2024-01-29] MEDS: POTASSIUM CL SA 10 MEQ TAB PO ONE (08:15)
[2024-01-29 08:17] VITALS: BP 112/54; TEMP 97
[2024-01-29 09:44] VITALS: O2SAT 98
--- NOTE | 2024-01-29 11:56 | PN ---
Date of Progress Note: 01/29/2024 Subjective: The patient was admitted to the hospital with acidosis, diarrhea, and hypernatremia. Th e patient's acidosis recovered, diarrhea stopped. The patient's sodium normalized. Patient is feeli ng better. Planned for discharge today. Objective: Vital Signs: Blood pressure 112/54, pulse of 63. Chest: Clear to auscultation. Heart: S1, S2 regular. Abdomen: Soft, nontender. Extremities: No edema. Neuro: Alert. No focality. Laboratory Data: Hemoglobin 12. Sodium 137, potassium 3.8, bicarb 25, BUN 9, creatinine 0.6, calciu m 9. Current Medications: The patient is on include: 1.Omeprazole. 2.Meloxicam. 3.Meclizine. 4.Atorvastatin. 5.Metoprolol. Assessment And Plan: 1.Hyponatremia secondary to gastrointestinal loss, diarrhea, recovered, resolved. 2.Non-anion gap metabolic acidosis, recovered, resolved. 3.Atrial fibrillation, stable. 4.Hypokalemia, status post supplement, resolved. 5.Hypertension, controlled, optimal. The patient is cleared from the renal standpoint for discharge planning. ARTHUR/KHADAR Voice ID: [id number] Report ID: [id number]
== END 2024-01-29 10:55 | disposition home health service (06) | DRG 871 ==
LOC: ER 10:08 → ERHOLD 12:35 → 4TH 13:07 → 3RD-ICU 01-18 12:46 → 4TH 01-25 20:39
PROVIDERS: ADMIT Hospitalist; ATTEND Hospitalist
PROC: 4A033R1 Measurement of Arterial Saturation, Peripheral, Percutaneous Approach (ICD-10-PCS; principal; 2024-01-17)
PROC: 0T9B70Z Drainage of Bladder with Drainage Device, Via Natural or Artificial Opening (ICD-10-PCS; 2024-01-19)
PROC: 02HV33Z Insertion of Infusion Device into Superior Vena Cava, Percutaneous Approach (ICD-10-PCS; 2024-01-19)
PROC: 3E0436Z Introduction of Nutritional Substance into Central Vein, Percutaneous Approach (ICD-10-PCS; 2024-01-19)
PROC: 0DH67UZ Insertion of Feeding Device into Stomach, Via Natural or Artificial Opening (ICD-10-PCS; 2024-01-21)
DX: A41.51 Sepsis due to Escherichia coli [E. coli] (principal); E43 Unspecified severe protein-calorie malnutrition; G93.41 Metabolic encephalopathy; N17.0 Acute kidney failure with tubular necrosis; J18.9 Pneumonia, unspecified organism; K57.32 Diverticulitis of large intestine without perforation or abscess without bleeding; N39.0 Urinary tract infection, site not specified; E87.20 Acidosis, unspecified; I48.92 Unspecified atrial flutter; E87.3 Alkalosis; E87.0 Hyperosmolality and hypernatremia; I47.10 Supraventricular tachycardia, unspecified; R65.20 Severe sepsis without septic shock; K21.9 Gastro-esophageal reflux disease without esophagitis; E78.00 Pure hypercholesterolemia, unspecified; I10 Essential (primary) hypertension; E87.6 Hypokalemia; I48.91 Unspecified atrial fibrillation; G25.81 Restless legs syndrome; E86.0 Dehydration; E83.39 Other disorders of phosphorus metabolism; E86.9 Volume depletion, unspecified; E78.5 Hyperlipidemia, unspecified; K52.9 Noninfective gastroenteritis and colitis, unspecified; I25.10 Atherosclerotic heart disease of native coronary artery without angina pectoris; I25.2 Old myocardial infarction; Z95.5 Presence of coronary angioplasty implant and graft; Z79.82 Long term (current) use of aspirin; Z74.01 Bed confinement status; Z68.36 Body mass index [BMI] 36.0-36.9, adult; Z90.49 Acquired absence of other specified parts of digestive tract; Z90.710 Acquired absence of both cervix and uterus; Z79.899 Other long term (current) drug therapy
CPT/HCPCS: 36415; 36600; 70450; 71045; 71250; 72191; 74018; 74175; 74177; 74246; 80048; 80053; 80061; 80069; 80076; 81001; 82010; 82105; 82306; 82378; 82570; 82607; 82652; 82728; 82805; 82947; 83540; 83605; 83690; 83735; 83970; 84100; 84132; 84134; 84300; 84439; 84443; 84466; 84484; 84630; 85025; 85610; 85730; 86140; 86364; 87040; 87077; 87086; 87088; 87186; 93005; 93306; 96361; 96365; 96368; 96375; 97110; 97116; 97161; 97164; 97530; 99285; C9113; J0153; J0282; J0360; J0696; J1160; J1644; J1650; J2001; J2185; J2270; J2405; J3411; J3475; J3480; J7030; J7040; J7050; J7060; J7120; Q9967

== ENCOUNTER 2024-05-16 16:11 | Inpatient (IN) | payer OTHER ==
[2024-05-16] MEDS ORDERED: ONDANSETRON 4 MG/2 ML VIAL ONE (16:42)
[2024-05-16] MEDS ORDERED: PANTOPRAZOLE 40 MG INJ ONE (16:42)
[2024-05-16] MEDS ORDERED: NA CHLORIDE 0.9% 500 ML ONE (16:43)
[2024-05-16 17:02] LABS: Absolute Basophils 0.1 K/uL (0-0.5); Absolute Lymphocytes (CBC) 1.7 K/uL (0.7-4.9); Absolute Monocytes 0.7 K/uL (0.1-1.3); Absolute Neutrophil 5.9 K/uL (1.8-8.0); Basophils % 0.6 % (0-1.3); Eosinophils % 0.1 % (0-4.4); Lymphocytes % 20.6 % (15.3-44.8); MCH 33.6 pg (27.0-35.0); MCHC 34.4 g/dL (32.0-36.0); MCV 97.9 fL (80-100); MPV 10.6 fL (7.6-11.3); Monocytes % 8.4 % (3.3-12.3); Neutrophils % 70.3 % (41.7-73.7); Nucleated Red Blood Cells % 0.2 % (0-0); Platelets 205 thou/uL (152-406); RBC Red Blood Cell Count 3.88 M/uL (3.86-4.86); Red Cell Distribution Width 15.4 % (12.1-15.2)
[2024-05-16 17:03] LABS: PT Prothrombin Time 12.1 SECONDS (9.5-12.5); Protime INR 1.1
[2024-05-16 17:30] LABS: Albumin 2.5 g/dL (3.4-5.0); Albumin/Globulin Ratio 0.7 (1.1-1.8); Anion Gap 16.7 mEq/L (5.0-15.0); Bilirubin Direct 0.4 mg/dL (0-0.2); Bilirubin Indirect, Calculated 0.6 mg/dL (0.2-0.8); Globulin 3.4 g/dL (2.3-3.5); Magnesium 1.6 mg/dL (1.6-2.4); Protein, Total 5.9 g/dL (6.4-8.2); Troponin High Sensitivity 29.2 pg/mL (<58.9)
[2024-05-16 17:36] LABS: Potassium 1.7 mEq/L (3.5-5.1)
--- NOTE | 2024-05-16 17:45 | RAD REPORT ---
EXAM DESCRIPTION: RAD - Chest Single View - 05/16/2024 5:39 pm CLINICAL HISTORY: vomiting Chest pain. COMPARISON: Abdomen 1 View (KUB) dated 01/21/2024; Abdomen 1 View (KUB) dated 01/21/2024; Chest Single View dated 01/20/2024; Chest Single View dated 01/19/2024 FINDINGS: Portable technique limits examination quality. The lungs are grossly clear. The heart is normal in size. No displaced fractures. IMPRESSION: No acute intrathoracic process suspected.
[2024-05-16] MEDS ORDERED: KCL 20 MEQ/100 mL IVPB 100 ML IV ONE (18:04)
[2024-05-16] MEDS ORDERED: POTASSIUM 25 MEQ EFFERV TAB ONE (18:04)
--- NOTE | 2024-05-16 18:24 | RAD REPORT ---
EXAM DESCRIPTION: CTAbdomen Pelvis W Contrast - 05/16/2024 6:02 pm CLINICAL HISTORY: Abdominal pain. lower abdomen pain, vomiting COMPARISON: Abdomen Pelvis W Contrast dated 01/15/2024; Abdomen Pelvis W Contrast dated 02/24/2022 ; Abdomen Pelvis W Contrast dated 03/29/2019 TECHNIQUE: Biphasic CT imaging of the abdomen and pelvis was performed with 100 ml non-ionic IV cont rast. All CT scans are performed using dose optimization technique as appropriate and may include automated exposure control or mA/KV adjustment according to patient size. FINDINGS: The lung bases are clear. The liver demonstrates diffuse fatty infiltration. Cholecystectomy clips. Small hiatal hernia. Spleen , pancreas, adrenal glands and kidneys are within normal limits. No bowel obstruction, free air, free fluid or abscess. Thickening of the colon is seen particularly i n the hepatic flexure and ascending colon suggesting colitis. The appendix is not identified as a dis crete structure, however, no secondary findings of appendicitis are identified. No evidence of sign ificant lymphadenopathy. Lumbar degenerative changes. IMPRESSION: Mild diffuse fatty liver. [id number] right-sided colitis pattern.
--- NOTE | 2024-05-16 18:33 | EDPHYS ---
Physician Documentation [facility] Name: Eloisa Aparicio Age: 73 yrs Sex: Female : 1950 Arrival Date: 05/16/2024 Time: 16:11 Bed 17 Private MD: ED Physician Manoj Webb HPI: 05/16 16:35 This 73 yrs old Female presents to ER via EMS with complaints of cp Nausea/Vomiting. 16:35 The patient presents to the emergency department with nausea, that is mild, vomiting, cp that is intermittent, abdominal pain, of the lower mid abdomen. Onset: The symptoms/episode began/occurred yesterday. Possible causes: uti. Associated signs and symptoms: Pertinent positives: general weakness, Pertinent negatives: diarrhea, fever. Severity of symptoms: in the emergency department the symptoms are unchanged despite home interventions. Historical: - Allergies: 16:22 No Known Allergies; me1 - PMHx: 16:22 Diverticulitis; Hypercholesterolemia; GERD; UT; Hypertension; restless leg; sciatica; me1 ulcer colitis; - Immunization history:: Adult Immunizations up to date. - Infectious Disease History:: Denies. - Social history:: Smoking status: Patient denies any tobacco usage or history of. ROS: 16:40 Constitutional: Negative for body aches, chills, fever, cp 16:40 Eyes: Negative for injury, pain, redness, and discharge, cp 16:40 ENT: Negative for drainage from ear(s), ear pain, sore throat, difficulty swallowing, difficulty handling secretions, 16:40 Cardiovascular: Negative for chest pain, 16:40 Respiratory: Negative for cough, shortness of breath, wheezing, 16:40 Abdomen/GI: Positive for abdominal pain, nausea, vomiting, Negative for diarrhea, constipation, black/tarry stool, rectal bleeding, 16:40 : Negative for urinary symptoms, 16:40 Neuro: Positive for weakness, Negative for altered mental status, loss of consciousness, syncope, 16:40 All other systems are negative, Exam: 16:45 Constitutional: The patient appears in no acute distress, alert, awake, cp non-diaphoretic, non-toxic, well developed, well nourished, 16:45 Head/Face: Normocephalic, atraumatic. cp 16:45 Eyes: Periorbital structures: appear normal, Pupils: equal, round, and reactive to light and accomodation, Extraocular movements: intact throughout, Conjunctiva: normal, no exudate, no injection, Sclera: no appreciated abnormality, Lids and lashes: appear normal, bilaterally, 16:45 ENT: External ear(s): are unremarkable, Nose: is normal, Mouth: Lips: moist, Oral mucosa: pink and intact, moist, Posterior pharynx: Airway: no evidence of obstruction, patent, 16:45 Neck: ROM/movement: is normal, is supple, without pain, no range of motions limitations, no meningismus, no nuchal rigidity, 16:45 Chest/axilla: Inspection: normal, 16:45 Cardiovascular: Rate: normal, Rhythm: regular, 16:45 Respiratory: the patient does not display signs of respiratory distress, Respirations: normal, no use of accessory muscles, labored breathing, is not present, Breath sounds: 16:45 Abdomen/GI: Inspection: abdomen appears normal, Bowel sounds: active, all quadrants, Palpation: soft, in all quadrants, mild abdominal tenderness, in the right lower quadrant and left lower quadrant, rebound tenderness, is not appreciated, involuntary guarding, is not appreciated, 16:45 Back: CVA tenderness, is absent, 16:45 Skin: cellulitis, is not appreciated, no rash present. 16:45 Neuro: Orientation: to person, place \T\ time. Mentation: is normal, Motor: is normal, moves all fours, focal deficits, Sensation: no obvious gross deficits, 17:00 ECG was reviewed by the Attending Physician. cp Vital Signs: 16:19 BP 118 / 62; Pulse 85; Resp 16; Temp 98.1; Pulse Ox 96% on R/A; Weight 55.79 kg; Height me1 5 ft. 0 in. ; Pain 0/10; 17:00 BP 104 / 57; Pulse 72; Resp 16; Pulse Ox 94% on R/A; me1 18:00 BP 105 / 56; Pulse 72; Resp 17; Pulse Ox 99% on R/A; me1 19:00 BP 115 / 65; Pulse 76; Resp 16; Pulse Ox 98% on R/A; me1 20:00 BP 116 / 64; Pulse 71; Resp 16; Pulse Ox 94% on R/A; me1 16:19 Body Mass Index 24.02 (55.79 kg, 152.4 cm) me1 16:19 Pain Scale: Adult me1 MDM: 16:15 Patient medically screened. 18:30 Data reviewed: vital signs, nurses notes, lab test result(s), EKG, radiologic studies, cp CT scan, plain films, and as a result, I will admit patient. 18:30 Differential diagnosis: gastritis, pancreatitis, diverticulitis, viral gastroenteritis, cp gastroenteritis. Consideration of Admission/Observation Patient was admitted/placed on observation. I considered the following discharge prescriptions or medication management in the emergency department Medications were administered in the Emergency Department. See MAR. Care significantly affected by the following chronic conditions: Hypertension. Counseling: I had a detailed discussion with the patient and/or guardian regarding the historical points, exam findings, and any diagnostic results supporting the discharge/admit diagnosis, lab results, radiology results, the need for further work-up and treatment in the hospital. 05/16 16:31 Order name: Basic Metabolic Panel; Complete Time: 17:47 05/16 17:48 Interpretation: Normal except: K 1.7; ANION GAP 16.7; GLUC 126; CA 8.4. 05/16 16:31 Order name: CBC with Diff; Complete Time: 17:26 05/16 17:26 Interpretation: Normal except: RDW 15.4. 05/16 16:31 Order name: LFT's; Complete Time: 17:47 cp 05/16 17:48 Interpretation: Normal except: AST 75; BILID 0.4; TP 5.9; ALB 2.5; A/G 0.7. 05/16 16:31 Order name: Magnesium; Complete Time: 17:47 cp 05/16 16:31 Order name: NT PRO-BNP; Complete Time: 17:47 cp 05/16 16:31 Order name: PT-INR; Complete Time: 17:26 cp 05/16 16:31 Order name: Troponin HS; Complete Time: 17:47 cp 05/16 16:31 Order name: Ptt, Activated; Complete Time: 17:26 cp 05/16 18:28 Order name: Lactate w/ 2H reflex if indic. cp 05/16 18:28 Order name: Blood Culture Adult (2) cp 05/16 19:38 Order name: Urinalysis w/ reflexes EDMS 05/16 19:38 Order name: CBC with Automated Diff EDMS 05/16 19:38 Order name: CBC with Automated Diff EDMS 05/16 19:38 Order name: Comprehensive Metabolic Panel EDMS 05/16 19:38 Order name: Comprehensive Metabolic Panel EDMS 05/16 16:31 Order name: XRAY Chest (1 view); Complete Time: 17:47 cp 05/16 17:27 Order name: CT Abd/Pelvis - IV Contrast Only; Complete Time: 18:25 cp 05/16 16:31 Order name: EKG; Complete Time: 16:32 cp 05/16 16:31 Order name: Cardiac monitoring; Complete Time: 18:12 cp 05/16 16:31 Order name: EKG - Nurse/Tech; Complete Time: 18:12 cp 05/16 16:31 Order name: IV Saline Lock; Complete Time: 16:33 cp 05/16 16:31 Order name: Labs collected and sent; Complete Time: 16:33 cp 05/16 16:31 Order name: O2 Per Protocol; Complete Time: 16:33 cp 05/16 16:31 Order name: O2 Sat Monitoring; Complete Time: 16:33 cp EC:00 Rate is 75 beats/min. Rhythm is regular. FL interval is normal. QRS interval is normal. cp QT interval is normal. Interpreted by me. Reviewed by me. Administered Medications: 16:52 Drug: Ondansetron IVP 4 mg IVP once; over 2 minutes Route: IVP; Site: right antecubital;me1 18:12 Follow up: Response: No adverse reaction; Nausea is decreased me1 16:52 Drug: NS 0.9% IV 500 ml IV at 125 ml/hr continuous Route: IV; Rate: 125 ml/hr; Site: me1 right antecubital; 20:38 Follow up: Response: No adverse reaction; IV Status: Completed infusion; IV Intake: me1 500ml 16:52 Drug: Pantoprazole IVP 40 mg IVP once Route: IVP; Site: right antecubital; me1 18:12 Follow up: Response: No adverse reaction me1 18:11 Drug: Potassium Chloride IV 20 mEq IV at calculated rate once; administer over 1-2 me1 hours Route: IV; Rate: calculated rate; Site: right antecubital; 20:28 Follow up: Response: No adverse reaction; IV Status: Completed infusion me1 18:11 Drug: Potassium PO Effervescent Tablet 50 mEq PO once; dissolve in 4 ounces of water or me1 juice Route: PO; 18:29 Follow up: Response: No adverse reaction me1 19:50 Drug: metroNIDAZOLE IVPB 500 mg 100 ml IVPB once over 30 mins Volume: 100 ml; Route: me1 IVPB; Infused Over: 30 mins; Site: right antecubital; 20:40 Follow up: Response: No adverse reaction me1 20:41 Follow up: Response: No adverse reaction; IV Status: Completed infusion; IV Intake: me1 100ml 20:25 Drug: Ciprofloxacin IVPB 400 mg 200 ml IVPB once over 60 mins Volume: 200 ml; Route: me1 IVPB; Infused Over: 60 mins; Site: left antecubital; 20:38 Follow up: IV Status: Infusion continued upon admission me1 Disposition Summary: 05/16/24 18:33 Hospitalization Ordered Notes: Hospitalization Status: Inpatient Admission cp Provider: Toni Grider cp Location: Telemetry/[facility] (Inpatient) cp Condition: Stable cp Problem: new cp Symptoms: have improved cp Bed/Room Type: Standard cp Room Assignment: 403(05/16/24 19:43) sp Diagnosis - Weakness cp - Vomiting cp - Hypokalemia cp - Diverticulitis of intestine, part unspecified, without perforation or abscess cp without bleeding Forms: - Medication Reconciliation Form cp - SBAR form cp - Leadership Thank You Letter cp Addendum: 05/18/2024 14:15 I was immediately available for consultation during this patient's visit. I did not e c2 personally see the patient or discuss the patient with the BRYN. . Signatures: Dispatcher [employer] EDMS Christiane Manuel Corey, PA PA cp Crystal Elaine, JOVITA RN me1 Manoj Webb MD MD ec2 Corrections: (The following items were deleted from the chart) 05/16 17:28 17:28 Abdomen Pelvis W Con+CT.RAD.BRZ ordered. EDPR EDMS 19:43 18:33 cp sp
--- NOTE | 2024-05-16 18:33 | ER ---
Nurse's Notes [facility] Name: Eloisa Aparicio Age: 73 yrs Sex: Female : 1950 Arrival Date: 05/16/2024 Time: 16:11 Bed 17 Private MD: Diagnosis: Weakness;Vomiting;Hypokalemia;Diverticulitis of intestine, part unspecified, without perforation or abscess without bleeding Presentation: 05/16 16:19 Chief complaint: EMS states: toned out for n/v since yesterday, generalized weakness. me1 States patient had a black, tarry stool about 14:30 today. Coronavirus screen: Vaccine status: Patient reports receiving the 2nd dose of the covid vaccine. Ebola Screen: No symptoms or risks identified at this time. Initial Sepsis Screen: Does the patient meet any 2 criteria? No. Patient's initial sepsis screen is negative. Does the patient have a suspected source of infection? No. Patient's initial sepsis screen is negative. Risk Assessment: Do you want to hurt yourself or someone else? Patient reports no desire to harm self or others. Onset of symptoms was May 15, 2024. Care prior to arrival: Medication(s) given: Normal saline infusion, 200 ml IV initiated. 22 GA, in the right antecubital area. 16:19 Method Of Arrival: EMS: [facility] [place] 16:19 Acuity: ÁNGEL 3 sc1 16:26 Care prior to arrival: Medication(s) given: reglan 4 mg. me1 Triage Assessment: 16:22 General: Appears uncomfortable, ill, well groomed, well developed, well nourished, me1 Behavior is calm, cooperative, appropriate for age, Reports n/v since yesterday. Had a black, tarry stool today about 14:30. Pain: Denies pain. EENT: No signs and/or symptoms were reported regarding the EENT system. Neuro: Level of Consciousness is awake, alert, obeys commands, Oriented to person, place, time, situation, Appropriate for age. Cardiovascular: Patient's skin is warm and dry. Respiratory: Airway is patent Respiratory effort is even, unlabored, Respiratory pattern is regular, symmetrical. GI: Reports nausea, vomiting, since yesterday. : No signs and/or symptoms were reported regarding the genitourinary system. Derm: Skin is intact, is healthy with good turgor, Skin is pale. Musculoskeletal: No signs and/or symptoms reported regarding the musculoskeletal system. Historical: - Allergies: 16:22 No Known Allergies; me1 - PMHx: 16:22 Diverticulitis; Hypercholesterolemia; GERD; TN; Hypertension; restless leg; sciatica; me1 ulcer colitis; - Immunization history:: Adult Immunizations up to date. - Infectious Disease History:: Denies. - Social history:: Smoking status: Patient denies any tobacco usage or history of. Screenin:25 [facility] ED Fall Risk Assessment (Adult) History of falling in the last 3 months, me1 including since admission No falls in past 3 months (0 pts) Confusion or Disorientation No (0 pts) Intoxicated or Sedated No (0 pts) Impaired Gait No (0 pts) Mobility Assist Device Used No (0 pt) Altered Elimination No (0 pt) Score/Fall Risk Level 0 - 2 = Low Risk Maintained a safe environment, Provided non-skid footwear, Hourly rounding (assess needs \T\ fall precautionary measures) done. Abuse screen: Denies threats or abuse. Nutritional screening: No deficits noted. Tuberculosis screening: No symptoms or risk factors identified. Assessment: 16:25 General: See triage assessment. . me1 Vital Signs: 16:19 BP 118 / 62; Pulse 85; Resp 16; Temp 98.1; Pulse Ox 96% on R/A; Weight 55.79 kg; Height me1 5 ft. 0 in. ; Pain 0/10; 17:00 BP 104 / 57; Pulse 72; Resp 16; Pulse Ox 94% on R/A; me1 18:00 BP 105 / 56; Pulse 72; Resp 17; Pulse Ox 99% on R/A; me1 19:00 BP 115 / 65; Pulse 76; Resp 16; Pulse Ox 98% on R/A; me1 20:00 BP 116 / 64; Pulse 71; Resp 16; Pulse Ox 94% on R/A; me1 16:19 Body Mass Index 24.02 (55.79 kg, 152.4 cm) sc1 16:19 Pain Scale: Adult sc1 ED Course: 16:14 Patient arrived in ED. jr12 16:15 José Miguel Shore PA is PHCP. cp 16:15 Manoj Webb MD is Attending Physician. cp 16:19 Crystal Elaine, JOVITA is Primary Nurse. me1 16:22 Triage completed. me1 16:22 Arm band placed on Patient placed in an exam room. me1 16:25 Patient has correct armband on for positive identification. Bed in low position. Call me1 light in reach. Side rails up X2. Provided Education on: POC. Verbalized understanding. . Client placed on continuous cardiac and pulse oximetry monitoring. NIBP monitoring applied. potline monitor on. Pulse ox on. NIBP on. 16:25 No provider procedures requiring assistance completed. Maintain EMS IV. Dressing me1 intact. Good blood return noted. Site clean \T\ dry. Gauge \T\ site: 22g RAC. 16:40 Ptt, Activated Sent. me1 16:40 Basic Metabolic Panel Sent. me1 16:40 CBC with Diff Sent. me1 16:40 LFT's Sent. me1 16:40 Magnesium Sent. me1 16:40 NT PRO-BNP Sent. me1 16:40 PT-INR Sent. me1 16:40 Troponin HS Sent. me1 16:40 Initial lab(s) drawn, by sc, sent to lab. me1 17:40 XRAY Chest (1 view) In Process Unspecified. EDMS 18:03 CT Abd/Pelvis - IV Contrast Only In Process Unspecified. EDMS 18:12 EKG done, by ED staff, reviewed by José Miguel APODACA. me1 18:32 Toni Grider MD is Hospitalizing Provider. cp 19:42 First set of blood cultures drawn by ED staff. me1 19:43 Blood Culture Adult (2) Sent. me1 19:43 Lactate w/ 2H reflex if indic. Sent. me1 19:51 Inserted saline lock: 22 gauge in left antecubital area, using aseptic technique. me1 19:52 Second set of blood cultures drawn by sc. me1 20:57 Patient admitted, IV remains in place. me1 Administered Medications: 16:52 Drug: Ondansetron IVP 4 mg IVP once; over 2 minutes Route: IVP; Site: right antecubital;me1 18:12 Follow up: Response: No adverse reaction; Nausea is decreased me1 16:52 Drug: NS 0.9% IV 500 ml IV at 125 ml/hr continuous Route: IV; Rate: 125 ml/hr; Site: sc1 right antecubital; 20:38 Follow up: Response: No adverse reaction; IV Status: Completed infusion; IV Intake: me1 500ml 16:52 Drug: Pantoprazole IVP 40 mg IVP once Route: IVP; Site: right antecubital; me1 18:12 Follow up: Response: No adverse reaction me1 18:11 Drug: Potassium Chloride IV 20 mEq IV at calculated rate once; administer over 1-2 me1 hours Route: IV; Rate: calculated rate; Site: right antecubital; 20:28 Follow up: Response: No adverse reaction; IV Status: Completed infusion me1 18:11 Drug: Potassium PO Effervescent Tablet 50 mEq PO once; dissolve in 4 ounces of water or me1 juice Route: PO; 18:29 Follow up: Response: No adverse reaction me1 19:50 Drug: metroNIDAZOLE IVPB 500 mg 100 ml IVPB once over 30 mins Volume: 100 ml; Route: me1 IVPB; Infused Over: 30 mins; Site: right antecubital; 20:40 Follow up: Response: No adverse reaction me1 20:41 Follow up: Response: No adverse reaction; IV Status: Completed infusion; IV Intake: me1 100ml 20:25 Drug: Ciprofloxacin IVPB 400 mg 200 ml IVPB once over 60 mins Volume: 200 ml; Route: me1 IVPB; Infused Over: 60 mins; Site: left antecubital; 20:38 Follow up: IV Status: Infusion continued upon admission me1 Medication: 16:25 VIS not applicable for this client. me1 Intake: 20:38 IV: 500ml; Total: 500ml. me1 20:41 IV: 100ml; Total: 600ml. me1 Outcome: 18:33 Decision to Hospitalize by Provider. cp 20:56 Condition: stable me1 20:56 Admitted to Med/surg accompanied by tech, via stretcher, room 403, with chart, Report me1 called to faxed, confirmed receipt with JOVITA Welch 20:56 Instructed on the need for admit, 20:58 Patient left the ED. me1 Signatures: Dispatcher [employer] José Miguel Jamil PA PA cp Eddleman, Michelle, RN RN sc1 Lacie Toth jr
[2024-05-16] MEDS ORDERED: CIPROFLOXACIN 400mg IV 400 MG/200 ML BAG IV ONE (19:14)
[2024-05-16] MEDS ORDERED: METRONIDAZOLE 500mg IVPB 500 MG/100 ML BAG IV ONE (19:15)
[2024-05-16] MEDS ORDERED: ACETAMINOPHEN 325 MG TABLET PO PRN (19:33)
--- NOTE | 2024-05-16 19:34 | P.HP ---
Certification for Inpatient Patient admitted to: Inpatient With expected LOS: >2 Midnights Practitioner: I am a practitioner with admitting privileges, knowledge of patient current condition, hospital course, and medical plan of care. Services: Services provided to patient in accordance with Admission requirements found in Title 42 Section 412.3 of the Code of Federal Regulations Patient History Date of Service: 05/16/24 Reason for admission: Colitis History of Present Illness: 73-year-old female with history of diverticulosis/diverticulitis, GERD, hypertension, hyperlipidemia, CAD, distant history of ulcerative colitis presents to the emergency department chief complaint of abdominal pain, nausea, weakness associated with diarrhea. She reports has been having abdominal pain for the last 3 days , could not tolerate anything p.o. Patient has been having nausea and vomiting and multiple episodes of diarrhea. Patient denies any fever or chills. No sick contacts. No recent travel. Patient was assessed in the ER and was admitted for further management of colitis and hypokalemia Allergies No Known Allergies Allergy (Verified 09/10/12 13:59) Home medications list reviewed: Yes Home Medications: Omeprazole [Prilosec] 40 mg PO DAILY 11/03/18 Aspirin [Aspirin EC] 1 tab PO DAILY 01/15/24 Atorvastatin Calcium 1 tab PO BID 01/15/24 Meclizine HCl 1 tab PO BID PRN 01/15/24 Meloxicam 1 tab PO DAILY 01/15/24 Sertraline [Zoloft*] 1 tab PO DAILY 01/15/24 Amiodarone HCl [Cordarone*] 200 mg PO BID 30 Days #60 tab 01/29/24 Apixaban [Eliquis] 5 mg PO BID 30 Days #60 tab 01/29/24 Metoprolol Tartrate [Lopressor*] 50 mg PO BID 30 Days #60 tab 01/29/24 Vitamin D [Drisdol*] 50,000 unit PO Q7D@0900 42 Days #6 cap 01/29/24 - Past Medical/Surgical History Diabetic: No Past Medical History: Reviewed- Non-Contributory -: HTN -: Osteoarthritis -: Restless leg syndrome -: GERD -: CAD with prior stent -: Ulcerative colitis -: Diverticulitis -: Hyperlipidemia Past Surgical History: Reviewed- Non-Contributory -: Hysterectomy -: Cholecystectomy -: Cardiac Stent Psychosocial/ Personal History: Lives at home with family - Family History Family History: Reviewed- Non-Contributory - Family History Mother -: Liver disease, Other (see notes) Notes: Alcoholic - Social History Smoking Status: Never smoker Alcohol use: No CD- Drugs: No Caffeine use: Yes Review of Systems 10-point ROS is otherwise unremarkable Physical Examination - Vital Signs Temperature: 98.4 F Blood Pressure: 138/72 Pulse: 78 Respirations: 18 Pulse Ox (%): 94 - Physical Exam General: Alert, Oriented x3, Cooperative, Mild distress HEENT: Atraumatic, Normocephalic Neck: Supple, 2+ carotid pulse no bruit Respiratory: Clear to auscultation bilaterally, Normal air movement Cardiovascular: Normal pulses, Regular rate/rhythm, Normal S1 S2 Capillary refill: <2 Seconds Gastrointestinal: W/out hepatosplenomegaly, No ascites, No guarding, Tenderness Musculoskeletal: No clubbing, No swelling Integumentary: No rashes, No breakdown Neurological: Normal speech, Normal strength at 5/5 x4 extr, Cranial nerves 3-12 intact, Normal reflexes 2+ Lymphatics: No axilla or inguinal lymphadenopathy - Studies Laboratory Data (last 24 hrs) 05/16/24 05/16/24 05/16/24 16:38 16:38 16:38 WBC 8.30 Hgb 13.0 Hct 38.0 Plt Count 205 PT 12.1 INR 1.10 APTT 34.0 Sodium 138 Potassium 1.7 L* BUN 7 Creatinine 0.65 Glucose 126 H Magnesium 1.6 Total Bilirubin 1.0 AST 75 H ALT 51 Alkaline Phosphatase 60 Assessment and Plan - Problems (Diagnosis) (1) Colitis Current Visit: Yes Status: Acute Plan: Colitis Started on IV antibiotics IV hydration CT findings noted consistent with right-sided colitis Monitor closely on telemetry Patient has a history of ulcerative colitis Will get a CRP level Needs follow-up with GI as outpatient Pain control Severe hypokalemia with a potassium of 1.7 IV hydration Potassium replacement Monitor closely under telemetry Intractable nausea and vomiting Zofran as needed IV hydration Generalized weakness Hypertension Hyperlipidemia CAD Continue home medications and titrate as needed DVT PPX: Lovenox Code status: Full Discharge Plan: Home Plan to discharge in: Greater than 2 days - Advance Directives Does patient have a Living Will: Yes Does patient have a Durable POA for Healthcare: No - Code Status/Comfort Care Code Status: Full Code Time Spent Managing Pts Care (In Minutes): 48
[2024-05-16] MEDS: POTASSIUM 25 MEQ EFFERV TAB PO ONE (19:38)
[2024-05-16] MEDS: NS KCL 40MEQ 40 MEQ/1,000 ML BAG IV SCH (20:00)
[2024-05-16] MEDS: KCL 20 MEQ/100 mL IVPB 20 MEQ/100 ML BAG IV SCH (23:01)
[2024-05-16] MEDS: POTASSIUM 25 MEQ EFFERV TAB ONE (23:28)
[2024-05-16] MEDS: NA CHLORIDE 0.9% 500 ML ONE (23:49)
[2024-05-17] MEDS ORDERED: MORPHINE 4 MG/ML SYR IV PRN (00:19)
[2024-05-17] MEDS: NS KCL 20MEQ 20 MEQ/1,000 ML BAG IV SCH (00:32)
[2024-05-17 01:31] VITALS: BMI 24.0
[2024-05-17 06:52] LABS: Absolute Lymphocytes (CBC) 2.5 K/uL (0.7-4.9); Absolute Monocytes 0.8 K/uL (0.1-1.3); Absolute Neutrophil 5.1 K/uL (1.8-8.0); Basophils % 0.5 % (0-1.3); Eosinophils % 0.2 % (0-4.4); Hemoglobin 12.3 g/dL (12.0-15.0); Lymphocytes % 29.9 % (15.3-44.8); MCH 33.1 pg (27.0-35.0); MCHC 33.3 g/dL (32.0-36.0); MCV 99.4 fL (80-100); MPV 11.4 fL (7.6-11.3); Neutrophils % 60.4 % (41.7-73.7); Nucleated Red Blood Cells % 0.2 % (0-0); Platelets 150 thou/uL (152-406); RBC Red Blood Cell Count 3.73 M/uL (3.86-4.86); Red Cell Distribution Width 15.6 % (12.1-15.2)
[2024-05-17 07:21] LABS: Albumin 2.2 g/dL (3.4-5.0); Albumin/Globulin Ratio 0.6 (1.1-1.8); Anion Gap 14.1 mEq/L (5.0-15.0); Bilirubin Total 0.7 mg/dL (0.2-1.0); Globulin 3.4 g/dL (2.3-3.5); Potassium 3.1 mEq/L (3.5-5.1); Protein, Total 5.6 g/dL (6.4-8.2)
[2024-05-17] MEDS: CEFTRIAXONE 1,000 MG in NA CHLORIDE 0.9% 50 ML IVPB SCH (08:14)
[2024-05-17] MEDS: ENOXAPARIN 40 MG/0.4 ML SQ SCH (08:15)
[2024-05-17] MEDS: POTASSIUM 25 MEQ EFFERV TAB PO ONE ×2 (08:15→16:00)
--- NOTE | 2024-05-17 10:48 | P.PN ---
Subjective Date of Service: 05/17/24 Chief Complaint: Colitis Subjective: No new changes (feeling better, repeat K 3.1.) <Madina Magana - Last Filed: 05/17/24 10:48> Date of Service: 05/17/24 <Estrada Kaur - Last Filed: 05/17/24 12:56> Review of Systems 10-point ROS is otherwise unremarkable General: Weakness, Malaise <Madina Magana - Last Filed: 05/17/24 10:48> Physical Examination - Vital Signs Temperature: 97.9 F Blood Pressure: 94/51 Pulse: 73 Respirations: 17 Pulse Ox (%): 97 - Physical Exam General: Alert, In no apparent distress, Oriented x3 HEENT: Atraumatic, Normocephalic Neck: Supple Respiratory: Clear to auscultation bilaterally Cardiovascular: Regular rate/rhythm, Normal S1 S2 Capillary refill: <2 Seconds Gastrointestinal: Soft and benign, Tenderness (mild lower central abdomen) Musculoskeletal: No clubbing Integumentary: No rashes Neurological: Normal speech, Normal tone, Normal affect Lymphatics: No axilla or inguinal lymphadenopathy External genitalia: Deferred Rectal: Deferred - Studies Laboratory Data (last 24 hrs) 05/16/24 05/16/24 05/16/24 16:38 16:38 16:38 WBC 8.30 Hgb 13.0 Hct 38.0 Plt Count 205 PT 12.1 INR 1.10 APTT 34.0 Sodium 138 Potassium 1.7 L* BUN 7 Creatinine 0.65 Glucose 126 H Magnesium 1.6 Total Bilirubin 1.0 AST 75 H ALT 51 Alkaline Phosphatase 60 <Madina Magana - Last Filed: 05/17/24 10:48> - Studies Laboratory Data (last 24 hrs) 05/16/24 05/16/24 05/16/24 16:38 16:38 16:38 WBC 8.30 Hgb 13.0 Hct 38.0 Plt Count 205 PT 12.1 INR 1.10 APTT 34.0 Sodium 138 Potassium 1.7 L* BUN 7 Creatinine 0.65 Glucose 126 H Magnesium 1.6 Total Bilirubin 1.0 AST 75 H ALT 51 Alkaline Phosphatase 60 <Estrada Kaur - Last Filed: 05/17/24 12:56> Assessment And Plan - Plan Assessment and Plan - Problems (Diagnosis) (1) Colitis Current Visit: Yes Status: Acute Plan: Colitis IV antibiotics IV hydration CT findings noted consistent with right-sided colitis Monitor closely on telemetry Patient has a history of ulcerative colitis Will get a CRP level Needs follow-up with GI as outpatient Pain control Severe hypokalemia with a potassium of 1.7, repeat 3.1, but Magnesium low at 1.5. 3gm ordered IV hydration Potassium/Mag/Phos replacement Monitor closely under telemetry Intractable nausea and vomiting Zofran as needed IV hydration Generalized weakness Hypertension Hyperlipidemia CAD Continue home medications and titrate as needed DVT PPX: Lovenox Code status: Full <Madina Magana - Last Filed: 05/17/24 10:48> - Plan Pt seen and examined. I agree with the note by the COLLAR SHAPER OPERATOR. Pt is afeeling better. No abd pain or GI distress. Will replete electrolytes. Continue prn antiemetic. <Estrada Kaur - Last Filed: 05/17/24 12:56>
[2024-05-17] MEDS: POTASSIUM PHOS 15 MM in NA CHLORIDE 0.9% 250 ML IV ONE (11:41)
[2024-05-17] MEDS: MAGNESIUM 50% 3 GM in NA CHLORIDE 0.9% 100 ML IV ONE (11:41)
[2024-05-17] MEDS: POTASSIUM CL SA 10 MEQ TAB PO ONE ×2 (13:35→18:31)
--- NOTE | 2024-05-17 14:54 | EKG ---
Test Date: 2024-05-16 Test Time: 16:54:37 Wine Bottle Inspector: MANUEL MEASUREMENT RESULTS: Intervals: Rate: 75 DC: 164 QRSD: 100 QT: 326 QTc: 364 Rousseau: P: 0 DC: 164 QRS: -30 T: 164 INTERPRETIVE STATEMENTS: Normal sinus rhythm Left axis deviation Cannot rule out Anterior infarct, age undetermined Marked ST abnormality, possible lateral subendocardial injury Abnormal ECG Compared to ECG 01/21/2024 11:21:59 Left-axis deviation now present Supraventricular tachycardia no longer present Myocardial infarct finding still present ST (T wave) deviation still present Electronically Signed On 05-17-24 14:51:08 CDT by Clyde Velásquez
[2024-05-17 15:45] LABS: Specific Gravity 1.029 (1.005-1.030); Sqamous Epithelial <5 /HPF (None Seen); Urine Bacteria 20-50 /HPF (<20); Urine Bilirubin NEGATIVE (Negative); Urine Blood 2+ (Negative); Urine Clarity Extremely Turbid (Clear); Urine Color Yellow (Yellow); Urine Culture Reflex Order REFLEXED; Urine Glucose NEGATIVE (Negative); Urine Ketones 1+ (Negative); Urine Microscopic Reflex YN ORDER UMIC; Urine Nitrite NEGATIVE (Negative); Urine Protein 1+ (Negative); Urine RBC None Seen /HPF (None Seen); Urine Urobilinogen 1+ (Normal); Urine WBC >50 /HPF (<5)
[2024-05-18 06:52] LABS: Absolute Monocytes 0.6 K/uL (0.1-1.3); Basophils % 0.7 % (0-1.3); Eosinophils % 0.6 % (0-4.4); Hematocrit 33.9 % (36.0-45.0); Hemoglobin 11.4 g/dL (12.0-15.0); Lymphocytes % 30.1 % (15.3-44.8); MCH 33.9 pg (27.0-35.0); MCHC 33.7 g/dL (32.0-36.0); MCV 100.8 fL (80-100); MPV 10.5 fL (7.6-11.3); Monocytes % 8.4 % (3.3-12.3); Neutrophils % 60.2 % (41.7-73.7); Nucleated Red Blood Cells % 0.1 % (0-0); Platelets 181 thou/uL (152-406); RBC Red Blood Cell Count 3.37 M/uL (3.86-4.86); Red Cell Distribution Width 15.2 % (12.1-15.2)
[2024-05-18 07:08] LABS: Anion Gap 13.1 mEq/L (5.0-15.0); Magnesium 2.4 mg/dL (1.6-2.4); Potassium 5.1 mEq/L (3.5-5.1)
[2024-05-18 07:10] LABS: Phosphorus 1.4 mg/dL (2.5-4.9)
[2024-05-18] MEDS ORDERED: SODIUM PHOSPHATE 15 MM in NA CHLORIDE 0.9% 250 ML IV ONE (08:00)
[2024-05-18] MEDS: CEFTRIAXONE 1000 MG/VIAL ONE (08:00)
[2024-05-18] MEDS: SODIUM PHOSPHATE 30 MM in NA CHLORIDE 0.9% 500 ML IV ONE (09:01)
--- NOTE | 2024-05-18 10:48 | P.PN ---
Subjective Date of Service: 05/18/24 Chief Complaint: Colitis Subjective: Improving <Madina Magana - Last Filed: 05/18/24 11:35> Date of Service: 05/18/24 <ShravanFestus trujillolashaun Sandra - Last Filed: 05/18/24 12:45> Review of Systems 10-point ROS is otherwise unremarkable General: As per HPI Gastrointestinal: As per HPI <Madina Magana - Last Filed: 05/18/24 11:35> Physical Examination - Vital Signs Temperature: 97.3 F Blood Pressure: 117/56 Pulse: 68 Respirations: 16 Pulse Ox (%): 99 - Physical Exam General: Alert, In no apparent distress, Oriented x3 HEENT: Atraumatic, Normocephalic Neck: Supple Respiratory: Normal air movement Cardiovascular: Regular rate/rhythm, Normal S1 S2 Capillary refill: <2 Seconds Gastrointestinal: Normal bowel sounds, Tenderness (right/mid lower abd) Musculoskeletal: No clubbing, No swelling Integumentary: No rashes Neurological: Normal speech, Normal tone, Normal affect Lymphatics: No axilla or inguinal lymphadenopathy External genitalia: Deferred Rectal: Deferred <Madina Magana - Last Filed: 05/18/24 11:35> Assessment And Plan - Plan Assessment and Plan - Problems (Diagnosis) (1) Colitis Current Visit: Yes Status: Acute Plan: Colitis IV antibiotics IV hydration CT findings noted consistent with right-sided colitis Patient has a history of ulcerative colitis Needs follow-up with GI as outpatient Pain control Severe hypokalemia with a potassium of 1.7, repeat 3.1, but Magnesium low at 1.5. 3gm ordered. 05/18 K 5.1, Mg 2.4, Phos down to 1.4 (NaPhos ordered) Monitor closely on telemetry IV hydration Potassium/Mag/Phos replacement Monitor closely under telemetry Generalized weakness Hypertension Hyperlipidemia CAD Continue home medications and titrate as needed DVT PPX: Lovenox Code status: Full <Madina Magana - Last Filed: 05/18/24 11:35> - Plan Pt seen and examined. I agree with the note by the DRYWALL FOREMAN. Will replete and monitor electrolytes. Continue abx for colitis. <Estrada Kaur - Last Filed: 05/18/24 12:45>
[2024-05-18] MEDS: PROMETHAZINE INJ 25 MG/ML AMP IV PRN (12:46)
[2024-05-18] MEDS: Ringers Lactate 1,000 ML IV SCH (15:50)
[2024-05-18] MEDS: ONDANSETRON 4 MG/2 ML VIAL IV PRN (21:17)
[2024-05-19 07:18] LABS: Anion Gap 11.9 mEq/L (5.0-15.0); Potassium 3.9 mEq/L (3.5-5.1)
[2024-05-19] MEDS: PANTOPRAZOLE 40 MG INJ IVP SCH (09:00)
[2024-05-19] MEDS ORDERED: SODIUM CHLORIDE 0.9% 10ML INJ IV PRN (09:13)
[2024-05-19] MEDS: SIMETHICONE 40 MG/ 0.6 ML PO SCH (09:15)
--- NOTE | 2024-05-19 09:24 | P.PN ---
Subjective Date of Service: 05/19/24 Chief Complaint: Colitis Subjective: Improving (electrolytes improved, no abd pain, minimal nausea) <Madina Magana - Last Filed: 05/19/24 09:21> Date of Service: 05/19/24 <Estrada Kaur Sandra - Last Filed: 05/19/24 12:32> Review of Systems 10-point ROS is otherwise unremarkable Gastrointestinal: As per HPI <Nancy Maganay Ji - Last Filed: 05/19/24 09:21> Physical Examination - Vital Signs Temperature: 97.2 F Blood Pressure: 142/64 Pulse: 77 Respirations: 16 Pulse Ox (%): 99 - Physical Exam General: Alert, In no apparent distress, Oriented x3 HEENT: Atraumatic, Normocephalic Neck: Supple Respiratory: Normal air movement Cardiovascular: Normal pulses, Regular rate/rhythm Capillary refill: <2 Seconds Gastrointestinal: Soft and benign Musculoskeletal: No clubbing Integumentary: No rashes Neurological: Normal speech, Normal tone, Normal affect Lymphatics: No axilla or inguinal lymphadenopathy External genitalia: Deferred Rectal: Deferred <Madina Magana - Last Filed: 05/19/24 09:21> Assessment And Plan - Plan Assessment and Plan - Problems (Diagnosis) (1) Colitis Current Visit: Yes Status: Acute Plan: Colitis IV antibiotics IV hydration CT findings noted consistent with right-sided colitis Patient has a history of ulcerative colitis Needs follow-up with GI as outpatient Pain control Severe hypokalemia with a potassium of 1.7, repeat 3.1, but Magnesium low at 1.5. 3gm ordered. 05/18 K 5.1, Mg 2.4, Phos down to 1.4 (NaPhos ordered) 05/19 K 3.8, Phos 2.1 Monitor closely on telemetry IV hydration Potassium/Mag/Phos replacement Monitor closely under telemetry Generalized weakness Hypertension Hyperlipidemia CAD Continue home medications and titrate as needed DVT PPX: Lovenox Code status: Full <Nancy Maganay Ji - Last Filed: 05/19/24 09:21> - Plan Pt seen and examined. I agree with the note by the FIELD CROP HARVEST WORKER. Pt complains of nausea. Will replete phosphate. Continue iv abx for colitis. <Estrada Kaur - Last Filed: 05/19/24 12:32>
[2024-05-19] MEDS: SUCRALFATE 1 GM TABLET PO SCH (11:41)
[2024-05-19] MEDS ORDERED: SIMETHICONE 80 MG CHEWABLE TAB PO PRN (11:44)
[2024-05-19] MEDS: Ringers Lactate 1,000 ML IV SCH (15:30)
[2024-05-19] MEDS: D5LR 1,000 ML IV SCH (16:28)
[2024-05-19] MEDS: POTASSIUM PHOS IN 0.9 % NACL 15 MMOL/250 ML BAG IV ONE (20:28)
[2024-05-20] MEDS: CIPROFLOXACIN 400mg IV 400 MG/200 ML BAG IV SCH (08:08)
[2024-05-20 08:42] LABS: Absolute Basophils 0.1 K/uL (0-0.5); Absolute Lymphocytes (CBC) 1.4 K/uL (0.7-4.9); Absolute Monocytes 0.5 K/uL (0.1-1.3); Absolute Neutrophil 5.2 K/uL (1.8-8.0); Basophils % 0.7 % (0-1.3); Eosinophils % 0.5 % (0-4.4); Hematocrit 37.5 % (36.0-45.0); Hemoglobin 12.6 g/dL (12.0-15.0); Lymphocytes % 19.1 % (15.3-44.8); MCH 33.7 pg (27.0-35.0); MCHC 33.7 g/dL (32.0-36.0); MCV 100.2 fL (80-100); MPV 9.9 fL (7.6-11.3); Monocytes % 6.8 % (3.3-12.3); Neutrophils % 72.9 % (41.7-73.7); Nucleated Red Blood Cells % 0.1 % (0-0); Platelets 182 thou/uL (152-406); RBC Red Blood Cell Count 3.74 M/uL (3.86-4.86); Red Cell Distribution Width 15.1 % (12.1-15.2)
[2024-05-20 09:01] LABS: Anion Gap 10.9 mEq/L (5.0-15.0); Bicarbonate 25 mEq/L (21-32); Glomerular Filtration Rate 96 ml/min (=/>90); Glucose Level 150 mg/dL (74-106); Magnesium 1.6 mg/dL (1.6-2.4); Potassium 2.9 mEq/L (3.5-5.1); Sodium Level 139 mEq/L (136-145)
[2024-05-20 09:04] LABS: BUN Blood Urea Nitrogen < 3 mg/dL (7-18)
--- NOTE | 2024-05-20 09:16 | P.PN ---
Subjective Date of Service: 05/20/24 Chief Complaint: Colitis Subjective: Other (continued nausea) <Madina Magana - Last Filed: 05/20/24 09:59> Date of Service: 05/20/24 <Estrada Kaur - Last Filed: 05/20/24 12:36> Review of Systems 10-point ROS is otherwise unremarkable General: Weakness, Malaise Gastrointestinal: Nausea, Vomiting, Abdominal Pain Neurological: As per HPI <Madian Magana - Last Filed: 05/20/24 09:59> Physical Examination - Vital Signs Temperature: 97.7 F Blood Pressure: 145/65 Pulse: 85 Respirations: 18 Pulse Ox (%): 98 <Madina Magana - Last Filed: 05/20/24 09:59> Assessment And Plan - Plan Assessment and Plan - Problems (Diagnosis) (1) Colitis Current Visit: Yes Status: Acute Plan: Colitis IV antibiotics IV hydration CT findings noted consistent with right-sided colitis Patient has a history of ulcerative colitis Needs follow-up with GI as outpatient Pain control Copious vomiting today, will re-scan and if intractable will place NGT. Severe hypokalemia with a potassium of 1.7, repeat 3.1, but Magnesium low at 1.5. 3gm ordered. 05/18 K 5.1, Mg 2.4, Phos down to 1.4 (NaPhos ordered) 05/19 K 3.8, Phos 2.1, IVF changed to LR and then D5LR in the afternoon 05/20 K 2.9 , Phos 2.0 Added cortisol and TSH, will give Hydrocortisone 100mg IV x 1, CT abd/pelvis showed normal kidneys/adrenals Monitor closely on telemetry IV hydration Potassium/Mag/Phos replacement Pt has midline, will consult assistant front office manager and begin PPN Monitor closely under telemetry Q6h glucose monitoring with SSI coverage Generalized weakness Hypertension Hyperlipidemia CAD Continue home medications and titrate as needed DVT PPX: Lovenox Code status: Full <Madina Magana - Last Filed: 05/20/24 09:59> - Plan Pt seen and examined. I agree with the note by the RAG CUTTING MACHINE OPERATOR. Pt complains of chest pain. Will check troponin and EKG. Consulted GI for intractable nausea. <Estrada Kaur - Last Filed: 05/20/24 12:36>
[2024-05-20 10:18] LABS: Thyroid Stimulating Hormone 4.49 uIU/mL (0.358-3.740)
[2024-05-20] MEDS: HYDROCORTISONE SUC 100 MG INJ IV ONE (10:47)
--- NOTE | 2024-05-20 11:51 | RAD REPORT ---
EXAM DESCRIPTION: CT - Abdomen Pelvis W/Wo Contrast - 05/20/2024 10:36 am CLINICAL HISTORY: intractable vomiting COMPARISON: Abdomen Pelvis W Contrast dated 05/16/2024; Abdomen Angio dated 01/19/2024; Abdomen Pe lvis W Contrast dated 01/15/2024; Abdomen Pelvis W Contrast dated 02/24/2022 TECHNIQUE: Thin cut axial CT imaging of the abdomen and pelvis was performed before and after intrav enous administration of iodinated contrast. Multiplanar reformats were generated and reviewed. All CT scans are performed using dose optimization technique as appropriate and may include automated exposure control or mA/KV adjustment according to patient size. FINDINGS: Trace left pleural effusion. No other suspicious findings in the lung bases. The liver, spleen, and pancreas show no suspicious findings. Gallbladder was surgically removed. Symmetric renal function is seen with no hydronephrosis or suspicious renal mass. Small right renal n onobstructing calculi, largest measuring 3 mm. The visualized opacified upper urinary tract shows no abnormality. No dilated bowel loops. Mild intramural fat deposition along the cecum and ascending colon. . Normal appendix. No free air, free fluid or inflammatory stranding. No hernia, mass or bulky lymphadenopathy . The urinary bladder is without significant finding. No suspicious bony findings. IMPRESSION: Nonobstructing right renal calculi up to 3 mm in size. Trace left pleural effusion. Mild intramural fat deposition along the cecum and ascending colon, nonspecific, but could reflect se quelae of prior attacks of colitis.
[2024-05-20] MEDS: INSULIN REGULAR (HUMAN) 100 UNIT/ML SQ SCH (12:00)
[2024-05-20] MEDS ORDERED: POTASSIUM CL SA 10 MEQ TAB PO SCH (13:00)
[2024-05-20] MEDS ORDERED: AA 4.25 %/D5W/ELECTROLYTES 2,000 ML, Lipids 20% 250 ML with MULTIVITAMINS INJ 10 ML IV SCH (17:00)
[2024-05-20] MEDS: AA 4.25 %/D5W/ELECTROLYTES 2,000 ML, Lipids 20% 250 ML with MULTIVITAMINS INJ 10 ML IV SCH (17:09)
[2024-05-20 18:14] LABS: Anion Gap 10.1 mEq/L (5.0-15.0); Bicarbonate 24 mEq/L (21-32); Glomerular Filtration Rate 107 ml/min (=/>90); Glucose Level 185 mg/dL (74-106); Potassium 3.1 mEq/L (3.5-5.1); Sodium Level 137 mEq/L (136-145)
[2024-05-20 18:17] LABS: Albumin 2.2 g/dL (3.4-5.0); Albumin/Globulin Ratio 0.7 (1.1-1.8); BUN Blood Urea Nitrogen < 3 mg/dL (7-18); Bilirubin Direct 0.2 mg/dL (0-0.2); Bilirubin Indirect, Calculated 0.3 mg/dL (0.2-0.8); Bilirubin Total 0.5 mg/dL (0.2-1.0); Globulin 3.1 g/dL (2.3-3.5); Magnesium 1.5 mg/dL (1.6-2.4); Phosphorus 3.3 mg/dL (2.5-4.9); Protein, Total 5.3 g/dL (6.4-8.2)
[2024-05-20 18:19] LABS: Potassium 3.1 mEq/L (3.5-5.1); Troponin High Sensitivity 10.2 pg/mL (<58.9)
[2024-05-20] MEDS: Magnesium Sulfate 2gm IVPB 2 G/50 ML BAG IV ONE (19:36)
[2024-05-21 06:27] LABS: Absolute Lymphocytes (CBC) 2.2 K/uL (0.7-4.9); Absolute Monocytes 0.5 K/uL (0.1-1.3); Absolute Neutrophil 4.7 K/uL (1.8-8.0); Basophils % 0.5 % (0-1.3); Eosinophils % 0.3 % (0-4.4); Hematocrit 29.2 % (36.0-45.0); Hemoglobin 9.9 g/dL (12.0-15.0); Lymphocytes % 29.2 % (15.3-44.8); MCH 33.7 pg (27.0-35.0); MCHC 33.9 g/dL (32.0-36.0); MCV 99.2 fL (80-100); Monocytes % 7.3 % (3.3-12.3); Neutrophils % 62.7 % (41.7-73.7); Nucleated Red Blood Cells % 0.1 % (0-0); Platelets 133 thou/uL (152-406); RBC Red Blood Cell Count 2.95 M/uL (3.86-4.86); Red Cell Distribution Width 15.1 % (12.1-15.2)
[2024-05-21 06:51] LABS: Anion Gap 8.9 mEq/L (5.0-15.0); Magnesium 2.4 mg/dL (1.6-2.4); Phosphorus 2.1 mg/dL (2.5-4.9); Potassium 2.9 mEq/L (3.5-5.1)
[2024-05-21] MEDS: POTASSIUM PHOS IN 0.9 % NACL 15 MMOL/250 ML BAG IV ONE (07:52)
--- NOTE | 2024-05-21 09:08 | P.PN ---
Subjective Date of Service: 05/21/24 Chief Complaint: Colitis Subjective: Improving (looks much better today. States she is feeling better, wants a shower, and up to chair today) <Madina Magana - Last Filed: 05/21/24 09:05> Date of Service: 05/21/24 <Estrada Kaur Sandra - Last Filed: 05/21/24 13:21> Review of Systems 10-point ROS is otherwise unremarkable General: Weakness, Malaise, As per HPI Gastrointestinal: Nausea, Vomiting, Abdominal Pain, As per HPI <Madina Magana - Last Filed: 05/21/24 09:05> Physical Examination - Vital Signs Temperature: 97.0 F Blood Pressure: 118/59 Pulse: 84 Respirations: 18 Pulse Ox (%): 96 - Physical Exam General: Alert, In no apparent distress, Oriented x3, Cooperative HEENT: Atraumatic, Normocephalic Neck: Supple Respiratory: Normal air movement Cardiovascular: Normal pulses, Regular rate/rhythm Capillary refill: <2 Seconds Gastrointestinal: Soft and benign Musculoskeletal: No clubbing, No swelling Integumentary: No rashes Neurological: Normal speech, Normal tone, Normal affect Lymphatics: No axilla or inguinal lymphadenopathy External genitalia: Deferred Rectal: Deferred <Madina Magana - Last Filed: 05/21/24 09:05> Assessment And Plan - Plan Assessment and Plan - Problems (Diagnosis) (1) Colitis Current Visit: Yes Status: Acute Plan: Colitis IV antibiotics IV hydration CT findings noted consistent with right-sided colitis Patient has a history of ulcerative colitis Needs follow-up with GI as outpatient Pain control 05/20 Copious vomiting today, will re-scan (negative) and if intractable will place NGT. 05/21 Feeling significantly better. Severe hypokalemia with a potassium of 1.7, repeat 3.1, but Magnesium low at 1.5. 3gm ordered. 05/18 K 5.1, Mg 2.4, Phos down to 1.4 (NaPhos ordered) 05/19 K 3.8, Phos 2.1, IVF changed to LR and then D5LR in the afternoon 05/20 K 2.9 , Phos 2.0 Added cortisol and TSH, will give Hydrocortisone 100mg IV x 1, CT abd/pelvis showed normal kidneys/adrenals Monitor closely on telemetry IV hydration Potassium/Mag/Phos replacement Pt has midline, will consult university librarian and begin PPN Monitor closely under telemetry Q6h glucose monitoring with SSI coverage 05/21 feeling much better Generalized weakness Hypertension Hyperlipidemia CAD Continue home medications and titrate as needed DVT PPX: Lovenox Code status: Full <IzzyMadinadamian Workman - Last Filed: 05/21/24 09:05> - Plan Pt seen and examined. I agree with the note by the DISTRIBUTION SUPERINTENDENT. She is feeling better. Continue iv abx. CT abd shows 3mm right renal calculi. Consulted GI for colitis. Will f/u MRCP. <Estrada Kaur - Last Filed: 05/21/24 13:21>
[2024-05-21] MEDS ORDERED: CIPROFLOXACIN 400mg IV 400 MG/200 ML BAG IV SCH (12:00)
--- NOTE | 2024-05-21 12:34 | EKG ---
Test Date: 2024-05-20 Test Time: 12:48:07 Fire Fighters Dispatcher: CLARE MEASUREMENT RESULTS: Intervals: Rate: 90 LA: 148 QRSD: 72 QT: 392 QTc: 479 [place]: P: 33 LA: 148 QRS: -26 T: 221 INTERPRETIVE STATEMENTS: Normal sinus rhythm Anteroseptal infarct, age undetermined Abnormal ECG Compared to ECG 05/16/2024 16:54:37 Left-axis deviation no longer present ST (T wave) deviation no longer present Myocardial infarct finding still present Electronically Signed On 05-21-24 12:32:07 CDT by Clyde Velásquez
[2024-05-21] MEDS: Mupirocin NASAL 2 APPL/1 GM TUBE NAS SCH ×2 (12:37→21:27)
[2024-05-21] MEDS: Ciprofloxacin 200mg IV 400 MG/200 ML IV.SOLN. IV ONE (12:39)
--- NOTE | 2024-05-21 13:20 | RAD REPORT ---
EXAM DESCRIPTION: MRI - Cholangiogram - 05/21/2024 12:16 pm CLINICAL HISTORY: evaluate CBD for obstruction COMPARISON: Abdomen Pelvis W Contrast dated 05/16/2024; Abdomen Pelvis W/Wo Contrast dated 024 TECHNIQUE: Multiplanar multisequence MRI of the abdomen, obtained without IV contrast, utilizing M TAX REPRESENTATIVE sequences. FINDINGS: Status post cholecystectomy. No intrahepatic biliary ductal dilation. Common bile duct is normal in caliber, 9 millimeter. No filling defects to suggest choledocholithiasi s. Smooth tapering at the ampulla. Main pancreatic duct is not dilated. The visualized aspects of the liver, spleen, adrenal glands, pancreas, and kidneys are unremarkable a part from small parapelvic left lower pole renal cysts largest measuring 11 mm. Visualized aspects of the bowel are unremarkable. No suspicious osseous lesions. Trace bilateral pleural effusions more prominent on the left. IMPRESSION: Normal MR cholangiogram. Status post cholecystectomy.
[2024-05-21 17:03] LABS: Anion Gap 11.7 mEq/L (5.0-15.0); Phosphorus 2.1 mg/dL (2.5-4.9); Potassium 2.7 mEq/L (3.5-5.1)
--- NOTE | 2024-05-21 18:30 | RAD REPORT ---
EXAM DESCRIPTION: RAD - Chest Single View - 05/21/2024 6:06 pm CLINICAL HISTORY: PPN and abx COMPARISON: Chest Single View dated 05/16/2024; Abdomen 1 View (KUB) dated 01/21/2024; Abdomen 1 View (KUB) dated 01/21/2024; Chest Single View dated 01/20/2024 FINDINGS: Portable chest was obtained following placement of a right upper extremity PICC line. The catheter tip projects over the SVC.
[2024-05-21] MEDS: POTASSIUM CL 40 MEQ in NA CHLORIDE 0.9% 500 ML IV SCH (18:39)
[2024-05-21] MEDS: Ciprofloxacin 200mg IV 400 MG/200 ML IV.SOLN. IV SCH (21:27)
[2024-05-21 22:10] VITALS: O2SAT 100
[2024-05-22 06:03] LABS: Absolute Eosinophils 0.1 K/uL (0-0.5); Absolute Lymphocytes (CBC) 2.4 K/uL (0.7-4.9); Absolute Monocytes 0.5 K/uL (0.1-1.3); Absolute Neutrophil 2.7 K/uL (1.8-8.0); Basophils % 0.8 % (0-1.3); Eosinophils % 2.5 % (0-4.4); Hematocrit 26.7 % (36.0-45.0); Hemoglobin 9.1 g/dL (12.0-15.0); Lymphocytes % 41.9 % (15.3-44.8); MCH 34.3 pg (27.0-35.0); MCV 100.9 fL (80-100); MPV 10.1 fL (7.6-11.3); Monocytes % 8.4 % (3.3-12.3); Neutrophils % 46.4 % (41.7-73.7); Nucleated Red Blood Cells % 0.1 % (0-0); Platelets 116 thou/uL (152-406); RBC Red Blood Cell Count 2.64 M/uL (3.86-4.86); Red Cell Distribution Width 15.2 % (12.1-15.2)
[2024-05-22 06:18] LABS: Albumin 1.9 g/dL (3.4-5.0); Albumin/Globulin Ratio 0.8 (1.1-1.8); Anion Gap 7.1 mEq/L (5.0-15.0); Bilirubin Total 0.3 mg/dL (0.2-1.0); Globulin 2.5 g/dL (2.3-3.5); Magnesium 2.2 mg/dL (1.6-2.4); Phosphorus 2.8 mg/dL (2.5-4.9); Potassium 4.1 mEq/L (3.5-5.1); Protein, Total 4.4 g/dL (6.4-8.2)
--- NOTE | 2024-05-22 10:59 | P.PN ---
Subjective Date of Service: 05/22/24 Chief Complaint: Colitis Subjective: Improving (feeling better, no vomiting for two days. lower ext remain weak. PICC placed to right upper arm last pm) <Madina Magana - Last Filed: 05/22/24 11:05> Date of Service: 05/22/24 <Estrada Kaur Sandra - Last Filed: 05/22/24 13:10> Review of Systems 10-point ROS is otherwise unremarkable General: Weakness, Malaise, As per HPI Gastrointestinal: As per HPI Neurological: As per HPI <Madina Magana - Last Filed: 05/22/24 11:05> Physical Examination - Vital Signs Temperature: 97.2 F Blood Pressure: 133/62 Pulse: 92 Respirations: 18 Pulse Ox (%): 98 - Physical Exam General: Alert, In no apparent distress, Oriented x3 HEENT: Atraumatic, Normocephalic Neck: Supple Respiratory: Normal air movement Cardiovascular: Normal pulses, Regular rate/rhythm Capillary refill: <2 Seconds Gastrointestinal: Soft and benign, Non-distended Musculoskeletal: No clubbing Integumentary: No rashes Neurological: Normal speech, Normal tone, Normal affect Lymphatics: No axilla or inguinal lymphadenopathy External genitalia: Deferred Rectal: Deferred (midline to left arm, PICC to right) <Madina Magana - Last Filed: 05/22/24 11:05> Assessment And Plan - Plan Assessment and Plan - Problems (Diagnosis) (1) Colitis Current Visit: Yes Status: Acute Plan: Colitis IV antibiotics IV hydration CT findings noted consistent with right-sided colitis Patient has a history of ulcerative colitis Needs follow-up with GI as outpatient Pain control 05/20 Copious vomiting today, will re-scan (negative) and if intractable will place NGT. 05/21 Feeling significantly better. 05/22 feeling better, remains weak, SNF orders placed for IPR Severe hypokalemia with a potassium of 1.7, repeat 3.1, but Magnesium low at 1.5. 3gm ordered. 05/18 K 5.1, Mg 2.4, Phos down to 1.4 (NaPhos ordered) 05/19 K 3.8, Phos 2.1, IVF changed to LR and then D5LR in the afternoon 05/20 K 2.9 , Phos 2.0 Added cortisol and TSH, will give Hydrocortisone 100mg IV x 1, CT abd/pelvis showed normal kidneys/adrenals Monitor closely on telemetry IV hydration Potassium/Mag/Phos replacement Pt has midline, will consult program coordinator executive education and begin PPN Monitor closely under telemetry Q6h glucose monitoring with SSI coverage 05/21 feeling much better, Kphos given this am for K 2.9 and phos 2.1 (Mag 2.4) potassium again dropped to 2.7 on redraw, even without vomiting and PPN infusing, additional 40meq given IV. Will consult Nephrology and send urine K 05/22 feeling better, K 4.1 this am, Phos 2.8, Mag 2.2 Generalized weakness Hypertension Hyperlipidemia CAD Continue home medications and titrate as needed DVT PPX: Lovenox Code status: Full <MaganaMadina Ji - Last Filed: 05/22/24 11:05> - Plan Pt seen and examined. I agree with the note by the BUDGET CONTROLLER. She is feeling better. Continue iv abx. CT abd shows 3mm right renal calculi. GI is following. MRCP is unremarkable. <Estrada Kaur - Last Filed: 05/22/24 13:10>
--- NOTE | 2024-05-22 14:32 | CON ---
Date of Consultation: 05/22/2024 Reason For Consultation: Hypokalemia. History Of Present Illness: This is a 73-year-old female with significant past medical history of diverticulitis, hypertension, hyperlipidemia, CAD, ulcerative colitis, came to the hospital with abdominal pain, nausea, and weakness, found to have electrolyte imbalance. The patient was started on IDPN. The patient continued to have hypokalemia in spite of recurrent supplement. For that reason, we have been consulted. The patient denied eating any herbal. On her medication, patient is being on meloxicam. Past Medical History: Includes: 1. Hypertension. 2. Diverticulosis. 3. Ulcerative colitis. 4. Hypertension. 5. CAD. 6. Hyperlipidemia. Allergies: NO KNOWN DRUGS ALLERGY. Home Medications: Include omeprazole, aspirin, atorvastatin, meloxicam, meclizine, amiodarone, Eliquis, metoprolol, vitamin D. Past Surgical History: Include hysterectomy, cholecystectomy, PTCA. Family History: Positive for hypertension. Social History: Denied smoking. Denied drinking. Denied drugs abuse. Review of Systems: Head and Neck: No red eye. No ear pain. GI: Has abdominal pain. : No polyuria, no dysuria, no hematuria. Radio Officer: No vaginal discharge. Respiratory: No shortness of breath. Cardiovascular: No chest pain. Endocrine: No polydipsia. Skin: No rash. Neuro: Has generalized fatigue Musculoskeletal: Low back pain. Physical Examination: Vital Signs: When I saw the patient, blood pressure of 133/62, pulse of 92, afebrile. Chest: Clear to auscultation. Heart: S1, S2. Regular. Abdomen: Soft, nontender. No guarding or rebound. Extremities: No edema. Neurologic: Alert and oriented x3. No focality. Laboratory Data: Sodium 139, potassium 2.7, bicarb 24, BUN 5, creatinine 0.6, calcium of 8. Magnesium 2.2, phosphorus 2.1. Albumin 1.9. Urinalysis is positive for infection, wbc's more than 50. Assessment And Plan: 1. Persistent hypokalemia, possible gastrointestinal loss given the ulcerative colitis. I am going to go ahead and send for urine electrolyte to evaluate if there is any potassium wasting and we will continue supplement. I am going to go ahead and adjust her TPN and we will follow up. If needed, we will add spironolactone to her regimen when allowed to eat. 2. Hypertension, controlled, optimal. 3. Malnourished secondary to ulcerative colitis as by primary. Continue total parenteral nutrition. Time spent examining the patient [id number] reviewing data lab and radiology placing orders and discussing the case with the patient discussing the case with the steam generating powerplant mechanic including hospitalist nursing staff more than 75-minute HERMINIA Voice ID: [id number] Report ID: [id number] MTDD
[2024-05-22 16:05] LABS: Arterial Blood Carboxyhemoglob 0.6 % (0-1.5); Blood Gas Oxyhemoglobin 95.4 % (94-97); Blood Gas THB 9.9 g/dl (12-18); Blood O2 Saturation 97.1 % (92-98.5)
[2024-05-22] MEDS: AA 4.25 %/D5W/ELECTROLYTES 2,000 ML IV SCH (16:06)
[2024-05-22] MEDS: HYDROCODONE/APAP 7.5/325 MG TAB PO PRN (20:08)
[2024-05-23] MEDS: HYDROCODONE/APAP 7.5/325 MG TAB PO PRN (00:55)
[2024-05-23 04:45] LABS: Absolute Eosinophils 0.2 K/uL (0-0.5); Absolute Lymphocytes (CBC) 2.3 K/uL (0.7-4.9); Absolute Monocytes 0.5 K/uL (0.1-1.3); Absolute Neutrophil 2.2 K/uL (1.8-8.0); Basophils % 0.9 % (0-1.3); Hematocrit 25.7 % (36.0-45.0); Hemoglobin 8.7 g/dL (12.0-15.0); Lymphocytes % 44.3 % (15.3-44.8); MCH 33.8 pg (27.0-35.0); MCHC 33.6 g/dL (32.0-36.0); MCV 100.5 fL (80-100); MPV 9.7 fL (7.6-11.3); Monocytes % 9.6 % (3.3-12.3); Neutrophils % 42.2 % (41.7-73.7); Nucleated Red Blood Cells % 0.2 % (0-0); Platelets 111 thou/uL (152-406); RBC Red Blood Cell Count 2.56 M/uL (3.86-4.86); Red Cell Distribution Width 15.2 % (12.1-15.2)
[2024-05-23 05:47] LABS: ALT/SGPT 48 U/L (13-56); AST/SGOT 58 U/L (15-37); Albumin 1.9 g/dL (3.4-5.0); Albumin/Globulin Ratio 0.7 (1.1-1.8); Alkaline Phosphatase 36 U/L (45-117); Anion Gap 5.6 mEq/L (5.0-15.0); BUN Blood Urea Nitrogen 9 mg/dL (7-18); Bicarbonate 28 mEq/L (21-32); Bilirubin Total 0.3 mg/dL (0.2-1.0); Globulin 2.6 g/dL (2.3-3.5); Glomerular Filtration Rate 116 ml/min (=/>90); Glucose Level 99 mg/dL (74-106); Magnesium 2.2 mg/dL (1.6-2.4); Phosphorus 3.9 mg/dL (2.5-4.9); Potassium 3.6 mEq/L (3.5-5.1); Protein, Total 4.5 g/dL (6.4-8.2); Sodium Level 138 mEq/L (136-145)
[2024-05-23] MEDS: LEVOTHYROXINE SODIUM 100 MCG VIAL IV SCH (06:45)
[2024-05-23] MEDS: POTASSIUM CL SA 10 MEQ TAB PO ONE (07:59)
--- NOTE | 2024-05-23 08:41 | P.PN ---
Subjective Date of Service: 05/23/24 Chief Complaint: Colitis Subjective: Improving (electrolytes requiring less supplementation, midline to left, PICC to right. Pt to be eval for inpatient rehab) <Nancy Maganadamian Workman - Last Filed: 05/23/24 08:36> Date of Service: 05/23/24 <Estrada Kaur Sandra - Last Filed: 05/23/24 12:40> Review of Systems 10-point ROS is otherwise unremarkable General: Weakness, Malaise Gastrointestinal: Nausea, Vomiting, Abdominal Pain Musculoskeletal: Back Pain <Madina Magana - Last Filed: 05/23/24 08:36> Physical Examination - Vital Signs Temperature: 97.1 F Blood Pressure: 139/60 Pulse: 88 Respirations: 18 Pulse Ox (%): 96 - Physical Exam General: In no apparent distress, Oriented x3 HEENT: Atraumatic, Normocephalic Neck: Supple Respiratory: Normal air movement Cardiovascular: Regular rate/rhythm, Normal S1 S2 Capillary refill: <2 Seconds Gastrointestinal: Soft and benign Musculoskeletal: No clubbing Integumentary: No rashes Neurological: Normal speech, Normal tone, Normal affect, Abnormal strength Lymphatics: No axilla or inguinal lymphadenopathy External genitalia: Deferred Rectal: Deferred <MaganaNancydamian Workman - Last Filed: 05/23/24 08:36> Assessment And Plan - Plan Assessment and Plan - Problems (Diagnosis) (1) Colitis Current Visit: Yes Status: Acute Plan: Colitis IV antibiotics IV hydration CT findings noted consistent with right-sided colitis Patient has a history of ulcerative colitis Needs follow-up with GI as outpatient Pain control 05/20 Copious vomiting today, will re-scan (negative) and if intractable will place NGT. 05/21 Feeling significantly better. 05/22 feeling better, remains weak, SNF orders placed for IPR 05/23 no vomiting, diarrhea Severe hypokalemia with a potassium of 1.7, repeat 3.1, but Magnesium low at 1.5. 3gm ordered. 05/18 K 5.1, Mg 2.4, Phos down to 1.4 (NaPhos ordered) 05/19 K 3.8, Phos 2.1, IVF changed to LR and then D5LR in the afternoon 05/20 K 2.9 , Phos 2.0 Added cortisol and TSH, will give Hydrocortisone 100mg IV x 1, CT abd/pelvis showed normal kidneys/adrenals Monitor closely on telemetry IV hydration Potassium/Mag/Phos replacement Pt has midline, will consult wet finisher and begin PPN Monitor closely under telemetry Q6h glucose monitoring with SSI coverage 05/21 feeling much better, Kphos given this am for K 2.9 and phos 2.1 (Mag 2.4) potassium again dropped to 2.7 on redraw, even without vomiting and PPN infusing, additional 40meq given IV. Will consult Nephrology and send urine K 05/22 feeling better, K 4.1 this am, Phos 2.8, Mag 2.2 (urine K low) 05/23 no vomiting, K 3.8 Phos 3.9 Mag 2.2 Generalized weakness 05/23 TSH drawn in early admit elevated, TSH yesterday > 9, will supplement with Levothyroxine PT, SW for IPR eval Hypertension - home meds Hyperlipidemia - home meds CAD - hx of a. fib but in NSR, no Eliquis x over one month Continue home medications and titrate as needed DVT PPX: Lovenox Code status: Full <Madina Magana - Last Filed: 05/23/24 08:36> - Plan Pt seen and examined. I agree with the note by the HEATING EQUIPMENT INSTALLER. She is feeling better. Electrolytes are corrected. Continue iv abx. CT abd shows 3mm right renal calculi. GI is following. MRCP is unremarkable. <Estrada Kaur - Last Filed: 05/23/24 12:40>
[2024-05-23] MEDS: SPIRONOLACTONE 25 MG TABLET PO SCH (12:50)
--- NOTE | 2024-05-23 13:24 | P.PN ---
Subjective Date of Service: 05/23/24 Chief Complaint: Colitis Subjective: New changes, Doing well (Patient started p.o. intake) Review of Systems 10-point ROS is otherwise unremarkable Gastrointestinal: Nausea (Patient tolerating liquid diet) Physical Examination - Vital Signs Temperature: 97.4 F Blood Pressure: 109/50 Pulse: 103 Respirations: 16 Pulse Ox (%): 100 - Physical Exam General: Alert, Oriented x3 HEENT: Atraumatic, PERRLA Neck: Supple, JVD not distended Respiratory: Clear to auscultation bilaterally Cardiovascular: Normal S1 S2, Systolic murmur Capillary refill: <2 Seconds Gastrointestinal: Normal bowel sounds, Soft and benign Musculoskeletal: No clubbing Integumentary: No rashes Neurological: Normal strength at 5/5 x4 extr, Cranial nerves 3-12 intact, Normal affect - Studies Microbiology Data (last 24 hrs): Laboratory Last Values WBC 8.30 thou/uL (4.3-10.9) 05/16/24 16:38 RBC 3.88 M/uL (3.86-4.86) 05/16/24 16:38 Hgb 13.0 g/dL (12.0-15.0) 05/16/24 16:38 Hct 38.0 % (36.0-45.0) 05/16/24 16:38 MCV 97.9 fL (80-100) 05/16/24 16:38 MCH 33.6 pg (27.0-35.0) 05/16/24 16:38 MCHC 34.4 g/dL (32.0-36.0) 05/16/24 16:38 RDW 15.4 % (12.1-15.2) H 05/16/24 16:38 Plt Count 205 thou/uL (152-406) 05/16/24 16:38 MPV 10.6 fL (7.6-11.3) 05/16/24 16:38 Neutrophils % 70.3 % (41.7-73.7) 05/16/24 16:38 Lymphocytes % 20.6 % (15.3-44.8) 05/16/24 16:38 Monocytes % 8.4 % (3.3-12.3) 05/16/24 16:38 Eosinophils % 0.1 % (0-4.4) 05/16/24 16:38 Basophils % 0.6 % (0-1.3) 05/16/24 16:38 Absolute Neutrophils 5.9 K/uL (1.8-8.0) 05/16/24 16:38 Absolute Lymphocytes 1.7 K/uL (0.7-4.9) 05/16/24 16:38 Absolute Monocytes 0.7 K/uL (0.1-1.3) 05/16/24 16:38 Absolute Eosinophils 0.0 K/uL (0-0.5) 05/16/24 16:38 Absolute Basophils 0.1 K/uL (0-0.5) 05/16/24 16:38 PT 12.1 SECONDS (9.5-12.5) 05/16/24 16:38 INR 1.10 05/16/24 16:38 APTT 34.0 SECONDS (24.3-36.9) 05/16/24 16:38 Sodium 138 mEq/L (136-145) 05/16/24 16:38 Potassium 1.7 mEq/L (3.5-5.1) L* 05/16/24 16:38 Chloride 98 mEq/L (98-107) 05/16/24 16:38 Carbon Dioxide 25 mEq/L (21-32) 05/16/24 16:38 Anion Gap 16.7 mEq/L (5.0-15.0) H 05/16/24 16:38 BUN 7 mg/dL (7-18) 05/16/24 16:38 Creatinine 0.65 mg/dL (0.55-1.02) 05/16/24 16:38 Est GFR (CKD-EPI) 92 ml/min (=/>90) 05/16/24 16:38 Glucose 126 mg/dL (74-106) H 05/16/24 16:38 Calcium 8.4 mg/dL (8.5-10.1) L 05/16/24 16:38 Magnesium 1.6 mg/dL (1.6-2.4) 05/16/24 16:38 Total Bilirubin 1.0 mg/dL (0.2-1.0) 05/16/24 16:38 Direct Bilirubin 0.4 mg/dL (0-0.2) H 05/16/24 16:38 Indirect Bilirubin 0.6 mg/dL (0.2-0.8) 05/16/24 16:38 AST 75 U/L (15-37) H 05/16/24 16:38 ALT 51 U/L (13-56) 05/16/24 16:38 Alkaline Phosphatase 60 U/L (45-117) 05/16/24 16:38 Troponin I High Sens 29.2 pg/mL (<58.9) 05/16/24 16:38 NT-Pro-B Natriuret Pep 402 pg/mL (<450) 05/16/24 16:38 Serum Total Protein 5.9 g/dL (6.4-8.2) L 05/16/24 16:38 Albumin 2.5 g/dL (3.4-5.0) L 05/16/24 16:38 Globulin 3.4 g/dL (2.3-3.5) 05/16/24 16:38 Albumin/Globulin Ratio 0.7 (1.1-1.8) L 05/16/24 16:38 Acetaminophen (Acetaminophen 325 Mg Tablet) 650 mg PO Q4HP PRN PRN Reason: TEMP > 100' F Hydrocodone Bitart/Acetaminophen (Hydrocodone/Apap 7.5/325 Mg Tab) 1 tab PO Q4H PRN PRN Reason: Pain scale 5-7 (Moderate) Last Admin: 05/23/24 00:55 Dose: 1 tab Enoxaparin Sodium (Enoxaparin 40 Mg/0.4 Ml) 40 mg SQ DAILY [facility] Last Admin: 05/23/24 07:59 Dose: 40 mg Multivitamins 10 ml/ AA 4.25 % /D5W/ELECTROLYTES/ Fat Emulsion Intravenous 2,260 mls @ 80 mls/hr IV M,W,F [facility] Last Admin: 05/21/24 18:42 Dose: 2,260 mls AA 4.25 %/D5W/ELECTROLYTES (Clinimix E 4.25%-5% Solution) 2,000 mls @ 80 mls/hr IV [id number] [facility] Last Admin: 05/22/24 16:06 Dose: 2,000 mls Ciprofloxacin/Dextrose (Cipro 200 Mg/100 Ml Ivpb (Premix)) 400 mg in 200 mls @ 200 mls/hr IV Q12HR [facility]; Protocol Last Admin: 05/23/24 07:58 Dose: 200 mls Insulin Human Regular (Insulin Regular (Human) 100 Unit/Ml) 0 unit SQ Q6HR [facility]; Protocol Last Admin: 05/23/24 06:00 Dose: Not Given Levothyroxine Sodium (Levothyroxine Sodium 100 Mcg Vial) 100 mcg IV [id number] [facility] Last Admin: 05/23/24 06:45 Dose: Not Given Mupirocin (Mupirocin Nasal 2 Appl/1 Gm Tube) 1 appl APARNA BID [facility] Stop: 05/26/24 09:01 Last Admin: 05/23/24 07:59 Dose: 1 appl Ondansetron HCl (Ondansetron 4 Mg/2 Ml Vial) 4 mg IV Q6HP PRN PRN Reason: NAUSEA / VOMITING Last Admin: 05/19/24 13:13 Dose: 4 mg Pantoprazole Sodium (Pantoprazole 40 Mg Inj) 40 mg IVP DAILY [facility]; Protocol Last Admin: 05/23/24 07:58 Dose: 40 mg Promethazine HCl (Promethazine Inj 25 Mg/Ml Amp) 12.5 mg IV Q8H PRN PRN Reason: NAUSEA / VOMITING Last Admin: 05/19/24 15:08 Dose: 12.5 mg Simethicone (Simethicone 80 Mg Chewable Tab) 80 mg PO Q6H PRN PRN Reason: GAS Sodium Chloride (Sodium Chloride 0.9% 10ml Inj) 10 ml IV UD PRN PRN Reason: Diluant Spironolactone (Spironolactone 25 Mg Tablet) 50 mg PO DAILY [facility] Last Admin: 05/23/24 12:50 Dose: 50 mg Sucralfate (Sucralfate 1 Gm Tablet) 1 gm PO ACHS [facility] Last Admin: 05/23/24 12:56 Dose: 1 gm Assessment And Plan - Plan Assessment And Plan: 1. Persistent hypokalemia, with alkalosis TTKG 5.3 support some salt wasting + gastrointestinal loss given the ulcerative colitis. Magnesium within normal limit Start the patient on spironolactone Continue TPN and we will follow up. Will monitor the patient 2. Hypertension, controlled, optimal. 3. Malnourished secondary to ulcerative colitis as by primary. Continue total parenteral nutrition.
[2024-05-23] MEDS: POTASSIUM CL 40 MEQ in NA CHLORIDE 0.9% 500 ML IV SCH (14:30)
[2024-05-24] MEDS ORDERED: LEVOTHYROXINE SODIUM 100 MCG VIAL IV SCH (06:00)
[2024-05-24 06:18] LABS: Absolute Eosinophils 0.1 K/uL (0-0.5); Absolute Lymphocytes (CBC) 1.9 K/uL (0.7-4.9); Absolute Monocytes 0.5 K/uL (0.1-1.3); Absolute Neutrophil 2.8 K/uL (1.8-8.0); Basophils % 0.8 % (0-1.3); Eosinophils % 1.8 % (0-4.4); Hematocrit 27.5 % (36.0-45.0); Hemoglobin 9.3 g/dL (12.0-15.0); Lymphocytes % 35.1 % (15.3-44.8); MCH 34.3 pg (27.0-35.0); MCHC 33.9 g/dL (32.0-36.0); MCV 101.2 fL (80-100); MPV 9.5 fL (7.6-11.3); Monocytes % 10.2 % (3.3-12.3); Neutrophils % 52.1 % (41.7-73.7); Nucleated Red Blood Cells % 0.1 % (0-0); Platelets 130 thou/uL (152-406); RBC Red Blood Cell Count 2.72 M/uL (3.86-4.86); Red Cell Distribution Width 15.3 % (12.1-15.2)
[2024-05-24 06:33] LABS: Albumin 2.1 g/dL (3.4-5.0); Albumin/Globulin Ratio 0.7 (1.1-1.8); Anion Gap 6.5 mEq/L (5.0-15.0); Bilirubin Total 0.3 mg/dL (0.2-1.0); Phosphorus 4.1 mg/dL (2.5-4.9); Potassium 4.5 mEq/L (3.5-5.1); Protein, Total 5.1 g/dL (6.4-8.2)
--- NOTE | 2024-05-24 08:18 | P.PN ---
Date of Service: 05/24/24 Subjective Pending authorization shelter [facility] PT following to encourage ambulation, fearful of falling Admitted with ulcerative colitis, tolerating diet Review of Systems 10-point ROS is otherwise unremarkable Physical Examination - Vital Signs Reviewed - Physical Exam General: In no apparent distress, Oriented x3 Respiratory: equal, unlabored Cardiovascular: Sinus rhythm Capillary refill: <2 Seconds, no edema Gastrointestinal: Soft nontender Musculoskeletal: moderate generalized weakness, unsteady gait Neurological: Normal speech, Plan Assessment and Plan - Problems (Diagnosis) Ulcerative colitis IV hydration CT findings noted consistent with right-sided colitis Patient has a history of ulcerative colitis Needs follow-up with GI as outpatient Pain control Tolerating diet Severe hypokalemia Hypomagnesia Nephrology consulted for persistent hypokalemia Potassium/Mag/Phos replacement Protein calorie malnutrition Anorexia, secondary to poor p.o. intake Advance diet, monitor p.o. intake Microcytic anemia Trend H&H Generalized weakness secondary to dehydration, hypokalemia 05/23 TSH drawn in early admit elevated, TSH yesterday > 9, will supplement with Levothyroxine PT, SW for IPR eval Fearful of falling, PT following to encourage ambulation Hypertension Hyperlipidemia - Resume home meds CAD - hx of martin fib but in NSR, no Eliquis x over one month Continue home medications and titrate as needed DVT PPX: Lovenox Code status: Full Discharge planning pending shelter facility [facility]
[2024-05-24] MEDS: ENSURE HIGH PROTEIN 237 ML CAN PO SCH (11:30)
[2024-05-24] MEDS: METOPROLOL TAR 25 MG TAB PO ONE ×2 (12:03→14:43)
[2024-05-24] MEDS: NA CHLORIDE 0.9% 250 ML IV ONE (12:03)
[2024-05-24] MEDS: METOPROLOL TARTRATE 5 MG/5 ML INJ IV SCH (12:03)
[2024-05-24] MEDS: METOPROLOL TAR 50 MG TAB PO SCH (17:11)
--- NOTE | 2024-05-24 18:17 | PN ---
Date of Progress Note: 05/24/2024 Chief Complaint: Colitis. Subjective: The patient has multiple medical problems including history of hypertension. She developed persistent hypokalemia and she underwent workup for hypokalemia. Magnesium level was within normal limits. The patient was started on spironolactone. The patient has some gastrointestinal loss due to ulcerative colitis. Hypertension, patient is on blood pressure medication and blood pressure is overall improving. Review of Systems: Denies chest pain, palpitation. Physical Examination: Lungs: Clear to auscultation bilaterally. Heart: S1, S2. Abdomen: Soft. Extremities: No edema. Laboratory Data: Hemoglobin 13.0, WBC 8.3, potassium 1.7, sodium 138, chloride 98, BUN 7, creatinine 0.65, glucose 126. Impression And Plan: Severe hypokalemia. Total CO2 is 25, potassium is 1.7, sodium 136, chloride 98, BUN 7, creatinine 0.65, magnesium 1.6, calcium 8.4, glucose 126, albumin 2.5. Patient received replacement of severe hypokalemia. The patient is on spironolactone. The patient will need to have a workup for hyperaldosteronism. The patient has hypertension and which is controlled. The patient has hypoalbuminemia due to ulcerative colitis. Check urine test for elcetrolytes, urinalysis and proteinuria. VASQUEZ/KHADAR Voice ID: [id number] Report ID: [id number] [facility]
[2024-05-24] MEDS: CIPROFLOXACIN HCL 500 MG TAB PO SCH (20:36)
[2024-05-25] MEDS: LEVOTHYROXINE SOD 0.05 MG TABLET PO SCH (06:09)
[2024-05-25 06:19] LABS: Absolute Eosinophils 0.1 K/uL (0-0.5); Absolute Lymphocytes (CBC) 2.2 K/uL (0.7-4.9); Absolute Monocytes 0.5 K/uL (0.1-1.3); Absolute Neutrophil 2.1 K/uL (1.8-8.0); Basophils % 0.6 % (0-1.3); Eosinophils % 1.8 % (0-4.4); Hematocrit 27.6 % (36.0-45.0); Hemoglobin 9.4 g/dL (12.0-15.0); Lymphocytes % 44.9 % (15.3-44.8); MCH 34.1 pg (27.0-35.0); MCHC 33.9 g/dL (32.0-36.0); MCV 100.4 fL (80-100); MPV 8.9 fL (7.6-11.3); Neutrophils % 42.7 % (41.7-73.7); Nucleated Red Blood Cells % 0.1 % (0-0); Platelets 149 thou/uL (152-406); RBC Red Blood Cell Count 2.75 M/uL (3.86-4.86); Red Cell Distribution Width 15.1 % (12.1-15.2)
[2024-05-25 06:36] LABS: Albumin 2.2 g/dL (3.4-5.0); Albumin/Globulin Ratio 0.7 (1.1-1.8); Anion Gap 8.9 mEq/L (5.0-15.0); Bilirubin Total 0.4 mg/dL (0.2-1.0); Globulin 3.3 g/dL (2.3-3.5); Magnesium 1.9 mg/dL (1.6-2.4); Phosphorus 4.1 mg/dL (2.5-4.9); Potassium 3.9 mEq/L (3.5-5.1); Protein, Total 5.5 g/dL (6.4-8.2)
--- NOTE | 2024-05-25 13:31 | P.PN ---
Subjective Date of Service: 05/25/24 Chief Complaint: Colitis Subjective: No new changes (Tolerating diet) Review of Systems 10-point ROS is otherwise unremarkable Physical Examination - Vital Signs Temperature: 98.3 F Blood Pressure: 81/52 Pulse: 98 Respirations: 15 Pulse Ox (%): 97 - Physical Exam General: Alert HEENT: Atraumatic, PERRLA Neck: Supple, 2+ carotid pulse no bruit Respiratory: Clear to auscultation bilaterally Cardiovascular: No edema Gastrointestinal: Normal bowel sounds, Soft and benign Musculoskeletal: No clubbing Neurological: Normal strength at 5/5 x4 extr - Studies Laboratory Last Values WBC 8.30 thou/uL (4.3-10.9) 05/16/24 16:38 RBC 3.88 M/uL (3.86-4.86) 05/16/24 16:38 Hgb 13.0 g/dL (12.0-15.0) 05/16/24 16:38 Hct 38.0 % (36.0-45.0) 05/16/24 16:38 MCV 97.9 fL (80-100) 05/16/24 16:38 MCH 33.6 pg (27.0-35.0) 05/16/24 16:38 MCHC 34.4 g/dL (32.0-36.0) 05/16/24 16:38 RDW 15.4 % (12.1-15.2) H 05/16/24 16:38 Plt Count 205 thou/uL (152-406) 05/16/24 16:38 MPV 10.6 fL (7.6-11.3) 05/16/24 16:38 Neutrophils % 70.3 % (41.7-73.7) 05/16/24 16:38 Lymphocytes % 20.6 % (15.3-44.8) 05/16/24 16:38 Monocytes % 8.4 % (3.3-12.3) 05/16/24 16:38 Eosinophils % 0.1 % (0-4.4) 05/16/24 16:38 Basophils % 0.6 % (0-1.3) 05/16/24 16:38 Absolute Neutrophils 5.9 K/uL (1.8-8.0) 05/16/24 16:38 Absolute Lymphocytes 1.7 K/uL (0.7-4.9) 05/16/24 16:38 Absolute Monocytes 0.7 K/uL (0.1-1.3) 05/16/24 16:38 Absolute Eosinophils 0.0 K/uL (0-0.5) 05/16/24 16:38 Absolute Basophils 0.1 K/uL (0-0.5) 05/16/24 16:38 PT 12.1 SECONDS (9.5-12.5) 05/16/24 16:38 INR 1.10 05/16/24 16:38 APTT 34.0 SECONDS (24.3-36.9) 05/16/24 16:38 Sodium 138 mEq/L (136-145) 05/16/24 16:38 Potassium 1.7 mEq/L (3.5-5.1) L* 05/16/24 16:38 Chloride 98 mEq/L (98-107) 05/16/24 16:38 Carbon Dioxide 25 mEq/L (21-32) 05/16/24 16:38 Anion Gap 16.7 mEq/L (5.0-15.0) H 05/16/24 16:38 BUN 7 mg/dL (7-18) 05/16/24 16:38 Creatinine 0.65 mg/dL (0.55-1.02) 05/16/24 16:38 Est GFR (CKD-EPI) 92 ml/min (=/>90) 05/16/24 16:38 Glucose 126 mg/dL (74-106) H 05/16/24 16:38 Calcium 8.4 mg/dL (8.5-10.1) L 05/16/24 16:38 Magnesium 1.6 mg/dL (1.6-2.4) 05/16/24 16:38 Total Bilirubin 1.0 mg/dL (0.2-1.0) 05/16/24 16:38 Direct Bilirubin 0.4 mg/dL (0-0.2) H 05/16/24 16:38 Indirect Bilirubin 0.6 mg/dL (0.2-0.8) 05/16/24 16:38 AST 75 U/L (15-37) H 05/16/24 16:38 ALT 51 U/L (13-56) 05/16/24 16:38 Alkaline Phosphatase 60 U/L (45-117) 05/16/24 16:38 Troponin I High Sens 29.2 pg/mL (<58.9) 05/16/24 16:38 NT-Pro-B Natriuret Pep 402 pg/mL (<450) 05/16/24 16:38 Serum Total Protein 5.9 g/dL (6.4-8.2) L 05/16/24 16:38 Albumin 2.5 g/dL (3.4-5.0) L 05/16/24 16:38 Globulin 3.4 g/dL (2.3-3.5) 05/16/24 16:38 Albumin/Globulin Ratio 0.7 (1.1-1.8) L 05/16/24 16:38 Active Medications Acetaminophen (Acetaminophen 325 Mg Tablet) 650 mg PO Q4HP PRN PRN Reason: TEMP > 100' F Hydrocodone Bitart/Acetaminophen (Hydrocodone/Apap 7.5/325 Mg Tab) 1 tab PO Q4H PRN PRN Reason: Pain scale 5-7 (Moderate) Last Admin: 05/23/24 00:55 Dose: 1 tab Ciprofloxacin (Ciprofloxacin Hcl 500 Mg Tab) 500 mg PO BID [facility] Last Admin: 05/25/24 08:44 Dose: 500 mg Enoxaparin Sodium (Enoxaparin 40 Mg/0.4 Ml) 40 mg SQ DAILY [facility] Last Admin: 05/25/24 08:52 Dose: 40 mg Levothyroxine Sodium (Levothyroxine Sod 0.05 Mg Tablet) 0.05 mg PO DAILYAC [facility] Last Admin: 05/25/24 06:09 Dose: 0.05 mg Metoprolol Tartrate (Metoprolol Tar 50 Mg Tab) 50 mg PO BID 6AM 6PM [facility] Last Admin: 05/25/24 06:09 Dose: 50 mg Mupirocin (Mupirocin Nasal 2 Appl/1 Gm Tube) 1 appl APARNA BID [facility] Stop: 05/26/24 09:01 Last Admin: 05/25/24 08:45 Dose: 1 appl Nutritional Formula (Ensure High Protein 237 Ml Can) 273 ml PO AC [facility] Last Admin: 05/25/24 10:10 Dose: Not Given Ondansetron HCl (Ondansetron 4 Mg/2 Ml Vial) 4 mg IV Q6HP PRN PRN Reason: NAUSEA / VOMITING Last Admin: 05/19/24 13:13 Dose: 4 mg Pantoprazole Sodium (Pantoprazole 40 Mg Inj) 40 mg IVP DAILY [facility]; Protocol Last Admin: 05/25/24 08:44 Dose: 40 mg Promethazine HCl (Promethazine Inj 25 Mg/Ml Amp) 12.5 mg IV Q8H PRN PRN Reason: NAUSEA / VOMITING Last Admin: 05/19/24 15:08 Dose: 12.5 mg Simethicone (Simethicone 80 Mg Chewable Tab) 80 mg PO Q6H PRN PRN Reason: GAS Sodium Chloride (Sodium Chloride 0.9% 10ml Inj) 10 ml IV UD PRN PRN Reason: Diluant Spironolactone (Spironolactone 25 Mg Tablet) 50 mg PO DAILY [facility] Last Admin: 05/25/24 08:44 Dose: 50 mg Sucralfate (Sucralfate 1 Gm Tablet) 1 gm PO ACHS [facility] Last Admin: 05/25/24 11:41 Dose: 1 gm Assessment And Plan - Plan Assessment And Plan: 1. Persistent hypokalemia, with alkalosis TTKG 5.3 support some salt wasting + gastrointestinal loss given the ulcerative colitis. Magnesium within normal limit Continue the patient on spironolactone Will monitor the patient 2. Hypertension, controlled, optimal. 3. Malnourished secondary to ulcerative colitis as by primary. Continue total parenteral nutrition. Time spent examining the patient [id number] reviewing data lab and the radiology placing orders or discussing the case with the patient discussing the case with the steam conditioner filling including hospitalist and nursing staff more than 55 minutes
[2024-05-25 14:51] LABS: Creatinine, Random Urine 9 mg/dL (20-275); Magnesium, Random Urine 189 mg/g creat (22-130)
[2024-05-26 07:41] LABS: Albumin 2.3 g/dL (3.4-5.0); Anion Gap 9.5 mEq/L (5.0-15.0); Magnesium 2.2 mg/dL (1.6-2.4); Phosphorus 4.9 mg/dL (2.5-4.9); Potassium 3.5 mEq/L (3.5-5.1)
--- NOTE | 2024-05-26 09:00 | P.PN ---
Date of Service: 05/25/24 Subjective Generalized weakness, encourage ambulation with physical therapy Review of Systems 10-point ROS is otherwise unremarkable Physical Examination - Vital Signs Reviewed - Physical Exam General: In no apparent distress, mild anxiety, Respiratory: Clear to auscultation Cardiovascular: Normal sinus rhythm Capillary refill: <2 Seconds, no edema Gastrointestinal: Soft nontender, positive bowel sounds Musculoskeletal: generalized weakness, unsteady gait, Neurological: Normal speech, oriented x 3 Plan Assessment and Plan - Problems (Diagnosis) Ulcerative colitis IV hydration CT findings noted consistent with right-sided colitis Patient has a history of ulcerative colitis follow-up with GI as outpatient Pain control Tolerating diet Severe hypokalemia improved Hypomagnesia improved Nephrology consulted for persistent hypokalemia Potassium/Mag/Phos replacement Protein calorie malnutrition Anorexia, secondary to poor p.o. intake Advance diet, monitor p.o. intake Tolerating diet Microcytic anemia Trend H&H Generalized weakness secondary to dehydration, hypokalemia 05/23 TSH drawn in early admit elevated, TSH yesterday > 9, will supplement with Levothyroxine PT, SW for IPR eval Fearful of falling, PT following to encourage ambulation Hypertension Hyperlipidemia - Resume home meds CAD - hx of aEscobar fib but in NSR, no Eliquis x over one month Continue home medications and titrate as needed DVT PPX: Lovenox Code status: Full Discharge planning pending group home facility [facility]
--- NOTE | 2024-05-26 09:07 | P.DS ---
Admission Date: 05/16/24 Discharge Date: 05/26/24 Disposition: [facility] Discharge Condition: GOOD Reason for Admission: Colitis Brief History of Present Illness: 73-year-old female with history of diverticulosis/diverticulitis, GERD, hypertension, hyperlipidemia, CAD, distant history of ulcerative colitis presents to the emergency department chief complaint of abdominal pain, nausea, weakness associated with diarrhea. She reports has been having abdominal pain for the last 3 days , could not tolerate anything p.o. Patient has been having nausea and vomiting and multiple episodes of diarrhea. Patient denies any fever or chills. No sick contacts. No recent travel. Patient was assessed in the ER and was admitted for further management of colitis and hypokalemia General: Alert, Oriented x3, Cooperative, HEENT: Atraumatic, Normocephalic Neck: Supple, 2+ carotid pulse no bruit Respiratory: Clear to auscultation bilaterally, Normal air movement Cardiovascular: Normal pulses, Regular rate/rhythm, Normal S1 S2 Capillary refill: <2 Seconds Gastrointestinal: W/out hepatosplenomegaly, No ascites, No guarding, Musculoskeletal: No clubbing, No swelling Integumentary: No rashes, No breakdown Hospital Course: 73-year-old female with history of diverticulosis/diverticulitis, GERD, hypertension, hyperlipidemia, CAD, distant history of ulcerative colitis presents to the emergency department chief complaint of abdominal pain, nausea, weakness. Was noted to have ulcerative colitis, hypokalemia.she was evaluated by nephrology, placed on IV antibiotics, fluid electrolyte replacement. She was evaluated by physical therapy. Condition improved with physical therapy, IV fluids Electrolyte replacement, patient tolerating diet, stable for discharge to [facility] with follow-up appointment with primary care physician. Will need to follow-up with nephrology if patient has persistent hypokalemia, follow- up with GI outpatient for ulcerative colitis. PROBLEM: Ulcerative colitis will need to follow-up with GI outpatient-tolerating diet Hypokalemia-resolved inpatient, patient will need to follow-up with nephrology if continued hypokalemia Generalized weakness, PT eval, discharge to [facility] facility for physical therapy Macrocytic anemia-stable MRCP Trace bilateral pleural effusions more prominent on the left. IMPRESSION: Normal MR cholangiogram. Status post cholecystectomy. Abdominal CT Mild intramural fat deposition along the cecum and ascending colon, nonspecific, but could reflect sequelae of prior attacks of colitis. Continue home medicines as previously prescribed GOAL: Clear understanding of disease process INSTRUCTIONS: Physician Discharge Instructions: -Follow-up with PCP in 1 to 2 weeks -Please call Dr. Johnson at [phone] if any questions regarding hospital stay -Please call nursing station at [phone] if any nursing or medication questions -Return to the emergency room if symptoms worsen Diet: ADA, low sodium Activity: Fall precautions Vital Signs/Physical Exam: Temp Pulse Resp BP Pulse Ox 97.5 F 87 17 105/55 L 98 05/26/24 08:00 05/26/24 08:55 05/26/24 08:00 05/26/24 08:55 05/26/24 08:00 Laboratory Data at Discharge: WBC 5.00 thou/uL (4.3-10.9) 05/25/24 06:05 Hgb 9.4 g/dL (12.0-15.0) L 05/25/24 06:05 Hct 27.6 % (36.0-45.0) L 05/25/24 06:05 Plt Count 149 thou/uL (152-406) L 05/25/24 06:05 PT 12.1 SECONDS (9.5-12.5) 05/16/24 16:38 INR 1.10 05/16/24 16:38 APTT 34.0 SECONDS (24.3-36.9) 05/16/24 16:38 Sodium 139 mEq/L (136-145) 05/26/24 06:00 Potassium 3.5 mEq/L (3.5-5.1) 05/26/24 06:00 BUN 6 mg/dL (7-18) L 05/26/24 06:00 Creatinine 0.45 mg/dL (0.55-1.02) L 05/26/24 06:00 Glucose 83 mg/dL (74-106) 05/26/24 06:00 Uric Acid 1.0 mg/dL (2.6-6.0) L 05/23/24 04:27 Phosphorus 4.9 mg/dL (2.5-4.9) 05/26/24 06:00 Magnesium 2.2 mg/dL (1.6-2.4) 05/26/24 06:00 Total Bilirubin 0.4 mg/dL (0.2-1.0) 05/25/24 06:05 AST 81 U/L (15-37) H 05/25/24 06:05 ALT 73 U/L (13-56) H 05/25/24 06:05 Alkaline Phosphatase 52 U/L (45-117) 05/25/24 06:05 Triglycerides 128 mg/dL (<150) 05/20/24 17:50 Home Medications: Atorvastatin Calcium 1 tab PO BEDTIME 01/15/24 Meclizine HCl 1 tab PO BID PRN 01/15/24 Meloxicam 1 tab PO DAILY 01/15/24 Sertraline [Zoloft*] 1 tab PO DAILY 01/15/24 Apixaban [Eliquis] 5 mg PO BID 30 Days #60 tab 01/29/24 Vitamin D [Drisdol*] 50,000 unit PO Q7D@0900 42 Days #6 cap 01/29/24 Gabapentin 300 mg PO TID 05/17/24 Losartan Potassium 50 mg PO DAILY 05/17/24 Metoprolol Tartrate [Lopressor*] 50 mg PO DAILY 05/17/24 Pantoprazole Sodium 40 mg PO DAILY 05/17/24 Potassium Chloride 10 meq PO Q12H 05/17/24 Ciprofloxacin HCl 500 mg PO BID #20 tab 05/26/24 Ensure High Protein 273 ml PO AC #90 can 05/26/24 Sucralfate [Carafate*] 1 gm PO ACHS #120 tab 05/26/24 New Medications: Sucralfate [Carafate*] 1 gm PO ACHS #120 tab Ciprofloxacin HCl 500 mg PO BID #20 tab Ensure High Protein 273 ml PO AC #90 can Physician Discharge Instructions: -DC IV and DC home with home health -Follow-up with PCP in 1 to 2 weeks -Follow-up with GI in 1 to 2 weeks -Please call Dr. Johnson at [phone] if any questions regarding hospital stay -Please call nursing station at [phone] if any nursing or medication questions -Return to the emergency room if symptoms worsen Diet: AHA Activity: Fall precautions Followup: Keegan Jenkins DO [Primary Care Provider] - 1-2 Weeks Gordo Tamayo MD [OUTSIDE PHYSICIAN] - Time spent managing pt's care (in minutes): 55
--- NOTE | 2024-05-26 10:36 | P.PN ---
Subjective Date of Service: 05/26/24 Chief Complaint: Colitis Subjective: No new changes Review of Systems 10-point ROS is otherwise unremarkable Physical Examination - Vital Signs Temperature: 97.5 F Blood Pressure: 105/55 Pulse: 87 Respirations: 17 Pulse Ox (%): 98 - Physical Exam General: Alert, Oriented x3 HEENT: Atraumatic Neck: Supple, JVD not distended Respiratory: Clear to auscultation bilaterally Cardiovascular: No edema, Systolic murmur Capillary refill: <2 Seconds Gastrointestinal: Normal bowel sounds Musculoskeletal: No clubbing Neurological: Normal gait, Normal tone External genitalia: No edema - Studies Laboratory Tests 05/16/24 05/16/24 05/16/24 16:38 16:38 16:38 WBC 8.30 RBC 3.88 Hgb 13.0 Hct 38.0 MCV 97.9 MCH 33.6 MCHC 34.4 RDW 15.4 H Plt Count 205 MPV 10.6 Neutrophils % 70.3 Lymphocytes % 20.6 Monocytes % 8.4 Eosinophils % 0.1 Basophils % 0.6 Absolute Neutrophils 5.9 Absolute Lymphocytes 1.7 Absolute Monocytes 0.7 Absolute Eosinophils 0.0 Absolute Basophils 0.1 PT 12.1 INR 1.10 APTT 34.0 Sodium 138 Potassium 1.7 L* Chloride 98 Carbon Dioxide 25 Anion Gap 16.7 H BUN 7 Creatinine 0.65 Est GFR (CKD-EPI) 92 Glucose 126 H Calcium 8.4 L Magnesium 1.6 Total Bilirubin 1.0 Direct Bilirubin 0.4 H Indirect Bilirubin 0.6 AST 75 H ALT 51 Alkaline Phosphatase 60 Troponin I High Sens 29.2 NT-Pro-B Natriuret Pep 402 Serum Total Protein 5.9 L Albumin 2.5 L Globulin 3.4 Albumin/Globulin Ratio 0.7 L Active Medications Acetaminophen (Acetaminophen 325 Mg Tablet) 650 mg PO Q4HP PRN PRN Reason: TEMP > 100' F Hydrocodone Bitart/Acetaminophen (Hydrocodone/Apap 7.5/325 Mg Tab) 1 tab PO Q4H PRN PRN Reason: Pain scale 5-7 (Moderate) Last Admin: 05/23/24 00:55 Dose: 1 tab Ciprofloxacin (Ciprofloxacin Hcl 500 Mg Tab) 500 mg PO BID PENDING SALE TO [facility] Last Admin: 05/26/24 08:56 Dose: 500 mg Enoxaparin Sodium (Enoxaparin 40 Mg/0.4 Ml) 40 mg SQ DAILY PENDING SALE TO [facility] Last Admin: 05/26/24 08:57 Dose: 40 mg Levothyroxine Sodium (Levothyroxine Sod 0.05 Mg Tablet) 0.05 mg PO DAILYAC PENDING SALE TO [facility] Last Admin: 05/26/24 06:03 Dose: 0.05 mg Metoprolol Tartrate (Metoprolol Tar 50 Mg Tab) 50 mg PO BID 6AM 6PM PENDING SALE TO [facility] Last Admin: 05/26/24 06:03 Dose: 50 mg Nutritional Formula (Ensure High Protein 237 Ml Can) 273 ml PO AC PENDING SALE TO [facility] Last Admin: 05/26/24 07:30 Dose: Not Given Ondansetron HCl (Ondansetron 4 Mg/2 Ml Vial) 4 mg IV Q6HP PRN PRN Reason: NAUSEA / VOMITING Last Admin: 05/19/24 13:13 Dose: 4 mg Pantoprazole Sodium (Pantoprazole 40 Mg Inj) 40 mg IVP DAILY PENDING SALE TO [facility]; Protocol Last Admin: 05/26/24 09:00 Dose: 40 mg Promethazine HCl (Promethazine Inj 25 Mg/Ml Amp) 12.5 mg IV Q8H PRN PRN Reason: NAUSEA / VOMITING Last Admin: 05/19/24 15:08 Dose: 12.5 mg Simethicone (Simethicone 80 Mg Chewable Tab) 80 mg PO Q6H PRN PRN Reason: GAS Sodium Chloride (Sodium Chloride 0.9% 10ml Inj) 10 ml IV UD PRN PRN Reason: Diluant Spironolactone (Spironolactone 25 Mg Tablet) 50 mg PO DAILY PENDING SALE TO [facility] Last Admin: 05/26/24 08:55 Dose: 50 mg Sucralfate (Sucralfate 1 Gm Tablet) 1 gm PO ACHS PENDING SALE TO [facility] Last Admin: 05/26/24 08:55 Dose: 1 gm Medications List Reviewed: Yes Assessment And Plan - Plan Assessment And Plan: 1. Persistent hypokalemia, with alkalosis TTKG 5.3 support some salt wasting + gastrointestinal loss given the ulcerative colitis. Magnesium within normal limit Continue the patient on spironolactone Will monitor the patient 2. Hypertension, controlled, optimal. 3. Malnourished secondary to ulcerative colitis as by primary. Continue total parenteral nutrition. Time spent examining the patient [id number] reviewing data lab and the radiology placing orders or discussing the case with the patient discussing the case with the steam and power supervisor including hospitalist and nursing staff more than 55 minutes
[2024-05-26] MEDS: POTASSIUM CL SA 10 MEQ TAB PO ONE (11:33)
[2024-05-26 12:23] VITALS: BP 100/55; TEMP 97.8
--- NOTE | 2024-05-26 13:56 | EKG ---
Test Date: 2024-05-24 Test Time: 11:38:55 Endoscopy Technician: ALLIE MEASUREMENT RESULTS: Intervals: Rate: 113 ND: 162 QRSD: 78 QT: 352 QTc: 482 [place]: P: 10 ND: 162 QRS: -25 T: 77 INTERPRETIVE STATEMENTS: Sinus tachycardia Anterior infarct, age undetermined Abnormal ECG Compared to ECG 05/20/2024 12:48:07 Sinus rhythm no longer present Myocardial infarct finding still present Electronically Signed On 05-26-24 13:50:47 CDT by Clyde Velásquez
== END 2024-05-26 14:25 | disposition home health service (06) | DRG 385 ==
LOC: ER 16:11 → ERHOLD 19:33 → 4TH 20:01
PROVIDERS: ADMIT Nurse Practitioner; ATTEND Hospitalist
PROC: 02HV33Z Insertion of Infusion Device into Superior Vena Cava, Percutaneous Approach (ICD-10-PCS; principal; 2024-05-21)
DX: K51.90 Ulcerative colitis, unspecified, without complications (principal); E43 Unspecified severe protein-calorie malnutrition; I10 Essential (primary) hypertension; G25.81 Restless legs syndrome; D50.9 Iron deficiency anemia, unspecified; E78.5 Hyperlipidemia, unspecified; E87.6 Hypokalemia; K21.9 Gastro-esophageal reflux disease without esophagitis; I25.10 Atherosclerotic heart disease of native coronary artery without angina pectoris; M19.90 Unspecified osteoarthritis, unspecified site; E83.42 Hypomagnesemia; R53.1 Weakness; R63.0 Anorexia; Z68.24 Body mass index [BMI] 24.0-24.9, adult
CPT/HCPCS: 36415; 36600; 71045; 74177; 74178; 74181; 80048; 80053; 80069; 80076; 81001; 82088; 82435; 82533; 82570; 82805; 82947; 83540; 83605; 83735; 83880; 83935; 84100; 84132; 84300; 84439; 84443; 84466; 84478; 84484; 84550; 85025; 85610; 85730; 87040; 87077; 87086; 87088; 87106; 87186; 87205; 93005; 97112; 97116; 97161; 97530; 99285; C9113; J0696; J0744; J1650; J1720; J2405; J2550; J3475; J3480; J7040; J7050; J7120; J7121; Q9967

== ENCOUNTER 2024-07-06 15:30 | Inpatient (IN) | payer OTHER ==
[2024-07-06 17:16] LABS: Absolute Basophils 0.1 K/uL (0-0.5); Absolute Lymphocytes (CBC) 2.2 K/uL (0.7-4.9); Absolute Monocytes 0.8 K/uL (0.1-1.3); Absolute Neutrophil 4.8 K/uL (1.8-8.0); Basophils % 1.1 % (0-1.3); Eosinophils % 0.2 % (0-4.4); Hematocrit 37.1 % (36.0-45.0); Hemoglobin 12.4 g/dL (12.0-15.0); Lymphocytes % 27.3 % (15.3-44.8); MCH 31.5 pg (27.0-35.0); MCHC 33.5 g/dL (32.0-36.0); MPV 9.8 fL (7.6-11.3); Monocytes % 10.6 % (3.3-12.3); Neutrophils % 60.8 % (41.7-73.7); Platelets 308 thou/uL (152-406); RBC Red Blood Cell Count 3.94 M/uL (3.86-4.86); Red Cell Distribution Width 13.9 % (12.1-15.2)
[2024-07-06 17:41] LABS: PT Prothrombin Time 13.2 SECONDS (9.4-12.5)
[2024-07-06 17:42] LABS: PTT, Activated Partial Thromb 37.4 SECONDS (24.3-36.9); Protime INR 1.18
--- NOTE | 2024-07-06 17:56 | RAD REPORT ---
EXAM DESCRIPTION: CT - Head Brain Wo Cont - 07/06/2024 5:47 pm CLINICAL HISTORY: SYNCOPE COMPARISON: Head Brain Wo Cont dated 01/19/2024; Head Brain Wo Cont dated 09/02/2017 TECHNIQUE: All CT scans are performed using dose optimization technique as appropriate and may inclu de automated exposure control or mA/KV adjustment according to patient size. FINDINGS: No intracranial hemorrhage, hydrocephalus or extra-axial fluid collection.No areas of brai n edema or evidence of midline shift. Cerebral atrophy . The paranasal sinuses and mastoids are clear. The calvarium is intact. IMPRESSION: No acute intracranial abnormality.
--- NOTE | 2024-07-06 18:43 | RAD REPORT ---
EXAM DESCRIPTION: RAD - Chest Single View - 07/06/2024 6:20 pm CLINICAL HISTORY: syncope COMPARISON: Chest Single View dated 05/21/2024; Chest Single View dated 05/16/2024; Abdomen 1 View (KU B) dated 01/21/2024; Abdomen 1 View (KUB) dated 01/21/2024 FINDINGS: Lines: None. Lungs: No evidence of edema or pneumonia. Pleural: No significant pleural effusions or pneumothorax. Cardiac: The heart size is within normal limits. Mediastinum: Within normal limits. Bones: No acute fractures. Other: None IMPRESSION: No acute cardiopulmonary disease.
[2024-07-06 18:47] LABS: Albumin 2.8 g/dL (3.4-5.0); Albumin/Globulin Ratio 0.8 (1.1-1.8); Anion Gap 15.1 mEq/L (5.0-15.0); Bilirubin Direct 0.5 mg/dL (0-0.2); Bilirubin Indirect, Calculated 0.7 mg/dL (0.2-0.8); Bilirubin Total 1.2 mg/dL (0.2-1.0); Globulin 3.6 g/dL (2.3-3.5); Protein, Total 6.4 g/dL (6.4-8.2); Troponin High Sensitivity 16.8 pg/mL (<58.9)
[2024-07-06 18:49] LABS: Magnesium 1.3 mg/dL (1.6-2.4); Potassium 2.1 mEq/L (3.5-5.1)
--- NOTE | 2024-07-06 19:41 | EDPHYS ---
Physician Documentation [facility] Name: Eloisa Aparicio Age: 73 yrs Sex: Female : 1950 Arrival Date: 07/06/2024 Time: 15:30 Bed 12 Private MD: ED Physician José Miguel Vazquez HPI: 07/06 20:40 This 73 yrs old Female presents to ER via EMS with complaints of Numbness, kb Hand cramping. 20:40 Patient is a 73-year-old female who presents for headache and tingling to upper kb extremities that started 2 days ago. States she had a syncopal episode 2 days ago just prior to symptoms starting. States she came in today because she called her doctor's office to make an appointment and they told her she needed to come in for evaluation. Denies nausea, vomiting, diarrhea, dizziness, fever. Historical: - Allergies: 16:30 No Known Allergies; cm10 - PMHx: 16:30 Diverticulitis; GERD; Hypercholesterolemia; Hypertension; ID; restless leg; sciatica; cm10 ulcer colitis; - PSHx: 16:30 Total abdominal hysterectomy; Cholecystectomy; cm10 - Immunization history:: Adult Immunizations up to date. - Infectious Disease History:: Denies. - Social history:: Smoking status: Patient denies any tobacco usage or history of. ROS: 17:37 Constitutional: As per HPI kb Exam: 17:07 Constitutional: This is a well developed, well nourished patient who is awake, alert, kb and in no acute distress. Head/Face: Normocephalic, atraumatic. ENT: Moist Mucous membranes Cardiovascular: Regular rate Respiratory: Respirations even and unlabored. No increased work of breathing. Talking in full sentences Abdomen/GI: Soft, non-tender. No distention Skin: Warm, dry with normal turgor. Normal color. MS/ Extremity: Pulses equal, no cyanosis. Neurovascular intact. Full, normal range of motion. Neuro: Awake and alert, GCS 15, oriented to person, place, time, and situation. Moves all extremities. Normal gait. 17:07 ECG was reviewed by the Attending Physician. Vital Signs: 16:27 BP 134 / 75; Pulse 88; Resp 16; Temp 97.8(O); Pulse Ox 100% on R/A; Weight 48.99 kg; cm10 Height 4 ft. 11 in. ; Pain 7/10; 17:00 BP 106 / 86; Pulse 84; Resp 16; Pulse Ox 100% ; cm10 17:30 BP 132 / 76; Pulse 80; Resp 16; Pulse Ox 97% ; cm10 18:00 BP 105 / 79; Pulse 87; Resp 18; Pulse Ox 100% ; cm10 18:30 BP 111 / 73; Pulse 85; Resp 16; Pulse Ox 100% ; cm10 19:00 BP 115 / 78; Pulse 82; Resp 12; Pulse Ox 100% ; cm10 19:30 BP 136 / 75; Pulse 81; Resp 20; Pulse Ox 97% ; cm10 20:00 BP 126 / 75; Pulse 83; Resp 16; Pulse Ox 99% ; cm10 16:27 Body Mass Index 21.81 (48.99 kg, 149.86 cm) cm10 16:27 Pain Scale: Adult cm10 MDM: 15:39 Patient medically screened. kb 20:40 Differential diagnosis: Syncope, dehydration, abnormal electrolytes, CVA. Data kb reviewed: vital signs, nurses notes. Consideration of Admission/Observation Patient was admitted/placed on observation. Escalation of care including admission/observation considered. Management of patient was discussed with the following: Hospitalist: Dr. Grider accepts patient for admission. Historians other than the Patient: EMS: [facility]. Counseling: I had a detailed discussion with the patient and/or guardian regarding the historical points, exam findings, and any diagnostic results supporting the discharge/admit diagnosis, lab results, radiology results, the need for further work-up and treatment in the hospital. 07/06 15:40 Order name: Basic Metabolic Panel; Complete Time: 19:11 kb 07/06 15:40 Order name: Hepatic Function; Complete Time: 19:11 kb 07/06 15:40 Order name: Magnesium; Complete Time: 19:11 kb 07/06 15:40 Order name: Troponin High Sensitivity; Complete Time: 19:11 kb 07/06 15:40 Order name: Urinalysis w/ reflexes kb 07/06 17:13 Order name: CBC with Automated Diff; Complete Time: 17:28 EDMS 07/06 17:13 Order name: Protime (+INR); Complete Time: 17:43 EDMS 07/06 17:13 Order name: PTT, Activated Partial Thromb; Complete Time: 17:43 EDMS 07/06 20:34 Order name: Urinalysis w/ reflexes EDMS 07/06 20:34 Order name: CBC with Automated Diff EDMS 07/06 20:34 Order name: CBC with Automated Diff EDMS 07/06 20:34 Order name: Comprehensive Metabolic Panel EDMS 07/06 20:34 Order name: Comprehensive Metabolic Panel EDMS 07/06 20:34 Order name: Troponin High Sensitivity EDMS 07/06 20:34 Order name: Troponin High Sensitivity EDMS 07/06 20:34 Order name: Troponin High Sensitivity EDMS 07/06 20:34 Order name: Troponin High Sensitivity EDMS 07/06 15:40 Order name: CT Head Brain wo Cont; Complete Time: 18:02 kb 07/06 15:40 Order name: Chest Single View XRAY; Complete Time: 18:46 kb 07/06 15:40 Order name: Cardiac monitoring; Complete Time: 17:08 kb 07/06 15:40 Order name: EKG - Nurse/Tech; Complete Time: 17:08 kb 07/06 15:40 Order name: IV Saline Lock; Complete Time: 17:08 kb 07/06 15:40 Order name: Labs collected and sent; Complete Time: 17:08 kb 07/06 15:40 Order name: NPO; Complete Time: 17:08 kb 07/06 15:40 Order name: O2 Per Protocol; Complete Time: 17:08 kb 07/06 15:40 Order name: O2 Sat Monitoring; Complete Time: 17:08 kb 07/06 17:37 Order name: Labs - recollect needed; Complete Time: 18:20 kb EC:07 Rate is 83 beats/min. Rhythm is regular. Left axis deviation noted. OK interval is kb normal at 154 msec. QRS interval is normal at 92 msec. QT interval is prolonged at 646 msec. Administered Medications: 20:13 Drug: Magnesium Sulfate IVPB 2 grams IVPB once over 2 hrs Route: IVPB; Infused Over: 2 cm10 hrs; Site: right forearm; 20:14 Drug: Potassium Chloride PO 40 mEq PO once Route: PO; cm10 Disposition Summary: 07/06/24 19:40 Hospitalization Ordered Notes: Hospitalization Status: Observation kb Provider: Toni Grider Location: Telemetry/MedSur (observation) kb Condition: Stable kb Problem: new kb Symptoms: are unchanged kb Bed/Room Type: Standard kb Room Assignment: 210(07/06/24 21:12) cg Diagnosis - Hypokalemia kb - Hypomagnesemia kb - Syncope kb Forms: - Medication Reconciliation Form kb - SBAR form kb - Leadership Thank You Letter kb Signatures: Dispatcher [employer] EDMS Lydia Aly, MANAGER MEDICAL-C MANAGER MEDICAL-Ronel Goldstein, RN RN cg Adele Langley RN RN cm10 Corrections: (The following items were deleted from the chart) 17:05 17:05 BASIC METABOLIC PANEL+C.LAB.BRZ ordered. EDMS EDMS 17:05 17:05 HEPATIC FUNCTION+C.LAB.BRZ ordered. EDMS EDMS 17:05 17:05 MAGNESIUM+C.LAB.BRZ ordered. EDMS EDMS 17:05 17:05 Troponin High Sensitivity+C.LAB.BRZ ordered. EDMS EDMS 17:05 17:05 Urinalysis+U.LAB.BRZ ordered. EDMS EDMS 17:05 17:05 Head Brain Wo Cont+CT.RAD.BRZ ordered. EDMS EDMS 17:05 17:05 Chest Single View+RAD.RAD.BRZ ordered. EDMS EDMS 18:27 17:05 PROTIME (+INR)+COAG.LAB.BRZ ordered. EDMS EDMS 18:27 17:05 PTT, ACTIVATED+COAG.LAB.BRZ ordered. EDMS EDMS 18:28 17:05 CBC+H.LAB.BRZ ordered. EDMS EDMS 18:29 17:13 Basic Metabolic Panel ordered. EDMS EDMS 18:29 17:13 Liver (Hepatic) Function ordered. EDMS EDMS 18:29 17:13 Troponin High Sensitivity ordered. EDMS EDMS 18:29 17:13 Magnesium ordered. EDMS EDMS 21:12 19:40 kb cg
--- NOTE | 2024-07-06 19:41 | ER ---
Nurse's Notes [facility] Name: Eloisa Aparicio Age: 73 yrs Sex: Female : 1950 Arrival Date: 07/06/2024 Time: 15:30 Bed 12 Private MD: Diagnosis: Hypokalemia;Hypomagnesemia;Syncope Presentation: 07/06 16:27 Chief complaint: EMS states: Called to patient's home due to patient having hand cm10 cramping that started yesterday. Pt reports that she had a syncopal episode 2 days ago and is now having numbness to the left side of her face and bilateral feet. Pt also reports headache and nausea. Coronavirus screen: Client denies travel out of the [place] in the last 14 days. At this time, the client does not indicate any symptoms associated with coronavirus-19. Ebola Screen: Patient denies travel to an Ebola-affected area in the 21 days before illness onset. No symptoms or risks identified at this time. Initial Sepsis Screen: Does the patient meet any 2 criteria? No. Patient's initial sepsis screen is negative. Does the patient have a suspected source of infection? No. Patient's initial sepsis screen is negative. Risk Assessment: Do you want to hurt yourself or someone else? Patient reports no desire to harm self or others. Onset of symptoms was July 06, 2024. 16:27 Method Of Arrival: EMS: [facility] 10 16:27 Acuity: ÁNGEL 3 cm10 16:31 Care prior to arrival: IV initiated. 20 GA, in the left forearm. cm10 Triage Assessment: 16:30 General: Appears in no apparent distress. comfortable, Behavior is calm, cooperative. cm10 Pain: Complains of pain in head, right hand and left hand. Neuro: No deficits noted. Level of Consciousness is awake, alert, obeys commands, Oriented to person, place, time, situation, Appropriate for age. Cardiovascular: No deficits noted. Reports syncope, Patient's skin is warm and dry. Respiratory: No deficits noted. Airway is patent Respiratory effort is even, unlabored, Respiratory pattern is regular, symmetrical. Musculoskeletal: No deficits noted. Range of motion: intact in all extremities, Reports numbness in face, right foot and left foot. Historical: - Allergies: 16:30 No Known Allergies; cm10 - PMHx: 16:30 Diverticulitis; GERD; Hypercholesterolemia; Hypertension; IA; restless leg; sciatica; cm10 ulcer colitis; - PSHx: 16:30 Total abdominal hysterectomy; Cholecystectomy; cm10 - Immunization history:: Adult Immunizations up to date. - Infectious Disease History:: Denies. - Social history:: Smoking status: Patient denies any tobacco usage or history of. Assessment: 19:00 Reassessment: Patient appears in no apparent distress at this time. No changes from cm10 previously documented assessment. Patient and/or family updated on plan of care and expected duration. Pain level reassessed. 20:25 Reassessment: Patient appears in no apparent distress at this time. No changes from cm10 previously documented assessment. Patient and/or family updated on plan of care and expected duration. Pain level reassessed. Vital Signs: 16:27 BP 134 / 75; Pulse 88; Resp 16; Temp 97.8(O); Pulse Ox 100% on R/A; Weight 48.99 kg; cm10 Height 4 ft. 11 in. ; Pain 7/10; 17:00 BP 106 / 86; Pulse 84; Resp 16; Pulse Ox 100% ; cm10 17:30 BP 132 / 76; Pulse 80; Resp 16; Pulse Ox 97% ; cm10 18:00 BP 105 / 79; Pulse 87; Resp 18; Pulse Ox 100% ; cm10 18:30 BP 111 / 73; Pulse 85; Resp 16; Pulse Ox 100% ; cm10 19:00 BP 115 / 78; Pulse 82; Resp 12; Pulse Ox 100% ; cm10 19:30 BP 136 / 75; Pulse 81; Resp 20; Pulse Ox 97% ; cm10 20:00 BP 126 / 75; Pulse 83; Resp 16; Pulse Ox 99% ; cm10 16:27 Body Mass Index 21.81 (48.99 kg, 149.86 cm) cm10 16:27 Pain Scale: Adult cm10 Vitals: 17:08 Cardiac Rhythm Assessment Regular. cm10 ED Course: 15:39 Patient arrived in ED. kb 15:39 L[facility]ly [facility]C [facility] kb 15:39 José Miguel Vazquez MD is Attending Physician. kb 16:27 Adele Langley, JOVITA is Primary Nurse. cm10 16:29 Triage completed. cm10 16:31 Arm band placed on Patient placed in an exam room, on a stretcher. cm10 16:31 Maintain EMS IV. Dressing intact. Good blood return noted. Site clean \T\ dry. Gauge \T\ cm 10 site: 20g Left forearm. 17:07 Patient has correct armband on for positive identification. Bed in low position. Call cm10 light in reach. Side rails up X2. Provided Education on: ER process and procedures.. Client placed on continuous cardiac and pulse oximetry monitoring. NIBP monitoring applied. court monitor on. 17:07 No provider procedures requiring assistance completed. Initial lab(s) drawn, by me, cm10 sent to lab. EKG done, by ED staff, reviewed by Lydia CARBAJAL. Inserted saline lock: 22 gauge in right forearm, using aseptic technique. Blood collected. Flushed with 10 mL NS. 17:49 CT Head Brain wo Cont In Process Unspecified. EDMS 18:22 Chest Single View XRAY In Process Unspecified. EDMS 19:40 Toni Grider MD is Hospitalizing Provider. kb Administered Medications: 20:13 Drug: Magnesium Sulfate IVPB 2 grams IVPB once over 2 hrs Route: IVPB; Infused Over: 2 cm10 hrs; Site: right forearm; 20:14 Drug: Potassium Chloride PO 40 mEq PO once Route: PO; cm10 Outcome: 19:40 Decision to Hospitalize by Provider. kb 22:32 Admitted to Tele accompanied by tech, via stretcher, room 409, vc1 22:32 Condition: good 22:32 Instructed on the need for admit, 22:33 Patient left the ED. vc1 Signatures: Dispatcher [employer] EDMS Lydia Aly FNP-C FNP-Ckb Calcote, Vanessa RN RN vc1 Adele Langley, RN RN cm10
[2024-07-06] MEDS ORDERED: POTASSIUM CL SA 10 MEQ TAB PO ONE (19:59)
[2024-07-06] MEDS ORDERED: Magnesium Sulfate 2gm IVPB 2 G/50 ML BAG IV ONE (19:59)
[2024-07-06] MEDS ORDERED: ONDANSETRON 4 MG/2 ML VIAL IV PRN (20:29)
[2024-07-06] MEDS ORDERED: ACETAMINOPHEN 325 MG TABLET PO PRN (20:29)
--- NOTE | 2024-07-06 20:29 | P.HP ---
Certification for Inpatient Patient admitted to: Observation With expected LOS: <2 Midnights Practitioner: I am a practitioner with admitting privileges, knowledge of patient current condition, hospital course, and medical plan of care. Services: Services provided to patient in accordance with Admission requirements found in Title 42 Section 412.3 of the Code of Federal Regulations Patient History Date of Service: 07/07/24 Reason for admission: Generalized weakness History of Present Illness: 73-year-old female with a past medical history of hypertension, hyperlipidemia , Diverticulitis; GERD; , CAD s/p PA; restless leg; sciatica and ulcer colitis who came to ER with headache and generalized weakness associated with dizziness and had a presyncopal episode which prompted her to come to ER. Patient denies any chest pain. No fever or chills. No sick contacts. Patient denies any loss of consciousness. She also had some cramping of the hands since yesterday and had a previous episode of syncope 2 days ago. She also complains of numbness of the left side of the face and bilateral feet. Headache is bifrontal. Not associated with any aura. Patient has a history of migraine previously. Associated with some nausea but no vomiting. Patient was assessed in the ER and was found to be hypokalemic and hypomagnesemic and was admitted for further management Allergies No Known Allergies Allergy (Verified 07/06/24 23:01) Home medications list reviewed: Yes Home Medications: Atorvastatin Calcium 1 tab PO BEDTIME 01/15/24 Meclizine HCl 1 tab PO BID PRN 01/15/24 Meloxicam 1 tab PO DAILY 01/15/24 Sertraline [Zoloft*] 1 tab PO DAILY 01/15/24 Apixaban [Eliquis] 5 mg PO BID 30 Days #60 tab 01/29/24 Vitamin D [Drisdol*] 50,000 unit PO Q7D@0900 42 Days #6 cap 01/29/24 Gabapentin 300 mg PO DAILY 05/17/24 Losartan Potassium 50 mg PO DAILY 05/17/24 Metoprolol Tartrate [Lopressor*] 50 mg PO DAILY 05/17/24 Pantoprazole Sodium 40 mg PO DAILY 05/17/24 Potassium Chloride 10 meq PO Q12H 05/17/24 Sucralfate [Carafate*] 1 gm PO ACHS #120 tab 05/26/24 - Past Medical/Surgical History Diabetic: No Past Medical History: Reviewed- Non-Contributory -: HTN -: Osteoarthritis -: Restless leg syndrome -: GERD -: CAD with prior stent -: Ulcerative colitis -: Diverticulitis -: Hyperlipidemia Past Surgical History: Reviewed- Non-Contributory -: Hysterectomy -: Cholecystectomy -: Cardiac Stent Psychosocial/ Personal History: Lives at home with family - Family History Family History: Reviewed- Non-Contributory - Family History Mother -: Liver disease, Other (see notes) Notes: Alcoholic - Social History Smoking Status: Never smoker Alcohol use: No CD- Drugs: No Caffeine use: Yes Review of Systems 10-point ROS is otherwise unremarkable Physical Examination - Vital Signs Temperature: 97.2 F Blood Pressure: 118/76 Pulse: 78 Respirations: 18 Pulse Ox (%): 94 - Physical Exam General: Alert, In no apparent distress, Oriented x3 HEENT: Atraumatic, Normocephalic Neck: Supple, 2+ carotid pulse no bruit Respiratory: Clear to auscultation bilaterally, Normal air movement Cardiovascular: No edema, Regular rate/rhythm, Normal S1 S2 Capillary refill: <2 Seconds Gastrointestinal: Soft and benign, W/out hepatosplenomegaly Musculoskeletal: No clubbing, No swelling Integumentary: No rashes, No breakdown Neurological: Normal speech, Normal strength at 5/5 x4 extr, Normal tone, Tennis Racket Repairer nial nerves 3-12 intact Lymphatics: No axilla or inguinal lymphadenopathy - Studies Laboratory Data (last 24 hrs) 07/06/24 07/06/24 07/06/24 18:17 17:05 17:05 WBC 7.90 Hgb 12.4 Hct 37.1 Plt Count 308 PT 13.2 H INR 1.18 APTT 37.4 H Sodium 136 Potassium 2.1 L* BUN 6 L Creatinine 0.77 Glucose 109 H Magnesium 1.3 L Total Bilirubin 1.2 H AST 37 ALT 19 Alkaline Phosphatase 65 07/06/24 07/06/24 07/06/24 17:05 15:40 15:40 WBC Cancelled Hgb Cancelled Hct Cancelled Plt Count Cancelled PT Cancelled INR Cancelled APTT Cancelled Sodium Cancelled Potassium Cancelled BUN Cancelled Creatinine Cancelled Glucose Cancelled Magnesium Cancelled Total Bilirubin Cancelled AST Cancelled ALT Cancelled Alkaline Phosphatase Cancelled Assessment and Plan - Plan Syncope Monitor closely on turmeric CT head negative for any acute changes Patient is not dizzy at this time Hypokalemia Replace potassium Monitor under telemetry Hypomagnesemia Replace magnesium Will recheck in the morning Hypertension Antihypertensives titrated Continue home medications and titrate as needed Hyperlipidemia Continue statin CAD status post PCI Restless leg syndrome Anxiety Continue home medications and titrate as needed GI/DVT prophylaxis Advanced directive full code Discharge Plan: Home Plan to discharge in: 48 Hours - Advance Directives Does patient have a Living Will: No Does patient have a Durable POA for Healthcare: No - Code Status/Comfort Care Code Status: Full Code Time Spent Managing Pts Care (In Minutes): 48
[2024-07-06] MEDS: Magnesium Sulfate 2gm IVPB 2 G/50 ML BAG IV ONE (20:33)
[2024-07-06] MEDS: POTASSIUM PHOS IN 0.9 % NACL 15 MMOL/250 ML BAG IV ONE (20:33)
[2024-07-06] MEDS ORDERED: MECLIZINE HCL 12.5 MG TAB PO PRN (23:15)
[2024-07-06 23:16] VITALS: BMI 21.7
[2024-07-06] MEDS: D5.45NS W/KCL 20MEQ 1,000 ML IV SCH (23:21)
[2024-07-06] MEDS: KCL 20 MEQ/100 mL IVPB 20 MEQ/100 ML BAG IV SCH (23:45)
[2024-07-06] MEDS: POTASSIUM CL SA 10 MEQ TAB PO SCH (23:57)
[2024-07-06] MEDS: ZOLPIDEM TARTRATE 5 MG TABLET PO PRN (23:58)
[2024-07-07 04:55] LABS: Absolute Basophils 0.1 K/uL (0-0.5); Absolute Lymphocytes (CBC) 2.4 K/uL (0.7-4.9); Absolute Monocytes 0.4 K/uL (0.1-1.3); Absolute Neutrophil 2.4 K/uL (1.8-8.0); Basophils % 2.5 % (0-1.3); Eosinophils % 0.7 % (0-4.4); Hematocrit 32.4 % (36.0-45.0); Hemoglobin 11.3 g/dL (12.0-15.0); Lymphocytes % 44.9 % (15.3-44.8); MCH 32.8 pg (27.0-35.0); MCHC 34.8 g/dL (32.0-36.0); MCV 94.2 fL (80-100); MPV 9.5 fL (7.6-11.3); Monocytes % 7.7 % (3.3-12.3); Neutrophils % 44.2 % (41.7-73.7); Nucleated Red Blood Cells % 0.1 % (0-0); Platelets 274 thou/uL (152-406); RBC Red Blood Cell Count 3.44 M/uL (3.86-4.86); Red Cell Distribution Width 13.5 % (12.1-15.2)
[2024-07-07 05:11] LABS: Albumin 2.5 g/dL (3.4-5.0); Albumin/Globulin Ratio 0.8 (1.1-1.8); Anion Gap 11.3 mEq/L (5.0-15.0); Bilirubin Total 0.9 mg/dL (0.2-1.0); Globulin 3.3 g/dL (2.3-3.5); Protein, Total 5.8 g/dL (6.4-8.2)
[2024-07-07 05:17] LABS: Potassium 2.3 mEq/L (3.5-5.1)
[2024-07-07] MEDS: POTASSIUM CL 40 MEQ in NA CHLORIDE 0.9% 500 ML IV SCH ×2 (05:38→19:23)
[2024-07-07 05:49] LABS: Phosphorus 2.3 mg/dL (2.5-4.9)
[2024-07-07] MEDS ORDERED: POTASSIUM PHOS IN 0.9 % NACL 15 MMOL/250 ML BAG IV ONE (06:00)
[2024-07-07] MEDS: KCL 20 MEQ/100 mL IVPB 100 ML IV SCH (06:07)
[2024-07-07] MEDS: NA CHLORIDE 0.9% 250 ML IV SCH (06:08)
[2024-07-07] MEDS: GABAPENTIN 300 MG CAP PO SCH (08:16)
[2024-07-07] MEDS: METOPROLOL TAR 50 MG TAB PO SCH (08:16)
[2024-07-07] MEDS: SUCRALFATE 1 GM TABLET PO SCH (08:16)
[2024-07-07] MEDS: APIXABAN 5 MG TABLET PO SCH (08:19)
[2024-07-07] MEDS: SERTRALINE HCL 100 MG TAB PO SCH (08:19)
[2024-07-07] MEDS: PANTOPRAZOLE 40MG TABLET PO SCH (08:19)
[2024-07-07] MEDS: LOSARTAN POTASSIUM 50 MG TABLET PO SCH (08:19)
[2024-07-07] MEDS: POTASSIUM PHOS IN 0.9 % NACL 15 MMOL/250 ML BAG IV ONE (09:36)
[2024-07-07] MEDS: MELOXICAM 7.5 MG TAB PO SCH (09:36)
--- NOTE | 2024-07-07 14:46 | P.PN ---
Subjective Date of Service: 07/07/24 Chief Complaint: Generalized weakness Patient denies any complaint today. She stated her muscle cramps have resolved. Potassium level is still low. She denies any diarrhea or vomiting. Physical Examination - Vital Signs Temperature: 98.3 F Blood Pressure: 120/57 Pulse: 64 Respirations: 15 Pulse Ox (%): 99 - Studies Laboratory Data (last 24 hrs) 07/07/24 07/07/24 07/07/24 04:41 04:41 04:26 WBC 5.40 Hgb 11.3 L D Hct 32.4 L Plt Count 274 PT INR APTT Sodium 136 Potassium 2.3 L* BUN 5 L Creatinine 0.64 Glucose 110 H Phosphorus 2.3 L Cancelled Magnesium 2.0 Total Bilirubin 0.9 AST 27 ALT 17 Alkaline Phosphatase 59 07/06/24 07/06/24 07/06/24 18:17 17:05 17:05 WBC 7.90 Hgb 12.4 Hct 37.1 Plt Count 308 PT 13.2 H INR 1.18 APTT 37.4 H Sodium 136 Potassium 2.1 L* BUN 6 L Creatinine 0.77 Glucose 109 H Phosphorus Magnesium 1.3 L Total Bilirubin 1.2 H AST 37 ALT 19 Alkaline Phosphatase 65 07/06/24 07/06/24 07/06/24 17:05 15:40 15:40 WBC Cancelled Hgb Cancelled Hct Cancelled Plt Count Cancelled PT Cancelled INR Cancelled APTT Cancelled Sodium Cancelled Potassium Cancelled BUN Cancelled Creatinine Cancelled Glucose Cancelled Phosphorus Magnesium Cancelled Total Bilirubin Cancelled AST Cancelled ALT Cancelled Alkaline Phosphatase Cancelled Assessment And Plan - Plan Physical examination General: Alert and oriented x3, NAD, HEENT: Conjunctiva not pale, anicteric sclera Neck: Supple, no elevated JVD Heart: Heart sounds 1 and 2 normal, regular rhythm, normal rate, no pedal edema Lungs: Clear to auscultation bilaterally, adequate breath sounds bilaterally, no rhonchi or crackles. Abdomen: Soft, nondistended, nontender, normal bowel sounds. Extremities: No tenderness, no deformity Skin: Normal skin turgor, no rash, no nodules or ulcers. Neuro: No focal motor deficit. Normal speech. Psychiatry: Normal mood, no agitation. Syncope Likely secondary to hypokalemia CT head negative for any acute changes Continue telemetry. Check orthostatic vitals. Hypokalemia Patient likely has potassium deficit. Continue to replace potassium Continue telemetry. Hypomagnesemia Replace magnesium as needed Hypertension Continue home dose losartan Check static vitals CAD status post PCI Restless leg syndrome Anxiety Continue home medications. GI/DVT prophylaxis: Eliquis Advanced directive full code
[2024-07-07 16:45] LABS: Specific Gravity 1.007 (1.005-1.030); Urine Bacteria 20-50 /HPF (<20); Urine Bilirubin NEGATIVE (Negative); Urine Blood Trace (Negative); Urine Clarity Extremely Turbid (Clear); Urine Color Yellow (Yellow); Urine Culture Reflex Order REFLEXED; Urine Glucose NEGATIVE (Negative); Urine Ketones NEGATIVE (Negative); Urine Microscopic Reflex YN ORDER UMIC; Urine Mucus 1+ /HPF (None Seen); Urine Nitrite NEGATIVE (Negative); Urine Protein NEGATIVE (Negative); Urine RBC None Seen /HPF (None Seen); Urine Urobilinogen 3+ (Normal)
[2024-07-07] MEDS: POTASSIUM CL SA 10 MEQ TAB PO SCH (19:23)
[2024-07-07] MEDS: ATORVASTATIN 20 MG TAB PO SCH (21:21)
[2024-07-08 09:39] LABS: Anion Gap 12.3 mEq/L (5.0-15.0)
[2024-07-08 09:52] LABS: Phosphorus 1.4 mg/dL (2.5-4.9); Potassium 6.3 mEq/L (3.5-5.1)
[2024-07-08 10:57] LABS: Anion Gap 12.1 mEq/L (5.0-15.0)
[2024-07-08 10:58] LABS: Potassium 6.1 mEq/L (3.5-5.1)
[2024-07-08] MEDS: SODIUM ZIRCONIUM CYCLOSILICATE 10 GM/PKT PO ONE (11:30)
[2024-07-08] MEDS: FUROSEMIDE 40 MG/4 ML VIAL IV ONE (12:18)
[2024-07-08] MEDS: NACHLORIDE 0.45% 1,000 ML IV SCH (12:18)
--- NOTE | 2024-07-08 13:12 | EKG ---
Test Date: 2024-07-06 Test Time: 16:55:49 Wire Sawyer: JANETH MEASUREMENT RESULTS: Intervals: Rate: 83 SD: 154 QRSD: 92 QT: 550 QTc: 646 [place]: P: 4 SD: 154 QRS: -43 T: 33 INTERPRETIVE STATEMENTS: Normal sinus rhythm Left axis deviation Anterior infarct, age undetermined Prolonged QT Abnormal ECG Compared to ECG 05/24/2024 11:38:55 Left-axis deviation now present Prolonged QT interval now present Sinus tachycardia no longer present Myocardial infarct finding still present Electronically Signed On 07-08-24 13:06:15 CDT by Clyde Velásquez
--- NOTE | 2024-07-08 14:12 | P.PN ---
Subjective Date of Service: 07/08/24 Chief Complaint: Generalized weakness Patient denies any complaint today. She stated her muscle cramps have resolved. She is now hyperkalemic. She denies any diarrhea or vomiting. She reports dizziness with standing. Physical Examination - Vital Signs Temperature: 98.9 F Blood Pressure: 138/65 Pulse: 66 Respirations: 16 Pulse Ox (%): 98 Assessment And Plan - Plan Physical examination General: Alert and oriented x3, NAD, HEENT: Conjunctiva not pale, anicteric sclera Neck: Supple, no elevated JVD Heart: Heart sounds 1 and 2 normal, regular rhythm, normal rate, no pedal edema Lungs: Clear to auscultation bilaterally, adequate breath sounds bilaterally, no rhonchi or crackles. Abdomen: Soft, nondistended, nontender, normal bowel sounds. Extremities: No tenderness, no deformity Skin: Normal skin turgor, no rash, no nodules or ulcers. Neuro: No focal motor deficit. Normal speech. Psychiatry: Normal mood, no agitation. Plan Syncope Secondary to hypokalemia versus orthostasis CT head negative for any acute changes Continue telemetry. Obtain orthostatic vitals. Hypokalemia/hyperkalemia Patient likely has potassium deficit. Patient now has hyperkalemia. Case discussed with nephrology Dr. Mcmanus. Treat hyperkalemia with Lasix and IV fluid. Recheck potassium in 6 hours. Continue telemetry. Hypomagnesemia Hypophosphatemia Replace magnesium as needed Replace phosphate as needed. Hypertension Continue home dose losartan. Adjust medication for target SBP of 130-140. CAD status post PCI Restless leg syndrome Anxiety Continue home medications. GI/DVT prophylaxis: Eliquis Advanced directive full code
[2024-07-08 19:16] LABS: Anion Gap 8.8 mEq/L (5.0-15.0); Potassium 4.8 mEq/L (3.5-5.1)
[2024-07-08 20:03] LABS: Magnesium 1.7 mg/dL (1.6-2.4)
[2024-07-09 06:40] LABS: Anion Gap 12.5 mEq/L (5.0-15.0); Magnesium 1.6 mg/dL (1.6-2.4); Phosphorus 2.4 mg/dL (2.5-4.9); Potassium 4.5 mEq/L (3.5-5.1)
[2024-07-09] MEDS: MAGNESIUM SULFATE 1 gm IVPB 1 GM/100 ML BAG IV ONE (08:22)
[2024-07-09 08:24] VITALS: BP 92/60
--- NOTE | 2024-07-09 08:58 | P.DS ---
Admission Date: 07/07/24 Discharge Date: 07/09/24 Disposition: CT HOME/HOME HEALTH CARE Discharge Condition: FAIR Reason for Admission: Generalized weakness Brief History of Present Illness: 73-year-old female with a past medical history of hypertension, hyperlipidemia , Diverticulitis; GERD; , CAD s/p IN; restless leg; sciatica and ulcerative colitis who came to ER with a complain headache and generalized weakness associated with dizziness and had a presyncopal episode which prompted her to come to ER. Patient denied any loss of consciousness. She also had some cramping of the hands and had a previous episode of syncope 2 days prior. She also complains of numbness of the left side of the face and bilateral feet. Patient was assessed in the ER and was found to be hypokalemic and hypomagnesemic and was admitted for further management. Hospital Course: Patient was admitted to the medical floor and the following medical problems addressed: Syncope Secondary to hypokalemia and orthostasis CT head negative for any acute changes Present systolic blood pressure was borderline low during the hospital stay. She is on losartan which is discontinued. Hypokalemia/hyperkalemia Patient likely has potassium deficit. Patient was given potassium for abnormality, she had to develop hyperkalemia which was corrected with IV Lasix and IV normal saline Case discussed with nephrology Dr. Mcmanus. Potassium level is now normal. Patient denies any complaint. Her vitals are stable for discharge Hypomagnesemia Hypophosphatemia Patient was given potassium and magnesium supplementation Hypertension Blood pressure was soft with systolic in the 90s. Patient has been complaining of dizziness with standing and his syncopal episode likely related to orthostasis. Losartan discontinued. CAD status post PCI Restless leg syndrome Anxiety Continued home medications. Acute cystitis without hematuria Patient discharged with oral Bactrim for uncomplicated UTI. Vital Signs/Physical Exam: Temp Pulse Resp BP Pulse Ox 98.6 F 65 16 92/60 100 07/09/24 04:00 07/09/24 04:00 07/09/24 04:00 07/09/24 08:23 07/09/24 04:00 General: Alert, In no apparent distress, Oriented x3 HEENT: Mucous membr. moist/pink Neck: Supple, JVD not distended Respiratory: Clear to auscultation bilaterally, Normal air movement Cardiovascular: No edema, Regular rate/rhythm, Normal S1 S2 Gastrointestinal: Normal bowel sounds, Soft and benign, Non-distended, No tenderness Musculoskeletal: No swelling, No tenderness Integumentary: No rashes, No cyanosis Neurological: Normal strength at 5/5 x4 extr, Cranial nerves 3-12 intact Laboratory Data at Discharge: WBC 5.40 thou/uL (4.3-10.9) 07/07/24 04:41 Hgb 11.3 g/dL (12.0-15.0) L D 07/07/24 04:41 Hct 32.4 % (36.0-45.0) L 07/07/24 04:41 Plt Count 274 thou/uL (152-406) 07/07/24 04:41 PT 13.2 SECONDS (9.4-12.5) H 07/06/24 17:05 INR 1.18 07/06/24 17:05 APTT 37.4 SECONDS (24.3-36.9) H 07/06/24 17:05 Sodium 134 mEq/L (136-145) L 07/09/24 06:04 Potassium 4.5 mEq/L (3.5-5.1) 07/09/24 06:04 BUN 4 mg/dL (7-18) L 07/09/24 06:04 Creatinine 0.61 mg/dL (0.55-1.02) 07/09/24 06:04 Glucose 89 mg/dL (74-106) 07/09/24 06:04 Phosphorus 2.4 mg/dL (2.5-4.9) L 07/09/24 06:04 Magnesium 1.6 mg/dL (1.6-2.4) 07/09/24 06:04 Total Bilirubin 0.9 mg/dL (0.2-1.0) 07/07/24 04:41 AST 27 U/L (15-37) 07/07/24 04:41 ALT 17 U/L (13-56) 07/07/24 04:41 Alkaline Phosphatase 59 U/L (45-117) 07/07/24 04:41 Home Medications: Atorvastatin Calcium 1 tab PO BEDTIME 01/15/24 Meclizine HCl 1 tab PO BID PRN 01/15/24 Sertraline [Zoloft*] 1 tab PO DAILY 01/15/24 Apixaban [Eliquis] 5 mg PO BID 30 Days #60 tab 01/29/24 Vitamin D [Drisdol*] 50,000 unit PO Q7D@0900 42 Days #6 cap 01/29/24 Gabapentin 300 mg PO DAILY 05/17/24 Metoprolol Tartrate [Lopressor*] 50 mg PO DAILY 05/17/24 Pantoprazole Sodium 40 mg PO DAILY 05/17/24 Sucralfate [Carafate*] 1 gm PO ACHS #120 tab 05/26/24 Smz./Tmp. [Bactrim Ds 800 MG/160 MG] 1 tab PO BID #6 tab 07/09/24 New Medications: Smz./Tmp. [Bactrim Ds 800 MG/160 MG] 1 tab PO BID #6 tab Physician Discharge Instructions: Please contact Dr. Jenkins to recheck your blood chemistry to decide if you need potassium supplementation. Diet: AHA Followup: Keegan Jenkins, [Primary Care Provider] - 1-2 Weeks Time spent managing pt's care (in minutes): 36
[2024-07-09 09:05] VITALS: O2SAT 98
[2024-07-09 10:20] VITALS: TEMP 98.4
[2024-07-14] MEDS ORDERED: DRISDOL (VITAMIN D=ERGOCALCIFEROL) 50000 UNIT CAP PO SCH (09:00)
== END 2024-07-09 12:40 | disposition home health service (06) | DRG 641 ==
LOC: ER 15:30 → ERHOLD 20:29 → 2ND 22:14 → OBSVTOIN 07-07 12:47
PROVIDERS: ADMIT Family Medicine; ATTEND Internal Medicine
DX: E87.6 Hypokalemia (principal); E44.0 Moderate protein-calorie malnutrition; N30.00 Acute cystitis without hematuria; E87.5 Hyperkalemia; E83.42 Hypomagnesemia; I10 Essential (primary) hypertension; G25.81 Restless legs syndrome; F41.9 Anxiety disorder, unspecified; E83.39 Other disorders of phosphorus metabolism; E78.00 Pure hypercholesterolemia, unspecified; K21.9 Gastro-esophageal reflux disease without esophagitis; I25.10 Atherosclerotic heart disease of native coronary artery without angina pectoris; I25.2 Old myocardial infarction; Z95.5 Presence of coronary angioplasty implant and graft; Z68.21 Body mass index [BMI] 21.0-21.9, adult; Z79.01 Long term (current) use of anticoagulants; Z90.49 Acquired absence of other specified parts of digestive tract; Z90.710 Acquired absence of both cervix and uterus; Z79.899 Other long term (current) drug therapy
CPT/HCPCS: 36415; 70450; 71045; 80048; 80053; 80076; 81001; 83735; 84100; 84132; 84484; 85025; 85610; 85730; 87086; 87088; 93005; 94760; 96374; 99285; G0378; J1940; J3475; J3480; J7040; J7050